=== PATIENT | female | born 1945 | race Caucasian/White ===

== ENCOUNTER 2020-04-19 10:14 | Outpatient (REF) | payer MEDICARE, SELFPAY ==
[2020-04-19 11:42] LABS: Blood Urea Nitrogen 23 mg/dL (9-16); Estimated Glomerular Filt Rate 59
[2020-04-19 11:56] LABS: Free T4 (Free Thyroxine) 1.04 ng/dL (0.71-1.85); Thyroid Stimulating Hormone 1.19 mIU/mL (0.32-4.0)
[2020-04-20 19:06] LABS: Triiodothyronine T3 Free 2.3 pg/mL (2.3-4.2)
== END 2020-04-19 10:15 | disposition home or self-care (01) ==
LOC: HO.HMGCLDS 10:14
PROVIDERS: PCP Internal Medicine; Visit Provider Internal Medicine
DX: R22.1 Localized swelling, mass and lump, neck (principal)
CPT/HCPCS: 82565; 84439; 84443; 84481; 84520

== ENCOUNTER 2020-04-22 09:08 | Outpatient (REF) | payer MEDICARE, SELFPAY ==
--- NOTE | 2020-04-22 09:17 | CT_ITS ---
EXAMINATION: CT SOFT TISSUE NECK WITHOUT CONTRAST CLINICAL INFORMATION: Neck mass. COMPARISON: Cervical spine CT 12/02/2019. TECHNIQUE: Helical imaging was performed in the axial plane with generation of coronal and sagittal reformatted images. This CT examination was performed using dose optimization techniques as appropriate, variously including the following: *Automated exposure control *Adjustment of mA and/or kV according to patient size (this includes techniques or standardized protocols for targeted exams where dose is matched to indication/reason for exam; i.e. extremities or head) *Use of iterative reconstruction technique FINDINGS: Exam is limited by the lack of intravenous contrast. There are thyroidectomy changes. There are multiple similar-appearing large heterogeneous density soft tissue nodules within the left paratracheal region at the level of the visceral space of the infrahyoid neck extending inferiorly into the upper mediastinum that are similar in size and appearance to the 12/02/[address] The largest nodule on image 38 of series 2 continues to measure up to 2.5 cm AP by 2.5 cm TV. In light of the patient's known history of malignancy, these findings can be further assessed with PET/CT and/or soft tissue sampling. There is atherosclerotic calcification involving the carotid bifurcations bilaterally. The parotid glands, the orbital soft tissues, and the submandibular glands are unremarkable. There is leftward deviation of the nasal septum with a leftward directed nasal septal spur and there is a jaja bullosa within the right middle turbinate. Paranasal sinuses and mastoid air cells remain well-aerated. There is multilevel cervical spondylosis. The styloid processes are elongated bilaterally which can be correlated for clinical signs of [place] syndrome. Advanced degenerative changes involving the left TMJ. Imaged upper lungs are clear. IMPRESSION: Exam is limited by the lack of intravenous contrast. There are thyroidectomy changes. The area of palpable abnormality corresponds to multiple similar-appearing large heterogeneous density soft tissue nodules within the left paratracheal region at the level of the visceral space of the infrahyoid neck extending inferiorly into the upper mediastinum that are similar in size and appearance to the 12/02/[address] The largest nodule on image 38 of series 2 continues to measure up to 2.5 cm. In light of the patient's known history of malignancy, these findings can be further assessed with PET/CT and/or soft tissue sampling. There is a 1 cm soft tissue nodule between the brachiocephalic artery and left common carotid artery within the upper mediastinum on image 108 of series 3 that can also be further assessed with PET. The styloid processes are elongated bilaterally which can be correlated for clinical signs of [place] syndrome. Advanced degenerative changes involving the left TMJ.
== END 2020-04-22 09:09 | disposition home or self-care (01) ==
LOC: HO.CT 09:08
PROVIDERS: Visit Provider Internal Medicine
DX: R22.1 Localized swelling, mass and lump, neck (principal)
CPT/HCPCS: 70490

== ENCOUNTER 2020-05-31 11:13 | Outpatient (REF) | payer MEDICARE, SELFPAY ==
--- NOTE | 2020-05-31 | PE_ITS ---
EXAMINATION: NM PET/CT FLUORINE-18 FDG CLINICAL INDICATION: Initial treatment management. Neck mass with history of breast carcinoma. COMPARISON: CT scan of the neck 04/22/2020. TECHNIQUE: 67 minutes following the intravenous administration of 16.2 mCi of fluorine 18 FDG, images from the base of the skull to the mid thighs were obtained using a combined PET/CT scanner with CT scan based attenuation correction. No intravenous contrast was administered. Transverse, coronal, sagittal, and volume reconstruction projections were obtained. The patient's blood glucose as determined by a finger stick, was 112 mg/dL immediately prior to injection. This CT examination was performed using dose optimization techniques as appropriate, variously including the following: *Automated exposure control. *Adjustment of mA and/or kV according to patient size (this includes techniques or standardized protocols for targeted exams where dose is matched to indication/reason for exam; i.e. extremities or head). *Use of iterative reconstruction technique. DLP: 331.20 mGy-cm FINDINGS: NECK AND VISUALIZED HEAD: There is no significant abnormal FDG uptake. The previously described soft tissue nodules in the left lower neck extending into the upper mediastinum, do not demonstrate abnormal FDG uptake. There is some uptake in the paraspinal muscles on the right. The visualized intracranial contents are unremarkable. There are degenerative changes of the left temporomandibular joint. As previously described, there are multiple nodules in the left lower neck. There are no pathologically enlarged lymph nodes or nodules elsewhere. The right lobe of the thyroid gland is not visualized. THORAX: There is no abnormal FDG uptake in the chest. The lungs are well expanded bilaterally. There are atelectatic changes at the bases bilaterally. No mediastinal or hilar soft tissue abnormalities are demonstrated. There are no pleural or pericardial effusions. ABDOMEN AND PELVIS: There is no abnormal FDG activity within the liver, spleen, pancreas, adrenal glands or kidneys. Patient is status post cholecystectomy. There is physiologic activity noted within the large bowel. The liver, gallbladder, spleen, pancreas, adrenal glands and kidneys are unremarkable on this unenhanced scan. There is a small calcification in the anterior upper pelvis just to the left of midline. There is diverticulosis in the sigmoid colon. No mesenteric, retroperitoneal or inguinal lymphadenopathy is demonstrated. MUSCULOSKELETAL: There is moderately intense FDG uptake noted in the right upper cervical spine, at C4-C5, C5-C6 and C6-C7, corresponding to facet arthropathic changes. Facet arthropathic changes with increased FDG uptake are noted on the right at L5-S1. There are sequelae of a right mastectomy. There are surgical clips in the right axilla. VASCULAR: There is extensive atheromatous calcification of the infrarenal abdominal aorta, and there are also atheromatous changes in the thoracic aorta, at the origins of the great vessels of the neck and the coronary arteries. PET/PET CT fusion whole body IMPRESSION: 1. The study redemonstrates soft tissue nodules in the left lower neck and upper mediastinum, which do not demonstrate abnormal FDG uptake. They may be consistent with residual thyroid tissue, and could be further evaluated with thyroid scan. 2. No suspicious FDG uptake is noted elsewhere. There is moderately intense uptake noted in the cervical and lumbar spines. 3. The patient is status post right mastectomy and cholecystectomy.
== END 2020-05-31 11:14 | disposition home or self-care (01) ==
LOC: HO.PET 11:13
PROVIDERS: Visit Provider Internal Medicine
DX: Z13.89 Encounter for screening for other disorder (principal)

== ENCOUNTER → 2020-06-23 14:40 | Outpatient (BNVA) | payer MEDICARE, SELFPAY | PROVIDERS: Visit Provider Internal Medicine Cardiovascular Disease | DX: I25.10 Atherosclerotic heart disease of native coronary artery without angina pectoris (principal); I10 Essential (primary) hypertension; R09.89 Other specified symptoms and signs involving the circulatory and respiratory systems | CPT/HCPCS: 99212 ==

== ENCOUNTER 2020-06-28 13:55 | Outpatient (REF) | payer MEDICARE, SELFPAY ==
--- NOTE | 2020-06-28 14:03 | US_ITS ---
EXAMINATION: US EXTRACRANIAL CAROTID DUPLEX, BILATERAL CLINICAL INFORMATION: 75-year-old female with a history of large left paratracheal soft tissue mass presenting with a carotid bruit. COMPARISON: CT soft tissue of 04/22/2020, PET-CT of 05/31/2020. TECHNIQUE: Real-time ultrasound and Doppler techniques (integrating B-mode 2-D vascular images, Doppler spectral analysis and color-flow Doppler imaging) were utilized to interrogate the extracranial carotid arteries, the vertebral arteries and proximal subclavian arteries bilaterally. The degree of stenosis is determined by criteria similar to NASCET. FINDINGS: Right Side: 1. There is moderate soft atherosclerotic plaque seen in the bifurcation/proximal ICA region. 2. The common carotid artery PSV proximally is 94 cm/s and distally 74 cm/s. 3. The proximal internal carotid artery velocities are 108 cm/s systolic and 22 cm/s diastolic. 4. The proximal external carotid artery PSV is 141 cm/s. 5. The vertebral artery shows a peak systolic velocities of 44 cm/s is normal waveforms. 6. The subclavian artery waveforms are normal with a peak systolic velocity of 150 cm/s.. Left Side: 1. There is minimal soft atherosclerotic plaque seen in the bifurcation/proximal ICA region. 2. The common carotid artery PSV proximally is 93 cm/s and distally 93 cm/s. 3. The proximal internal carotid artery velocities are 78 cm/s systolic and 21 cm/s diastolic. 4. The proximal external carotid artery PSV is 123 cm/s. 5. The vertebral artery shows a peak systolic velocities of 45 cm/s is normal waveforms. f 6. The subclavian artery waveforms are normal with a peak systolic velocity is 100 cm/s.. US/US carotid duplex BI IMPRESSION: 1. RIGHT: 0-49% stenosis of the proximal right internal carotid artery. 2. LEFT: 0-49% stenosis of the proximal left internal carotid artery.
== END 2020-06-28 13:56 | disposition home or self-care (01) ==
LOC: HO.HMGCX 13:55
PROVIDERS: PCP Internal Medicine; Visit Provider Internal Medicine Cardiovascular Disease
DX: R09.89 Other specified symptoms and signs involving the circulatory and respiratory systems (principal)
CPT/HCPCS: 93880

== ENCOUNTER → 2020-08-10 09:22 | Outpatient (REF) | payer MEDICARE, SELFPAY ==
--- NOTE | ~2020-08-10 | NM_ITS ---
EXAMINATION: NM THYROID UPTAKE AND SCAN CLINICAL INFORMATION: Hypothyroidism COMPARISON: CT neck 04/22/2020 TECHNIQUE: Following the oral administration of 286 microcuries of I-123 sodium iodide, thyroid uptake was performed and expressed as a percentage of the administrated dose. Gamma scintillation camera images of the thyroid in the anterior and right and left anterior oblique views were obtained using a pinhole collimator following the administration of 10 mCi Tc-99m pertechnetate. FINDINGS: The uptake is 2.10% at 4 hours and 6.76% at 24 hours. On thyroid imaging, there is diminished activity seen in both thyroid glands which appear normal size and shape. 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 There is no focal cold nodule or mass seen. NM/NM thyroid w uptake IMPRESSION: 1. Diminished thyroid uptake at 24 hours measuring 6.76 %. The normal range is 10% to 30%. Diminished thyroid activity at 4 hours measuring 2.10%. Normal range is 6-10% base. Findings consistent with hypothyroidism. 2. Diffuse decreased activity seen throughout the thyroid gland with moderate activity in the left substernal region consistent with a known goiter corresponding to CT findings 04/22/2020.
== END ==
LOC: HO.NUCMED 09:22
PROVIDERS: Visit Provider Internal Medicine
DX: R22.1 Localized swelling, mass and lump, neck (principal); E03.9 Hypothyroidism, unspecified
CPT/HCPCS: 78014; A9512; A9516

== ENCOUNTER → 2020-08-16 14:12 | Outpatient (BNVA) | payer MEDICARE, SELFPAY | PROVIDERS: PCP Internal Medicine; Visit Provider Surgery | DX: Z12.39 Encounter for other screening for malignant neoplasm of breast (principal); C50.911 Malignant neoplasm of unspecified site of right female breast | CPT/HCPCS: 99212 ==

== ENCOUNTER 2020-09-27 10:48 | Outpatient (REF) | payer MEDICARE, SELFPAY ==
--- NOTE | ~2020-09-27 | MM_ITS ---
EXAMINATION: MM SCREENING DIGITAL BREAST TOMOSYNTHESIS, LEFT CLINICAL INFORMATION: Right mastectomy for breast cancer 2007. Due for yearly exam. COMPARISON: Mammography: 09/22/2019, 09/16/2018, 07/23/2017, 07/20/2016 TECHNIQUE: Digital breast tomosynthesis is performed in both the craniocaudal and mediolateral oblique views along with computer-aided detection (CAD). Synthesized 2D images are generated from the tomosynthesis. FINDINGS: There are scattered areas of fibroglandular density (ACR BI-RADS breast composition Category b). There are no significant masses, abnormal calcifications, or other abnormalities. Parenchymal pattern is similar to prior studies. No developing density. Skin contours are smooth. MM/MM tomosynthesis screening LT IMPRESSION: No mammographic evidence of malignancy. ASSESSMENT: BI-RADS 1: Negative RECOMMENDATION: Routine annual mammography screening. This patient's information was entered into a reminder system with a target due date for their next mammogram.
[2020-09-27 11:43] LABS: Urine Cytology See Pathology rpt
[2020-09-27 11:54] LABS: Glucose Urine UA NEG (NEG); Leukocyte Esterase Urine NEG (NEG); Nitrite Urine NEG (NEG); Specific Gravity - Urine 1.015 (1.005-1.025); Urine Blood 1+ (NEG); Urine Ketones NEG (NEG); Urine Protein NEG (NEG-TRACE)
[2020-09-27 11:58] LABS: Appearance Urine CLEAR; Color Urine YELLOW
[2020-09-27 12:34] LABS: Renal Epithelial Cells Urine TRACE /LPF; Squamous Epithelial Cell Urine 1+ /LPF
== END 2020-09-27 10:49 | disposition home or self-care (01) ==
LOC: HO.MAMMO 10:48
PROVIDERS: PCP Internal Medicine; Visit Provider Internal Medicine
DX: Z12.31 Encounter for screening mammogram for malignant neoplasm of breast (principal)
CPT/HCPCS: 77063; 77067; 81001; 87086

== ENCOUNTER → 2020-10-20 13:44 | Outpatient (BNVA) | payer MEDICARE, SELFPAY | PROVIDERS: PCP Internal Medicine; Visit Provider Internal Medicine Cardiovascular Disease | DX: I10 Essential (primary) hypertension (principal); R09.89 Other specified symptoms and signs involving the circulatory and respiratory systems; I25.10 Atherosclerotic heart disease of native coronary artery without angina pectoris; Z79.899 Other long term (current) drug therapy | CPT/HCPCS: 99212 ==

== ENCOUNTER 2020-11-29 08:23 | Outpatient (REF) | payer MEDICARE, SELFPAY ==
[2020-11-29 09:09] LABS: Blood Urea Nitrogen 21 mg/dL (9-16); Estimated Glomerular Filt Rate 54
== END 2020-11-29 08:24 | disposition home or self-care (01) ==
LOC: HO.MRI 08:23
PROVIDERS: Surgery; Visit Provider Surgery
DX: Z91.89 Other specified personal risk factors, not elsewhere classified (principal); Z90.11 Acquired absence of right breast and nipple; Z85.3 Personal history of malignant neoplasm of breast
CPT/HCPCS: 36415; 82565; 84520

== ENCOUNTER 2020-12-14 10:51 | Outpatient (REF) | payer MEDICARE, SELFPAY ==
--- NOTE | ~2020-12-14 | MR_ITS ---
EXAMINATION: MR BREAST WITHOUT AND WITH CONTRAST, BILATERAL CLINICAL INFORMATION: High-risk screening. Right mastectomy for breast cancer. COMPARISON: Mammography from 09/27/2020. PET imaging from 06/01/2020. Remote 2007 breast MRI. TECHNIQUE: Imaging was performed with a dedicated breast coil. Prior to the administration of contrast, bilateral axial T1 and bilateral axial T2 weighted sequences were obtained. After the uneventful administration of?6 mL of Gadavist, dynamic contrast-enhanced VIBRANT series through the breasts in the axial plane were performed. Subtracted images were performed and reviewed. A delayed sagittal sequence through both breasts was acquired. Additionally, CAD post-processing, including maximum intensity projections, 3-D reconstructions and kinetic analysis, were performed an independent workstation and reviewed by the interpreting radiologist is a portion of this exam. FINDINGS: The right breast is surgically absent. The left breast is comprised of scattered fibroglandular elements. The tissue undergoes mild enhancement. LEFT BREAST: No suspicious mass or dominant non-mass enhancement. Scattered foci of non-mass enhancement. Minor inferomedial retraction of the nipple is chronic and stable. No underlying abnormal enhancement. RIGHT BREAST: The right breast is surgically absent. No chest wall mass or abnormal chest wall non-mass enhancement. There is no suspicious internal mammary chain or axillary adenopathy. Limited views of the chest and abdomen are unremarkable. MR/MR breast BI wo/w con IMPRESSION: No MR specific evidence of malignancy. ASSESSMENT: Left Breast: BI-RADS 1-Negative Right Breast: BI-RADS 1-Negative RECOMMENDATIONS: Recommend routine screening per guidelines in high-risk patients.
== END 2020-12-14 10:52 | disposition home or self-care (01) ==
LOC: HO.MRI 10:51
PROVIDERS: Visit Provider Surgery
DX: Z12.39 Encounter for other screening for malignant neoplasm of breast (principal); Z85.3 Personal history of malignant neoplasm of breast; Z90.11 Acquired absence of right breast and nipple
CPT/HCPCS: 77049; A9585

== ENCOUNTER → 2021-02-15 13:47 | Outpatient (BNVA) | payer MEDICARE, SELFPAY | PROVIDERS: PCP Internal Medicine; Visit Provider Nurse Practitioner Family | DX: I25.10 Atherosclerotic heart disease of native coronary artery without angina pectoris (principal); I10 Essential (primary) hypertension; R09.89 Other specified symptoms and signs involving the circulatory and respiratory systems; Z98.890 Other specified postprocedural states | CPT/HCPCS: 99212 ==

== ENCOUNTER 2021-04-18 08:25 | Outpatient (REF) | payer MEDICARE, SELFPAY ==
[2021-04-18 12:04] LABS: MANUAL DIFF FLAG NO
[2021-04-18 12:08] LABS: Basophils Percent Auto 0.6 % (0-2); Eosinophils Absolute Auto 0.2 X10*3/uL (0.0-0.4); Eosinophils Percent Auto 3.3 % (0-4); Hematocrit 41.7 % (37-47); Hemoglobin 13.6 g/dl (12.0-16.0); Imm Gran Abs Auto 0.01 X10*3/uL (0.00-0.03); Imm Gran Pct Auto 0.2 % (0.0-0.4); Lymphocytes Absolute Auto 2.3 X10*3/uL (1.2-4.9); Lymphocytes Percent Auto 36.1 % (20-40); Mean Corpuscular HGB Conc 32.6 g/dl (31.0-35.0); Mean Corpuscular Hemoglobin 29.8 pg (27.0-33.0); Mean Corpuscular Volume 91.4 fL (80-98); Mean Platelet Volume 10.8 fL (9.4-12.3); Monocytes Absolute Auto 0.5 X10*3/uL (0.1-1.2); Monocytes Percent Auto 8.4 % (2-11); Neutrophils Absolute Auto 3.3 X10*3/uL (2.0-8.3); Neutrophils Percent Auto 51.4 % (45-73); Platelet Count 229 X10*3/uL (160-400); Red Blood Count 4.56 X10*6/uL (4.20-5.50); Red Cell Distribution Width 13.8 % (11.0-16.0); White Blood Count 6.3 X10*3/uL (4.8-10.8)
[2021-04-18 12:20] LABS: Alanine Aminotransferase 14 U/L (0-31); Albumin Level 4.2 g/dL (3.5-5.0); Alkaline Phosphatase 72 U/L (39-117); Anion Gap 13 (12-20); Aspartate Amino Transferase 19 U/L (5-31); Bilirubin Total 0.6 mg/dL (0.0-1.0); Blood Urea Nitrogen 19 mg/dL (9-16); Calcium 9.2 mg/dL (8.4-10.2); Carbon Dioxide 23 mmol/L (22-29); Chloride 109 mmol/L (96-108); Cholesterol 130 mg/dL; Estimated Glomerular Filt Rate 55; Glucose Random 107 mg/dL (60-115); HDL Cholesterol 51 mg/dL; LDL Cholesterol Calculated 53 mg/dl; Potassium 4.2 mmol/L (3.3-5.1); Sodium 141 mmol/L (135-145); Total Protein 6.7 g/dL (6.5-8.0); Triglycerides 131 mg/dL
[2021-04-18 12:40] LABS: Thyroid Stimulating Hormone 2.23 uIU/mL (0.32-4.0)
== END 2021-04-18 08:26 | disposition home or self-care (01) ==
LOC: HO.HMGCLDS 08:25
PROVIDERS: PCP Internal Medicine; Visit Provider Internal Medicine
DX: F41.9 Anxiety disorder, unspecified (principal); I25.10 Atherosclerotic heart disease of native coronary artery without angina pectoris; E78.00 Pure hypercholesterolemia, unspecified; E03.9 Hypothyroidism, unspecified; K21.9 Gastro-esophageal reflux disease without esophagitis; K58.9 Irritable bowel syndrome, unspecified
CPT/HCPCS: 36415; 80053; 80061; 84443; 85025

== ENCOUNTER 2021-08-08 11:11 | Outpatient (REF) | payer MEDICARE, SELFPAY ==
[2021-08-08 12:25] LABS: Blood Urea Nitrogen 22 mg/dL (9-16); Estimated Glomerular Filt Rate 57
== END 2021-08-08 11:12 | disposition home or self-care (01) ==
LOC: HO.LAB 11:11
PROVIDERS: PCP Internal Medicine; Visit Provider Ophthalmology Glaucoma Specialist
DX: H47.292 Other optic atrophy, left eye (principal)
CPT/HCPCS: 36415; 82565; 84520

== ENCOUNTER → 2021-08-15 14:49 | Outpatient (BNVA) | payer MEDICARE, SELFPAY | PROVIDERS: PCP Internal Medicine; Visit Provider Surgery | DX: Z85.3 Personal history of malignant neoplasm of breast (principal); Z90.11 Acquired absence of right breast and nipple | CPT/HCPCS: 99212 ==

== ENCOUNTER → 2021-08-21 13:51 | Outpatient (BNVA) | payer MEDICARE, SELFPAY | PROVIDERS: PCP Internal Medicine; Visit Provider Internal Medicine Cardiovascular Disease | DX: I10 Essential (primary) hypertension (principal) | CPT/HCPCS: 93005; 99212 ==

== ENCOUNTER 2021-08-24 14:29 | Outpatient (REF) | payer MEDICARE, OTHER, SELFPAY ==
--- NOTE | ~2021-08-24 | MR_ITS ---
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 COMPARISON: CT neck from 04/22/2020. Brain MRI from 12/02/2019. TECHNIQUE: MRI of the brain was obtained using routine sequences without and following the administration of 6 mL of Gadavist intravenous contrast. FINDINGS: No focal restricted diffusion is demonstrated to suggest acute or subacute cerebral ischemia. No evidence of acute or chronic hemorrhagic products on heme-sensitive imaging. Scattered periventricular, deep white matter, and brainstem T2 FLAIR hyperintensities consistent with mild to moderate underlying microangiopathy. Chronic small lacunar infarct versus prominent perivascular space within the right midbrain. Proportional prominence of the ventricles and sulcal spaces without evidence of obstructive hydrocephalus. No abnormal mass effect. No midline shift. Normal appearance of the pituitary gland. Normal positioning of the cerebellar tonsils. Normal arterial and venous vascular flow voids are present. No abnormal contrast enhancement. Normal, homogeneous marrow signal. Moderate degenerative spondyloarthropathy of the visualized upper cervical spine. Mild mucosal thickening of the paranasal sinuses. No signal abnormalities within the mastoids. No demonstrated abnormalities of the orbits on limited evaluation. MR/MR head/brain wo/w con IMPRESSION: 1. No acute intracranial abnormalities. No abnormal intracranial enhancement. 2. Mild to moderate underlying microangiopathy and generalized cerebral volume loss.
== END 2021-08-24 14:30 | disposition home or self-care (01) ==
LOC: HO.MRI 14:29
PROVIDERS: Visit Provider Ophthalmology Glaucoma Specialist
DX: H47.292 Other optic atrophy, left eye (principal)
CPT/HCPCS: 70553; A9585

== ENCOUNTER 2021-10-02 13:47 | Outpatient (REF) | payer MEDICARE, OTHER, SELFPAY ==
--- NOTE | ~2021-10-02 | MM_ITS ---
EXAMINATION: MM SCREENING DIGITAL BREAST TOMOSYNTHESIS, LEFT CLINICAL INFORMATION: Right mastectomy for breast cancer, 2007. Due for yearly. COMPARISON: Mammography: 09/27/2020, 09/22/2019, 09/16/2018; MR breasts 12/14/2020 TECHNIQUE: Digital breast tomosynthesis is performed in both the craniocaudal and mediolateral oblique views along with computer-aided detection (CAD). Synthesized 2D images are generated from the tomosynthesis. FINDINGS: There are scattered areas of fibroglandular density (ACR BI-RADS breast composition Category b). There are no significant masses, abnormal calcifications, or other abnormalities. Parenchymal pattern is similar to prior studies. There is no developing density or architectural abnormality. The axilla and skin contours are unremarkable. No significant changes. MM/MM tomosynthesis screening LT IMPRESSION: No mammographic evidence of malignancy. ASSESSMENT: BI-RADS 1: Negative RECOMMENDATION: Routine annual mammography screening. This patient's information was entered into a reminder system with a target due date for their next mammogram.
== END 2021-10-02 13:48 | disposition home or self-care (01) ==
LOC: HO.MAMMO 13:47
PROVIDERS: Visit Provider Surgery
DX: Z12.31 Encounter for screening mammogram for malignant neoplasm of breast (principal)
CPT/HCPCS: 77063; 77067

== ENCOUNTER → 2022-05-03 13:24 | Outpatient (BNVA) | payer MEDICARE, OTHER, SELFPAY | PROVIDERS: PCP Internal Medicine; Referring Provider Internal Medicine; Visit Provider Nurse Practitioner Family | DX: I25.10 Atherosclerotic heart disease of native coronary artery without angina pectoris (principal); I10 Essential (primary) hypertension; R09.89 Other specified symptoms and signs involving the circulatory and respiratory systems; Z98.890 Other specified postprocedural states | CPT/HCPCS: 99212 ==

== ENCOUNTER 2022-06-19 08:21 | Outpatient (REF) | payer MEDICARE, SELFPAY ==
[2022-06-19 11:33] LABS: Appearance Urine Clear; Color Urine Yellow; Glucose Urine UA Negative (Negative); Leukocyte Esterase Urine Trace (Negative); Nitrite Urine Negative (Negative); PH 5.5 (5.0-9.0); Specific Gravity - Urine 1.015 (1.005-1.025); UMIC TRIGGER UA YES; Urine Blood Small (1+) (Negative); Urine Ketones Negative (Negative); Urine Protein Negative (Neg-Trace)
[2022-06-19 11:43] LABS: Bacteria Urine None Seen (None Seen); Hyaline Casts Urine 0-2 /LPF (0-2); RBC Urine 0-2 /HPF (0-2); WBC Urine 0-5 /HPF (0-5)
[2022-06-19 11:47] LABS: MANUAL DIFF FLAG NO
[2022-06-19 12:19] LABS: Basophils Absolute Auto 0.1 X10*3/uL (0.0-0.2); Eosinophils Absolute Auto 0.2 X10*3/uL (0.0-0.4); Eosinophils Percent Auto 2.1 % (0-4); Hematocrit 44.4 % (37.0-47.0); Hemoglobin 14.4 g/dl (12.0-16.0); Imm Gran Abs Auto 0.02 X10*3/uL (0.00-0.03); Imm Gran Pct Auto 0.3 % (0.0-0.4); Lymphocytes Absolute Auto 2.1 X10*3/uL (1.2-4.9); Lymphocytes Percent Auto 29.4 % (20-40); Mean Corpuscular HGB Conc 32.4 g/dl (31.0-35.0); Mean Corpuscular Hemoglobin 29.9 pg (27.0-33.0); Mean Corpuscular Volume 92.3 fL (80.0-98.0); Mean Platelet Volume 10.8 fL (9.4-12.3); Monocytes Absolute Auto 0.7 X10*3/uL (0.1-1.2); Monocytes Percent Auto 9.9 % (2-11); Neutrophils Absolute Auto 4.1 x10*3/uL (2.0-8.3); Neutrophils Percent Auto 57.3 % (45-73); Platelet Count 229 X10*3/uL (160-400); Red Blood Count 4.81 X10*6/uL (4.20-5.50); Red Cell Distribution Width 13.7 % (11.0-16.0); White Blood Count 7.2 X10*3/uL (4.8-10.8)
[2022-06-19 12:45] LABS: Alanine Aminotransferase 16 U/L (0-31); Albumin Level 4.3 g/dL (3.5-5.0); Alkaline Phosphatase 71 U/L (39-117); Anion Gap 15 (12-20); Aspartate Amino Transferase 21 U/L (5-31); Bilirubin Total 0.8 mg/dL (0.0-1.0); Blood Urea Nitrogen 25 mg/dL (9-16); Calcium 9.8 mg/dL (8.4-10.2); Carbon Dioxide 24 mmol/L (22-29); Chloride 107 mmol/L (96-108); Cholesterol 138 mg/dL; Estimated Glomerular Filt Rate 59; Glucose Fasting 105 mg/dL (60-99); HDL Cholesterol 53 mg/dL; LDL Cholesterol Calculated 55 mg/dl; Potassium 4.3 mmol/L (3.3-5.1); Sodium 142 mmol/L (135-145); Thyroid Stimulating Hormone 1.75 uIU/mL (0.32-4.0); Total Protein 6.8 g/dL (6.5-8.0); Triglycerides 152 mg/dL; Vitamin D 25-OH Total 35.4 ng/mL (>30)
== END 2022-06-19 08:22 | disposition home or self-care (01) ==
LOC: HO.HMGCLDS 08:21
PROVIDERS: PCP Internal Medicine; Visit Provider Internal Medicine
DX: I10 Essential (primary) hypertension (principal); E78.00 Pure hypercholesterolemia, unspecified; I25.10 Atherosclerotic heart disease of native coronary artery without angina pectoris; E03.9 Hypothyroidism, unspecified; K21.9 Gastro-esophageal reflux disease without esophagitis; K58.9 Irritable bowel syndrome, unspecified; F41.9 Anxiety disorder, unspecified
CPT/HCPCS: 36415; 80053; 80061; 81001; 82306; 84443; 85025

== ENCOUNTER → 2022-08-16 09:31 | Outpatient (BNVA) | payer MEDICARE, SELFPAY | PROVIDERS: PCP Internal Medicine; Visit Provider Surgery | DX: Z12.39 Encounter for other screening for malignant neoplasm of breast (principal); C50.911 Malignant neoplasm of unspecified site of right female breast | CPT/HCPCS: 99212 ==

== ENCOUNTER 2022-09-28 11:03 | Inpatient (IN) | payer MEDICARE, OTHER, SELFPAY ==
--- NOTE | ~2022-09-28 | CT_ITS ---
EXAMINATION: CT ABDOMEN AND PELVIS WITH CONTRAST CLINICAL INFORMATION: Left lower quadrant pain. COMPARISON: Prior CT dated 04/20/2010. TECHNIQUE: Multidetector volumetric images were obtained from the superior aspect of the liver through the pubic symphysis following administration 85 mL of Omnipaque 350 intravenous contrast. Sagittal and coronal reformatted images were obtained on the technologist's workstation. Oral contrast: None This CT examination was performed using dose optimization techniques as appropriate, variously including the following: *Automated exposure control *Adjustment of mA and/or kV according to patient size (this includes techniques or standardized protocols for targeted exams where dose is matched to indication/reason for exam; i.e. extremities or head) *Use of iterative reconstruction technique DLP: 460 mGy-cm FINDINGS: LUNG BASES: Minimal dependent atelectasis. Calcific atherosclerosis in the coronary arteries. Status post right mastectomy. LIVER, GALLBLADDER, AND BILIARY TREE: The liver is normal in size, shape, and attenuation. No focal hepatic lesion or biliary ductal dilatation is present. The gallbladder is surgically absent. PANCREAS: Unremarkable. SPLEEN: Unremarkable. ADRENAL GLANDS: Unremarkable. KIDNEYS AND URETERS: The kidneys are normal in size and attenuation. Multiple foci of renal cortical scarring are evident at the right kidney. No hydronephrosis, hydroureter, or calculi seen. No perinephric stranding. BLADDER: Unremarkable. GASTROINTESTINAL TRACT: Marked colonic wall thickening is evident from the level of the splenic flexure through the descending and sigmoid colon to the rectum. Surrounding fat stranding is most pronounced in the descending colon. No intraperitoneal free air or significant free fluid. Stomach, small bowel, and colon are normal in caliber. The small bowel is normal in course and caliber without wall thickening. No findings of acute appendicitis, though the appendix is not well seen. ABDOMINAL WALL: Small fat-containing umbilical hernia. No bowel involvement. LYMPH NODES: Normal. VASCULAR: Calcific atherosclerosis is present in the abdominal aorta and iliac arteries. No aneurysmal dilatation. PELVIC VISCERA: Unremarkable. OSSEOUS STRUCTURES: Mild multilevel degenerative disc disease in the lumbar spine. Mild osteoarthritis in the hips and SI joints. No acute osseous findings. CT/CT abdomen pelvis w IV con IMPRESSION: Acute on chronic colitis extending from the splenic flexure through the rectum, most pronounced in the descending colon. This is most likely inflammatory in nature. Query history of Crohn's disease or ulcerative colitis. Infectious or ischemic colitis are less likely. Fleischner guidelines were followed.
--- NOTE | 2022-09-28 11:11 | ED.GIBLEED ---
HPI - GI Bleed General Chief complaint: GI Bleed <ANGELLA Deng - Last Filed: 09/28/22 11:16> Stated complaint: internal bleeding <ANGELLA Deng Last Filed: 09/28/22 11:16> Time Seen by Provider: 09/28/22 11:21 <ANGELLA Deng - Last Filed: 09/28/22 11:16> Source: patient <ANGELLA Patricia Last Filed: 09/28/22 15:21> Mode of arrival: ambulatory <ANGELLA Patricia Last Filed: 09/28/22 15:21> Limitations: no limitations <ANGELLA Patricia Last Filed: 09/28/22 15:21> History of Present Illness HPI Narrative: 77 yo female with history of HTN, CAD s/p cath, history of GI bleed in 2009 due to colitis who presents to the ER for evaluation of new onset of bloody diarrhea and LLQ pain that started last night. She states the has had 4 episodes of bloody stools, since last night. She cannot tell if the stool is bloody itself or if the blood is just in the toilet bowel. She has some rectal discomfort as well. No history of hemorrhoids. No recent constipation. No nausea or vomiting, no fevers but has had some chills. She reports feeling weak, lightheaded and SOB since the bleeding started. She states the left sided abdominal pain radiates through the entire left side, 6/10 in severity. <ANGELLA Patricia Last Filed: 09/28/22 15:21> MD complaint: blood streaked stool <ANGELLA Patricia Last Filed: 09/28/22 15:21> Onset (ago): day(s) (1) <ANGELLA Patricia Last Filed: 09/28/22 15:21> Pain Consistency: intermittent <ANGELLA Patricia Last Filed: 09/28/22 15:21> Severity: moderate <ANGELLA Patricia Last Filed: 09/28/22 15:21> Relieving factors: none <ANGELLA Patricia Last Filed: 09/28/22 15:21> Exacerbating factors: bowel movement <ANGELLA Patricia - Last Filed: 09/28/22 15:21> Context: history of GI bleed <ANGELLA Patricia - Last Filed: 09/28/22 15:21> Associated symptoms: abdominal pain, chills, shortness of breath and weakness <ANGELLA Patricia - Last Filed: 09/28/22 15:21> Treatments Prior to Arrival: none <ANGELLA Patricia - Last Filed: 09/28/22 15:21> Related Data Home medications: Home Medications Medication Instructions Recorded Confirmed levothyroxine 50 mcg tablet 50 mcg PO DAILY 06/23/20 09/28/22 losartan 100 mg tablet 100 mg PO DAILY 06/23/20 09/28/22 pantoprazole 40 mg tablet,delayed 40 mg PO DAILY 06/23/20 09/28/22 release propranolol 10 mg tablet 10 mg PO BID 10/20/20 09/28/22 simvastatin 40 mg tablet 40 mg PO BEDTIME 02/15/21 09/28/22 lorazepam 0.5 mg tablet 0.5 mg PO DAILY PRN Anxiety 08/16/22 09/28/22 Previous Rx's Medication Instructions Recorded prosthetics #3 inserts 12/19/20 <ANGELLA Deng - Last Filed: 09/28/22 11:16> Allergies/Adverse reactions: Allergies Allergy/AdvReac Type Severity Reaction Status Date / Time meperidine [From Demerol] AdvReac Mild NAUSEA/VOMI Verified 08/16/22 09:45 TING <ANGELLA Deng - Last Filed: 09/28/22 11:16> Review of Systems Review of Systems: Yes all other systems are reviewed and are negative <ANGELLA Patricia - Last Filed: 09/28/22 15:21> [facility] Past Medical History Medical History: Medical History CAD (coronary artery disease) Carotid bruit Hypertension Lobular carcinoma of right breast <ANGELLA Deng Last Filed: 09/28/22 11:16> Surgical History: Surgical History History of cardiac cath History of laparoscopic cholecystectomy History of right breast biopsy History of right mastectomy Hx of BSO (bilateral salpingo-oophorectomy) S/P NIKO (total abdominal hysterectomy) <ANGELLA Deng - Last Filed: 09/28/22 11:16> Family History Family History: Family History Father Colon cancer Cancer Mother Diabetes Child No Financial Resp Cancer Sister Heart attack Son Non Hodgkin's lymphoma <ANGELLA Deng - Last Filed: 09/28/22 11:16> Social History Social History: Social History Alcohol intake: never Patient Tobacco Use Status: Never used Tobacco Smoked in Last 30 Days: No Use of substances other than those prescribed or required for medical reasons: No Any prior treatment program specific to substance use: No Advance Directives: No Advance Directives Information Provided: Yes <ANGELLA Deng - Last Filed: 09/28/22 11:16> Physical Exam Vital Signs: Vital Signs: Last Vital Signs Pulse 62 09/28/22 14:06 Resp 16 09/28/22 14:06 BP 152/67 H 09/28/22 14:06 Pulse Ox 100 09/28/22 14:06 O2 Del Method Room Air 09/28/22 14:06 BMI result Body Mass Index 26.6 <ANGELLA Deng - Last Filed: 09/28/22 11:16> Vital Signs: Last Vital Signs Pulse 62 09/28/22 14:06 Resp 16 09/28/22 14:06 BP 152/67 H 09/28/22 14:06 Pulse Ox 100 09/28/22 14:06 O2 Del Method Room Air 09/28/22 14:06 BMI result Body Mass Index 26.6 <ANGELLA Patricia - Last Filed: 09/28/22 15:21> Appearance: Alert. Oriented X3. No acute distress. Pale Eyes: Pupils equal, round and reactive to light. Conjunctival pallor ENT: Pharynx normal. Moist mucus membranes Neck: Normal inspection. Neck supple. CVS: Normal heart rate and rhythm. Pulses normal. Respiratory: No respiratory distress. Breath sounds normal. Abdomen: Soft with left sided tenderness of the periumbilical regoin and left lower quadrant, +guarding but no rebound. +BS x4 DWAIN: erythematous rectal mucosa, no palpable hemorrhoids, maroon heme + stool Skin: Skin warm and dry. Normal skin color. Normal skin turgor. No rashes. Extremities: No lower extremity edema. Neuro: Oriented X 3. No motor deficit. No sensory deficit. <ANGELLA Patricia - Last Filed: 09/28/22 15:21> Course Course Course Narrative: RME--77yo F w/PMHx CAD on ASA, HTN, c/o brbpr since yesterday with assoc LLQ abd pain and lightheadedness. Denies syncope, CP/SOB Pale, +conjunctival pallor, Abd soft with LLQ ttp EKG, Labs, UA, Occult stool, Type & Screen, COVID ordered <ANGELLA Deng - Last Filed: 09/28/22 11:16> Reevaluation(s) Reevaluation #1: H/H stable. hemodyncamically stable <ANGELLA Patricia - Last Filed: 09/28/22 15:21> Medications Administered Discontinued Medications Generic Name Dose Route Start Last Admin Trade Name Freq PRN Reason Stop Dose Admin Levofloxacin 500 mg in 100 mls @ 100 mls/hr 09/28/22 14:15 09/28/22 15:06 Levaquin IV 09/28/22 15:14 100 mls/hr ONCE ONE Administration Iohexol 85 ml 09/28/22 12:44 09/28/22 12:45 Iohexol 350 Mg/Ml 75 Ml Infus..Btl IV 09/28/22 12:45 85 ml ONCE ONE Administration <ANGELLA Deng - Last Filed: 09/28/22 11:16> Medications Administered Discontinued Medications Generic Name Dose Route Start Last Admin Trade Name Freq PRN Reason Stop Dose Admin Levofloxacin 500 mg in 100 mls @ 100 mls/hr 09/28/22 14:15 09/28/22 15:06 Levaquin IV 09/28/22 15:14 100 mls/hr ONCE ONE Administration Iohexol 85 ml 09/28/22 12:44 09/28/22 12:45 Iohexol 350 Mg/Ml 75 Ml Infus..Btl IV 09/28/22 12:45 85 ml ONCE ONE Administration <ANGELLA Patricia - Last Filed: 09/28/22 15:21> Medical Decision Making Medical Decision Making MDM Narrative: 77-year-old female with history of CAD on baby aspirin, HTN, history of colitis requiring admission back in 2009 presents to the ER for evaluation of left-sided abdominal pain and bloody diarrhea that started yesterday. She is weak since the initiation of the bleeding. Last bowel movement was earlier this morning. She arrives to the ER hypertensive and bradycardic. She is on a beta-yury. She is not actively bleeding at this time. Lab workup showed no evidence of acute blood loss anemia. Normal coags and platelets. Reviewed patient's record. She was admitted here back in 2009 for GI bleeding and left lower quadrant pain. She was seen by GI and had a colonoscopy at that time. It showed a 20 cm area of the colon with resolving ischemic colitis. Biopsy showed acute mild colitis. CT scan today showing acute on chronic colitis from the splenic flexure down through the rectum. Spoke with Dr. Bowman from GI who is recommending admission, IV antibiotics. Patient updated on plan of care and agrees with plan for admission <ANGELLA Patricia - Last Filed: 09/28/22 15:21> Differential Diagnosis Differential Diagnoses: The differential diagnosis associated with the presentation includes <ANGELLA Patricia - Last Filed: 09/28/22 15:21> Diverticulitis, diverticulosis, inflammatory colitis, infectious colitis, ischemic colitis, internal or external hemorrhoids, gastroenteritis <ANGELLA Patricia - Last Filed: 09/28/22 15:21> Admission/Observation Consideration of admission/observation: Escalation of care including admission/observation considered <ANGELLA Patricia Last Filed: 09/28/22 15:21> Consult Healthcare Provider Management of the patient was discussed with: Central Supply Tech <ANGELLA Patricia - Last Filed: 09/28/22 15:21> Dr. Bowman from GI <ANGELLA Patricia - Last Filed: 09/28/22 15:21> Lab Data MDM Lab Attestation statement: I reviewed the patient's lab results. <ANGELLA Patricia Last Filed: 09/28/22 15:21> Mild leukocytosis, H&H is stable from prior lab work done. <ANGELLA Patricia - Last Filed: 09/28/22 15:21> Result Diagrams: 09/28/22 11:42 09/28/22 11:42 <ANGELLA Deng - Last Filed: 09/28/22 11:16> Labs: Lab Results 09/28/22 09/28/22 09/28/22 Range/Units 11:42 11:42 11:42 WBC 11.1 H (4.8-10.8) X10*3/uL RBC 4.97 (4.20-5.50) X10*6/uL Hgb 14.8 (12.0-16.0) g/dl Hct 44.7 (37.0-47.0) % MCV 89.9 (80.0-98.0) fL MCH 29.8 (27.0-33.0) pg MCHC 33.1 (31.0-35.0) g/dl RDW 13.5 (11.0-16.0) % Plt Count 205 (160-400) X10*3/uL MPV 9.7 (9.4-12.3) fL Immature Gran % (Auto) 0.3 (0.0-0.4) % Neut % (Auto) 78.1 H (45-73) % Lymph % (Auto) 13.5 L (20-40) % Vance % (Auto) 6.9 (2-11) % Eos % (Auto) 0.8 (0-4) % Baso % (Auto) 0.4 (0-2) % Lymph # (Auto) 1.5 (1.2-4.9) X10*3/uL Vance # (Auto) 0.8 (0.1-1.2) X10*3/uL Eos # (Auto) 0.1 (0.0-0.4) X10*3/uL Baso # (Auto) 0.0 (0.0-0.2) X10*3/uL Abs Immat Gran (auto) 0.03 (0.00-0.03) X10*3/uL Absolute Neuts (auto) 8.7 H (2.0-8.3) x10*3/uL Absolute Nucleated RBC 0.000 (0.0-0.012) X10*3/uL Nucleated RBC % (auto) 0.0 (0.0-0.2) /100WBC PT 10.8 (10.0-13.1) SEC INR 0.9 (0.9-1.1) APTT 27.4 (26.0-36.4) SEC Sodium 142 (135-145) mmol/L Potassium 3.7 (3.3-5.1) mmol/L Chloride 108 (96-108) mmol/L Carbon Dioxide 23 (22-29) mmol/L Anion Gap 15 (12-20) BUN 17 H (9-16) mg/dL Creatinine 1.08 (0.5-1.4) mg/dL Estim Creat Clear Calc 34.9 Estimated GFR 49 Random Glucose 106 (60-115) mg/dL Calcium 9.0 D (8.4-10.2) mg/dL Magnesium 2.1 (1.6-2.6) mg/dL Total Bilirubin 0.9 (0.0-1.0) mg/dL Direct Bilirubin 0.2 (0.0-0.5) mg/dL AST 19 (5-31) U/L ALT 17 (0-31) U/L Alkaline Phosphatase 85 (39-117) U/L Total Protein 6.3 L (6.5-8.0) g/dL Albumin 3.9 (3.5-5.0) g/dL Lipase 24 (8-78) U/L COVID-19 ([facility]) (Negative) COVID-19 Clin [facility] Blood Type Antibody Screen 09/28/22 09/28/22 Range/Units 11:42 11:44 WBC (4.8-10.8) X10*3/uL RBC (4.20-5.50) X10*6/uL Hgb (12.0-16.0) g/dl Hct (37.0-47.0) % MCV (80.0-98.0) fL MCH (27.0-33.0) pg MCHC (31.0-35.0) g/dl RDW (11.0-16.0) % Plt Count (160-400) X10*3/uL MPV (9.4-12.3) fL Immature Gran % (Auto) (0.0-0.4) % Neut % (Auto) (45-73) % Lymph % (Auto) (20-40) % Vance % (Auto) (2-11) % Eos % (Auto) (0-4) % Baso % (Auto) (0-2) % Lymph # (Auto) (1.2-4.9) X10*3/uL Vance # (Auto) (0.1-1.2) X10*3/uL Eos # (Auto) (0.0-0.4) X10*3/uL Baso # (Auto) (0.0-0.2) X10*3/uL Abs Immat Gran (auto) (0.00-0.03) X10*3/uL Absolute Neuts (auto) (2.0-8.3) x10*3/uL Absolute Nucleated RBC (0.0-0.012) X10*3/uL Nucleated RBC % (auto) (0.0-0.2) /100WBC PT (10.0-13.1) SEC INR (0.9-1.1) APTT (26.0-36.4) SEC Sodium (135-145) mmol/L Potassium (3.3-5.1) mmol/L Chloride (96-108) mmol/L Carbon Dioxide (22-29) mmol/L Anion Gap (12-20) BUN (9-16) mg/dL Creatinine (0.5-1.4) mg/dL Estim Creat Clear Calc Estimated GFR Random Glucose (60-115) mg/dL Calcium (8.4-10.2) mg/dL Magnesium (1.6-2.6) mg/dL Total Bilirubin (0.0-1.0) mg/dL Direct Bilirubin (0.0-0.5) mg/dL AST (5-31) U/L ALT (0-31) U/L Alkaline Phosphatase (39-117) U/L Total Protein (6.5-8.0) g/dL Albumin (3.5-5.0) g/dL Lipase (8-78) U/L COVID-19 ([facility]) Negative (Negative) COVID-19 Clin Com See Note Blood Type B Positive Antibody Screen NEGATIVE <ANGELLA Deng - Last Filed: 09/28/22 11:16> Lab Results 09/28/22 09/28/22 09/28/22 Range/Units 11:42 11:42 11:42 WBC 11.1 H (4.8-10.8) X10*3/uL RBC 4.97 (4.20-5.50) X10*6/uL Hgb 14.8 (12.0-16.0) g/dl Hct 44.7 (37.0-47.0) % MCV 89.9 (80.0-98.0) fL MCH 29.8 (27.0-33.0) pg MCHC 33.1 (31.0-35.0) g/dl RDW 13.5 (11.0-16.0) % Plt Count 205 (160-400) X10*3/uL MPV 9.7 (9.4-12.3) fL Immature Gran % (Auto) 0.3 (0.0-0.4) % Neut % (Auto) 78.1 H (45-73) % Lymph % (Auto) 13.5 L (20-40) % Vance % (Auto) 6.9 (2-11) % Eos % (Auto) 0.8 (0-4) % Baso % (Auto) 0.4 (0-2) % Lymph # (Auto) 1.5 (1.2-4.9) X10*3/uL Vance # (Auto) 0.8 (0.1-1.2) X10*3/uL Eos # (Auto) 0.1 (0.0-0.4) X10*3/uL Baso # (Auto) 0.0 (0.0-0.2) X10*3/uL Abs Immat Gran (auto) 0.03 (0.00-0.03) X10*3/uL Absolute Neuts (auto) 8.7 H (2.0-8.3) x10*3/uL Absolute Nucleated RBC 0.000 (0.0-0.012) X10*3/uL Nucleated RBC % (auto) 0.0 (0.0-0.2) /100WBC PT 10.8 (10.0-13.1) SEC INR 0.9 (0.9-1.1) APTT 27.4 (26.0-36.4) SEC Sodium 142 (135-145) mmol/L Potassium 3.7 (3.3-5.1) mmol/L Chloride 108 (96-108) mmol/L Carbon Dioxide 23 (22-29) mmol/L Anion Gap 15 (12-20) BUN 17 H (9-16) mg/dL Creatinine 1.08 (0.5-1.4) mg/dL Estim Creat Clear Calc 34.9 Estimated GFR 49 Random Glucose 106 (60-115) mg/dL Calcium 9.0 D (8.4-10.2) mg/dL Magnesium 2.1 (1.6-2.6) mg/dL Total Bilirubin 0.9 (0.0-1.0) mg/dL Direct Bilirubin 0.2 (0.0-0.5) mg/dL AST 19 (5-31) U/L ALT 17 (0-31) U/L Alkaline Phosphatase 85 (39-117) U/L Total Protein 6.3 L (6.5-8.0) g/dL Albumin 3.9 (3.5-5.0) g/dL Lipase 24 (8-78) U/L COVID-19 ([facility]) (Negative) COVID-19 Clin Com Blood Type Antibody Screen 09/28/22 09/28/22 Range/Units 11:42 11:44 WBC (4.8-10.8) X10*3/uL RBC (4.20-5.50) X10*6/uL Hgb (12.0-16.0) g/dl Hct (37.0-47.0) % MCV (80.0-98.0) fL MCH (27.0-33.0) pg MCHC (31.0-35.0) g/dl RDW (11.0-16.0) % Plt Count (160-400) X10*3/uL MPV (9.4-12.3) fL Immature Gran % (Auto) (0.0-0.4) % Neut % (Auto) (45-73) % Lymph % (Auto) (20-40) % Vance % (Auto) (2-11) % Eos % (Auto) (0-4) % Baso % (Auto) (0-2) % Lymph # (Auto) (1.2-4.9) X10*3/uL Vance # (Auto) (0.1-1.2) X10*3/uL Eos # (Auto) (0.0-0.4) X10*3/uL Baso # (Auto) (0.0-0.2) X10*3/uL Abs Immat Gran (auto) (0.00-0.03) X10*3/uL Absolute Neuts (auto) (2.0-8.3) x10*3/uL Absolute Nucleated RBC (0.0-0.012) X10*3/uL Nucleated RBC % (auto) (0.0-0.2) /100WBC PT (10.0-13.1) SEC INR (0.9-1.1) APTT (26.0-36.4) SEC Sodium (135-145) mmol/L Potassium (3.3-5.1) mmol/L Chloride (96-108) mmol/L Carbon Dioxide (22-29) mmol/L Anion Gap (12-20) BUN (9-16) mg/dL Creatinine (0.5-1.4) mg/dL Estim Creat Clear Calc Estimated GFR Random Glucose (60-115) mg/dL Calcium (8.4-10.2) mg/dL Magnesium (1.6-2.6) mg/dL Total Bilirubin (0.0-1.0) mg/dL Direct Bilirubin (0.0-0.5) mg/dL AST (5-31) U/L ALT (0-31) U/L Alkaline Phosphatase (39-117) U/L Total Protein (6.5-8.0) g/dL Albumin (3.5-5.0) g/dL Lipase (8-78) U/L COVID-19 ([facility]) Negative (Negative) COVID-19 Clin Com See Note Blood Type B Positive Antibody Screen NEGATIVE <ANGELLA Patricia - Last Filed: 09/28/22 15:21> Independent Interpretation I performed an independent interpretation of an: CT Scan <ANGELLA Patricia Last Filed: 09/28/22 15:21> Interpretation: Colitis of the left-sided colon appreciated, no abscess or perforation. <ANGELLA Patricia - Last Filed: 09/28/22 15:21> Radiology Impression Discussion of test interpretation with radiology: I have reviewed the radiologist's reading. <ANGELLA Patricia - Last Filed: 09/28/22 15:21> Radiologist Impression: CT/CT abdomen pelvis w IV con IMPRESSION: Acute on chronic colitis extending from the splenic flexure through the rectum, most pronounced in the descending colon. This is most likely inflammatory in nature. Query history of Crohn's disease or ulcerative colitis. Infectious or ischemic colitis are less likely. <ANGELLA Patricia - Last Filed: 09/28/22 15:21> Independent Historian Clinical information obtained from an independent historian. History obtained from or confirmed by: Spouse <ANGELLA Patricia - Last Filed: 09/28/22 15:21> External Record Review External record reviewed: Inpatient record, Outpatient record, Prior outpatient labs and Prior outpatient radiology <ANGELLA Patricia - Last Filed: 09/28/22 15:21> Prescription Management I considered prescription management with: Pain Medication and Antibiotic <ANGELLA Patricia - Last Filed: 09/28/22 15:21> Chronic Conditions Patient?s care impacted by: Other (CAD on ASA) <ANGELLA Patricia - Last Filed: 09/28/22 15:21> Critical Care Time Critical Care Time Critical Care Time: No <ANGELLA Patricia - Last Filed: 09/28/22 15:21> Discharge Plan Discharge Clinical Impression: Colitis, Bloody diarrhea <ANGELLA Deng Last Filed: 09/28/22 11:16> Patient Disposition: Admitted As Inpatient <ANGELLA Deng Last Filed: 09/28/22 11:16>
[2022-09-28 11:12] VITALS: BP 192/69; PULSE 56; RESP 16; O2SAT 98; BMI 26.6
--- NOTE | 2022-09-28 11:13 | ECG_ITS ---
Test Reason : GI BLEED Blood Pressure : / mmHG Vent. Rate : 058 BPM Atrial Rate : 058 BPM P-R Int : 170 ms QRS Dur : 084 ms QT Int : 406 ms P-R-T Axes : 043 002 048 degrees QTc Int : 398 ms Sinus bradycardia Nonspecific ST abnormality Abnormal ECG When compared with ECG of 03-DEC-2019 07:10, No significant change was found Referred By: Nusrat Warren Electronically Signed By:JUAN JOSE MONET MD
[2022-09-28 11:59] LABS: MANUAL DIFF FLAG NO
[2022-09-28 12:01] LABS: Basophils Percent Auto 0.4 % (0-2); Eosinophils Absolute Auto 0.1 X10*3/uL (0.0-0.4); Eosinophils Percent Auto 0.8 % (0-4); Hematocrit 44.7 % (37.0-47.0); Hemoglobin 14.8 g/dl (12.0-16.0); Imm Gran Abs Auto 0.03 X10*3/uL (0.00-0.03); Imm Gran Pct Auto 0.3 % (0.0-0.4); Lymphocytes Absolute Auto 1.5 X10*3/uL (1.2-4.9); Lymphocytes Percent Auto 13.5 % (20-40); Mean Corpuscular HGB Conc 33.1 g/dl (31.0-35.0); Mean Corpuscular Hemoglobin 29.8 pg (27.0-33.0); Mean Corpuscular Volume 89.9 fL (80.0-98.0); Mean Platelet Volume 9.7 fL (9.4-12.3); Monocytes Absolute Auto 0.8 X10*3/uL (0.1-1.2); Monocytes Percent Auto 6.9 % (2-11); Neutrophils Absolute Auto 8.7 x10*3/uL (2.0-8.3); Neutrophils Percent Auto 78.1 % (45-73); Platelet Count 205 X10*3/uL (160-400); Red Blood Count 4.97 X10*6/uL (4.20-5.50); Red Cell Distribution Width 13.5 % (11.0-16.0); White Blood Count 11.1 X10*3/uL (4.8-10.8)
[2022-09-28 12:15] LABS: COVID-19 Test Negative (Negative); IDNOW Serial# BCCEAD1C
[2022-09-28 12:21] VITALS: BP 131/64; PULSE 56; RESP 16; O2SAT 99
[2022-09-28 12:21] LABS: Alanine Aminotransferase 17 U/L (0-31); Albumin Level 3.9 g/dL (3.5-5.0); Alkaline Phosphatase 85 U/L (39-117); Anion Gap 15 (12-20); Aspartate Amino Transferase 19 U/L (5-31); Bilirubin Direct 0.2 mg/dL (0.0-0.5); Bilirubin Total 0.9 mg/dL (0.0-1.0); Blood Urea Nitrogen 17 mg/dL (9-16); Carbon Dioxide 23 mmol/L (22-29); Chloride 108 mmol/L (96-108); Creatinine Clr Calc Pharmacy 34.9; Estimated Glomerular Filt Rate 49; Glucose Random 106 mg/dL (60-115); Lipase 24 U/L (8-78); Magnesium 2.1 mg/dL (1.6-2.6); Potassium 3.7 mmol/L (3.3-5.1); Sodium 142 mmol/L (135-145); Total Protein 6.3 g/dL (6.5-8.0)
[2022-09-28 12:25] LABS: INTERNATIONAL NORM RATIO 0.9 (0.9-1.1); Prothrombin Time 10.8 SEC (10.0-13.1)
[2022-09-28 12:28] LABS: Partial Thromboplastin Time 27.4 SEC (26.0-36.4)
[2022-09-28] MEDS: iohexoL 350 MG/ML 75 ML INFUS..BTL 85 ML IV (12:45)
[2022-09-28 14:06] VITALS: BP 152/67; PULSE 62; RESP 16; O2SAT 100
--- NOTE | 2022-09-28 15:00 | P.HPHOSP_ITS ---
History of Present Illness Date of Service: 09/28/22 Attending physician on admission: Hodan Torrez Chief Complaint: Bloody diarrhea Pt is a 77-year-old female with a PMH significant for?HTN, CAD s/p cath, history of GI bleed in 2009 due to mild colitis who presents to the ED with?bloody diarrhea. Pt states symptoms began last night around 20:00pm with left-sided abdominal pain. Pt went to the bathroom where she had to strain to move her bowels. She had pain per rectum with this first movement, which started out as hard stool but soon became a liquid. Pt noted blood in the toilet after the movement. She then had another 3-4 episodes of bloody diarrhea during the night and this morning. Pt experienced abdominal pain during movements, but not rectal pain. Abdominal pain was primarily located on the right side, but also occasionally extended across upper abdomen, rated it 6/10 at its worst. Pt has been feeling tired lately and under a lot of stress d/t 's medical conditions. Patient has had some chills but denies fever, nausea, vomiting. No chest pain/pressure, palpitations. Denies shortness of breath. Patient has not traveled anywhere nor knowingly eating anything suspicious. Of note, pt was admitted to the hospital in 2009 with similar symptoms and diagnosed with ischemic colitis. She states this is the only time since then she has e xperienced these symptoms. Pt denies a history of hemorrhoids. In the ED labs were significant for mild leukocytosis of 11.1, H&H stable at 14 minute over 44.7, creatinine of 1.08 (slightly above baseline). GI panel and stool occult blood pending. CT?of abdomen and pelvis showed acute chronic coli tis extending from splenic flexure through rectum. EKG demonstrated sinus bradycardia at 58 beats per minute. Pt was treated with levofloxacin and metronidazole. Pt will be admitted to the hospital for treatment and further evaluation of colitis. Review of Systems Review of Systems: Bloody diarrhea since last night Left-sided abdominal pain since last night Chills No fever, nausea, vomiting Denies chest pain/pressure, palpitations Yes all other systems are reviewed and are negative [facility] Medical History CAD (coronary artery disease) Carotid bruit Hypertension Lobular carcinoma of right breast Family History Father Colon cancer Cancer Mother Diabetes Child No Financial Resp Cancer Sister Heart attack Son Non Hodgkin's lymphoma Surgical History History of cardiac cath History of laparoscopic cholecystectomy History of right breast biopsy History of right mastectomy Hx of BSO (bilateral salpingo-oophorectomy) S/P NIKO (total abdominal hysterectomy) Social History Alcohol intake: never Patient Tobacco Use Status: Never used Tobacco Smoked in Last 30 Days: No Use of substances other than those prescribed or required for medical reasons: No Any prior treatment program specific to substance use: No Advance Directives: No Advance Directives Information Provided: Yes Meds Allergies Allergy/AdvReac Type Severity Reaction Status Date / Time meperidine [From Demerol] AdvReac Mild NAUSEA/VOMI Verified 08/16/22 09:45 TING Active Medications: Current Medications Levofloxacin (Levaquin) 500 mg in 100 mls @ 100 mls/hr IV ONCE ONE Stop: 09/28/22 15:14 Metronidazole (Flagyl) 500 mg in 100 mls @ 100 mls/hr IV ONCE ONE Stop: 09/28/22 15:14 Pharmacy Consult (Consult Rx Perform Med Rec) 1 each MISCELLANE ONCE PRN PRN Reason: Consult order Home Medications Medication Instructions Recorded Confirmed Last Taken Type levothyroxine 50 mcg tablet 50 mcg PO DAILY 06/23/20 09/28/22 Unknown History losartan 100 mg tablet 100 mg PO DAILY 06/23/20 09/28/22 09/28/22 History pantoprazole 40 mg tablet,delayed 40 mg PO DAILY 06/23/20 09/28/22 Unknown History release propranolol 10 mg tablet 10 mg PO BID 10/20/20 09/28/22 09/28/22 History simvastatin 40 mg tablet 40 mg PO BEDTIME 02/15/21 09/28/22 09/27/22 History lorazepam 0.5 mg tablet 0.5 mg PO DAILY PRN Anxiety 08/16/22 09/28/22 Unknown History Physical Exam Vital Signs and Narrative: Vital Signs: Last Vital Signs Pulse 62 09/28/22 14:06 Resp 16 09/28/22 14:06 BP 152/67 H 09/28/22 14:06 Pulse Ox 100 09/28/22 14:06 O2 Del Method Room Air 09/28/22 14:06 BMI result Body Mass Index 26.6 Constitutional: Alert, in no acute distress. Mental Status: Oriented to person, place and time. Eyes: Pupils are equal, round, and reactive to light. Ear, Nose, and Throat: Oropharynx clear, mucous membranes moist. Ears and nose without deformities. Trachea midline. Respiratory: Clear to auscultation bilaterally. No wheezing, rales, or rhonchi. Cardiovascular: S1, S2 regular. No murmurs, rubs, or gallops. Gastrointestinal: Abdomen soft, non-distended, with left-sided tenderness. No rebound tenderness. Normal bowel sounds. Neurologic: Cranial nerves II-XII are grossly intact bilaterally. No focal neurological deficits. Moves all extremities spontaneously. Skin: No rashes or lesions noted. Musculoskeletal: No cyanosis or clubbing. Extremities: No edema. Psychiatric: Normal mood and affect. Results Labs 09/28/22 11:42 09/28/22 11:42 Labs: Laboratory Results - last 24 hr 09/28/22 09/28/22 09/28/22 11:42 11:42 11:42 MCV 89.9 MCH 29.8 MCHC 33.1 RDW 13.5 Plt Count 205 MPV 9.7 Immature Gran % (Auto) 0.3 Neut % (Auto) 78.1 H Lymph % (Auto) 13.5 L [place] % (Auto) 6.9 Eos % (Auto) 0.8 Baso % (Auto) 0.4 Lymph # (Auto) 1.5 [place] # (Auto) 0.8 Eos # (Auto) 0.1 Baso # (Auto) 0.0 Abs Immat Gran (auto) 0.03 Absolute Neuts (auto) 8.7 H Absolute Nucleated RBC 0.000 Nucleated RBC % (auto) 0.0 PT 10.8 INR 0.9 APTT 27.4 Anion Gap 15 Estim Creat Clear Calc 34.9 Estimated GFR 49 Random Glucose 106 Calcium 9.0 D Magnesium 2.1 Total Bilirubin 0.9 Direct Bilirubin 0.2 AST 19 ALT 17 Alkaline Phosphatase 85 Total Protein 6.3 L Albumin 3.9 Lipase 24 COVID-19 (MERRY) COVID-19 Clin Com Blood Type Antibody Screen 09/28/22 09/28/22 11:42 11:44 MCV MCH MCHC RDW Plt Count MPV Immature Gran % (Auto) Neut % (Auto) Lymph % (Auto) [place] % (Auto) Eos % (Auto) Baso % (Auto) Lymph # (Auto) [place] # (Auto) Eos # (Auto) Baso # (Auto) Abs Immat Gran (auto) Absolute Neuts (auto) Absolute Nucleated RBC Nucleated RBC % (auto) PT INR APTT Anion Gap Estim Creat Clear Calc Estimated GFR Random Glucose Calcium Magnesium Total Bilirubin Direct Bilirubin AST ALT Alkaline Phosphatase Total Protein Albumin Lipase COVID-19 (MERRY) Negative COVID-19 Clin Com See Note Blood Type B Positive Antibody Screen NEGATIVE Imaging Radiologist's Impressions: Impressions Abdomen/Pelvis CT 09/28/22 12:49 IMPRESSION: Acute on chronic colitis extending from the splenic flexure through the rectum, most pronounced in the descending colon. This is most likely inflammatory in nature. Query history of Crohn's disease or ulcerative colitis. Infectious or ischemic colitis are less likely. Fleischner guidelines were followed. Assessment and Plan (1) Colitis: Status: Acute (2) Bloody diarrhea: Status: Acute Plan Pt is a 77-year-old female with a PMH significant for?HTN, CAD s/p cath, history of GI bleed in 2009 due to mild colitis who presents to the ED with?bloody diarrhea. Pt will be admitted to the hospital for treatment and further evaluation of colitis. Acute colitis Pt with bloody diarrhea x 4-5 episodes since last night CT with evidence of acute colitis, inflammatory vs infectious vs ischemic Prophylactic abx: Metronidazole, ceftriaxone Check CRP, ESR Check GI panel, stool occult blood NPO in anticipation for scoping tomorrow IVF: lactated ringers GI consult Acute GI bleed Likely secondary to colitis, less likely hemorrhoids H&H stable of 14.8/44.7 Follow CBC CAD Hold aspirin d/t GI bleed Continue statin Hypothyroidism Continue levothyroxine HTN Continue home meds Full Code Attending:?Dr. Torrez DVT Prophylaxis: Pneumatic boots Pt will require a hospitalization of at least two nights for treatment of?acute colitis with IV abx. Time Spent With Patient Time: Total time managing care of this patient today ____ minutes. Quality Stroke Does the patient have a stroke diagnosis?: No VTE Prior VTE?: No VTE Risk Level:: Medical - moderate - high VTE Device Contraindication: Treatment Not Indicated VTE Drug Contraindication: N/A - Med Ordered
[2022-09-28] MEDS: levoFLOXacin/D5W 500 MG/100 ML PIGGYBACK 100 MG IV (15:06)
--- NOTE | 2022-09-28 15:13 | PHA.MEDREC ---
med rec complete, no issues Pharmacy Consult ? Medication Reconciliation Pharmacy has completed the medication reconciliation.
[2022-09-28 15:37] LABS: OBS Int Ctl Valid YES; OBS1 POSITIVE (NEGATIVE)
[2022-09-28 15:38] LABS: Appearance Urine Cloudy; Color Urine Yellow; Glucose Urine UA Negative (Negative); Leukocyte Esterase Urine Negative (Negative); Nitrite Urine Negative (Negative); PH 5.5 (5.0-9.0); Specific Gravity - Urine <= 1.005 (1.005-1.025); UMIC TRIGGER UACC YES; Urine Blood Small (1+) (Negative); Urine Ketones Negative (Negative); Urine Protein Negative (Neg-Trace)
--- NOTE | 2022-09-28 15:46 | PM.GICN ---
History of Present Illness Data of Consult Service Date: 09/28/22 Requesting physician: Adelaida Domínguez Primary Care Provider: DO BERENICE Torres Reason for consult: abdominal pain, bloody diarrhea, abnormal CT scan of the colon 77 YF with HTN, CAD s/p cath, seen at [facility] ED on 09/28/22 with LLQ pain and bloody diarrhea and LLQ pain since last night. Pt reports having 6/10 left sided abdominal pain and diarrhea since yesterday morning with 3-4 non bloody loose stools. She noted rectal bleeding since last night - 4 episodes of BRBPR and blood appeared to be mixed with the stools. She has some rectal discomfort as well. No history of hemorrhoids. Pt denied nausea or vomiting, or fevers but noted some chills. Patient reports having chills, feeling weak, lightheaded and SOB since the bleeding started. Pt reports a hx of chronic constipation and intermittent abdominal pain for the past 4-5 months. She admits to intentional wt loss of a few lbs since she stopped eating desserts. Patient reports she has CAD diagnosed on cardiac cath and takes a baby aspirin daily She denies pulmonary problems, loud snoring or sleep apnea Denies being on chronic anticoagulation or NSAIDS use. Patient denies smoking or EtOH use. She is has 2 children and lives with her . 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 Patient's maternal GM was diagnosed with rectal cancer in her 70's. IMAGING STUDIES: 09/28/[address] SCAN SHOWED: Acute on chronic colitis extending from the splenic flexure through the rectum, most pronounced in the descending colon. This is most likely inflammatory in nature. Query history of Crohn's disease or ulcerative colitis. Infectious or ischemic colitis are less likely. PAST GI HISTORY BY REVIEW OF MEDICAL RECORDS: 2009 Pt was hospitalized at [facility] for LGI bleeding EGD and Colonoscopy was performed by Dr Arguelles. EGD showed mild gastritis and small gastric polyps Colonoscopy showed changes of colitis from 20 to 40 cms consistent with resolving ischemic colitis. Biopsies showed acute colitis. Review of Systems Review of Systems: Yes all other systems are reviewed and are negative [facility] Past Medical History Medical History CAD (coronary artery disease) Carotid bruit Hypertension Lobular carcinoma of right breast Family History Family History Father Colon cancer Cancer Mother Diabetes Child No Financial Resp Cancer Sister Heart attack Son Non Hodgkin's lymphoma Surgical History Surgical History History of cardiac cath History of laparoscopic cholecystectomy History of right breast biopsy History of right mastectomy Hx of BSO (bilateral salpingo-oophorectomy) S/P NIKO (total abdominal hysterectomy) Social History Social History Household Members: Spouse Housing: Condominium Do you presently have visiting nurse or other home services: No Alcohol intake: never Patient Tobacco Use Status: Never used Tobacco service: No Current occupational status: retired [employer] Allergies Allergy/AdvReac Type Severity Reaction Status Date / Time meperidine [From Demerol] AdvReac Mild NAUSEA/VOMI Verified 10/01/22 13:45 TING Active Medications: Current Medications Pharmacy Consult (Consult Rx Perform Med Rec) 1 each MISCELLANE ONCE PRN PRN Reason: Consult order Home Medications Medication Instructions Recorded Confirmed Last Taken Type levothyroxine 50 mcg tablet 50 mcg PO DAILY 06/23/20 09/28/22 Unknown History losartan 100 mg tablet 100 mg PO DAILY 06/23/20 09/28/22 09/28/22 History pantoprazole 40 mg tablet,delayed 40 mg PO DAILY 06/23/20 09/28/22 Unknown History release propranolol 10 mg tablet 10 mg PO BID 10/20/20 09/28/22 09/28/22 History simvastatin 40 mg tablet 40 mg PO BEDTIME 02/15/21 09/28/22 09/27/22 History lorazepam 0.5 mg tablet 0.5 mg PO DAILY PRN Anxiety 08/16/22 09/28/22 Unknown History Physical Exam Vital Signs: Vital Signs: Last Vital Signs Pulse 62 09/28/22 14:06 Resp 16 09/28/22 14:06 BP 152/67 H 09/28/22 14:06 Pulse Ox 100 09/28/22 14:06 O2 Del Method Room Air 09/28/22 14:06 BMI result Body Mass Index 26.6 Const: General: healthy appearing and no acute distress Nutritional Appearance: overweight Orientation/consciousness: patient oriented x3 Limitations: no limitations HEENT: Head: Yes normal to inspection Ears: hearing grossly normal bilaterally Eyes: Sclerae: sclerae normal Pupils: Equal, round and reactive pupils present Neck: Neck: Yes normal visual inspection Chest: Chest palpation & inspection: normal inspection of the chest Resp: Effort & Inspection: normal respiratory effort Auscultation: clear to auscultation bilaterally Cardio: Palpation: normal PMI Rate: regular rate Rhythm: regular rhythm Heart sounds: S1 normal heart sound present, S2 normal heart sound present and no murmurs GI: Palpation (GI): Soft to palpation, Tenderness to palpation present (GI) (LUQ and LLQ tenderness without rebound) and No hepatosplenomegaly present Auscultation: normal bowel sounds Rectal Exam - Female: deferred Skin: General skin exam: no rashes or lesions noted Neuro: General: patient oriented x3, gait normal and moves all extremities Cranial nerves: Yes Equal, round and reactive pupils present Psych: Appearance: grossly normal Mental Status: mental status grossly normal Results Labs 09/28/22 11:42 09/28/22 11:42 Labs: Short CBC 09/28/22 Range/Units 11:42 WBC 11.1 H (4.8-10.8) X10*3/uL Hgb 14.8 (12.0-16.0) g/dl Hct 44.7 (37.0-47.0) % Plt Count 205 (160-400) X10*3/uL BMP 09/28/22 11:42 Sodium 142 Potassium 3.7 Chloride 108 Carbon Dioxide 23 BUN 17 H Creatinine 1.08 Calcium 9.0 D Liver Function 09/28/22 Range/Units 11:42 Total Bilirubin 0.9 (0.0-1.0) mg/dL Direct Bilirubin 0.2 (0.0-0.5) mg/dL AST 19 (5-31) U/L ALT 17 (0-31) U/L Alkaline Phosphatase 85 (39-117) U/L Albumin 3.9 (3.5-5.0) g/dL Urine 09/28/22 Range/Units 15:09 Urine Color Yellow Urine Appearance Cloudy Urine pH 5.5 (5.0-9.0) Ur Specific [place] <= 1.005 (1.005-1.025) Urine Protein Negative (Neg-Trace) mg/dL Urine Glucose (UA) Negative (Negative) mg/dL Assessment and Plan (1) Abnormal CT of the abdomen: Status: Acute (2) Colitis: Status: Acute (3) Bloody diarrhea: Status: Acute Plan 77 YF with HTN, CAD s/p cath, being admitted to [facility] on 09/28/22 with LLQ pain and bloody diarrhea since last night. Pt reports having 6/10 left sided abdominal pain and diarrhea since yesterday morning with 3-4 non bloody loose stools. She noted rectal bleeding since last night - 4 episodes of BRBPR and blood appeared to be mixed with the stools. Abdominal CT scan showed left sided colitis - clinical picture is suggestive of ischemic or infectious colitis. Acute presentation of IBD would be less likely. RECOMMENDATIONS: 1. Agree with checking a GI panel to rule out infectious colitis. 2. Continue IV antibiotics 3. She can be started on a clear liquid diet in the am once pain improves 4. If stool cultures are negative, I will schedule patient for a Flexible sigmoidoscopy on 10/01/22 Time Spent With Patient Time: Total time managing care of this patient today ____ minutes. Procedures Date of Service Date of Service: 09/28/22
[2022-09-28 15:49] LABS: Bacteria Urine None Seen (None Seen); Hyaline Casts Urine 0-2 /LPF (0-2); RBC Urine 0-2 /HPF (0-2); Squamous Epithelial Cell Urine 0-2 /HPF (0-2); WBC Urine 0-5 /HPF (0-5)
[2022-09-28 16:09] LABS: C Reactive Protein 1.76 mg/dL (< or = 0.50)
[2022-09-28 16:13] LABS: Lactic Acid 1.5 mmol/L (0.5-2.0)
[2022-09-28 16:19] LABS: Erythrocyte Sedimentation Rate 16 MM/HR (0-20)
[2022-09-28 16:29] VITALS: BP 137/61; PULSE 58; RESP 16; O2SAT 100
[2022-09-28] MEDS: metroNIDAZOLE/NS 500 MG/100 ML PIGGYBACK 100 MG IV (17:08)
[2022-09-28 17:54] VITALS: BP 129/59; PULSE 65; RESP 18; TEMP 36.1; O2SAT 100
[2022-09-28] MEDS: Lactated Ringers 1,000 ML 100 ML IVCONT (18:26)
[2022-09-28 20:00] VITALS: BP 149/68; PULSE 66; RESP 18; TEMP 36.3; O2SAT 98
[2022-09-28] MEDS: Propranolol HCL 10 MG TABLET PO (20:36)
[2022-09-28] MEDS: Atorvastatin Calcium 20 MG TABLET PO (20:36)
[2022-09-29] MEDS: metroNIDAZOLE/NS 500 MG/100 ML PIGGYBACK 100 MG IV ×3 (01:31→16:46)
[2022-09-29] MEDS: 0.9 % Sodium Chloride Flush 3 ML SYRINGE IVFLUSH (01:35)
[2022-09-29] MEDS: Lactated Ringers 1,000 ML 100 ML IVCONT ×3 (01:35→22:47)
[2022-09-29 03:37] VITALS: BP 137/63; PULSE 68; RESP 16; TEMP 36; O2SAT 96
[2022-09-29] MEDS: Omeprazole 20 MG CAPSULE.DR PO (06:03)
[2022-09-29] MEDS: Acetaminophen 325 MG TABLET 650 MG PO (06:03)
[2022-09-29] MEDS: Levothyroxine Sodium 50 MCG TABLET PO (06:04)
[2022-09-29 07:09] LABS: Hemoglobin 13.1 g/dl (12.0-16.0); Mean Corpuscular HGB Conc 33.6 g/dl (31.0-35.0); Mean Corpuscular Hemoglobin 30.5 pg (27.0-33.0); Mean Corpuscular Volume 90.9 fL (80.0-98.0); Mean Platelet Volume 10.1 fL (9.4-12.3); Platelet Count 173 X10*3/uL (160-400); Red Blood Count 4.29 X10*6/uL (4.20-5.50); Red Cell Distribution Width 13.9 % (11.0-16.0); White Blood Count 10.2 X10*3/uL (4.8-10.8)
[2022-09-29 07:16] VITALS: BP 112/56; PULSE 56; RESP 14; TEMP 36.9; O2SAT 95
[2022-09-29 07:26] LABS: Anion Gap 16 (12-20); Blood Urea Nitrogen 13 mg/dL (9-16); Calcium 8.4 mg/dL (8.4-10.2); Carbon Dioxide 22 mmol/L (22-29); Chloride 108 mmol/L (96-108); Creatinine Clr Calc Pharmacy 43.8; Estimated Glomerular Filt Rate > 60; Glucose Random 97 mg/dL (60-115); Potassium 3.6 mmol/L (3.3-5.1); Sodium 142 mmol/L (135-145)
[2022-09-29] MEDS: cefTRIAXone sodium 1 GM in 0.9 % Sodium Chloride 50 ML IV (07:48)
[2022-09-29 09:00] VITALS: BP 108/56; PULSE 64
[2022-09-29] MEDS: Propranolol HCL 10 MG TABLET PO ×2 (09:03→20:08)
[2022-09-29] MEDS: Losartan Potassium 50 MG TABLET 100 MG PO (09:03)
--- NOTE | 2022-09-29 10:55 | HO.PM.IMPN ---
Subjective Subjective Date of Service: 09/29/22 Interval History: Seen and evaluated for bloody diarrhea no recurrence of diarrhea overnight denies fever or chills still having pain LLQ no other overnight events Review of Systems Review of Systems: Yes all other systems are reviewed and are negative Physical Exam Vital Signs: Vital Signs: Last Vital Signs Temp 98.4 F 09/29/22 07:16 Pulse 64 09/29/22 09:00 Resp 14 09/29/22 07:16 BP 108/56 L 09/29/22 09:00 Pulse Ox 95 09/29/22 07:16 O2 Del Method Room Air 09/29/22 07:16 BMI result Body Mass Index 26.6 Const: Other: Constitutional : Awake, interactive, not in distress Neck : Normal inspection, Supple Cardiovascular : RRR, no JVP, no lower extremity edema Respiratory : good bilateral air entry, no crackles, wheezes or rhonchi Gastrointestinal: soft, lax, Normal bowel sounds, Non significant tenderness over LLQ Skin : Warm, Dry Neurological : Alert & oriented x3, No focal deficit Objective Data Active Medications Acetaminophen (Acetaminophen 325 Mg Tablet) 650 mg PO Q6H PRN PRN Reason: Pain, Mild (Pain Scale 1-3) Last Admin: 09/29/22 06:03 Dose: 650 mg Documented By: NORM Atorvastatin Calcium (Atorvastatin Calcium 20 Mg Tablet) 20 mg PO BEDTIME [facility] Last Admin: 09/28/22 20:36 Dose: 20 mg Documented By: NORM Metronidazole (Flagyl) 500 mg in 100 mls @ 100 mls/hr IV Q8H [facility] Last Infusion: 09/29/22 09:27 Dose: 0 mls/hr Documented By: LARA Ceftriaxone Sodium 1 gm/ (Sodium Chloride) 50 mls @ 100 mls/hr IV Q24H [facility] Last Infusion: 09/29/22 08:20 Dose: 0 mls/hr Documented By: COTEMA Lactated Ringer's (Lr) 1,000 mls @ 100 mls/hr IVCONT .Q10H [facility] Last Admin: 09/29/22 01:35 Dose: 100 mls/hr Documented By: NORM Levothyroxine Sodium (Levothyroxine Sodium 50 Mcg Tablet) 50 mcg PO DAILY@0600 [facility] Last Admin: 09/29/22 06:04 Dose: 50 mcg Documented By: NORM Lorazepam (Lorazepam 0.5 Mg Tablet) 0.5 mg PO DAILY PRN PRN Reason: Anxiety Losartan Potassium (Losartan Potassium 50 Mg Tablet) 100 mg PO DAILY [facility]; Protocol Last Admin: 09/29/22 09:03 Dose: 100 mg Documented By: ANNA MARIE Comments: ok to give per primary RN Omeprazole (Omeprazole 20 Mg Capsule.Dr) 20 mg PO DAILY@0630 [facility] Last Admin: 09/29/22 06:03 Dose: 20 mg Documented By: NORM Ondansetron HCl (Ondansetron Hcl 4 Mg/2 Ml Vial) 4 mg IVPUSH Q8H PRN PRN Reason: Nausea and Vomiting Pharmacy Consult (Consult Rx Perform Med Rec) 1 each MISCELLANE ONCE PRN PRN Reason: Consult order Propranolol HCl (Propranolol Hcl 10 Mg Tablet) 10 mg PO BID [facility]; Protocol Last Admin: 09/29/22 09:03 Dose: 10 mg Documented By: ANNA MARIE Comments: ok to give per primary RN Sodium Chloride (0.9 % Sodium Chloride Flush 3 Ml Syringe) 3 ml IVFLUSH QSHIFT [facility] Last Admin: 09/29/22 07:17 Dose: Not Given Documented By: VI Non-Admin Reason: IV Running Labs 09/29/22 06:23 09/29/22 06:23 Labs: Laboratory Results - last 24 hr 09/28/22 09/28/22 09/28/22 11:42 11:42 11:42 MCV 89.9 MCH 29.8 MCHC 33.1 RDW 13.5 Plt Count 205 MPV 9.7 Immature Gran % (Auto) 0.3 Neut % (Auto) 78.1 H Lymph % (Auto) 13.5 L [place] % (Auto) 6.9 Eos % (Auto) 0.8 Baso % (Auto) 0.4 Lymph # (Auto) 1.5 [place] # (Auto) 0.8 Eos # (Auto) 0.1 Baso # (Auto) 0.0 Abs Immat Gran (auto) 0.03 Absolute Neuts (auto) 8.7 H Absolute Nucleated RBC 0.000 Nucleated RBC % (auto) 0.0 ESR PT 10.8 INR 0.9 APTT 27.4 Anion Gap 15 Estim Creat Clear Calc 34.9 Estimated GFR 49 Random Glucose 106 Lactic Acid Calcium 9.0 D Magnesium 2.1 Total Bilirubin 0.9 Direct Bilirubin 0.2 AST 19 ALT 17 Alkaline Phosphatase 85 C-Reactive Protein 1.76 H Total Protein 6.3 L Albumin 3.9 Lipase 24 Urine Color Urine Appearance Urine pH Ur Specific [place] Urine Protein Urine Glucose (UA) Urine Ketones Urine Blood Urine Nitrite Ur Leukocyte Esterase Urine RBC Urine WBC Ur Squamous Epith Cells Urine Bacteria Hyaline Casts Stool Occult Blood COVID-19 ([facility]) COVID-19 Clin Com Blood Type Antibody Screen 09/28/22 09/28/22 09/28/22 11:42 11:42 11:44 MCV MCH MCHC RDW Plt Count MPV Immature Gran % (Auto) Neut % (Auto) Lymph % (Auto) [place] % (Auto) Eos % (Auto) Baso % (Auto) Lymph # (Auto) [place] # (Auto) Eos # (Auto) Baso # (Auto) Abs Immat Gran (auto) Absolute Neuts (auto) Absolute Nucleated RBC Nucleated RBC % (auto) ESR 16 PT INR APTT Anion Gap Estim Creat Clear Calc Estimated GFR Random Glucose Lactic Acid Calcium Magnesium Total Bilirubin Direct Bilirubin AST ALT Alkaline Phosphatase C-Reactive Protein Total Protein Albumin Lipase Urine Color Urine Appearance Urine pH Ur Specific [place] Urine Protein Urine Glucose (UA) Urine Ketones Urine Blood Urine Nitrite Ur Leukocyte Esterase Urine RBC Urine WBC Ur Squamous Epith Cells Urine Bacteria Hyaline Casts Stool Occult Blood COVID-19 ([facility]) Negative COVID-19 Clin Com See Note Blood Type B Positive Antibody Screen NEGATIVE 09/28/22 09/28/22 09/28/22 15:09 15:09 15:10 MCV MCH MCHC RDW Plt Count MPV Immature Gran % (Auto) Neut % (Auto) Lymph % (Auto) [place] % (Auto) Eos % (Auto) Baso % (Auto) Lymph # (Auto) [place] # (Auto) Eos # (Auto) Baso # (Auto) Abs Immat Gran (auto) Absolute Neuts (auto) Absolute Nucleated RBC Nucleated RBC % (auto) ESR PT INR APTT Anion Gap Estim Creat Clear Calc Estimated GFR Random Glucose Lactic Acid 1.5 Calcium Magnesium Total Bilirubin Direct Bilirubin AST ALT Alkaline Phosphatase C-Reactive Protein Total Protein Albumin Lipase Urine Color Yellow Urine Appearance Cloudy Urine pH 5.5 Ur Specific [place] <= 1.005 Urine Protein Negative Urine Glucose (UA) Negative Urine Ketones Negative Urine Blood Small (1+) H Urine Nitrite Negative Ur Leukocyte Esterase Negative Urine RBC 0-2 Urine WBC 0-5 Ur Squamous Epith Cells 0-2 Urine Bacteria None Seen Hyaline Casts 0-2 Stool Occult Blood POSITIVE COVID-19 ([facility]) COVID-19 Clin Com Blood Type Antibody Screen 09/29/22 09/29/22 06:23 06:23 MCV 90.9 MCH 30.5 MCHC 33.6 RDW 13.9 Plt Count 173 MPV 10.1 Immature Gran % (Auto) Neut % (Auto) Lymph % (Auto) [place] % (Auto) Eos % (Auto) Baso % (Auto) Lymph # (Auto) [place] # (Auto) Eos # (Auto) Baso # (Auto) Abs Immat Gran (auto) Absolute Neuts (auto) Absolute Nucleated RBC 0.000 Nucleated RBC % (auto) 0.0 ESR PT INR APTT Anion Gap 16 Estim Creat Clear Calc 43.8 Estimated GFR > 60 Random Glucose 97 Lactic Acid Calcium 8.4 D Magnesium Total Bilirubin Direct Bilirubin AST ALT Alkaline Phosphatase C-Reactive Protein Total Protein Albumin Lipase Urine Color Urine Appearance Urine pH Ur Specific [place] Urine Protein Urine Glucose (UA) Urine Ketones Urine Blood Urine Nitrite Ur Leukocyte Esterase Urine RBC Urine WBC Ur Squamous Epith Cells Urine Bacteria Hyaline Casts Stool Occult Blood COVID-19 ([facility]) COVID-19 Clin Com Blood Type Antibody Screen Assessment and Plan (1) Colitis: Status: Acute (2) Bloody diarrhea: Status: Acute Plan Pt is a 77-year-old female with a PMH significant for?HTN, CAD s/p cath, history of GI bleed in 2009 due to mild colitis who presents to the ED with?bloody diarrhea. Pt will be admitted to the hospital for treatment and further evaluation of colitis. Acute colitis, ischemic vs infectious no bloody diarrhea since last night CT with evidence of acute colitis, inflammatory vs infectious vs ischemic Continue IVF Continue Metronidazole, ceftriaxone pending GI panel NPO i for scope today GI consult Acute GI bleed secondary to colitis H&H stable of 14.8/44.7 Follow CBC CAD Hold aspirin d/t GI bleed Continue statin Hypothyroidism Continue levothyroxine HTN Continue home meds Full Code Attending:?Dr. Torrez DVT Prophylaxis: Pneumatic boots Pt will require a hospitalization overnight for treatment of?acute colitis with IV abx. Time Spent With Patient Time: Total time managing care of this patient today ____ minutes. Quality Stroke Does the patient have a stroke diagnosis?: No VTE Prior VTE?: No VTE Risk Level:: Medical - moderate - high VTE Device Contraindication: Treatment Not Indicated VTE Drug Contraindication: N/A - Med Ordered
--- NOTE | 2022-09-29 14:08 | MHC.CM.PN ---
PT REPORTS SHE LIVES WITH HER AND IS INDEPENDENT WITH CARE PT HAS NO DME AND NO HOME SERVICES SHE IS COVID [place]AX SHE REQUESTS HCP PAPERWORK TO TAKE HOME WITH HER PCP: ERA [facility]ERGERON IMM DELIVERED CURRENT DC PLAN IS HOME WITH NO SERVICES TO TRANSPORT
[2022-09-29 15:06] VITALS: BP 121/58; PULSE 70; RESP 16; TEMP 35.5; O2SAT 95
--- NOTE | 2022-09-29 15:13 | PC.NURSE ---
MD Torrez notified of formed brown BM with bloody clots, BP 121/58, no new orders at this time.
[2022-09-29 15:29] VITALS: TEMP 36.4
[2022-09-29 19:35] VITALS: BP 146/66; PULSE 64; RESP 16; TEMP 35.9; O2SAT 96
[2022-09-30] MEDS: Acetaminophen 325 MG TABLET 650 MG PO (00:24)
[2022-09-30] MEDS: metroNIDAZOLE/NS 500 MG/100 ML PIGGYBACK 100 MG IV ×3 (00:27→16:58)
[2022-09-30 03:22] VITALS: BP 124/61; PULSE 76; RESP 16; TEMP 36.3; O2SAT 94
[2022-09-30] MEDS: Omeprazole 20 MG CAPSULE.DR PO (05:47)
[2022-09-30] MEDS: Levothyroxine Sodium 50 MCG TABLET PO (05:47)
--- NOTE | 2022-09-30 06:07 | PC.NURSE ---
Midnight VSS. Pt tolerating clear liquid diet and IV fluids. IV antibiotics as ordered. Pt medicated with Tylenol for pain with relief X1-see MAR. Pt ambulating with a steady gait. Call turcios within reach. Will continue to monitor.
[2022-09-30 06:23] LABS: Hemoglobin 12.3 g/dl (12.0-16.0); Mean Corpuscular HGB Conc 33.2 g/dl (31.0-35.0); Mean Corpuscular Hemoglobin 30.4 pg (27.0-33.0); Mean Corpuscular Volume 91.4 fL (80.0-98.0); Platelet Count 170 X10*3/uL (160-400); Red Blood Count 4.05 X10*6/uL (4.20-5.50); Red Cell Distribution Width 13.9 % (11.0-16.0); White Blood Count 9.1 X10*3/uL (4.8-10.8)
[2022-09-30 06:39] LABS: Anion Gap 13 (12-20); Blood Urea Nitrogen 12 mg/dL (9-16); Carbon Dioxide 24 mmol/L (22-29); Chloride 109 mmol/L (96-108); Creatinine Clr Calc Pharmacy 44.3; Estimated Glomerular Filt Rate > 60; Glucose Random 88 mg/dL (60-115); Potassium 3.3 mmol/L (3.3-5.1); Sodium 143 mmol/L (135-145)
[2022-09-30 07:27] VITALS: BP 141/66; PULSE 62; RESP 16; TEMP 36.6; O2SAT 95
[2022-09-30] MEDS: Propranolol HCL 10 MG TABLET PO ×2 (08:24→20:16)
[2022-09-30] MEDS: Losartan Potassium 50 MG TABLET 100 MG PO (08:24)
[2022-09-30] MEDS: cefTRIAXone sodium 1 GM in 0.9 % Sodium Chloride 50 ML IV (08:25)
[2022-09-30] MEDS: Lactated Ringers 1,000 ML 100 ML IVCONT ×2 (09:00→18:43)
--- NOTE | 2022-09-30 10:39 | HO.PM.IMPN ---
Subjective Subjective Date of Service: 09/30/22 Interval History: Seen and evaluated for bloody diarrhea had one episode of diarrhea overnight denies fever or chills still having pain LLQ no other overnight events Review of Systems Review of Systems: Yes all other systems are reviewed and are negative Physical Exam Vital Signs: Vital Signs: Last Vital Signs Temp 97.8 F 09/30/22 07:27 Pulse 62 09/30/22 07:27 Resp 16 09/30/22 07:27 BP 141/66 H 09/30/22 07:27 Pulse Ox 95 09/30/22 07:27 O2 Del Method Room Air 09/30/22 07:27 BMI result Body Mass Index 26.6 Const: Other: Constitutional : Awake, interactive, not in distress Neck : Normal inspection, Supple Cardiovascular : RRR, no JVP, no lower extremity edema Respiratory : good bilateral air entry, no crackles, wheezes or rhonchi Gastrointestinal: soft, lax, Normal bowel sounds,mild tenderness over LLQ Skin : Warm, Dry Neurological : Alert & oriented x3, No focal deficit Objective Data Active Medications Acetaminophen (Acetaminophen 325 Mg Tablet) 650 mg PO Q6H PRN PRN Reason: Pain, Mild (Pain Scale 1-3) Last Admin: 09/30/22 00:24 Dose: 650 mg Documented By: ELKE Atorvastatin Calcium (Atorvastatin Calcium 20 Mg Tablet) 20 mg PO BEDTIME [facility] Last Admin: 09/29/22 20:12 Dose: Not Given Documented By: ELKE Non-Admin Reason: Patient Refused Metronidazole (Flagyl) 500 mg in 100 mls @ 100 mls/hr IV Q8H [facility] Last Admin: 09/30/22 08:58 Dose: 100 mls/hr Documented By: COTEMA Ceftriaxone Sodium 1 gm/ (Sodium Chloride) 50 mls @ 100 mls/hr IV Q24H [facility] Last Infusion: 09/30/22 09:02 Dose: 0 mls/hr Documented By: COTEMA Lactated Ringer's (Lr) 1,000 mls @ 100 mls/hr IVCONT .Q10H [facility] Last Admin: 09/30/22 09:00 Dose: 100 mls/hr Documented By: COTEMA Levothyroxine Sodium (Levothyroxine Sodium 50 Mcg Tablet) 50 mcg PO DAILY@0600 [facility] Last Admin: 09/30/22 05:47 Dose: 50 mcg Documented By: ELKE Lorazepam (Lorazepam 0.5 Mg Tablet) 0.5 mg PO DAILY PRN PRN Reason: Anxiety Losartan Potassium (Losartan Potassium 50 Mg Tablet) 100 mg PO DAILY [facility]; Protocol Last Admin: 09/30/22 08:24 Dose: 100 mg Documented By: VI Omeprazole (Omeprazole 20 Mg Capsule.Dr) 20 mg PO DAILY@0630 [facility] Last Admin: 09/30/22 05:47 Dose: 20 mg Documented By: ELKE Ondansetron HCl (Ondansetron Hcl 4 Mg/2 Ml Vial) 4 mg IVPUSH Q8H PRN PRN Reason: Nausea and Vomiting Pharmacy Consult (Consult Rx Perform Med Rec) 1 each MISCELLANE ONCE PRN PRN Reason: Consult order Propranolol HCl (Propranolol Hcl 10 Mg Tablet) 10 mg PO BID [facility]; Protocol Last Admin: 09/30/22 08:24 Dose: 10 mg Documented By: IV Sodium Chloride (0.9 % Sodium Chloride Flush 3 Ml Syringe) 3 ml IVFLUSH QSHIFT [facility] Last Admin: 09/30/22 07:10 Dose: Not Given Documented By: VI Non-Admin Reason: IV Running Labs 09/30/22 06:07 09/30/22 06:07 Labs: Laboratory Results - last 24 hr 09/30/22 09/30/22 06:07 06:07 MCV 91.4 MCH 30.4 MCHC 33.2 RDW 13.9 Plt Count 170 MPV 10.0 Absolute Nucleated RBC 0.000 Nucleated RBC % (auto) 0.0 Anion Gap 13 Estim Creat Clear Calc 44.3 Estimated GFR > 60 Random Glucose 88 Calcium 8.0 L Microbiology Microbiology Results: Microbiology 09/28/22 15:47 Blood Culture - Preliminary Blood - Venous No growth after 24 hours. 09/28/22 15:47 Blood Culture - Preliminary Blood - Venous No growth after 24 hours. Assessment and Plan (1) Colitis: Status: Acute (2) Bloody diarrhea: Status: Acute Plan Pt is a 77-year-old female with a PMH significant for?HTN, CAD s/p cath, history of GI bleed in 2009 due to mild colitis who presents to the ED with?bloody diarrhea. Pt will be admitted to the hospital for treatment and further evaluation of colitis. Acute colitis, ischemic vs infectious no bloody diarrhea since last night CT with evidence of acute colitis, inflammatory vs infectious vs ischemic Continue IVF Continue Metronidazole, ceftriaxone pending GI panel NPO post midnight for possible colonoscopy GI consult appreciated Acute GI bleed secondary to colitis H&H stable of 14.8/44.7 Follow CBC CAD Hold aspirin d/t GI bleed Continue statin Hypothyroidism Continue levothyroxine HTN Continue home meds Full Code DVT Prophylaxis: Pneumatic boots Pt will require a hospitalization overnight for treatment of?acute colitis with IV abx. Time Spent With Patient Time: Total time managing care of this patient today ____ minutes. Quality Stroke Does the patient have a stroke diagnosis?: No VTE Prior VTE?: No VTE Risk Level:: Medical - moderate - high VTE Device Contraindication: Treatment Not Indicated VTE Drug Contraindication: N/A - Med Ordered
[2022-09-30 16:00] VITALS: BP 158/72; PULSE 58; RESP 18; TEMP 36.8; O2SAT 94
[2022-09-30 19:45] VITALS: BP 183/73; PULSE 63; RESP 16; TEMP 36.2; O2SAT 98
[2022-10-01] MEDS: metroNIDAZOLE/NS 500 MG/100 ML PIGGYBACK 100 MG IV ×3 (00:28→16:08)
[2022-10-01 03:50] VITALS: BP 168/80; PULSE 71; RESP 16; TEMP 36.4; O2SAT 95
[2022-10-01] MEDS: Levothyroxine Sodium 50 MCG TABLET PO (05:33)
[2022-10-01] MEDS: Lactated Ringers 1,000 ML 100 ML IVCONT (05:33)
[2022-10-01] MEDS: Omeprazole 20 MG CAPSULE.DR PO (05:33)
[2022-10-01 06:00] LABS: Hematocrit 37.2 % (37.0-47.0); Hemoglobin 12.2 g/dl (12.0-16.0); Mean Corpuscular HGB Conc 32.8 g/dl (31.0-35.0); Mean Corpuscular Hemoglobin 30.3 pg (27.0-33.0); Mean Corpuscular Volume 92.5 fL (80.0-98.0); Mean Platelet Volume 10.2 fL (9.4-12.3); Platelet Count 160 X10*3/uL (160-400); Red Blood Count 4.02 X10*6/uL (4.20-5.50); Red Cell Distribution Width 13.9 % (11.0-16.0); White Blood Count 7.1 X10*3/uL (4.8-10.8)
[2022-10-01 06:13] LABS: Anion Gap 12 (12-20); Blood Urea Nitrogen 8 mg/dL (9-16); Carbon Dioxide 25 mmol/L (22-29); Chloride 109 mmol/L (96-108); Creatinine Clr Calc Pharmacy 47.7; Estimated Glomerular Filt Rate > 60; Glucose Random 90 mg/dL (60-115); Potassium 3.3 mmol/L (3.3-5.1); Sodium 143 mmol/L (135-145)
[2022-10-01 07:12] VITALS: BP 168/72; PULSE 65; RESP 16; TEMP 36.2; O2SAT 96
[2022-10-01] MEDS: Propranolol HCL 10 MG TABLET PO (07:58)
[2022-10-01] MEDS: Losartan Potassium 50 MG TABLET 100 MG PO (07:58)
[2022-10-01] MEDS: cefTRIAXone sodium 1 GM in 0.9 % Sodium Chloride 50 ML IV (07:59)
[2022-10-01] MEDS: 0.9 % Sodium Chloride Flush 3 ML SYRINGE IVFLUSH (07:59)
--- NOTE | 2022-10-01 10:28 | HO.PM.IMPN ---
Subjective Subjective Date of Service: 10/01/22 Interval History: Seen and evaluated for bloody diarrhea denies fever or chills still having pain LLQ and 1 diarrhea event with no blood no other overnight events Physical Exam Vital Signs: Vital Signs: Last Vital Signs Temp 97.1 F 10/01/22 07:12 Pulse 65 10/01/22 07:12 Resp 16 10/01/22 07:12 BP 168/72 H 10/01/22 07:12 Pulse Ox 96 10/01/22 07:12 O2 Del Method Room Air 10/01/22 07:12 BMI result Body Mass Index 26.6 Const: Other: Constitutional : Awake, interactive, not in distress Neck : Normal inspection, Supple Cardiovascular : RRR, no JVP, no lower extremity edema Respiratory : good bilateral air entry, no crackles, wheezes or rhonchi Gastrointestinal: soft, lax, Normal bowel sounds,mild tenderness over LLQ Skin : Warm, Dry Neurological : Alert & oriented x3, No focal deficit Objective Data Active Medications Acetaminophen (Acetaminophen 325 Mg Tablet) 650 mg PO Q6H PRN PRN Reason: Pain, Mild (Pain Scale 1-3) Last Admin: 09/30/22 00:24 Dose: 650 mg Documented By: ELKE Atorvastatin Calcium (Atorvastatin Calcium 20 Mg Tablet) 20 mg PO BEDTIME [facility] Last Admin: 09/30/22 20:18 Dose: Not Given Documented By: CECILY Non-Admin Reason: Patient Refused Metronidazole (Flagyl) 500 mg in 100 mls @ 100 mls/hr IV Q8H [facility] Last Infusion: 10/01/22 09:59 Dose: 0 mls/hr Documented By: COSMO Ceftriaxone Sodium 1 gm/ (Sodium Chloride) 50 mls @ 100 mls/hr IV Q24H [facility] Last Infusion: 10/01/22 08:37 Dose: 0 mls/hr Documented By: COSMO Lactated Ringer's (Lr) 1,000 mls @ 100 mls/hr IVCONT .Q10H [facility] Last Infusion: 10/01/22 08:38 Dose: 100 mls/hr Documented By: COSMO Levothyroxine Sodium (Levothyroxine Sodium 50 Mcg Tablet) 50 mcg PO DAILY@0600 [facility] Last Admin: 10/01/22 05:33 Dose: 50 mcg Documented By: CECILY Lorazepam (Lorazepam 0.5 Mg Tablet) 0.5 mg PO DAILY PRN PRN Reason: Anxiety Losartan Potassium (Losartan Potassium 50 Mg Tablet) 100 mg PO DAILY [facility]; Protocol Last Admin: 10/01/22 07:58 Dose: 100 mg Documented By: COSMO Omeprazole (Omeprazole 20 Mg Capsule.) 20 mg PO DAILY@0630 [facility] Last Admin: 10/01/22 05:33 Dose: 20 mg Documented By: CECILY Ondansetron HCl (Ondansetron Hcl 4 Mg/2 Ml Vial) 4 mg IVPUSH Q8H PRN PRN Reason: Nausea and Vomiting Pharmacy Consult (Consult Rx Perform Med Rec) 1 each MISCELLANE ONCE PRN PRN Reason: Consult order Propranolol HCl (Propranolol Hcl 10 Mg Tablet) 10 mg PO BID [facility]; Protocol Last Admin: 10/01/22 07:58 Dose: 10 mg Documented By: COSMO Sodium Chloride (0.9 % Sodium Chloride Flush 3 Ml Syringe) 3 ml IVFLUSH QSHIFT [facility] Last Admin: 10/01/22 07:59 Dose: 3 ml Documented By: COSMO Labs 10/01/22 05:33 10/01/22 05:33 Labs: Laboratory Results - last 24 hr 10/01/22 10/01/22 05:33 05:33 MCV 92.5 MCH 30.3 MCHC 32.8 RDW 13.9 Plt Count 160 MPV 10.2 Absolute Nucleated RBC 0.000 Nucleated RBC % (auto) 0.0 Anion Gap 12 Estim Creat Clear Calc 47.7 Estimated GFR > 60 Random Glucose 90 Calcium 8.0 L Microbiology Microbiology Results: Microbiology 09/28/22 15:47 Blood Culture - Preliminary Blood - Venous No growth after 48 hours. 09/28/22 15:47 Blood Culture - Preliminary Blood - Venous No growth after 48 hours. Assessment and Plan (1) Colitis: Status: Acute (2) Bloody diarrhea: Status: Acute Plan Pt is a 77-year-old female with a PMH significant for?HTN, CAD s/p cath, history of GI bleed in 2009 due to mild colitis who presents to the ED with?bloody diarrhea. Pt will be admitted to the hospital for treatment and further evaluation of colitis. Acute colitis, ischemic vs infectious no bloody diarrhea since last night CT with evidence of acute colitis, inflammatory vs infectious vs ischemic Continue IVF Continue Metronidazole, ceftriaxone NPO post midnight for sigmoidiscopy GI consult appreciated Acute GI bleed secondary to colitis H&H stable Follow CBC CAD Hold aspirin d/t GI bleed Continue statin Hypothyroidism Continue levothyroxine HTN Continue home meds Full Code DVT Prophylaxis: Pneumatic boots Pt will require a hospitalization overnight for treatment of?acute colitis with IV abx pending intervention Time Spent With Patient Time: Total time managing care of this patient today ____ minutes. Quality Stroke Does the patient have a stroke diagnosis?: No VTE Prior VTE?: No VTE Risk Level:: Medical - moderate - high VTE Device Contraindication: Treatment Not Indicated VTE Drug Contraindication: N/A - Med Ordered
--- NOTE | 2022-10-01 12:38 | MHC.CM.PN ---
PLAN IS FOR COLONOSCOPY TODAY
--- NOTE | 2022-10-01 14:36 | P.CONAN_ITS ---
[facility] Active Problems Active Problems: All Active Problems (Updated 09/28/22 @ 15:53 by Alek Bowman MD) Abnormal CT of the abdomen (Acute) Colitis (Acute) Bloody diarrhea (Acute) History of cardiac cath (Acute) Lobular carcinoma of right breast (Acute) Hypertension (Acute) Carotid bruit (Acute) CAD (coronary artery disease) (Acute) Breast cancer screening, high risk patient (Acute) Past Medical History Medical History CAD (coronary artery disease) Carotid bruit Hypertension Lobular carcinoma of right breast Family History Family History Father Colon cancer Cancer Mother Diabetes Child No Financial Resp Cancer Sister Heart attack Son Non Hodgkin's lymphoma Family history of problems with anesthesia: No Surgical History Surgical History History of cardiac cath History of laparoscopic cholecystectomy History of right breast biopsy History of right mastectomy Hx of BSO (bilateral salpingo-oophorectomy) S/P NIKO (total abdominal hysterectomy) History of Problems with Anesthesia: No Social History Social History Household Members: Spouse Housing: Condominium Do you presently have visiting nurse or other home services: No Alcohol intake: never Patient Tobacco Use Status: Never used Tobacco service: No Current occupational status: retired [employer] Allergies Allergy/AdvReac Type Severity Reaction Status Date / Time meperidine [From Demerol] AdvReac Mild NAUSEA/VOMI Verified 10/01/22 13:45 TING Active Medications: Current Medications Acetaminophen (Acetaminophen 325 Mg Tablet) 650 mg PO Q6H PRN PRN Reason: Pain, Mild (Pain Scale 1-3) Last Admin: 09/30/22 00:24 Dose: 650 mg Atorvastatin Calcium (Atorvastatin Calcium 20 Mg Tablet) 20 mg PO BEDTIME [facility] Last Admin: 09/30/22 20:18 Dose: Not Given Metronidazole (Flagyl) 500 mg in 100 mls @ 100 mls/hr IV Q8H [facility] Last Infusion: 10/01/22 09:59 Dose: Infused Ceftriaxone Sodium 1 gm/ (Sodium Chloride) 50 mls @ 100 mls/hr IV Q24H [facility] Last Infusion: 10/01/22 08:37 Dose: Infused Lactated Ringer's (Lr) 1,000 mls @ 100 mls/hr IVCONT .Q10H [facility] Last Infusion: 10/01/22 14:27 Dose: 0 mls/hr Lactated Ringer's (Lr) 1,000 mls @ 50 mls/hr IVCONT .Q20H [facility] Levothyroxine Sodium (Levothyroxine Sodium 50 Mcg Tablet) 50 mcg PO DAILY@0600 [facility] Last Admin: 10/01/22 05:33 Dose: 50 mcg Lorazepam (Lorazepam 0.5 Mg Tablet) 0.5 mg PO DAILY PRN PRN Reason: Anxiety Losartan Potassium (Losartan Potassium 50 Mg Tablet) 100 mg PO DAILY [facility]; Protocol Last Admin: 10/01/22 07:58 Dose: 100 mg Omeprazole (Omeprazole 20 Mg Capsule.Dr) 20 mg PO DAILY@0630 [facility] Last Admin: 10/01/22 05:33 Dose: 20 mg Ondansetron HCl (Ondansetron Hcl 4 Mg/2 Ml Vial) 4 mg IVPUSH Q8H PRN PRN Reason: Nausea and Vomiting Pharmacy Consult (Consult Rx Perform Med Rec) 1 each MISCELLANE ONCE PRN PRN Reason: Consult order Propranolol HCl (Propranolol Hcl 10 Mg Tablet) 10 mg PO BID [facility]; Protocol Last Admin: 10/01/22 07:58 Dose: 10 mg Sodium Biphosphate/Sodium Phosphate (Sodium Phosphate,[place]berry-Dibasic 133 Ml Enema) 133 ml OK ONCE PRN PRN Reason: flex sigmoidoscopy Sodium Chloride (0.9 % Sodium Chloride Flush 3 Ml Syringe) 3 ml IVFLUSH QSHIFT [facility] Last Admin: 10/01/22 07:59 Dose: 3 ml Home Medications Medication Instructions Recorded Confirmed Last Taken Type levothyroxine 50 mcg tablet 50 mcg PO DAILY 06/23/20 09/28/22 Unknown History losartan 100 mg tablet 100 mg PO DAILY 06/23/20 09/28/22 09/28/22 History pantoprazole 40 mg tablet,delayed 40 mg PO DAILY 06/23/20 09/28/22 Unknown History release propranolol 10 mg tablet 10 mg PO BID 10/20/20 09/28/22 09/28/22 History simvastatin 40 mg tablet 40 mg PO BEDTIME 08/11/21 03/24/23 03/23/23 History lorazepam 0.5 mg tablet 0.5 mg PO DAILY PRN Anxiety 08/16/22 09/28/22 Unknown History Exam Exam Date and Time: October 01, 2022 1436 Height,Weight and Vital Signs: Height 4 ft 11 in Weight 59.874 kg Last Vital Signs Temp 97.1 F 10/01/22 07:12 Pulse 65 10/01/22 07:12 Resp 16 10/01/22 07:12 BP 168/72 H 10/01/22 07:12 Pulse Ox 96 10/01/22 07:12 O2 Del Method Room Air 10/01/22 07:12 Pertinent Lab Results Pertinent Lab Results: Laboratory Tests 09/28/22 09/28/22 09/28/22 11:42 11:42 11:42 WBC 11.1 H RBC 4.97 Hgb 14.8 Hct 44.7 MCV 89.9 MCH 29.8 MCHC 33.1 RDW 13.5 Plt Count 205 MPV 9.7 Immature Gran % (Auto) 0.3 Neut % (Auto) 78.1 H Lymph % (Auto) 13.5 L [place] % (Auto) 6.9 Eos % (Auto) 0.8 Baso % (Auto) 0.4 Lymph # (Auto) 1.5 [place] # (Auto) 0.8 Eos # (Auto) 0.1 Baso # (Auto) 0.0 Abs Immat Gran (auto) 0.03 Absolute Neuts (auto) 8.7 H Absolute Nucleated RBC 0.000 Nucleated RBC % (auto) 0.0 ESR PT 10.8 INR 0.9 APTT 27.4 Sodium 142 Potassium 3.7 Chloride 108 Carbon Dioxide 23 Anion Gap 15 BUN 17 H Creatinine 1.08 Estim Creat Clear Calc 34.9 Estimated GFR 49 Random Glucose 106 Lactic Acid Calcium 9.0 D Magnesium 2.1 Total Bilirubin 0.9 Direct Bilirubin 0.2 AST 19 ALT 17 Alkaline Phosphatase 85 C-Reactive Protein 1.76 H Total Protein 6.3 L Albumin 3.9 Lipase 24 Urine Color Urine Appearance Urine pH Ur Specific [place] Urine Protein Urine Glucose (UA) Urine Ketones Urine Blood Urine Nitrite Ur Leukocyte Esterase Urine RBC Urine WBC Ur Squamous Epith Cells Urine Bacteria Hyaline Casts Stool Occult Blood COVID-19 ([facility]) COVID-19 Clin Com Blood Type Antibody Screen 09/28/22 09/28/22 09/28/22 11:42 11:42 11:44 WBC RBC Hgb Hct MCV MCH MCHC RDW Plt Count MPV Immature Gran % (Auto) Neut % (Auto) Lymph % (Auto) [place] % (Auto) Eos % (Auto) Baso % (Auto) Lymph # (Auto) [place] # (Auto) Eos # (Auto) Baso # (Auto) Abs Immat Gran (auto) Absolute Neuts (auto) Absolute Nucleated RBC Nucleated RBC % (auto) ESR 16 PT INR APTT Sodium Potassium Chloride Carbon Dioxide Anion Gap BUN Creatinine Estim Creat Clear Calc Estimated GFR Random Glucose Lactic Acid Calcium Magnesium Total Bilirubin Direct Bilirubin AST ALT Alkaline Phosphatase C-Reactive Protein Total Protein Albumin Lipase Urine Color Urine Appearance Urine pH Ur Specific [place] Urine Protein Urine Glucose (UA) Urine Ketones Urine Blood Urine Nitrite Ur Leukocyte Esterase Urine RBC Urine WBC Ur Squamous Epith Cells Urine Bacteria Hyaline Casts Stool Occult Blood COVID-19 ([facility]) Negative COVID-19 Clin Com See Note Blood Type B Positive Antibody Screen NEGATIVE 09/28/22 09/28/22 09/28/22 15:09 15:09 15:10 WBC RBC Hgb Hct MCV MCH MCHC RDW Plt Count MPV Immature Gran % (Auto) Neut % (Auto) Lymph % (Auto) [place] % (Auto) Eos % (Auto) Baso % (Auto) Lymph # (Auto) [place] # (Auto) Eos # (Auto) Baso # (Auto) Abs Immat Gran (auto) Absolute Neuts (auto) Absolute Nucleated RBC Nucleated RBC % (auto) ESR PT INR APTT Sodium Potassium Chloride Carbon Dioxide Anion Gap BUN Creatinine Estim Creat Clear Calc Estimated GFR Random Glucose Lactic Acid 1.5 Calcium Magnesium Total Bilirubin Direct Bilirubin AST ALT Alkaline Phosphatase C-Reactive Protein Total Protein Albumin Lipase Urine Color Yellow Urine Appearance Cloudy Urine pH 5.5 Ur Specific [place] <= 1.005 Urine Protein Negative Urine Glucose (UA) Negative Urine Ketones Negative Urine Blood Small (1+) H Urine Nitrite Negative Ur Leukocyte Esterase Negative Urine RBC 0-2 Urine WBC 0-5 Ur Squamous Epith Cells 0-2 Urine Bacteria None Seen Hyaline Casts 0-2 Stool Occult Blood POSITIVE COVID-19 ([facility]) COVID-19 [facility] Com Blood Type Antibody Screen 09/29/22 09/29/22 09/30/22 06:23 06:23 06:07 WBC 10.2 9.1 RBC 4.29 4.05 L Hgb 13.1 12.3 Hct 39.0 37.0 MCV 90.9 91.4 MCH 30.5 30.4 MCHC 33.6 33.2 RDW 13.9 13.9 Plt Count 173 170 MPV 10.1 10.0 Immature Gran % (Auto) Neut % (Auto) Lymph % (Auto) [place] % (Auto) Eos % (Auto) Baso % (Auto) Lymph # (Auto) [place] # (Auto) Eos # (Auto) Baso # (Auto) Abs Immat Gran (auto) Absolute Neuts (auto) Absolute Nucleated RBC 0.000 0.000 Nucleated RBC % (auto) 0.0 0.0 ESR PT INR APTT Sodium 142 Potassium 3.6 Chloride 108 Carbon Dioxide 22 Anion Gap 16 BUN 13 Creatinine 0.86 Estim Creat Clear Calc 43.8 Estimated GFR > 60 Random Glucose 97 Lactic Acid Calcium 8.4 D Magnesium Total Bilirubin Direct Bilirubin AST ALT Alkaline Phosphatase C-Reactive Protein Total Protein Albumin Lipase Urine Color Urine Appearance Urine pH Ur Specific [place] Urine Protein Urine Glucose (UA) Urine Ketones Urine Blood Urine Nitrite Ur Leukocyte Esterase Urine RBC Urine WBC Ur Squamous Epith Cells Urine Bacteria Hyaline Casts Stool Occult Blood COVID-19 ([facility]) COVID-19 Clin Com Blood Type Antibody Screen 09/30/22 10/01/22 10/01/22 06:07 05:33 05:33 WBC 7.1 RBC 4.02 L Hgb 12.2 Hct 37.2 MCV 92.5 MCH 30.3 MCHC 32.8 RDW 13.9 Plt Count 160 MPV 10.2 Immature Gran % (Auto) Neut % (Auto) Lymph % (Auto) [place] % (Auto) Eos % (Auto) Baso % (Auto) Lymph # (Auto) [place] # (Auto) Eos # (Auto) Baso # (Auto) Abs Immat Gran (auto) Absolute Neuts (auto) Absolute Nucleated RBC 0.000 Nucleated RBC % (auto) 0.0 ESR PT INR APTT Sodium 143 143 Potassium 3.3 3.3 Chloride 109 H 109 H Carbon Dioxide 24 25 Anion Gap 13 12 BUN 12 8 L Creatinine 0.85 0.79 Estim Creat Clear Calc 44.3 47.7 Estimated GFR > 60 > 60 Random Glucose 88 90 Lactic Acid Calcium 8.0 L 8.0 L Magnesium Total Bilirubin Direct Bilirubin AST ALT Alkaline Phosphatase C-Reactive Protein Total Protein Albumin Lipase Urine Color Urine Appearance Urine pH Ur Specific [place] Urine Protein Urine Glucose (UA) Urine Ketones Urine Blood Urine Nitrite Ur Leukocyte Esterase Urine RBC Urine WBC Ur Squamous Epith Cells Urine Bacteria Hyaline Casts Stool Occult Blood COVID-19 ([facility]) COVID-19 Clin Com Blood Type Antibody Screen Airway Mallampati Class: II (small mouth) TM Dist: >3cm Neck ROM: Full Heart: rrr Lungs: cta Assessment and Plan Assessment Anesthesia Assessment: Anesthesia Plan Discussed and Chart Reviewed Final Anesthetic Review Family History of Problems with Anesthesia: No History of Problems with Anesthesia: No NPO: Yes ASA Class: II Final Preanesthetic Review: No Changes in Pt Med Stat, Meds/Allgs Chart Reviewed and Consent Obtained/Reviewed Patient Risk: Intermediate Procedure Risk: Intermediate Anesthetic Plan Anesthetic Plan: MAC: Disposition: Standard PACU
[2022-10-01] MEDS: Sodium Phosphate,Mono-Dibasic 133 ML ENEMA PR (14:42)
[2022-10-01 14:45] VITALS: BP 187/81; PULSE 70; RESP 18; TEMP 36.7; O2SAT 97
--- NOTE | 2022-10-01 14:51 | PC.NURSE ---
Dr. Coronado aware of BP result. Okay to proceed.
[2022-10-01] MEDS: Lactated Ringers 1,000 ML 50 ML IVCONT ×2 (15:02→21:34)
--- NOTE | 2022-10-01 15:06 | P.BOP_ITS ---
Brief Operative Note Date of Service: 10/01/22 Pre-op diagnosis: rectal bleeding, abnormal CT scan of the colon Post-op diagnosis: other (diverticulosis, left sided colitis) Procedure: FLEXIBLE SIGMOIDOSCOPY TILL 40 CMS WITH BIOPSIES Surgeon: Alek Bowman MD Anesthesia: MAC Was an President And Chief Executive Officer used for this Procedure?: Yes President And Chief Executive Officer: Finesse Caballero Estimated blood loss (mL): 1 Pathology: other (A. Sigmoid colon) Condition: stable Disposition: PACU
--- NOTE | 2022-10-01 15:06 | MHC.SHP ---
Pre-Procedural Eval Section A Date of Service: 10/01/22 The patient is an INPATIENT: Yes Changes since office visit: Yes New Medical Problems, Yes Changes in Medication and Yes Patient answered all questions; No Cold of Flu in the past 2 weeks The History & Physical has been completed within 30 days and I have reviewed it.: Yes Section B Chief Complaint: Bloody diarrhea Allergies: Allergies Allergy/AdvReac Type Severity Reaction Status Date / Time meperidine [From Demerol] AdvReac Mild NAUSEA/VOMI Verified 10/01/22 13:45 TING Plan I have reviewed the history and physical and performed a pertinent physical examination on my patient. No changes have occurred unless specified. Time Spent With Patient Time: Total time managing care of this patient today ____ minutes.
--- NOTE | 2022-10-01 15:09 | W.PM.OPN ---
Operative Note Operative Note Date of Service: 10/01/22 Narrative: FLEXIBLE SIGMOIDOSCOPY TILL 40 CMS WITH BIOPSIES Indication:? abdominal pain, rectal bleeding, abnormal CT scan of the colon Endoscopist:? Alek Bowman MD Anesthesia Provider:?Dr Bliss Anesthesia type:?MAC Consent: Indications for the procedure and potential complications of bleeding, perforation, reaction to medications and missed diagnosis were discussed with the patient and informed consent was obtained. Instrument: Olympus PCF H 190 L variable stiffness pediatric colonoscope Monitoring: Vital signs and clinical assessment, intermittent blood pressure monitoring, continuous EKG monitoring, Pulse oximetry and Carbon Dioxide monitoring were done throughout the procedure. Please see anesthesia flowsheet. Procedure: The patient was placed in the left lateral decubitis position and pre-procedure medications were administered. After a digital rectal examination of the ano-rectum, the video colonoscope was inserted into the rectum and advanced through the colon to the sigmoid colon. The colonoscope was slowly withdrawn in a retrograde panoramic fashion and the colon mucosa was carefully examined including a retroflexed view of the rectum. Findings and interventions are described below. Procedure Difficulty: Without difficulty Findings: Sigmoid Colon: A 20 cms segment of erythema, edema, submucosal hemorrhages and exudate extending from 20 to 40 cms - biopsies were obtained. Colon mucosa appeared normal proximal and distal to this segment. Moderate diverticulosis Rectum: Normal Ano-rectum: Small internal hemorrhoids Colon preparation: Good Impression and Post Procedure Diagnosis: Colonoscopy Findings: A 20 cms segment of erythema, edema, submucosal hemorrhages and exudate extending from 20 to 40 cms - biopsies were obtained. Endoscopic appearance is suggestive of ischemic colitis which appears to be resolving. Moderate diverticulosis seen in the sigmoid colon Small hemorrhoids on retroflexed exam. Plan: I will contact patient with pathology results Ok to discharge home on PO antibiotics x 4 days to complete a 7 day course. Patient to FU in the GI clinic with GI MILITARY PERSONNEL SPECIALIST or PA and schedule a screening colonoscopy in 3 to 4 months (since last colon was in 2009) Above findings were reviewed with the patient.
[2022-10-01 15:38] VITALS: BP 110/48; PULSE 55; RESP 14; TEMP 36.3; O2SAT 93
[2022-10-01 15:53] VITALS: BP 126/55; PULSE 53; RESP 16; TEMP 36.4; O2SAT 96
[2022-10-01 20:00] VITALS: BP 138/64; PULSE 56; RESP 18; TEMP 36.7; O2SAT 96
[2022-10-01] MEDS: Atorvastatin Calcium 20 MG TABLET PO (20:39)
[2022-10-02] MEDS: metroNIDAZOLE/NS 500 MG/100 ML PIGGYBACK 100 MG IV ×2 (00:38→09:14)
[2022-10-02 03:52] VITALS: BP 185/83; PULSE 74; RESP 17; TEMP 36.3; O2SAT 94
[2022-10-02] MEDS: Levothyroxine Sodium 50 MCG TABLET PO (05:35)
[2022-10-02] MEDS: Omeprazole 20 MG CAPSULE.DR PO (05:35)
[2022-10-02 07:05] VITALS: BP 166/76; PULSE 61; RESP 17; TEMP 37; O2SAT 95
[2022-10-02 08:13] LABS: Hematocrit 37.9 % (37.0-47.0); Hemoglobin 12.4 g/dl (12.0-16.0); Mean Corpuscular HGB Conc 32.7 g/dl (31.0-35.0); Mean Corpuscular Hemoglobin 29.8 pg (27.0-33.0); Mean Corpuscular Volume 91.1 fL (80.0-98.0); Mean Platelet Volume 10.4 fL (9.4-12.3); Platelet Count 191 X10*3/uL (160-400); Red Blood Count 4.16 X10*6/uL (4.20-5.50); Red Cell Distribution Width 13.8 % (11.0-16.0); White Blood Count 7.4 X10*3/uL (4.8-10.8)
[2022-10-02] MEDS: Propranolol HCL 10 MG TABLET PO (08:45)
[2022-10-02] MEDS: Losartan Potassium 50 MG TABLET 100 MG PO (08:45)
[2022-10-02] MEDS: cefTRIAXone sodium 1 GM in 0.9 % Sodium Chloride 50 ML IV (08:46)
--- NOTE | 2022-10-02 10:53 | PM.DS ---
DS: Providers Provider Date of Service: 10/02/22 Date of admission: 09/28/22 16:12 Primary care physician: Finesse Smith DO Consults: 09/28/22 14:15 Consult to Gastroenterology Stat Consulting Provider: Alek Bowman Reason for consultation: colitis, rectal bleeding Has provider been notified: Yes DS: Diagnosis Discharge Diagnosis (1) Abnormal CT of the abdomen: Status: Acute (2) Colitis: Status: Acute (3) Bloody diarrhea: Status: Acute DS: Summary Hospital Course Hospital Course: Admission note HPI Pt is a 77-year-old female with a PMH significant for?HTN, CAD s/p cath, history of GI bleed in 2009 due to mild colitis?who presents to the ED with?bloody diarrhea. Pt states symptoms began last night around 20:00pm with left-sided abdominal pain. Pt went to the bathroom where she had to strain to move her bowels. She had pain per rectum with this first movement, which started out as hard stool but soon became a liquid. Pt noted blood in the toilet after the movement. She then had another 3-4 episodes of bloody diarrhea during the night and this morning. Pt experienced abdominal pain during movements, but not rectal pain. Abdominal pain was primarily located on the right side, but also occasionally extended across upper abdomen, rated it 6/10 at its worst. Pt has been feeling tired lately and under a lot of stress d/t 's medical conditions.? Patient has had some chills but denies fever, nausea, vomiting.? No chest pain/pressure, palpitations.? Denies shortness of breath.? Patient has not traveled anywhere nor knowingly eating anything suspicious.? Of note, pt was admitted to the hospital in 2009 with similar symptoms and diagnosed with ischemic colitis. She states this is the only time since then she has experienced these symptoms. Pt denies a history of hemorrhoids. In the ED labs were significant for mild leukocytosis of 11.1, H&H stable at 14 minute over 44.7, creatinine of 1.08 (slightly above baseline).? GI panel and stool occult blood pending. CT?of abdomen and pelvis showed acute chronic colitis extending from splenic flexure through rectum. EKG demonstrated sinus bradycardia at 58 beats per minute. Pt was treated with levofloxacin and metronidazole. Pt will be admitted to the hospital for treatment and further evaluation of colitis. Hospital course The patient was admitted for evaluation of bloody diarrhea secondary to Acute ischemic colitis as reported by colonoscopy done by dr Bowman from GI. CT with evidence of acute colitis. treated with IV fluids and antibiotics coverage with Ceftriaxone and Flagyl. started to tolerate diet which was advanced gradually. blood levels remained stable as diarrhea resolved. she will follow with dr Bowman in office for further eval and workup. Acute GI bleed secondary to colitis H&H stable Follow CBC Continue antibiotics as prescribed increase fluid intake follow with dr Bowman as outpatient Time Spent with Patient Time attestation: Total time managing care of this patient today ____ minutes. Discharge coordination time: Greater than 30 minutes Quality: Safe Use of Opioids Does Pt have an Active Cancer Diagnosis on the Problem List?: No Quality: Stroke Does the patient have a stroke diagnosis?: No Physical Exam Vital Signs: Vital Signs: Last Vital Signs Temp 98.6 F 10/02/22 07:05 Pulse 61 10/02/22 07:05 Resp 17 10/02/22 07:05 BP 166/76 H 10/02/22 07:05 Pulse Ox 95 10/02/22 07:05 O2 Del Method Room Air 10/02/22 07:05 BMI result Body Mass Index 26.6 Const: Other: Constitutional : Awake, interactive, not in distress Neck : Normal inspection, Supple Cardiovascular : RRR, no JVP, no lower extremity edema Respiratory : good bilateral air entry, no crackles, wheezes or rhonchi Gastrointestinal: soft, lax, Normal bowel sounds, no significant tenderness RLQ Skin : Warm, Dry Neurological : Alert & oriented x3, No focal deficit DS: Data Data Completed and Pending Pending studies at discharge: Pending at discharge 10/01/22 15:39 Surgical [PTH] Routine Labs on day of discharge: Laboratory Results - last 24 hr 10/02/22 05:45 WBC 7.4 RBC 4.16 L Hgb 12.4 Hct 37.9 MCV 91.1 MCH 29.8 MCHC 32.7 RDW 13.8 Plt Count 191 MPV 10.4 Absolute Nucleated RBC 0.000 Nucleated RBC % (auto) 0.0 Preliminary micro results at discharge 09/28/22 15:47 Blood Culture - Preliminary Blood - Venous No growth after 48 hours. 09/28/22 15:47 Blood Culture - Preliminary Blood - Venous No growth after [address] scan - abdomen: Radiologist's impression: ITS Impressions Abdomen/Pelvis CT 09/28/22 12:49 IMPRESSION: Acute on chronic colitis extending from the splenic flexure through the rectum, most pronounced in the descending colon. This is most likely inflammatory in nature. Query history of Crohn's disease or ulcerative colitis. Infectious or ischemic colitis are less likely. Fleischner guidelines were followed. Discharge Plan Discharge Anticipated Discharge Date/Time: 10/02/22 10:46 Patient Disposition: Home, Self-Care Discharge Diagnosis: Ischemic colitis Referrals: Finesse Smith DO [Primary Care Provider] - 1 Week Discharge Medications: New metronidazole 500 mg tablet 500 mg PO Q8H Qty: 12 0RF cefuroxime axetil 500 mg tablet 500 mg PO BID Qty: 8 0RF Continued (DME) prosthetics Kit See Rx Instructions .ROUTE .MEDSUPPLY Qty: 3 0RF Rx Instructions: right breast prosthetic losartan 100 mg tablet 100 mg PO DAILY levothyroxine 50 mcg tablet 50 mcg PO DAILY pantoprazole 40 mg tablet,delayed release (DR/EC) 40 mg PO DAILY simvastatin 40 mg tablet 40 mg PO BEDTIME propranolol 10 mg tablet 10 mg PO BID lorazepam 0.5 mg tablet 0.5 mg PO DAILY PRN (Reason: Anxiety) Discharge Orders: Discharge Order (Routine); Ordered 10/02/22 Ordered By: Hodan Torrez Diet: Advance to usual diet Activity on Discharge: As tolerated Stand Alone Forms: Patient Portal Discharge page Care Plan Goals: Read below Health Concerns: Read below Plan of Treatment: Read below Assessment: Treated for bloody diarrhea secondary to ischemic colitis as seen on colonoscopy done by dr Bowman from gastroenterology. Continue antibiotics as prescribed increase fluid intake follow with dr Bowman as outpatient
--- NOTE | 2022-10-02 10:59 | MHC.CM.PN ---
IMM 10/02/22 Patient is discharged to home self care. She has been provided with a Gift [employer] gift certificate for the [employer]GE [employer]. He will provide transportation home.
--- NOTE | 2022-10-02 15:36 | HO.POSTANES ---
Post Anesthesia Evaluation Post Anesthesia Evaluation Vital Signs: Vital Signs Temp Pulse Resp BP Pulse Ox O2 Del Method 10/02/22 07:05 98.6 F 61 17 166/76 H 95 Room Air 10/02/22 03:52 97.4 F 74 17 185/83 H 94 Room Air Anesthesia: Monitored Mental Status: Awake Pain Control: Satisfactory Nausea/Vomiting: None Hydration: Adequate Anesthesia-Related Issues: No Anes. Related Issues
== END 2022-10-02 11:59 | disposition home or self-care (01) | DRG 393 ==
LOC: HO.ED 14:27 → HO.EDOVER 16:29 → HO.S3 16:35
PROVIDERS: Internal Medicine Gastroenterology; Physician Assistant; Admitting Provider Student in an Organized Health Care Education/Training Program; Emergency Provider Student in an Organized Health Care Education/Training Program; PCP Internal Medicine; Visit Provider Student in an Organized Health Care Education/Training Program
PROC: 0DJD8ZZ Inspection of Lower Intestinal Tract, Via Natural or Artificial Opening Endoscopic (ICD-10-PCS; CPT 45330; principal; 2022-10-01 15:10)
DX: K55.9 Vascular disorder of intestine, unspecified (principal); K57.31 Diverticulosis of large intestine without perforation or abscess with bleeding; I25.10 Atherosclerotic heart disease of native coronary artery without angina pectoris; E03.9 Hypothyroidism, unspecified; K64.8 Other hemorrhoids; I10 Essential (primary) hypertension; Z20.822 Contact with and (suspected) exposure to COVID-19; Z90.11 Acquired absence of right breast and nipple; Z88.8 Allergy status to other drugs, medicaments and biological substances; Z79.890 Hormone replacement therapy; Z79.899 Other long term (current) drug therapy
CPT/HCPCS: 36415; 74177; 80048; 80076; 81001; 82272; 83605; 83690; 83735; 85025; 85027; 85610; 85652; 85730; 86140; 86850; 86900; 86901; 87040; 87635; 88305; 93005; 96365; 99285; J0696; J1956; Q9967

== ENCOUNTER → 2022-10-17 14:25 | Outpatient (BNVA) | payer MEDICARE, SELFPAY | PROVIDERS: PCP Internal Medicine; Referring Provider Internal Medicine; Visit Provider Internal Medicine Cardiovascular Disease | DX: I10 Essential (primary) hypertension (principal); R00.2 Palpitations; K55.9 Vascular disorder of intestine, unspecified | CPT/HCPCS: 99212 ==

== ENCOUNTER 2022-10-18 20:13 | Inpatient (IN) | payer MEDICARE, OTHER, SELFPAY ==
--- NOTE | 2022-10-18 | ECG_ITS ---
Test Reason : FALL/DIZZNESS Blood Pressure : / mmHG Vent. Rate : 066 BPM Atrial Rate : 066 BPM P-R Int : 188 ms QRS Dur : 090 ms QT Int : 458 ms P-R-T Axes : 045 001 066 degrees QTc Int : 480 ms Poor data quality Sinus rhythm Minimal voltage criteria for LVH, may be normal variant ( R in aVL ) Nonspecific ST and T wave abnormality Abnormal ECG When compared with ECG of 28-SEP-2022 11:41, Poor data quality in current ECG precludes serial comparison Repeat EKG Referred By: Generic ED Physician Electronically Signed By:JUAN JOSE MONET MD
--- NOTE | ~2022-10-18 | CT_ITS ---
EXAMINATION: CT ABDOMEN AND PELVIS WITHOUT CONTRAST CLINICAL INFORMATION: 77-year-old female with abdominal pain and diarrhea COMPARISON: 09/28/2022 TECHNIQUE: Multidetector volumetric imaging was performed from the superior aspect of the liver through the pubic symphysis. Sagittal and coronal reformatted images were obtained on the technologist's workstation. This CT examination was performed using dose optimization techniques as appropriate, variously including the following: *Automated exposure control *Adjustment of mA and/or kV according to patient size (this includes techniques or standardized protocols for targeted exams where dose is matched to indication/reason for exam; i.e. extremities or head) *Use of iterative reconstruction technique DLP: 433 mGy-cm FINDINGS: LUNG BASES: The visualized lung bases are unremarkable. Patient is status post right mastectomy. Heavy calcifications and coronary artery is seen. LIVER, GALLBLADDER, AND BILIARY TREE: The liver is normal in size, shape, and attenuation. No focal hepatic lesion or biliary ductal dilatation is present. Gallbladder is surgically absent. PANCREAS: Unremarkable. SPLEEN: Unremarkable. ADRENAL GLANDS: Unremarkable. KIDNEYS AND URETERS: The kidneys are normal in size, shape, and attenuation. No hydronephrosis, hydroureter, or calculi seen. No perinephric stranding. BLADDER: Unremarkable. GASTROINTESTINAL TRACT: The small and large bowel are unremarkable. Seen previously colitis of the descending colon has been resolved. Appendix is not seen. ABDOMINAL WALL: No significant hernia is appreciated. LYMPH NODES: Normal. VASCULAR: There are heavily calcified abdominal aorta and common iliac arteries. PELVIC VISCERA: Uterus is surgically absent. OSSEOUS STRUCTURES: Unremarkable. CT/CT abdomen pelvis wo IV con IMPRESSION: 1. No explanation for abdominal pain. Resolution of previously seen colitis. 2. Status post cholecystectomy and hysterectomy. Fleischner guidelines were followed.
[2022-10-18 20:19] VITALS: BP 165/68; PULSE 62; PULSE 79; RESP 22; TEMP 36.7; O2SAT 94; O2SAT 99; BMI 26.4
[2022-10-18 20:38] VITALS: BP 126/44; PULSE 66; RESP 18; O2SAT 99
[2022-10-18 20:54] LABS: MANUAL DIFF FLAG NO
[2022-10-18 20:56] LABS: Basophils Percent Auto 0.3 % (0-2); Eosinophils Percent Auto 0.6 % (0-4); Hematocrit 37.6 % (37.0-47.0); Hemoglobin 13.4 g/dl (12.0-16.0); Imm Gran Abs Auto 0.03 X10*3/uL (0.00-0.03); Imm Gran Pct Auto 0.4 % (0.0-0.4); Lymphocytes Absolute Auto 1.3 X10*3/uL (1.2-4.9); Lymphocytes Percent Auto 17.5 % (20-40); Mean Corpuscular HGB Conc 35.6 g/dl (31.0-35.0); Mean Corpuscular Hemoglobin 29.5 pg (27.0-33.0); Mean Corpuscular Volume 82.8 fL (80.0-98.0); Mean Platelet Volume 9.3 fL (9.4-12.3); Monocytes Absolute Auto 0.6 X10*3/uL (0.1-1.2); Monocytes Percent Auto 7.9 % (2-11); Neutrophils Absolute Auto 5.2 x10*3/uL (2.0-8.3); Neutrophils Percent Auto 73.3 % (45-73); Platelet Count 270 X10*3/uL (160-400); Red Blood Count 4.54 X10*6/uL (4.20-5.50); Red Cell Distribution Width 12.8 % (11.0-16.0); White Blood Count 7.1 X10*3/uL (4.8-10.8)
--- NOTE | 2022-10-18 21:19 | ED_ITS ---
HPI - General Adult General Chief complaint: Fall Stated complaint: weakness, fall Time Seen by Provider: 10/18/22 21:18 Source: patient Mode of arrival: ambulatory Limitations: no limitations History of Present Illness HPI narrative: Patient with history of hypertension, coronary disease recent cardiac catheterization showed 40% lad stenosis on chlorthalidone losartan propranolol admitted on 09/28 with ischemic colitis discharge home on 10/02 was doing better no more bloody diarrhea been feeling weak since yesterday having soft diet today she got up from the couch went to the bathroom to drink some water fell lightheaded and collapsed again she got up to go to the couch and could not make it no loss of consciousness just feeling weak no chest pain or palpitation patient complaining of nausea no vomiting no melena Related Data Home Medications Medication Instructions Recorded Confirmed levothyroxine 50 mcg tablet 50 mcg PO DAILY 06/23/20 10/18/22 losartan 100 mg tablet 100 mg PO DAILY 06/23/20 10/18/22 pantoprazole 40 mg tablet,delayed 40 mg PO DAILY 06/23/20 10/18/22 release propranolol 10 mg tablet 10 mg PO BID 10/20/20 10/18/22 simvastatin 40 mg tablet 40 mg PO BEDTIME 02/15/21 10/18/22 lorazepam 0.5 mg tablet 0.5 mg PO DAILY PRN Anxiety 08/16/22 10/18/22 chlorthalidone 25 mg tablet 25 mg PO DAILY 10/17/22 10/18/22 Previous Rx's Medication Instructions Recorded prosthetics #3 inserts 12/19/20 metronidazole 500 mg tablet 500 mg PO Q8H #12 tabs 10/17/22 Allergies Allergy/AdvReac Type Severity Reaction Status Date / Time meperidine [From Demerol] AdvReac Mild NAUSEA/VOMI Verified 10/17/22 14:30 TING Review of Systems Review of Systems: Yes all other systems are reviewed and are negative [facility] Past Medical History Medical History CAD (coronary artery disease) Carotid bruit Hypertension Lobular carcinoma of right breast Surgical History History of cardiac cath History of laparoscopic cholecystectomy History of right breast biopsy History of right mastectomy Hx of BSO (bilateral salpingo-oophorectomy) S/P NIKO (total abdominal hysterectomy) Family History Family History Father Colon cancer Cancer Mother Diabetes Child No Financial Resp Cancer Sister Heart attack Son Non Hodgkin's lymphoma Social History Social History Household Members: Spouse Housing: Condominium Do you presently have visiting nurse or other home services: No Alcohol intake: never Patient Tobacco Use Status: Never used Tobacco Advance Directives: No Advance Directives Information Provided: Yes service: No Current occupational status: retired Physical Exam ED Vital Signs: Vital Signs - 24 hr 10/18/22 20:19 10/18/22 20:38 Temperature 98.1 F Pulse Rate 79 66 Respiratory Rate 22 H 18 Blood Pressure 126/44 L Pulse Oximetry 99 99 Oxygen Delivery Method Room Air Room Air BMI result Body Mass Index 26.4 Appearance: Alert. Oriented X3. No acute distress. Eyes: PERRLA, No Nystagmus, Pallor+ ENT: Pharynx normal. Oral Mucosa moist Neck: Normal inspection. Neck supple. CVS: Normal heart rate and rhythm. Pulses normal. Respiratory: No respiratory distress. Equal air entry bilateral, no wheezing/rales/rhonchi Abdomen: Soft and nontender. Bowel sounds are present, no mass palpable, no CVA tenderness Skin: Skin warm and dry. Normal skin color. Normal skin turgor. Extremities: No lower extremity edema. No calf tenderness Neuro: Oriented X 3. No motor deficit. No sensory deficit.No cerebellar signs , cranial nerves II-XII intact Medications Administered Generic Name Dose Route Start Last Admin Trade Name Freq PRN Reason Stop Dose Admin Enoxaparin Sodium 40 mg 10/18/22 23:00 10/19/22 00:24 Enoxaparin Sodium 40 Mg/0.4 Ml Syringe SUBCUT 40 mg Q24H ROMAINE Administration Sodium Chloride 3 ml 10/19/22 00:00 10/19/22 00:24 0.9 % Sodium Chloride Flush 3 Ml Syringe IVFLUSH 3 ml QSHIFT ROMAINE Administration Discontinued Medications Generic Name Dose Route Start Last Admin Trade Name Freq PRN Reason Stop Dose Admin Sodium Chloride 1,000 mls @ 999 mls/hr 10/18/22 21:34 10/18/22 22:09 Ns IV 10/18/22 22:34 Infused .Q1H1M ONE Infusion Medical Decision Making Medical Decision Making [facility] Narrative: Patient with weakness and near-syncope episode workup showed sodium of 118 which never had before usual sodium is 143 had low serum osmolarity and high urine osmolality and sodium meeting criteria for SIADH patient also on the thiazides and PPI could be the fact during stay in the ER patient's sodium improved to 125 PA will admit patient for hyponatremia near-syncope episode Consult Healthcare Provider Management of the patient was discussed with: Hospitalist Lab Data [facility] Lab Attestation statement: I reviewed the patient's lab results. 10/18/22 20:49 10/18/22 20:49 Labs: Lab Results 10/18/22 10/18/22 10/18/22 Range/Units 20:49 20:49 20:49 WBC 7.1 (4.8-10.8) X10*3/uL RBC 4.54 (4.20-5.50) X10*6/uL Hgb 13.4 (12.0-16.0) g/dl Hct 37.6 (37.0-47.0) % MCV 82.8 (80.0-98.0) fL MCH 29.5 (27.0-33.0) pg MCHC 35.6 H (31.0-35.0) g/dl RDW 12.8 (11.0-16.0) % Plt Count 270 D (160-400) X10*3/uL MPV 9.3 L (9.4-12.3) fL Immature Gran % (Auto) 0.4 (0.0-0.4) % Neut % (Auto) 73.3 H (45-73) % Lymph % (Auto) 17.5 L (20-40) % [place] % (Auto) 7.9 (2-11) % Eos % (Auto) 0.6 (0-4) % Baso % (Auto) 0.3 (0-2) % Lymph # (Auto) 1.3 (1.2-4.9) X10*3/uL [place] # (Auto) 0.6 (0.1-1.2) X10*3/uL Eos # (Auto) 0.0 (0.0-0.4) X10*3/uL Baso # (Auto) 0.0 (0.0-0.2) X10*3/uL Abs Immat Gran (auto) 0.03 (0.00-0.03) X10*3/uL Absolute Neuts (auto) 5.2 (2.0-8.3) x10*3/uL Absolute Nucleated RBC 0.000 (0.0-0.012) X10*3/uL Nucleated RBC % (auto) 0.0 (0.0-0.2) /100WBC Sodium 118 L* (135-145) mmol/L Potassium 3.4 (3.3-5.1) mmol/L Chloride 82 L D (96-108) mmol/L Carbon Dioxide 24 (22-29) mmol/L Anion Gap 14 (12-20) BUN 26 H (9-16) mg/dL Creatinine 0.87 (0.5-1.4) mg/dL Estim Creat Clear Calc 43.1 Estimated GFR > 60 Random Glucose 181 H (60-115) mg/dL Osmolality 249 L (281-305) mosm/kg Calcium 8.9 D (8.4-10.2) mg/dL Total Creatine Kinase 82 (26-140) U/L TSH 1.24 (0.32-4.0) uIU/mL Urine Color Urine Appearance Urine pH (5.0-9.0) Ur Specific [place] (1.005-1.025) Urine Protein (Neg-Trace) mg/dL Urine Glucose (UA) (Negative) mg/dL Urine Ketones (Negative) mg/dL Urine Blood (Negative) Urine Nitrite (Negative) Ur Leukocyte Esterase (Negative) Urine RBC (0-2) /HPF Urine WBC (0-5) /HPF Ur Squamous Epith Cells (0-2) /HPF Urine Bacteria (None Seen) Hyaline Casts (0-2) /LPF Urine Osmolality (373-1093) mosm/kg Ur Random Sodium mmol/L Ur Random Chloride mmol/L 10/18/22 10/18/22 10/18/22 Range/Units 21:28 21:28 21:28 WBC (4.8-10.8) X10*3/uL RBC (4.20-5.50) X10*6/uL Hgb (12.0-16.0) g/dl Hct (37.0-47.0) % MCV (80.0-98.0) fL MCH (27.0-33.0) pg MCHC (31.0-35.0) g/dl RDW (11.0-16.0) % Plt Count (160-400) X10*3/uL MPV (9.4-12.3) fL Immature Gran % (Auto) (0.0-0.4) % Neut % (Auto) (45-73) % Lymph % (Auto) (20-40) % [place] % (Auto) (2-11) % Eos % (Auto) (0-4) % Baso % (Auto) (0-2) % Lymph # (Auto) (1.2-4.9) X10*3/uL [place] # (Auto) (0.1-1.2) X10*3/uL Eos # (Auto) (0.0-0.4) X10*3/uL Baso # (Auto) (0.0-0.2) X10*3/uL Abs Immat Gran (auto) (0.00-0.03) X10*3/uL Absolute Neuts (auto) (2.0-8.3) x10*3/uL Absolute Nucleated RBC (0.0-0.012) X10*3/uL Nucleated RBC % (auto) (0.0-0.2) /100WBC Sodium (135-145) mmol/L Potassium (3.3-5.1) mmol/L Chloride (96-108) mmol/L Carbon Dioxide (22-29) mmol/L Anion Gap (12-20) BUN (9-16) mg/dL Creatinine (0.5-1.4) mg/dL Estim Creat Clear Calc Estimated GFR Random Glucose (60-115) mg/dL Osmolality (281-305) mosm/kg Calcium (8.4-10.2) mg/dL Total Creatine Kinase (26-140) U/L TSH (0.32-4.0) uIU/mL Urine Color Yellow Urine Appearance Clear Urine pH 6.5 (5.0-9.0) Ur Specific [place] 1.010 (1.005-1.025) Urine Protein Negative (Neg-Trace) mg/dL Urine Glucose (UA) Negative (Negative) mg/dL Urine Ketones Negative (Negative) mg/dL Urine Blood Small (1+) H (Negative) Urine Nitrite Negative (Negative) Ur Leukocyte Esterase Negative (Negative) Urine RBC 3-5 H (0-2) /HPF Urine WBC 0-5 (0-5) /HPF Ur Squamous Epith Cells 0-2 (0-2) /HPF Urine Bacteria None Seen (None Seen) Hyaline Casts 0-2 (0-2) /LPF Urine Osmolality 375 (373-1093) mosm/kg Ur Random Sodium 49.0 mmol/L Ur Random Chloride 50.0 mmol/L Discharge Plan Discharge Clinical Impression: Hyponatremia, SIADH (syndrome of inappropriate ADH production), Near syncope Patient Disposition: Admitted As Inpatient
[2022-10-18 21:30] LABS: Anion Gap 14 (12-20); Blood Urea Nitrogen 26 mg/dL (9-16); Calcium 8.9 mg/dL (8.4-10.2); Creatinine Clr Calc Pharmacy 43.1; Estimated Glomerular Filt Rate > 60; Glucose Random 181 mg/dL (60-115)
[2022-10-18 21:43] LABS: Carbon Dioxide 24 mmol/L (22-29); Chloride 82 mmol/L (96-108); Potassium 3.4 mmol/L (3.3-5.1); Sodium 118 mmol/L (135-145)
[2022-10-18] MEDS: 0.9 % Sodium Chloride 1,000 ML 999 ML IV (21:49)
[2022-10-18 22:19] LABS: Osmolality, Serum 249 mosm/kg (281-305)
[2022-10-18 22:19] LABS: Osmolality Urine 375 mosm/kg (373-1093)
--- NOTE | 2022-10-18 22:24 | PM.IMHP ---
History of Present Illness Date of Service: 10/18/22 Chief Complaint: Weakness This is a 77-year-old female with pertinent history of essential hypertension, CAD, hypothyroidism, mixed hyperlipidemia who presents to the emergency department for evaluation of weakness. Patient was recently admitted with ischemic colitis and discharged on 10/02. Patient states she noticed generalized weakness today. Patient got dizzy when she tried to get up from chair. This prompted ER visit. Patient denies any more episodes of bloody bowel movements. No fever, chills, chest discomfort, palpitations, shortness of breath, abdominal pain, changes in urinary or bowel habits. Patient states she is compliant with her home medications. In the emergency department, sodium was found to be 118 Review of Systems Constitutional: Constitutional: Reports fatigue, Reports lethargy and Reports malaise Cardiovascular: Cardiovascular: Reports no additional cardiovascular complaints Respiratory: Respiratory: Reports no additional respiratory complaints Gastrointestinal: Gastrointestinal: Reports no additional gastrointestinal complaints Genitourinary: Genitourinary: Reports no additional female genitourinary complaints Endocrine: Endocrine: Reports fatigue [facility] Medical History CAD (coronary artery disease) Carotid bruit Hypertension Lobular carcinoma of right breast Functional capacity: independent ambulation Family History Father Colon cancer Cancer Mother Diabetes Child No Financial Resp Cancer Sister Heart attack Son Non Hodgkin's lymphoma Surgical History History of cardiac cath History of laparoscopic cholecystectomy History of right breast biopsy History of right mastectomy Hx of BSO (bilateral salpingo-oophorectomy) S/P NIKO (total abdominal hysterectomy) Social History Household Members: Spouse Housing: Condominium Do you presently have visiting nurse or other home services: No Alcohol intake: never Patient Tobacco Use Status: Never used Tobacco Advance Directives: No Advance Directives Information Provided: Yes service: No Current occupational status: retired Meds Allergies Allergy/AdvReac Type Severity Reaction Status Date / Time meperidine [From Demerol] AdvReac Mild NAUSEA/VOMI Verified 10/17/22 14:30 TING Active Medications: Current Medications Sodium Chloride (Ns) 1,000 mls @ 999 mls/hr IV .Q1H1M ONE Stop: 10/18/22 22:34 Last Admin: 10/18/22 21:49 Dose: 999 mls/hr Pharmacy Consult (Consult Rx Perform Med Rec) 1 each MISCELLANE ONCE PRN PRN Reason: Consult order Home Medications Medication Instructions Recorded Confirmed Last Taken Type levothyroxine 50 mcg tablet 50 mcg PO DAILY 06/23/20 10/18/22 10/18/22 History losartan 100 mg tablet 100 mg PO DAILY 06/23/20 10/18/22 10/18/22 History pantoprazole 40 mg tablet,delayed 40 mg PO DAILY 06/23/20 10/18/22 10/18/22 History release propranolol 10 mg tablet 10 mg PO BID 10/20/20 10/18/22 10/18/22 History simvastatin 40 mg tablet 40 mg PO BEDTIME 02/15/21 10/18/22 10/18/22 History lorazepam 0.5 mg tablet 0.5 mg PO DAILY PRN Anxiety 08/16/22 10/18/22 Unknown History chlorthalidone 25 mg tablet 25 mg PO DAILY 10/17/22 10/18/22 10/18/22 History Physical Exam Vital Signs and Narrative: Vital Signs: Last Vital Signs Temp 98.1 F 10/18/22 20:19 Pulse 66 10/18/22 20:38 Resp 18 10/18/22 20:38 BP 126/44 L 10/18/22 20:38 Pulse Ox 99 10/18/22 20:38 O2 Del Method Room Air 10/18/22 20:38 BMI result Body Mass Index 26.4 Elderly female lying in bed in no distress Neck supple, no JVD Regular rate and rhythm, S1-S2 heard Regular breath sounds bilaterally, no wheezing or crackles appreciated Abdomen soft nontender, no guarding, no rigidity Patient is awake, alert and oriented to self, place, time and person ; no focal motor deficit Psych: Normal mood No pedal edema Results Labs 10/18/22 20:49 10/18/22 20:49 Labs: Laboratory Results - last 24 hr 10/18/22 10/18/22 10/18/22 20:49 20:49 20:49 MCV 82.8 MCH 29.5 MCHC 35.6 H RDW 12.8 Plt Count 270 D MPV 9.3 L Immature Gran % (Auto) 0.4 Neut % (Auto) 73.3 H Lymph % (Auto) 17.5 L [place] % (Auto) 7.9 Eos % (Auto) 0.6 Baso % (Auto) 0.3 Lymph # (Auto) 1.3 [place] # (Auto) 0.6 Eos # (Auto) 0.0 Baso # (Auto) 0.0 Abs Immat Gran (auto) 0.03 Absolute Neuts (auto) 5.2 Absolute Nucleated RBC 0.000 Nucleated RBC % (auto) 0.0 Anion Gap 14 Estim Creat Clear Calc 43.1 Estimated GFR > 60 Random Glucose 181 H Osmolality 249 L Calcium 8.9 D Total Creatine Kinase 82 Urine Osmolality Ur Random Sodium Ur Random Chloride 10/18/22 10/18/22 21:28 21:28 MCV MCH MCHC RDW Plt Count MPV Immature Gran % (Auto) Neut % (Auto) Lymph % (Auto) [place] % (Auto) Eos % (Auto) Baso % (Auto) Lymph # (Auto) [place] # (Auto) Eos # (Auto) Baso # (Auto) Abs Immat Gran (auto) Absolute Neuts (auto) Absolute Nucleated RBC Nucleated RBC % (auto) Anion Gap Estim Creat Clear Calc Estimated GFR Random Glucose Osmolality Calcium Total Creatine Kinase Urine Osmolality 375 Ur Random Sodium 49.0 Ur Random Chloride 50.0 Assessment and Plan (1) Hyponatremia: Status: Acute Plan This is a 77-year-old female with pertinent history of essential hypertension, CAD, hypothyroidism, mixed hyperlipidemia who presents to the emergency department for evaluation of weakness. #. Severe hypotonic hyponatremia, unclear chronicity: Urine sodium and urine osmolality suggestive of SIADH. Will place fluid restriction. Discontinue Thiazide and PPI. Obtaining TSH and morning cortisol. Closely monitor BMP #. CAD: Aspirin was discontinued during previous admission due to GI bleed. Continue statin #. Essential hypertension: Hold chlorthalidone as above. Continue losartan #. GERD: Discontinue PPI, initiating Pepcid #. Hypothyroidism: On Synthroid Med rec pending DVT prophylaxis: Lovenox 40 mg daily Full code Cardiac diet with 1 L fluid restriction Admit as inpatient and will require two night minimum hospital stay for close monitoring of serum sodium Time Spent With Patient Time: Total time managing care of this patient today ____ minutes. Quality Stroke Does the patient have a stroke diagnosis?: No VTE Prior VTE?: No VTE Risk Level:: Medical - moderate - high VTE Device Contraindication: Treatment Not Indicated VTE Drug Contraindication: N/A - Med Ordered
[2022-10-18 22:48] LABS: Appearance Urine Clear; Bacteria Urine None Seen (None Seen); Color Urine Yellow; Glucose Urine UA Negative (Negative); Hyaline Casts Urine 0-2 /LPF (0-2); Leukocyte Esterase Urine Negative (Negative); Nitrite Urine Negative (Negative); PH 6.5 (5.0-9.0); Squamous Epithelial Cell Urine 0-2 /HPF (0-2); UMIC TRIGGER UACC YES; Urine Blood Small (1+) (Negative); Urine Ketones Negative (Negative); Urine Protein Negative (Neg-Trace); WBC Urine 0-5 /HPF (0-5)
[2022-10-18 23:27] LABS: Thyroid Stimulating Hormone 1.24 uIU/mL (0.32-4.0)
[2022-10-18 23:57] VITALS: BP 138/42; PULSE 53; RESP 12; TEMP 36.7; O2SAT 96
[2022-10-19] VITALS (8 sets, daily range): BP systolic 103–145; BP diastolic 41–67; PULSE 52–80; RESP 16–19; TEMP 36.3–36.6; O2SAT 95–98; BMI 25.9
--- OUTSIDE RECORDS SUMMARY | 2022-10-19 00:23 | XMS_ITS ---
Author Name Finesse Smith Address [address], [place] [id number] Organization Finesse Smith DO, 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 [address], [place] [id number] Oct, Finesse Smith DO, [facility] [address], [place] [id number] Oct, Acute ischemic colitis K55.0 39 ; Essential hypertension I10 ; Coronary artery disease involving [place] coronary artery of [place] heart without angina pectoris I25.10 ; Hypercholesterolemia E78.00 ; Acquired hypothyroidism E03.9 ; Gastroesophageal reflux disease without esophagitis K21.9 and Anxiety F41.9 Finesse Smith DO, [address] [id number] Aug, 2022 Essential hypertension I10 ; Hypercholesterolemia E78.00 ; Acquired hypothyroidism E03.9 ; Gastroesophageal reflux disease without esophagitis K21.9 ; Anxiety F41.9 and Coronary artery disease involving [place] coronary artery of [place] heart without angina pectoris I25.10 Finesse Smith DO, [facility] [address], [place] [id number] Aug, Finesse Smith DO, [address] [id number] Jul, Finesse Smith DO, [address] [id number] Jul, Finesse Smith DO, [address] [id number] Jul, Finesse Smith DO, [address] [id number] Jul, Finesse Smith DO, [address] [id number] Jun, Finesse Smith DO, [address] [id number] Jun, Hypercholesterolemia E78.00 Finesse Smith DO, [address] [id number] Jun, Finesse Smith DO, [address] [id number] Jun, Finesse Smith DO, [address] [id number] May, Acquired hypothyroidism E03. 9 and Essential hypertension I10 Finesse Smith DO, [address] [id number] Apr, Need for influenza vaccinati on Z23 Finesse Smith DO, [address] [id number] Apr, Coronary artery disease involving [place] coronary artery of [place] heart without angina pectoris I25.10 Finesse Smith DO, [address] [id number] Dec, Essential hypertension I10 ; Hypercholesterolemia E78.00 ; Coronary artery disease involving [place] coronary artery of [place] heart without angina pectoris I25.10 ; Acquired hypothyroidism E03.9 ; Gastroesophageal reflux disease without esophagitis K21.9 ; Irritable bowel syndrome without diarrhea K58.9 and Anxiety F41.9 Finesse Smith DO, [facility] [address], [place] [id number] Oct, Coronary artery disease involving [place] coronary artery of [place] heart without angina pectoris I25.10 Finesse Smith DO, [facility] [address], [place] [id number] Sep, Anxiety F41.9 Finesse Smith DO, [address] [id number] Jul, Hypercholesterolemia E78.00 Finesse Smith DO, [address] [id number] Jun, Coronary artery disease involving [place] coronary artery of [place] heart without angina pectoris I25.10 ; Anxiety F41.9 ; Essential hypertension I10 ; Hypercholesterolemia E78.00 ; Acquired hypothyroidism E03.9 ; Gastroesophageal reflux disease without esophagitis K21.9 and Irritable bowel syndrome without diarrhea K58.9 Finesse Smith DO, [address] [id number] May, Acquired hypothyroidism E03. 9 and Coronary artery disease involving [place] coronary artery of [place] heart without angina pectoris I25.10 Finesse Smith DO, [facility] [address], [place] [id number] Apr, Need for influenza vaccinati on Z23 Finesse Smith DO, [address] [id number] Mar, Anxiety F41.9 ; Coronary art nolan disease involving [place] coronary artery of [place] heart without angina pectoris I25.10 ; Hypercholesterolemia E78.00 ; Acquired hypothyroidism E03.9 ; Gastroesophageal reflux disease without esophagitis K21.9 and Irritable bowel syndrome without diarrhea K58.9 Finesse Smith DO, [facility] [address], [place] [id number] Feb, Gastroesophageal reflux dise ase without esophagitis K21.9 Finesse Smith DO, [address] [id number] Dec, Essential hypertension I10 ; Hypercholesterolemia E78.00 ; Acquired hypothyroidism E03.9 ; Coronary artery disease involving [place] coronary artery of [place] heart without angina pectoris I25.10 ; Gastroesophageal reflux disease without esophagitis K21.9 ; Irritable bowel syndrome without diarrhea K58.9 and Anxiety F41.9 Finesse Smith DO, [facility] [address], [place] [id number] November, Anxiety F41.9 Finesse Smith DO, [address] [id number] November, Finesse Smith DO, [address] [id number] Oct, Coronary artery disease involving [place] coronary artery of [place] heart without angina pectoris I25.10 Finesse Smith DO, [address] [id number] Oct, Finesse Smtih DO, [address] [id number] Oct, Essential hypertension I10 ; Acquired hypothyroidism E03.9 ; Gastroesophageal reflux disease without esophagitis K21.9 ; Irritable bowel syndrome without diarrhea K58.9 ; Coronary artery disease involving [place] coronary artery of [place] heart without angina pectoris I25.10 and Anxiety F41.9 Finesse Smith DO, [address] [id number] Sep, Finesse Smith DO, [address] [id number] Sep, Gross hematuria R31.0 Finesse Smith DO, [address] [id number] Sep, Finesse Smith DO, [address] [id number] Aug, Acquired hypothyroidism E03. 9 ; Gastroesophageal reflux disease without esophagitis K21.9 ; Irritable bowel syndrome without diarrhea K58.9 ; Malignant neoplasm of right female breast, unspecified site of breast C50.911 ; Essential hypertension I10 ; Hypercholesterolemia E78.00 ; Coronary artery disease involving [place] coronary artery of [place] heart without angina pectoris I25.10 and Anxiety F41.9 Finesse Smith DO, [facility] [address], [place] [id number] Jul, Acquired hypothyroidism E03. 9 ; Essential hypertension I10 ; Hypercholesterolemia E78.00 ; Coronary artery disease involving [place] coronary artery of [place] heart without angina pectoris I25.10 ; Neck mass R22.1 ; Anxiety F41.9 ; Irritable bowel syndrome without diarrhea K58.9 and Gastroesophageal reflux disease without esophagitis K21.9 Finesse Smith DO, [address] [id number] Jun, Essential hypertension I10 Finesse Smith DO [address] [id number] May, Finesse Smith DO [address] [id number] May, Acquired hypothyroidism E03. 9 Finesse Smith DO, [address] [id number] Apr, Malignant neoplasm of right female breast, unspecified site of breast C50.911 and Neck mass R22.1 Finesse Smith DO, [address] [id number] Apr, Malignant neoplasm of right female breast, unspecified site of breast C50.911 Finesse Smith DO, [address] [id number] Apr, Neck mass R22.1 Finesse Smith DO, [address] [id number] Mar, Need for influenza vaccinati on Z23 Finesse Smith DO [address] [id number] Feb, Hypercholesterolemia E78.00 Finesse Smith DO [address] [id number] Jan, Coronary artery disease involving [place] coronary artery of [place] heart without angina pectoris I25.10 ; Essential hypertension I10 ; Hypercholesterolemia E78.00 ; Acquired hypothyroidism E03.9 ; Gastroesophageal reflux disease without esophagitis K21.9 ; Irritable bowel syndrome without diarrhea K58.9 and Anxiety F41.9 Finesse Smith DO, [address] [id number] Dec, Finesse Smith DO [address] [id number] Dec, Coronary artery disease involving [place] coronary artery of [place] heart without angina pectoris I25.10 Finesse Smith DO, [address] [id number] Dec, Coronary artery disease involving [place] coronary artery of [place] heart without angina pectoris I25.10 ; Acquired hypothyroidism E03.9 ; Irritable bowel syndrome without diarrhea K58.9 ; Essential hypertension I10 ; Gastroesophageal reflux disease without esophagitis K21.9 and Anxiety F41.9 Finesse Smith DO, [address] [id number] November, Finesse Smith DO, [address] [id number] November, Essential hypertension I10 Finesse Smith DO, [address] [id number] Oct, Essential hypertension I10 ; Hypercholesterolemia E78.00 ; Acquired hypothyroidism E03.9 ; Gastroesophageal reflux disease without esophagitis K21.9 and Irritable bowel syndrome without diarrhea K58.9 Finesse Smith DO, [address] [id number] Oct, Gastroesophageal reflux dise ase without esophagitis K21.9 Finesse Smith DO, [address] [id number] Aug, Finesse Smith DO, [address] [id number] Jun, Essential hypertension I10 Finesse Smith DO, [address] [id number] May, Acquired hypothyroidism E03. 9 Finesse Smith DO, [address] [id number] Apr, Essential hypertension I10 ; Hypercholesterolemia E78.00 ; Acquired hypothyroidism E03.9 ; Gastroesophageal reflux disease without esophagitis K21.9 ; Irritable bowel syndrome without diarrhea K58.9 ; Urinary urgency R39.15 and Onychomycosis B35.1 Finesse Smith DO, [address] [id number] November, Essential hypertension I10 Finesse Smith DO, [address] [id number] Oct, Essential hypertension I10 ; Hypercholesterolemia E78.00 ; Acquired hypothyroidism E03.9 ; Gastroesophageal reflux disease without esophagitis K21.9 and Irritable bowel syndrome without diarrhea K58.9 Finesse Smith DO, [address] [id number] Jul, Gastroesophageal reflux dise ase without esophagitis K21.9 Finesse Smith DO, [address] [id number] Jun, Essential hypertension with goal blood pressure less than 130\/80 I10 Finesse Smith DO, [facility] [address], [place] [id number] May, Acquired hypothyroidism E03. 9 Finesse Smith DO, [address] [id number] May, Finesse Smith DO, [address] [id number] Apr, Encounter for general adult medical examination without abnormal findings Z00.00 ; Essential hypertension with goal blood pressure less than 130\/80 I10 ; Hypercholesterolemia E78.0 ; Acquired hypothyroidism E03.9 ; Gastroesophageal reflux disease without esophagitis K21.9 ; Irritable bowel syndrome without diarrhea K58.9 and Malignant neoplasm of right female breast, unspecified site of breast C50.911 Finesse Smith DO, [address] [id number] November, Essential hypertension with goal blood pressure less than 130\/80 I10 Finesse Smith DO, [address] [id number] Oct, Essential hypertension with goal blood pressure less than 130\/80 I10 ; Hypercholesterolemia E78.0 ; Acquired hypothyroidism E03.9 ; Gastroesophageal reflux disease without esophagitis K21.9 and Irritable bowel syndrome without diarrhea K58.9 Finesse Smith DO, [address] [id number] Sep, Hypercholesterolemia E78.0 Finesse Smith DO, [address] [id number] Jun, Essential hypertension with goal blood pressure less than 130\/80 I10 Finesse Smith DO, [facility] [address], [place] [id number] Jun, Essential hypertension with goal blood pressure less than 130\/80 I10 Finesse Smith DO, [facility] [address], [place] [id number] May, Acquired hypothyroidism E03. 9 Finesse Smith DO, [facility] [address], [place] [id number] Apr, Essential hypertension with goal blood pressure less than 130\/80 I10 ; Hypercholesterolemia E78.0 ; Acquired hypothyroidism E03.9 ; Gastroesophageal reflux disease without esophagitis K21.9 and Irritable bowel syndrome without diarrhea K58.9 Finesse Smith DO, [facility] [address], [place] [id number] Apr, Gastroesophageal reflux dise ase without esophagitis K21.9 Finesse Smith DO, [address] [id number] Feb, Acquired hypothyroidism E03. 9 Finesse Smith DO, [facility] [address], [place] [id number] Jan, Finesse Smith DO, [address] [id number] Jan, Injury of right hand, initia l encounter S69.91XA and Right wrist injury, initial encounter S69.91XA Finesse Smith DO, [address] [id number] Dec, Essential hypertension with goal blood pressure less than 130\/80 I10 ; Hypercholesterolemia E78.0 ; Acquired hypothyroidism E03.9 ; Gastroesophageal reflux disease without esophagitis K21.9 and Irritable bowel syndrome without diarrhea K58.9 Finesse Smith DO, [address] [id number] Dec, Finesse Smith DO, [address] [id number] November, Encounter for general adult medical examination without abnormal findings Z00.00 ; Essential hypertension with goal blood pressure less than 130\/80 I10 ; Hypercholesterolemia E78.0 ; Acquired hypothyroidism E03.9 ; Gastroesophageal reflux disease without esophagitis K21.9 and Irritable bowel syndrome without diarrhea K58.9 Finesse Smith DO, [address] [id number] Aug, Essential hypertension with goal blood pressure less than 130\/80 I10 ; Hypercholesterolemia E78.0 ; Acquired hypothyroidism E03.9 ; Gastroesophageal reflux disease without esophagitis K21.9 and Irritable bowel syndrome without diarrhea K58.9 Finesse Smith DO, [address] [id number] Aug, Finesse Smith DO, [address] [id number] Jul, Essential hypertension with goal blood pressure less than 130\/80 I10 ; Hypercholesterolemia E78.0 ; Acquired hypothyroidism E03.9 and Gastroesophageal reflux disease without esophagitis K21.9 Finesse mSith DO, [address] [id number] Jun, Essential hypertension with goal blood pressure less than 130\/80 I10 ; Hypercholesterolemia E78.0 ; Acquired hypothyroidism E03.9 and Gastroesophageal reflux disease without esophagitis K21.9 Finesse Smith DO, [address] [id number] May, Essential hypertension with goal blood pressure less than 130\/80 I10 ; Hypercholesterolemia E78.0 ; Acquired hypothyroidism E03.9 ; Gastroesophageal reflux disease without esophagitis K21.9 and Irritable bowel syndrome without diarrhea K58.9 Finesse Smith DO, [address] [id number] Mar, Essential hypertension with goal blood pressure less than 130\/80 I10 ; Hypercholesterolemia E78.0 ; Acquired hypothyroidism E03.9 ; Gastroesophageal reflux disease without esophagitis K21.9 ; Irritable bowel syndrome without diarrhea K58.9 and Malignant neoplasm of right female breast, unspecified site of breast C50.911 Finesse Smith DO [address] [id number] Mar, Finesse Smith DO [address] [id number] Dec, Essential hypertension with goal blood pressure less than 130\/80 I10 ; Hypercholesterolemia E78.0 ; Acquired hypothyroidism E03.9 ; Gastroesophageal reflux disease without esophagitis K21.9 ; Irritable bowel syndrome without diarrhea K58.9 and Malignant neoplasm of right female breast, unspecified site of breast C50.911 Finesse Smith DO, [address] [id number] Sep, Essential hypertension with goal blood pressure less than 130\/80 I10 ; Hypercholesterolemia E78.0 ; Acquired hypothyroidism E03.9 ; Gastroesophageal reflux disease without esophagitis K21.9 ; Irritable bowel syndrome without diarrhea K58.9 and Malignant neoplasm of right female breast, unspecified site of breast C50.911 Finesse Smith DO, [address] [id number] Sep, Finesse Smith DO, [address] [id number] Aug, Finesse Smith DO [address] [id number] Mar, Hypertension 401.9 ; Hypercholesterolemia 272.0 ; Hypothyroidism 244.9 ; Irritable bowel syndrome 564.1 ; Gastroesophageal reflux disease 530.81 ; Breast cancer 174.9 and Need for influenza vaccination V04.81 Finesse Smith DO, [address] [id number] Mar, Finesse Smith DO, [address] [id number] Feb, Finesse Smith DO [address] [id number] Oct, Finesse Smith DO [address] [id number] Sep, Hypertension 401.9 ; Hypercholesterolemia 272.0 and Breast cancer 174.9 Finesse Smith DO [address] [id number] Aug, Finesse Smith DO [address] [id number] Jun, Need for pneumococcal vaccination V03.82 Finesse Smith DO [address] [id number] May, Finesse Smith DO [address] [id number] Apr, Finesse Smith DO [address] [id number] Mar, Need for influenza vaccinati on V04.81 Finesse Smith DO [address] [id number] Mar, Hypertension 401.9 ; Hypercholesterolemia 272.0 ; Hypothyroidism 244.9 ; Irritable bowel syndrome 564.1 ; Gastroesophageal reflux disease 530.81 and Breast cancer 174.9 Finesse Smith DO, [address] [id number] Feb, Hypertension 401.9 and Hypothyroidism 244.9 Finesse Smith DO [address] [id number] Jan, Routine general medical examination at health care facility V70.0 ; Hypertension 401.9 ; Hypercholesterolemia 272.0 ; Hypothyroidism 244.9 ; Gastroesophageal reflux disease 530.81 and Irritable bowel syndrome 564.1 Finesse Smith DO [address] [id number] November, Hypertension 401.9 ; Hypercholesterolemia 272.0 ; Hypothyroidism 244.9 ; Gastroesophageal reflux disease 530.81 and Irritable bowel syndrome 564.1 Finesse Smith DO [address] [id number] Aug, Hypertension 401.9 ; Hypercholesterolemia 272.0 ; Hypothyroidism 244.9 ; Esophageal reflux 530.81 and Irritable bowel syndrome 564.1 Finesse Smith DO [address] [id number] Jun, Numbness and tingling of lef t leg 782.0 Finesse Smith DO [address] [id number] Jun, Need for influenza vaccinati on V04.81 Finesse Smith DO [address] [id number] Jun, Finesse Smith DO [address] [id number] Apr, Hypertension 401.9 ; Hypercholesterolemia 272.0 ; Hypothyroidism 244.9 ; Gastroesophageal reflux disease 530.81 and Dysuria 788.1 Finesse Smith DO [address] [id number] Mar, Gastroesophageal reflux dise ase 530.81 ; Malar rash 782.1 and Neck pain 723.1 Finesse Smith DO [address] [id number] Mar, Finesse Smith DO [address] [id number] Mar, Fniesse Smith DO [address] [id number] Mar, Finesse Smith DO [address] [id number] Feb, Finesse Smith DO [address] [id number] November, Hypertension 401.9 ; Hypercholesterolemia 272.0 ; Hypothyroidism 244.9 ; Esophageal reflux 530.81 and Irritable bowel syndrome 564.1 Finesse Smith DO [address] [id number] Oct, Hypertension 401.9 ; Hypercholesterolemia 272.0 ; Hypothyroidism 244.9 ; Esophageal reflux 530.81 and Irritable bowel syndrome 564.1 Finesse Smith DO [address] [id number] May, Finesse Smith DO [address] [id number] May, Finesse Smith DO [address] [id number] Apr, Hypertension 401.9 ; Hypercholesterolemia 272.0 ; Hypothyroidism 244.9 and Esophageal reflux 530.81 Finesse Smith DO [address] [id number] Mar, Finesse Smith DO [address] [id number] Mar, Finesse Smith DO [address] [id number] Jan, Finesse Smith DO [address] [id number] Dec, Finesse Smith DO [address] [id number] Dec, Finesse Smith DO [address] [id number] Oct, Hypertension 401.9 ; Hypercholesterolemia 272.0 ; Hypothyroidism 244.9 and Esophageal reflux 530.81 Finesse Smith DO [address] [id number] May, Hypertension 401.9 ; Hypercholesterolemia 272.0 ; Esophageal reflux 530.81 and Hypothyroidism 244.9 Finesse Smith DO [address] [id number] May, Finesse Smith DO [address] [id number] May, Finesse Smith DO [address] [id number] Apr, Hypertension 401.9 ; Hypercholesterolemia 272.0 ; Esophageal reflux 530.81 ; Hypothyroidism 244.9 and Impacted cerumen 380.4 Finesse Smith DO [address] [id number] Mar, Hypertension 401.9 ; Hypercholesterolemia 272.0 ; Esophageal reflux 530.81 and Hypothyroidism 244.9 Finesse Smith DO [address] [id number] Mar, IMMUNIZATIONS Vaccine Route Administration Date Status Influenza Quad IM Intramuscular May 01, 2019 Administe red Influenza High Dose IM Intramuscular Mar 28, 2020 Adm inistered Influenza High Dose IM Intramuscular May 02, 2021 Admi nistered COVID-19 Pfizer [employer] Unknown November 17, 2020 Adm inistered Influnza High Dose Quad Unknown Apr 18, 2022 Admi nistered PCV 13 IM Intramuscular November 27, 2016 Administere d Influenza High Dose IM Intramuscular Apr 23, 2017 Admi nistered Influenza Quad IM Intramuscular Apr 22, 2018 Administe red Influenza Unknown Apr 13, 2011 Administered COVID-19 Pfizer [employer]NTech Unknown October 26, 2020 A dministered COVID-19 Pfizer [employer] Unknown Jun 07, 2021 Adm inistered Influenza High Dose IM Intramuscular Apr 18, 2022 Admi nistered Influenza High Dose IM Intramuscular 2016 Adm inistered Influenza Quad IM Intramuscular Apr 01, 2015 Administ ered Pneumococcal - PPSV23 IM Intramuscular Jun 07, 2014 Ad ministered Influenza IM Intramuscular Mar 26, 2014 Administer ed H1N1 0 September 29, 2009 Administered Influenza IM Intramuscular Jun 26, 2013 Administere d Influenza IM Intramuscular Apr 18, 2012 Administere d Influenza IM Intramuscular Apr 18, 2012 Administere d SOCIAL HISTORY Qualifiers Date Never Smoker REASON FOR REFERRAL FUNCTIONAL STATUS PLAN OF CARE Activity Details VITAL SIGNS Weight 138 lbs 2022-08-14 Weight 133 lbs 2021-06-20 Weight 130 lbs 2020-12-09 Weight 136 lbs 2019-05-01 Weight 131 lbs 2018-10-28 Weight 134 lbs 2018-04-22 Weight 135 lbs 2017-10-22 Weight 137 lbs 2017-04-23 Weight 138 lbs 2016-12-25 Weight 138 lbs 2016-11-27 Weight 137 lbs 2016-08-23 Weight 137 lbs 2016-07-26 Weight 134 lbs 2016-06-14 Weight 133 lbs 2016-05-17 Weight 132 lbs 2016 Weight 132 lbs 2016-01-02 Weight 133 lbs 2015-10-03 Weight 129 lbs 2015-04-01 Weight 127 lbs 2014-09-20 Weight 125 lbs 2014-03-18 Weight 123 lbs 2014-01-14 Weight 126 lbs 2013-11-06 Weight 126 lbs 2013-09-03 Weight 128 lbs 2013-06-30 Weight 131 lbs 2013-05-07 Weight 130 lbs 2013-04-03 Weight 134 lbs 2012-11-27 Weight 136 lbs 2012-10-17 Weight 135 lbs 2012-04-18 Weight 137 lbs 2011-10-23 Weight 135 lbs 2011-05-30 Weight 135 lbs 2011-04-13 Weight 136 lbs 2011-03-16 Height 59.25 in 2022-10-10 Height 59.25 in 2022-08-14 Height 59.25 in 2022-08-08 Height 59.25 in 2022-08-01 Height 59.25 in 2022-07-24 Height 59.25 in 2022-07-17 Height 59.25 in 2022-07-10 Height 59.25 in 2022-07-03 Height 59.25 in 2022-06-26 Height 59.25 in 2022-06-19 Height 59.25 in 2021-06-20 Height 59.25 in 2020-12-09 Height 59.25 in 2020-10-25 Height 59.25 in 2020-09-26 Height 59.25 in 2019-12-09 Height 59.25 in 2019-05-01 Height 59.25 in 2018-10-28 Height 59.25 in 2018-04-22 Height 60 in 2017-10-22 Height 60 in 2017-04-23 Height 60 in 2016-12-25 Height 60 in 2016-11-27 Height 60 in 2016-08-23 Height 60 in 2016-07-26 Height 60 in 2016-06-14 Height 60 in 2016-05-17 Height 60 in 2016 Height 60 in 2016-01-02 Height 60 in 2015-10-03 Height 60 in 2015-04-01 Height 60 in 2014-09-20 Height 60 in 2014-03-18 Height 60 in 2014-01-14 Height 60 in 2013-11-06 Height N/A in 2013-09-03 Height 60 in 2013-06-30 Height N/A in 2013-05-07 Height N/A in 2013-04-03 Height N/A in 2012-11-27 Height 60 in 2012-10-17 Height N/A in 2012-04-18 Height N/A in 2011-10-23 Height 60 in 2011-05-30 Height 60 in 2011-04-13 BMI 27.63 kg/m2 2022-08-14 BMI 26.63 kg/m2 2021-06-20 BMI 26.03 kg/m2 2020-12-09 BMI 27.23 kg/m2 2019-05-01 BMI 26.23 kg/m2 2018-10-28 BMI 26.83 kg/m2 2018-04-22 BMI 26.36 kg/m2 2017-10-22 BMI 26.75 kg/m2 2017-04-23 BMI 26.95 kg/m2 2016-12-25 BMI 26.95 kg/m2 2016-11-27 BMI 26.75 kg/m2 2016-08-23 BMI 26.75 kg/m2 2016-07-26 BMI 26.17 kg/m2 2016-06-14 BMI 25.97 kg/m2 2016-05-17 BMI 25.78 kg/m2 2016 BMI 25.78 kg/m2 2016-01-02 BMI 25.97 kg/m2 2015-10-03 BMI 25.19 kg/m2 2015-04-01 BMI 24.80 kg/m2 2014-09-20 BMI 24.41 kg/m2 2014-03-18 BMI 24.02 kg/m2 2014-01-14 BMI 24.61 kg/m2 2013-11-06 BMI 24.61 kg/m2 2013-09-03 BMI 25.00 kg/m2 2013-06-30 BMI 25.58 kg/m2 2013-05-07 BMI 25.39 kg/m2 2013-04-03 BMI 26.17 kg/m2 2012-11-27 BMI 26.56 kg/m2 2012-10-17 BMI 26.36 kg/m2 2012-04-18 BMI 26.75 kg/m2 2011-10-23 BMI 26.36 kg/m2 2011-05-30 BMI 26.36 kg/m2 2011-04-13 Heart Rate 54 /min 2020-12-09 Heart Rate 60 /min 2019-12-09 Heart Rate 60 /min 2017-10-22 Heart Rate 60 /min 2011-05-30 Heart Rate 68 /min 2011-03-16 Blood pressure systolic 164 mm Hg Blood pressure diastolic 82 mm Hg 2022-10 MEDICATIONS Medication Instructions Dosage Frequency Start Date End Date Duration Status Pantoprazole Sodium 40 MG Orally Once a day 1 tablet 24h 27 Mar, 2013 Active LORazepam 0.5 MG Orally Once a day 1 tablet at bedtime as needed 24h Aug, Active Propranolol HCl 10 MG Orally Twice a day 1 tablet 12h Active Losartan Potassium 100 MG Orally Once a day 1 tablet 24h Active Simvastatin 40 MG Orally Once a day 1 tablet in the evening 24h Apr, Active Chlorthalidone 25 MG Orally Once a day 1 tablet in the morning with food 24h Oct, 30 day(s) Active Levoxyl 50 MCG Orally Once a day 1 tablet every morning on an empty stomach 24h Active Aspirin Adult Low Strength 81 MG Orally Once a day 1 tablet 24h Active PROCEDURES Procedure Date Ordered Result Body Site Imms Admin November 27, 2016 IMMUNIZATION ADMIN May 02, 2021 IMMUNIZATION ADMIN Apr 18, 2012 FLU VACC PRSV FREE INC ANTIG Apr 23, 2017 Influenza Apr 13, 2011 FLU VACC 4 IKER 3 YRS PLUS IM Apr 01, 2015 Imms Admin Pneu Jun 07, 2014 IMMUNIZATION ADMIN Apr 23, 2017 INFLUENZA Apr 18, 2012 Imms Admin May 01, 2019 Trans [facility] 7 Day Disc October 08, 2022 IMMUNIZATION ADMIN Mar 28, 2020 IMMUNIZATION ADMIN 2016 Imms Admin Apr 22, 2018 Pneumococcal - PPSV23 Jun 07, 2014 PNEUMOCOCCAL VACC 13 IKER IM November 27, 2016 FLU VACC PRSV FREE INC ANTIG Apr 18, 2022 IMMUNIZATION ADMIN Mar 26, 2014 Imms Admin Apr 01, 2015 FLU VACC PRSV FREE INC ANTIG May 02, 2021 IMMUNIZATION ADMIN Apr 18, 2022 Influenza Mar 26, 2014 Trans [facility] 7 Day Disc December 09, 2019 ANNUAL WELLNESS VST; PPS SUBSQT VST Apr 22, 2018 FLU VACC 4 IKER 3 YRS PLUS IM Apr 22, 2018 FLU VACC PRSV FREE INC ANTIG Mar 28, 2020 Influenza Jun 26, 2013 FLU VACC PRSV FREE INC ANTIG 2016 IMMUNIZATION ADMIN Jun 26, 2013 FLU VACC 4 IKER 3 YRS PLUS IM May 01, 2019 RESULTS Name Result Date Reference Range Complete Blood Count no Diff 2022-10-02 White Blood Count 7.4 4.8-10.8 Red Blood Count 4.16 4.20-5.50 Hemoglobin 12.4 12.0-16.0 Hematocrit 37.9 37.0-47.0 Mean Corpuscular Volume 91.1 80.0 -98.0 Mean Corpuscular Hemoglobin 29.8 27.0-33.0 Mean Corpuscular HGB Conc 32.7 31 .0-35.0 Red Cell Distribution Width 13.8 11.0-16.0 Platelet Count 191 160-400 Mean Platelet Volume 10.4 9.4-12. 3 NRBC Pct Auto 0.0 0.0-0.2 NRBC Abs Auto 0.000 0.0-0.012 Complete Blood Count no Diff 2022-10-01 White Blood Count 7.1 4.8-10.8 Red Blood Count 4.02 4.20-5.50 Hemoglobin 12.2 12.0-16.0 Hematocrit 37.2 37.0-47.0 Mean Corpuscular Volume 92.5 80.0 -98.0 Mean Corpuscular Hemoglobin 30.3 27.0-33.0 Mean Corpuscular HGB Conc 32.8 31 .0-35.0 Red Cell Distribution Width 13.9 11.0-16.0 Platelet Count 160 160-400 Mean Platelet Volume 10.2 9.4-12. 3 NRBC Pct Auto 0.0 0.0-0.2 NRBC Abs Auto 0.000 0.0-0.012 Basic Metabolic Panel 2022-10-01 Sodium 143 135-145 Potassium 3.3 3.3-5.1 Chloride 109 96-108 Carbon Dioxide 25 22-29 Anion Gap 12 12-20 Blood Urea Nitrogen 8 9-16 Creatinine 0.79 0.5-1.4 Creatinine Clr Calc Pharmacy 47.7 Estimated Glomerular Filt Rate >60 Glucose Random 90 60-115 Calcium 8.0 8.4-10.2 Pathology 2022-10-01 Complete Blood Count no Diff 2022-09-30 White Blood Count 9.1 4.8-10.8 Red Blood Count 4.05 4.20-5.50 Hemoglobin 12.3 12.0-16.0 Hematocrit 37.0 37.0-47.0 Mean Corpuscular Volume 91.4 80.0 -98.0 Mean Corpuscular Hemoglobin 30.4 27.0-33.0 Mean Corpuscular HGB Conc 33.2 31 .0-35.0 Red Cell Distribution Width 13.9 11.0-16.0 Platelet Count 170 160-400 Mean Platelet Volume 10.0 9.4-12. 3 NRBC Pct Auto 0.0 0.0-0.2 NRBC Abs Auto 0.000 0.0-0.012 Basic Metabolic Panel 2022-09-30 Sodium 143 135-145 Potassium 3.3 3.3-5.1 Chloride 109 96-108 Carbon Dioxide 24 22-29 Anion Gap 13 12-20 Blood Urea Nitrogen 12 9-16 Creatinine 0.85 0.5-1.4 Creatinine Clr Calc Pharmacy 44.3 Estimated Glomerular Filt Rate >60 Glucose Random 88 60-115 Calcium 8.0 8.4-10.2 Complete Blood Count no Diff 2022-09-29 White Blood Count 10.2 4.8-10.8 Red Blood Count 4.29 4.20-5.50 Hemoglobin 13.1 12.0-16.0 Hematocrit 39.0 37.0-47.0 Mean Corpuscular Volume 90.9 80.0 -98.0 Mean Corpuscular Hemoglobin 30.5 27.0-33.0 Mean Corpuscular HGB Conc 33.6 31 .0-35.0 Red Cell Distribution Width 13.9 11.0-16.0 Platelet Count 173 160-400 Mean Platelet Volume 10.1 9.4-12. 3 NRBC Pct Auto 0.0 0.0-0.2 NRBC Abs Auto 0.000 0.0-0.012 Basic Metabolic Panel 2022-09-29 Sodium 142 135-145 Potassium 3.6 3.3-5.1 Chloride 108 96-108 Carbon Dioxide 22 22-29 Anion Gap 16 12-20 Blood Urea Nitrogen 13 9-16 Creatinine 0.86 0.5-1.4 Creatinine Clr Calc Pharmacy 43.8 Estimated Glomerular Filt Rate >60 Glucose Random 97 60-115 Calcium 8.4 8.4-10.2 Complete Blood Count Auto Diff 2022-09-28 White Blood Count 11.1 4.8-10.8 Red Blood Count 4.97 4.20-5.50 Hemoglobin 14.8 12.0-16.0 Hematocrit 44.7 37.0-47.0 Mean Corpuscular Volume 89.9 80.0 -98.0 Mean Corpuscular Hemoglobin 29.8 27.0-33.0 Mean Corpuscular HGB Conc 33.1 31 .0-35.0 Red Cell Distribution Width 13.5 11.0-16.0 Platelet Count 205 160-400 Mean Platelet Volume 9.7 9.4-12. 3 Neutrophils Percent Auto 78.1 45- 73 Imm Gran Pct Auto 0.3 0.0-0.4 Lymphocytes Percent Auto 13.5 20- 40 Monocytes Percent Auto 6.9 2-11 Eosinophils Percent Auto 0.8 0-4 Basophils Percent Auto 0.4 0-2 NRBC Pct Auto 0.0 0.0-0.2 Neutrophils Absolute Auto 8.7 2. 0-8.3 Imm Gran Abs Auto 0.03 0.00-0.03 Lymphocytes Absolute Auto 1.5 1. 2-4.9 Monocytes Absolute Auto 0.8 0.1- 1.2 Eosinophils Absolute Auto 0.1 0. 0-0.4 Basophils Absolute Auto 0.0 0.0- 0.2 NRBC Abs Auto 0.000 0.0-0.012 Erythrocyte Sedimentation Rate 2022-09-28 Erythrocyte Sedimentation Rate 16 0-20 Prothrombin Time INR 2022-09-28 Prothrombin Time 10.8 10.0-13.1 INTERNATIONAL NORM RATIO 0.9 0.9 -1.1 Partial Thromboplastin Time 2022-09-28 Partial Thromboplastin Time 27.4 26.0-36.4 OBSX1 2022-09-28 OBS1 POSITIVE NEGATIVE Liver Panel 2022-09-28 Bilirubin Total 0.9 0.0-1.0 Bilirubin Direct 0.2 0.0-0.5 Aspartate Amino Transferase 19 5-31 Alanine Aminotransferase 17 0-3 1 Total Protein 6.3 6.5-8.0 Albumin Level 3.9 3.5-5.0 Alkaline Phosphatase 85 39-117 Basic Metabolic Panel 2022-09-28 Sodium 142 135-145 Potassium 3.7 3.3-5.1 Chloride 108 96-108 Carbon Dioxide 23 22-29 Anion Gap 15 12-20 Blood Urea Nitrogen 17 9-16 Creatinine 1.08 0.5-1.4 Creatinine Clr Calc Pharmacy 34.9 Estimated Glomerular Filt Rate 49 Glucose Random 106 60-115 Calcium 9.0 8.4-10.2 Lactic Acid 2022-09-28 Lactic Acid 1.5 0.5-2.0 Magnesium 2022-09-28 Magnesium 2.1 1.6-2.6 C Reactive Protein 2022-09-28 C Reactive Protein 1.76 < or = 0. 50 Lipase 2022-09-28 Lipase 24 8-78 Blood Culture (First) 2022-09-28 Blood Culture (First) No growth after 5 days. Blood Culture (Second) 2022-09-28 Blood Culture (Second) No growth after 5 days. UA ClnCatch+Micro w/rflx Cult 2022-09-28 Color Urine Yellow Appearance Urine Cloudy PH 5.5 5.0-9.0 Glucose Urine UA Negative Negative Urine Blood Small (1+) Negative Specific Ona - Urine <= 1.005 1.0 05-1.025 Urine Protein Negative Neg-Trace Urine Ketones Negative Negative Nitrite Urine Negative Negative Leukocyte Esterase Urine Negative Neg ative RBC Urine 0-2 0-2 WBC Urine 0-5 0-5 Squamous Epithelial Cell Urine 0-2 0-2 Bacteria Urine None Seen None Seen Hyaline Casts Urine 0-2 0-2 Type and Screen 2022-09-28 Blood Type BP Antibody Screen NEGATIVE UA CC w/rflx Micro + Cult 2022-09-28 Color Urine Yellow Appearance Urine Cloudy PH 5.5 5.0-9.0 Glucose Urine UA Negative Negative Urine Blood Small (1+) Negative Specific Ona - Urine <= 1.005 1.0 05-1.025 Urine Protein Negative Neg-Trace Urine Ketones Negative Negative Nitrite Urine Negative Negative Leukocyte Esterase Urine Negative Neg ative COVID-19 ID NOW (Rent My Items) 2022-09-28 IDNOW Serial# [id number] COVID-19 Test Negative Negative COVID-19 Note See Note Complete Blood Count Auto Diff 2022-06-19 White Blood Count 7.2 4.8-10.8 Red Blood Count 4.81 4.20-5.50 Hemoglobin 14.4 12.0-16.0 Hematocrit 44.4 37.0-47.0 Mean Corpuscular Volume 92.3 80.0 -98.0 Mean Corpuscular Hemoglobin 29.9 27.0-33.0 Mean Corpuscular HGB Conc 32.4 31 .0-35.0 Red Cell Distribution Width 13.7 11.0-16.0 Platelet Count 229 160-400 Mean Platelet Volume 10.8 9.4-12. 3 Neutrophils Percent Auto 57.3 45- 73 Imm Gran Pct Auto 0.3 0.0-0.4 Lymphocytes Percent Auto 29.4 20- 40 Monocytes Percent Auto 9.9 2-11 Eosinophils Percent Auto 2.1 0-4 Basophils Percent Auto 1.0 0-2 NRBC Pct Auto 0.0 0.0-0.2 Neutrophils Absolute Auto 4.1 2. 0-8.3 Imm Gran Abs Auto 0.02 0.00-0.03 Lymphocytes Absolute Auto 2.1 1. 2-4.9 Monocytes Absolute Auto 0.7 0.1- 1.2 Eosinophils Absolute Auto 0.2 0. 0-0.4 Basophils Absolute Auto 0.1 0.0- 0.2 NRBC Abs Auto 0.000 0.0-0.012 Urinalysis and Microscopic 2022-06-19 Color Urine Yellow Appearance Urine Clear PH 5.5 5.0-9.0 Glucose Urine UA Negative Negative Urine Blood Small (1+) Negative Specific Ona - Urine 1.015 1.0 05-1.025 Urine Protein Negative Neg-Trace Urine Ketones Negative Negative Nitrite Urine Negative Negative Leukocyte Esterase Urine Trace Neg ative RBC Urine 0-2 0-2 WBC Urine 0-5 0-5 Squamous Epithelial Cell Urine 6-10 0-2 Bacteria Urine None Seen None Seen Hyaline Casts Urine 0-2 0-2 Comprehensive [place]. Panel Fast 2022-06-19 Sodium 142 135-145 Potassium 4.3 3.3-5.1 Chloride 107 96-108 Carbon Dioxide 24 22-29 Anion Gap 15 12-20 Blood Urea Nitrogen 25 9-16 Creatinine 0.92 0.5-1.4 Estimated Glomerular Filt Rate 59 Glucose Fasting 105 60-99 Calcium 9.8 8.4-10.2 Bilirubin Total 0.8 0.0-1.0 Aspartate Amino Transferase 21 5-31 Alanine Aminotransferase 16 0-3 1 Total Protein 6.8 6.5-8.0 Albumin Level 4.3 3.5-5.0 Alkaline Phosphatase 71 39-117 Lipid Panel 2022-06-19 Triglycerides 152 Cholesterol 138 LDL Cholesterol Calculated 55 HDL Cholesterol 53 Vitamin D 25-OH Total 2022-06-19 Vitamin D 25-OH Total 35.4 >30 Thyroid Stimulating Hormone 2022-06-19 Thyroid Stimulating Hormone 1.75 0.32-4.0 MM tomosynthesis screening LT 2021-10-02 Blood Urea Nitrogen 2021-08-08 Blood Urea Nitrogen 22 9-16 Creatinine 2021-08-08 Creatinine 0.95 0.5-1.4 Estimated Glomerular Filt Rate 57 Complete Blood Count Auto Diff 2021-04-18 White Blood Count 6.3 4.8-10.8 Red Blood Count 4.56 4.20-5.50 Hemoglobin 13.6 12.0-16.0 Hematocrit 41.7 37-47 Mean Corpuscular Volume 91.4 80-9 8 Mean Corpuscular Hemoglobin 29.8 27.0-33.0 Mean Corpuscular HGB Conc 32.6 31 .0-35.0 Red Cell Distribution Width 13.8 11.0-16.0 Platelet Count 229 160-400 Mean Platelet Volume 10.8 9.4-12. 3 Neutrophils Percent Auto 51.4 45- 73 Imm Gran Pct Auto 0.2 0.0-0.4 Lymphocytes Percent Auto 36.1 20- 40 Monocytes Percent Auto 8.4 2-11 Eosinophils Percent Auto 3.3 0-4 Basophils Percent Auto 0.6 0-2 NRBC Pct Auto 0.0 0.0-0.2 Neutrophils Absolute Auto 3.3 2. 0-8.3 Imm Gran Abs Auto 0.01 0.00-0.03 Lymphocytes Absolute Auto 2.3 1. 2-4.9 Monocytes Absolute Auto 0.5 0.1- 1.2 Eosinophils Absolute Auto 0.2 0. 0-0.4 Basophils Absolute Auto 0.0 0.0- 0.2 NRBC Abs Auto 0.000 0.0-0.012 Comprehensive Met. Panel 2021-04-18 Sodium 141 135-145 Potassium 4.2 3.3-5.1 Chloride 109 96-108 Carbon Dioxide 23 22-29 Anion Gap 13 12-20 Blood Urea Nitrogen 19 9-16 Creatinine 0.99 0.5-1.4 Estimated Glomerular Filt Rate 55 Glucose Random 107 60-115 Calcium 9.2 8.4-10.2 Bilirubin Total 0.6 0.0-1.0 Aspartate Amino Transferase 19 5-31 Alanine Aminotransferase 14 0-3 1 Total Protein 6.7 6.5-8.0 Albumin Level 4.2 3.5-5.0 Alkaline Phosphatase 72 39-117 Lipid Panel 2021-04-18 Triglycerides 131 Cholesterol 130 LDL Cholesterol Calculated 53 HDL Cholesterol 51 Thyroid Stimulating Hormone 2021-04-18 Thyroid Stimulating Hormone 2.23 0.32-4.0 MR breast BI wo/w con 2020-12-14 MAMMOGRAM, SCREENING Urinalysis and Microscopic 2020-09-27 Color Urine YELLOW Appearance Urine CLEAR PH 6.0 5.0-8.0 Glucose Urine UA NEG NEG Urine Blood 1+ NEG Specific Ona - Urine 1.015 1.0 05-1.025 Urine Protein NEG NEG-TRACE Urine Ketones NEG NEG Nitrite Urine NEG NEG Leukocyte Esterase Urine NEG NEG Urinalysis and Microscopic 2020-09-27 Color Urine YELLOW Appearance Urine CLEAR PH 6.0 5.0-8.0 Glucose Urine UA NEG NEG Urine Blood 1+ NEG Specific Ona - Urine 1.015 1.0 05-1.025 Urine Protein NEG NEG-TRACE Urine Ketones NEG NEG Nitrite Urine NEG NEG Leukocyte Esterase Urine NEG NEG RBC Urine 1-4 0 WBC Urine 1-4 0-4 Squamous Epithelial Cell Urine 1+ Renal Epithelial Cells Urine TRACE Bacteria Urine NONE Urine Culture 2020-09-27 MM tomosynthesis screening LT 2020-09-27 NM thyroid w uptake 2020-08-10 LIPOPROTEIN FRACTIONATION (LIPID PANEL) 2020-01-07 CHOLESTEROL 117 TRIGLYCERIDE 152 HDL 51 LDL CALCULATED 36 CBC w DIFF 2020-01-07 WBC 6.8 4.8-10.8 RBC 4.86 4.20-5.50 HEMOGLOBIN 14.3 12.0-16.0 HEMATOCRIT 44.4 37-47 MCV 91.4 80-98 MCH 29.4 27.0-33.0 MCHC 32.2 31.0-35.0 PLATELET COUNT 228 160-400 RDW 13.6 11.0-16.0 NEUTROPHILS 58.1 45-73 LYMPHOCYTES 29.8 20-40 MONOCYTES 8.6 2-11 EOSINOPHILS 2.8 0-4 BASOPHILS 0.6 0-2 ABSOLUTE NEUTROPHIL COUNT 4.0 2. 0-8.3 ABSOLUTE LYMPHOCYTE COUNT 2.0 1. 2-4.9 ABSOLUTE MONOCYTE COUNT 0.6 0.1- 1.2 ABSOLUTE EOSINOPHIL COUNT 0.2 0. 0-0.4 ABSOLUTE BASOPHIL COUNT 0.0 0.0- 0.2 PROFILE, FASTING 2020-01-07 NA 143 135-145 K 4.2 3.3-5.1 CL 105 96-108 CO2 27 22-29 ANION GAP 15 12-20 FASTING BLOOD SUGAR 93 60-99 BUN 18 9-16 CREATININE 1.02 0.5-1.4 ESTIMATED GFR 53 PROTEIN, TOTAL 7.1 6.5-8.0 ALBUMIN 4.4 3.5-5.0 BILIRUBIN, TOTAL 0.5 0.0-1.0 CALCIUM 9.9 8.4-10.2 ALK. PHOS. 82 39-117 GOT 20 5-31 GPT 15 0-31 URINALYSIS + MICROSCOPIC 2020-01-07 COLOR YELLOW APPEARANCE,(UA) CLEAR SPECIFIC GRAVITY 1.010 1.005-1.025 LEUKOCYTES 1+ NEG NITRITE NEG NEG PROTEIN,QUALITATIVE NEG NEG - TR ABRAHAM PH 6.0 5.0-8.0 URINE BLOOD 1+ NEG KETONES NEG NEG GLUCOSE NEG NEG MICROSCOPIC WBC 1-4 0-4 MICROSCOPIC RBC 0-2 0 EPITHELIAL CELLS 1+ BACTERIA NONE RENAL EPITHELIAL CELLS 1+ SARS COV2 IGG 2020-01-07 SARS COV2 IGG Negative PTT-HEPARIN DRIP 2019-12-03 PTT-HEPARIN DRIP 32.1 53.0-77.9 PTT-HEPARIN DRIP 2019-12-03 PTT-HEPARIN DRIP 40.9 53.0-77.9 LIPOPROTEIN FRACTIONATION (LIPID PANEL) 2019-12-03 CHOLESTEROL 188 TRIGLYCERIDE 176 HDL 46 LDL CALCULATED 107 BASIC METABOLIC PROFILE RANDOM 2019-12-03 NA 139 135-145 K 4.1 3.3-5.1 CL 106 96-108 CO2 22 22-29 ANION GAP 15 12-20 GLUCOSE,RANDOM 93 60-115 BUN 19 9-16 CREATININE 1.01 0.5-1.4 ESTIMATED GFR 54 ESTIMATED CrCl 40.5 CALCIUM 8.7 8.4-10.2 CBC w DIFF 2019-12-03 WBC 6.0 4.8-10.8 ABSOLUTE NEUTROPHIL COUNT 3.3 2. 2-7.9 RBC 4.51 4.20-5.50 HEMOGLOBIN 13.8 12.0-16.0 HEMATOCRIT 41.4 37-47 MCV 91.9 80-98 MCH 30.5 27.0-33.0 MCHC 33.2 31.0-35.0 PLATELET COUNT 185 160-400 RDW 13.4 11.0-16.0 NEUTROPHILS 55.2 45-73 LYMPHOCYTES 32.5 20-40 MONOCYTES 8.7 2-11 EOSINOPHILS 2.6 0-4 BASOPHILS 1.1 0-2 PTT-HEPARIN DRIP 2019-12-03 PTT-HEPARIN DRIP 128.1 53.0-77.9 US SOFT TISSUE 2019-12-03 CALCIUM 2019-12-02 CALCIUM 9.7 8.4-10.2 CBC w DIFF 2019-12-02 WBC 5.9 4.8-10.8 ABSOLUTE NEUTROPHIL COUNT 3.5 2. 2-7.9 RBC 4.83 4.20-5.50 HEMOGLOBIN 14.8 12.0-16.0 HEMATOCRIT 44.2 37-47 MCV 91.4 80-98 MCH 30.7 27.0-33.0 MCHC 33.6 31.0-35.0 PLATELET COUNT 215 160-400 RDW 13.0 11.0-16.0 NEUTROPHILS 59.6 45-73 LYMPHOCYTES 29.6 20-40 MONOCYTES 8.0 2-11 EOSINOPHILS 2.0 0-4 BASOPHILS 0.8 0-2 CHEM 7 PROFILE 2019-12-02 NA 140 135-145 K 4.0 3.3-5.1 CL 106 96-108 CO2 25 22-29 ANION GAP 13 12-20 GLUCOSE,RANDOM 123 60-115 BUN 18 9-16 CREATININE 1.17 0.5-1.4 ESTIMATED GFR 45 ESTIMATED CrCl 35.0 CPK 2019-12-02 CPK 80 26-140 FREE T4 (FT4) 2019-12-02 FREE T4 0.90 0.71-1.85 MAGNESIUM 2019-12-02 MAGNESIUM 2.1 1.6-2.6 PARTIAL THROMBOPLASTIN TIME (PTT) 2019-12-02 PARTIAL THROMBOPLASTIN TIME 31.5 24.1-38.0 PROTHROMBIN TIME (PT, INR) 2019-12-02 INTERNATIONAL NORM. RATIO 0.9 SE E NOTE PROTHROMBIN TIME 11.1 10.8-13.0 TSH (THYROID STIMULATING HORMONE) 2019-12-02 TSH 1.22 0.32-4.0 URINALYSIS + MICROSCOPIC 2019-12-02 COLOR STRAW APPEARANCE,(UA) CLEAR SPECIFIC GRAVITY <= 1.005 1.005-1.025 LEUKOCYTES NEG NEG NITRITE NEG NEG PROTEIN,QUALITATIVE NEG NEG - TR ABRAHAM PH 6.0 5.0-8.0 URINE BLOOD 1+ NEG KETONES NEG NEG GLUCOSE NEG NEG MICROSCOPIC WBC 0-2 0-4 MICROSCOPIC RBC 0-2 0 EPITHELIAL CELLS TRACE BACTERIA TRACE CRYSTALS URATE AMORPH TRACE CT BRAIN NO CONTRAST 2019-12-02 MRI BRAIN NO CONTRAST 2019-12-02 CT CERVICAL SPINE NO CONTRAST 2019-12-02 3D UNILA SCREENING MAMMO 2019-09-24 URINE CULTURE 2019-05-01 URINE CULTURE RESULT URINE CULTURE <10,000 col/ml URINE CULTURE Mixed Gram-positive dari URINE CULTURE Multiple organism ty pes; clinical significance unclear URINE CULTURE Please resubmit if indicated. URINE CULTURE URINALYSIS + MICROSCOPIC 2019-05-01 COLOR STRAW APPEARANCE,(UA) CLEAR SPECIFIC GRAVITY <= 1.005 1.005-1.025 LEUKOCYTES NEG NEG NITRITE NEG NEG PROTEIN,QUALITATIVE NEG NEG - TR ABRAHAM PH 5.5 5.0-8.0 URINE BLOOD 1+ NEG KETONES NEG NEG GLUCOSE NEG NEG MICROSCOPIC WBC 0 0-4 MICROSCOPIC RBC 1-4 0 EPITHELIAL CELLS 1+ BACTERIA NONE LIPOPROTEIN FRACTIONATION (LIPID PANEL) 2019-02-19 CHOLESTEROL 197 TRIGLYCERIDE 195 HDL 50 LDL CALCULATED 108 CBC w DIFF 2019-02-19 WBC 6.6 4.8-10.8 ABSOLUTE NEUTROPHIL COUNT 3.5 2. 2-7.9 RBC 4.98 4.20-5.50 HEMOGLOBIN 15.2 12.0-16.0 HEMATOCRIT 44.8 37-47 MCV 90.0 80-98 MCH 30.5 27.0-33.0 MCHC 33.9 31.0-35.0 PLATELET COUNT 228 160-400 RDW 12.4 11.0-16.0 NEUTROPHILS 53.7 45-73 LYMPHOCYTES 34.7 20-40 MONOCYTES 7.9 2-11 EOSINOPHILS 2.6 0-4 BASOPHILS 1.1 0-2 PROFILE, FASTING 2019-02-19 NA 139 135-145 K 3.9 3.3-5.1 CL 105 96-108 CO2 25 22-29 ANION GAP 13 12-20 FASTING BLOOD SUGAR 92 60-99 BUN 21 9-16 CREATININE 1.03 0.5-1.4 ESTIMATED GFR 53 PROTEIN, TOTAL 6.8 6.5-8.0 ALBUMIN 4.3 3.5-5.0 BILIRUBIN, TOTAL 0.7 0.0-1.0 CALCIUM 10.0 8.4-10.2 ALK. PHOS. 74 39-117 GOT 19 5-31 GPT 16 0-31 TSH (THYROID STIMULATING HORMONE) 2019-02-19 TSH 1.99 0.32-4.0 3D UNI DX DIGITAL MAMMOGRAM 2018-09-16 MAMMOGRAM, SCREENING CYTOLOGY (NON-CORE DRILLER) 2018-04-25 NON-CORE DRILLER CYTOLOGY URINALYSIS + MICROSCOPIC 2018-04-25 COLOR STRAW APPEARANCE,(UA) CLEAR SPECIFIC GRAVITY <= 1.005 1.005-1.025 LEUKOCYTES NEG NEG NITRITE NEG NEG PROTEIN,QUALITATIVE NEG NEG - TR ABRAHAM PH 5.5 5.0-8.0 URINE BLOOD 1+ NEG KETONES NEG NEG GLUCOSE NEG NEG MICROSCOPIC WBC 0 0-4 MICROSCOPIC RBC 1-4 0 EPITHELIAL CELLS TRACE BACTERIA NONE LIPOPROTEIN FRACTIONATION (LIPID PANEL) 2017-12-05 CHOLESTEROL 188 TRIGLYCERIDE 199 HDL 44 LDL CALCULATED 105 CBC w DIFF 2017-12-05 WBC 5.8 4.8-10.8 ABSOLUTE NEUTROPHIL COUNT 3.3 2. 2-7.9 RBC 4.59 4.20-5.50 HEMOGLOBIN 14.0 12.0-16.0 HEMATOCRIT 41.5 37-47 MCV 90.5 80-98 MCH 30.4 27.0-33.0 MCHC 33.6 31.0-35.0 PLATELET COUNT 205 160-400 RDW 13.3 11.0-16.0 NEUTROPHILS 56.4 45-73 LYMPHOCYTES 33.5 20-40 MONOCYTES 6.6 2-11 EOSINOPHILS 2.7 0-4 BASOPHILS 0.9 0-2 PROFILE, FASTING 2017-12-05 NA 141 135-145 K 3.9 3.3-5.1 CL 107 96-108 CO2 25 22-29 ANION GAP 13 12-20 FASTING BLOOD SUGAR 103 60-99 BUN 18 9-16 CREATININE 1.00 0.5-1.4 ESTIMATED GFR 55 PROTEIN, TOTAL 6.7 6.5-8.0 ALBUMIN 4.0 3.5-5.0 BILIRUBIN, TOTAL 0.7 0.0-1.0 CALCIUM 9.8 8.4-10.2 ALK. PHOS. 81 39-117 GOT 18 5-31 GPT 15 0-31 TSH (THYROID STIMULATING HORMONE) 2017-12-05 TSH 2.26 0.32-4.0 URINALYSIS + MICROSCOPIC 2017-12-05 COLOR YELLOW APPEARANCE,(UA) HAZY SPECIFIC GRAVITY 1.010 1.005-1.025 LEUKOCYTES 1+ NEG NITRITE NEG NEG PROTEIN,QUALITATIVE NEG NEG - TR ABRAHAM PH 5.5 5.0-8.0 URINE BLOOD 1+ NEG KETONES NEG NEG GLUCOSE NEG NEG MICROSCOPIC WBC 1-4 0-4 MICROSCOPIC RBC 1-4 0 EPITHELIAL CELLS 1+ BACTERIA TRACE VITAMIN D 25-OH TOTAL 2017-12-05 VITAMIN D 25-OH TOTAL 40.0 >30 3D UNILA SCREENING MAMMO 2017-07-24 MAMMOGRAM, SCREENING HAND WRIST RT [id number] 2017-01-16 LIPOPROTEIN FRACTIONATION (LIPID PANEL) 2016-12-18 CHOLESTEROL 200 TRIGLYCERIDE 195 HDL 49 LDL CALCULATED 112 CBC w DIFF 2016-12-18 WBC 6.3 4.8-10.8 ABSOLUTE NEUTROPHIL COUNT 3.3 2. 2-7.9 RBC 4.90 4.20-5.50 HEMOGLOBIN 15.2 12.0-16.0 HEMATOCRIT 45.3 37-47 MCV 92.4 80-98 MCH 31.0 27.0-33.0 MCHC 33.5 31.0-35.0 PLATELET COUNT 221 160-400 RDW 13.1 11.0-16.0 NEUTROPHILS 52.4 45-73 LYMPHOCYTES 34.9 20-40 MONOCYTES 8.6 2-11 EOSINOPHILS 2.9 0-4 BASOPHILS 1.2 0-2 PROFILE, FASTING 2016-12-18 NA 140 135-145 K 4.5 3.3-5.1 CL 106 96-108 CO2 25 22-29 ANION GAP 14 1220 FASTING BLOOD SUGAR 93 60-99 BUN 20 9-16 CREATININE 1.05 0.5-1.4 ESTIMATED GFR 52 PROTEIN, TOTAL 7.0 6.5-8.0 ALBUMIN 4.2 3.5-5.0 BILIRUBIN, TOTAL 0.6 0.0-1.0 CALCIUM 9.5 8.4-10.2 ALK. PHOS. 70 39-117 GOT 22 5-31 GPT 21 0-31 TSH (THYROID STIMULATING HORMONE) 2016-12-18 TSH 1.70 0.32-4.0 VITAMIN D 25-OH TOTAL 2016-12-18 VITAMIN D 25-OH TOTAL 43.6 >30 3D UNILA SCREENING MAMMO 2016-07-23 MAMMOGRAM, SCREENING LIPOPROTEIN FRACTIONATION (LIPID PANEL) 2015-12-20 CHOLESTEROL 213 TRIGLYCERIDE 202 HDL 55 LDL CALCULATED 118 CBC w DIFF 2015-12-20 WBC 7.1 4.8-10.8 ABSOLUTE NEUTROPHIL COUNT 4.1 2. 2-7.9 RBC 4.82 4.20-5.50 HEMOGLOBIN 15.2 12.0-16.0 HEMATOCRIT 44.8 37-47 MCV 93.0 80-98 MCH 31.5 27.0-33.0 MCHC 33.9 31.0-35.0 PLATELET COUNT 232 160-400 RDW 12.9 11.0-16.0 NEUTROPHILS 58.3 45-73 LYMPHOCYTES 31.3 20-40 MONOCYTES 7.5 2-11 EOSINOPHILS 1.7 0-4 BASOPHILS 1.2 0-2 PROFILE, FASTING 2015-12-20 NA 138 135-145 K 4.0 3.3-5.1 CL 106 96-108 CO2 26 22-29 ANION GAP 10 12-20 FASTING BLOOD SUGAR 103 60-99 BUN 22 9-16 CREATININE 1.1 0.5-1.4 ESTIMATED GFR 49 PROTEIN, TOTAL 6.9 6.5-8.0 ALBUMIN 4.6 3.5-5.0 BILIRUBIN, TOTAL 0.8 0.0-1.0 CALCIUM 9.9 8.4-10.2 ALK. PHOS. 65 39-117 GOT 22 5-31 GPT 22 0-31 TSH (THYROID STIMULATING HORMONE) 2015-12-20 TSH 1.73 0.32-4.0 VITAMIN D 25-OH TOTAL 2015-12-20 VITAMIN D 25-OH TOTAL 70.5 >30 MAMMOGRAM DIGITAL SCREEN LEF T UNI 2015-06-08 LIPOPROTEIN FRACTIONATION (LIPID PANEL) 2014-10-18 CHOLESTEROL 223 TRIGLYCERIDE 176 HDL 52 LDL 136 CBC w DIFF 2014-10-18 WBC 6.2 4.8-10.8 ABSOLUTE NEUTROPHIL COUNT 3.1 2. 2-7.9 RBC 4.96 4.20-5.50 HEMOGLOBIN 15.2 12.0-16.0 HEMATOCRIT 45.2 37-47 MCV 91.2 80-98 MCH 30.7 27.0-33.0 MCHC 33.6 31.0-35.0 PLATELET COUNT 236 160-400 RDW 12.6 11.0-16.0 NEUTROPHILS 50.6 45-73 LYMPHOCYTES 37.5 20-40 MONOCYTES 8.1 2-11 EOSINOPHILS 2.7 0-4 BASOPHILS 1.1 0-2 PROFILE, FASTING 2014-10-18 NA 138 135-145 K 4.1 3.3-5.1 CL 103 96-108 CO2 25 22-29 ANION GAP 14 12-20 FASTING BLOOD SUGAR 95 60-99 BUN 26 9-16 CREATININE 1.15 0.5-1.4 ESTIMATED GFR 47 PROTEIN, TOTAL 6.9 6.5-8.0 ALBUMIN 4.2 3.5-5.0 BILIRUBIN, TOTAL 0.8 0.0-1.0 CALCIUM 9.1 8.4-10.2 ALK. PHOS. 71 39-117 GOT 21 5-31 GPT 16 0-31 TSH (THYROID STIMULATING HORMONE) 2014-10-18 TSH 1.26 0.32-4.0 URINALYSIS + MICROSCOPIC 2014-10-18 COLOR STRAW APPEARANCE,(UA) HAZY SPECIFIC GRAVITY 1.015 1.005-1.025 LEUKOCYTES 2+ NEG NITRITE NEG NEG PROTEIN,QUALITATIVE NEG NEG - TR ABRAHAM PH 5.0 5.0-8.0 URINE BLOOD 2+ NEG KETONES NEG NEG GLUCOSE NEG NEG MICROSCOPIC WBC 15-29 0-4 MICROSCOPIC RBC 0-2 0 EPITHELIAL CELLS 1+ BACTERIA NONE RENAL EPITHELIAL CELLS 1+ CASTS NONE VITAMIN D 25-OH TOTAL 2014-10-18 VITAMIN D 25-OH TOTAL 47.2 >30 MAMMOGRAM DIGITAL SCREEN LEF T UNI 2014-06-01 LIPOPROTEIN FRACTIONATION (LIPID PANEL) 2014-03-04 CHOLESTEROL 222 TRIGLYCERIDE 216 HDL 48 LDL 131 CBC w DIFF 2014-03-04 WBC 6.6 4.8-10.8 ABSOLUTE NEUTROPHIL COUNT 3.4 2. 2-7.9 RBC 4.85 4.20-5.50 HEMOGLOBIN 14.7 12.0-16.0 HEMATOCRIT 44.2 37-47 MCV 91.0 80-98 MCH 30.3 27.0-33.0 MCHC 33.3 31.0-35.0 PLATELET COUNT 227 160-400 RDW 13.1 11.0-16.0 NEUTROPHILS 50.6 45-73 LYMPHOCYTES 37.3 20-40 MONOCYTES 8.6 2-11 EOSINOPHILS 2.2 0-4 BASOPHILS 1.4 0-2 PROFILE, FASTING 2014-03-04 NA 143 135-145 K 4.5 3.3-5.1 CL 105 96-108 CO2 27 22-29 ANION GAP 16 12-20 FASTING BLOOD SUGAR 102 60-99 BUN 22 9-16 CREATININE 1.09 0.5-1.4 ESTIMATED GFR 50 PROTEIN, TOTAL 7.3 6.5-8.0 ALBUMIN 4.5 3.5-5.0 BILIRUBIN, TOTAL 0.6 0.0-1.0 CALCIUM 10.0 8.4-10.2 ALK. PHOS. 72 39-117 GOT 19 <3-31 GPT 15 <6-31 TSH (THYROID STIMULATING HORMONE) 2014-03-04 TSH 0.90 0.32-4.0 VITAMIN D 25-OH TOTAL 2014-03-04 VITAMIN D 25-OH TOTAL 74.0 >30 CBC w DIFF 2013-07-09 WBC 6.2 4.8-10.8 ABSOLUTE NEUTROPHIL COUNT 3.7 2. 2-7.9 RBC 4.84 4.20-5.50 HEMOGLOBIN 14.5 12.0-16.0 HEMATOCRIT 42.7 37-47 MCV 88.3 80-98 MCH 29.9 27.0-33.0 MCHC 33.9 31.0-35.0 PLATELET COUNT 248 160-400 RDW 12.4 11.0-16.0 NEUTROPHILS 59.4 45-73 LYMPHOCYTES 29.4 20-40 MONOCYTES 8.2 2-11 EOSINOPHILS 2.1 0-4 BASOPHILS 0.9 0-2 TSH (THYROID STIMULATING HORMONE) 2013-07-09 TSH 0.70 0.32-4.0 VITAMIN B12 AND FOLATE 2013-07-09 B12 507 200-900 FOLATE 13.3 >OR = 4.0 MAMMOGRAM DIGITAL UNILATERAL BASSEM [id number] 2013-05-26 US BREAST LEFT [id number] 2013-05-26 MAMMOGRAM, SCREENING PROFILE, RANDOM 2013-05-11 NA 140 135-145 K 4.2 3.3-5.1 CL 109 96-108 CO2 21 22-29 ANION GAP 14 12-20 GLUCOSE,RANDOM 100 60-115 BUN 19 9-16 CREATININE 1.05 0.5-1.4 ESTIMATED GFR 52 PROTEIN, TOTAL 6.6 6.5-8.0 ALBUMIN 4.1 3.5-5.0 BILIRUBIN, TOTAL 0.4 0.0-1.0 CALCIUM 9.5 8.4-10.2 ALK. PHOS. 68 39-117 GOT 19 <3-31 GPT 17 <6-31 TSH (THYROID STIMULATING HORMONE) 2013-05-11 TSH 1.56 0.32-4.0 URINE CULTURE 2013-05-07 URINE CULTURE RESULT URINE CULTURE >10,000 but <100,000 col/ml URINE CULTURE Multiple organism ty pes; clinical significance unclear URINE CULTURE Please resubmit if indicated. URINE CULTURE URINALYSIS + MICROSCOPIC 2013-05-07 COLOR STRAW APPEARANCE,(UA) CLEAR SPECIFIC GRAVITY <= 1.005 1.005-1.025 LEUKOCYTES NEG NEG NITRITE NEG NEG PROTEIN,QUALITATIVE NEG NEG - TR ABRAHAM PH 5.5 5.0-8.0 URINE BLOOD 1+ NEG KETONES NEG NEG GLUCOSE NEG NEG MICROSCOPIC WBC 0 0-4 MICROSCOPIC RBC 0-2 0 EPITHELIAL CELLS NONE BACTERIA NONE RENAL EPITHELIAL CELLS NONE CASTS NONE XR GIAC 2013-04-06 CBC w DIFF 2013-04-06 WBC 6.2 4.8-10.8 ABSOLUTE NEUTROPHIL COUNT 3.6 2. 2-7.9 RBC 4.77 4.20-5.50 HEMOGLOBIN 14.4 12.0-16.0 HEMATOCRIT 42.9 37-47 MCV 90.0 80-98 MCH 30.1 27.0-33.0 MCHC 33.5 31.0-35.0 PLATELET COUNT 257 160-400 RDW 12.7 11.0-16.0 NEUTROPHILS 57.1 45-73 LYMPHOCYTES 32.6 20-40 MONOCYTES 6.6 2-11 EOSINOPHILS 2.2 0-4 BASOPHILS 1.5 0-2 CRP 2013-04-06 CRP 0.32 < OR = 0.50 LYME IGG & IGM RFLX WB 2013-04-06 LYME IGG & IGM NEGATIVE NEGATIVE PROFILE, RANDOM 2013-04-06 NA 141 135-145 K 4.1 3.3-5.1 CL 105 96-108 CO2 22 22-29 ANION GAP 18 12-20 GLUCOSE,RANDOM 115 60-115 BUN 19 9-16 CREATININE 1.10 0.5-1.4 ESTIMATED GFR 50 PROTEIN, TOTAL 7.1 6.5-8.0 ALBUMIN 4.4 3.5-5.0 BILIRUBIN, TOTAL 0.6 0.0-1.0 CALCIUM 10.4 8.4-10.2 ALK. PHOS. 72 39-117 GOT 19 <3-31 GPT 16 <6-31 SED RATE (ESR) 2013-04-06 SED RATE 25 0-20 FLUOR. ANTINUCLEAR AB SCREEN (VALDEMAR) 2013-04-06 STEPHANIE SCREEN, IFA Negative Negative STEPHANIE IFA TITER Test not performed STEPHANIE PATTERN Test not performed XR CERVICAL SPINE 4+ VIEWS 2013-04-06 LIPOPROTEIN FRACTIONATION (LIPID PANEL) 2012-11-12 CHOLESTEROL 221 TRIGLYCERIDE 224 HDL 48 LDL 129 CBC w DIFF 2012-11-12 WBC 5.6 4.8-10.8 ABSOLUTE NEUTROPHIL COUNT 2.8 2. 2-7.9 RBC 4.65 4.20-5.50 HEMOGLOBIN 14.1 12.0-16.0 HEMATOCRIT 42.3 37-47 MCV 91.0 80-98 MCH 30.2 27.0-33.0 MCHC 33.2 31.0-35.0 PLATELET COUNT 230 160-400 RDW 13.1 11.0-16.0 NEUTROPHILS 50.6 45-73 LYMPHOCYTES 37.1 20-40 MONOCYTES 9.1 2-11 EOSINOPHILS 2.2 0-4 BASOPHILS 1.0 0-2 PROFILE, FASTING 2012-11-12 NA 142 135-145 K 3.9 3.3-5.1 CL 106 96-108 CO2 24 22-29 ANION GAP 16 12-20 FASTING BLOOD SUGAR 98 60-99 BUN 24 9-16 CREATININE 1.03 0.5-1.4 ESTIMATED GFR 54 PROTEIN, TOTAL 6.9 6.5-8.0 ALBUMIN 3.8 3.5-5.0 BILIRUBIN, TOTAL 0.5 0.0-1.0 CALCIUM 9.6 8.4-10.2 ALK. PHOS. 71 39-117 GOT 19 <3-31 GPT 14 <6-31 TSH (THYROID STIMULATING HORMONE) 2012-11-12 TSH 1.30 0.32-4.0 VITAMIN D 25-OH TOTAL 2012-11-12 VITAMIN D 25-OH TOTAL 40.0 >30 MAMMOGRAM DIGITAL UNILATERAL BASSEM [id number] 2012-10-09 LIPOPROTEIN FRACTIONATION (LIPID PANEL) 2011-12-12 CHOLESTEROL 220 TRIGLYCERIDE 232 HDL 43 LDL 131 B12 2011-12-12 B12 447 200-900 CBC w DIFF 2011-12-12 WBC 5.8 4.8-10.8 ABSOLUTE NEUTROPHIL COUNT 3.0 2. 2-7.9 RBC 4.85 4.20-5.50 HEMOGLOBIN 14.6 12.0-16.0 HEMATOCRIT 43.0 37-47 MCV 88.5 80-98 MCH 30.0 27.0-33.0 MCHC 33.9 31.0-35.0 PLATELET COUNT 249 160-400 RDW 12.4 11.0-16.0 NEUTROPHILS 51.2 45-73 LYMPHOCYTES 37.4 20-40 MONOCYTES 7.7 2-11 EOSINOPHILS 2.6 0-4 BASOPHILS 1.2 0-2 FOLATE 2011-12-12 FOLATE 14.9 4.5-16.6 PROFILE, FASTING 2011-12-12 NA 140 135-145 K 4.0 3.3-5.1 CL 107 96-108 CO2 23 22-29 ANION GAP 14 12-20 FASTING BLOOD SUGAR 108 60-99 BUN 20 9-16 CREATININE 0.89 0.5-1.4 ESTIMATED GFR >60 PROTEIN, TOTAL 7.0 6.5-8.0 ALBUMIN 4.4 3.5-5.0 BILIRUBIN, TOTAL 0.6 0.0-1.0 CALCIUM 9.5 8.4-10.2 ALK. PHOS. 87 39-117 GOT 22 <3-31 GPT 13 <6-31 TSH (THYROID STIMULATING HORMONE) 2011-12-12 TSH 1.20 0.32-4.0 VITAMIN D 25-OH (D2 D3) 2011-12-12 VITAMIN D (25-HYDROXY) 36 30-10 0 VITD, 25-0H, D3 31 () VITD, 25-OH, D2 5 () MAMMOGRAM, SCREENING MAMMOGRAM, SCREENING MAMMOGRAM DIGITAL UNILATERAL BASSEM [id number] 2011-10-10 MAMMOGRAM, SCREENING Colonoscopy REASON FOR VISIT 2 month f/u, FYI only, follow-up after hospital discharge, 2 month f/u, Follow up hypertension, hypercholesterolemia, hypothyroidism, FYI only, FYI, FYI only, FYI only, FYI only, FYI only, Refills, FYI only, FYI only, 6 month f/u, Refills, Flu, influenza vaccination, Refills, 6 month f/u, Follow uphypertension, hypercholesterolemia, Refills, Refills, Refills, anxiety, Refills, flu vaccine, influenza vaccination, 1 month f/u, 3 month f/u, Follow up hypertension, Refills, Follow up hypertension,Message, FYI only HTN, 1 month f/u, Refills, FYI only, 2 month f/u, Follow up hypertension, Message, Needs call back from MD, Needs call back from MD, 1 month f/u, Follow up hypothyroidism, Neck mass, Follow up Neck mass, Refills, Message to self, Refills, Message to self, 6 month f/u, follow-up abnormal imaging, 3 month f/u, Needs call back from MD, Flu, influenza vaccination, Refill, F/U, Follow up coronary artery disease, FYI only, Refills, d/c [facility], follow-up after hospital discharge, FYI only, Refill, 6 month f/u, Follow up hypertension, irritable bowel syndrome, Message/Refill, Message, Refills, Refills, 6 month f/u, Follow up hypertension, hypercholesterolemia, hypothyroidism, Refills, 6 month f/u, Follow up hypertension, hypercholesterolemia, hypothyroidism, Refills, Refills, Refills, Message, physical, annual visit, Refills, 6 month f/u, Follow up hypertension, Refills, Refills,Refills, Refills, 4 month f/u, Follow up hypertension, Refills, Refill, Needs call back from MD, Message, Follow up hypertension, Message, annual visit, 3 month f/u, Follow up hypertension, 1 month f/u, Refill, 1 month f/u, Follow up hypertension, 1 month f/u, Follow up hypertension, Follow up hypertension, 3 month f/u, Follow up hypertension, Refills, Follow up hypertension, hypercholesterolemia, hypothyroidism, breast cancer, Follow up hypertension, hypercholesterolemia, hypothyroidism, 6 month f/u, Refills, Refill, Follow up hypertension, hypercholesterolemia, hypothyroidism, breast cancer, 6 month f/u, Refill, Refills, message, Follow up hypertension, hypercholesterolemia, breast cancer, Refill, pneumococcal vaccination, Refills, Message, influenza vaccination, Follow up hypertension,hypercholesterolemia, hypothyroidism, gastroesophageal reflux disease (GERD), irritable bowel syndrome, breast cancer, Refills, annual visit, Follow up gastroesophageal reflux disease (GERD), irritable bowel syndrome, f/u visit, urgent visit, Flu vaccine, refill, f/u visit, urgent visit, refill, refill, refill, follow up, f/u visit, refill, refill, f/u visit, Refills, Refills, Refills, refill, f/u visit, f/u visit, Refills, refill, power outage, f/u visit, Four week follow up for hypertension., Historical data Insurance Providers Health Insurance Type Health Plan Insurance Address Health Plan Insurance Phone Health Plan Insurance Name Health Plan Coverage Dates Member ID Patient Relationship to Subscriber Patient Address Patient Phone Patient Name Patient Date of Subscriber ID Subscriber Name Subscriber Date of Group No [facility] [address] [facility] [id number] [phone] [facility] D[facility] self Shannan chavez [id number] [facility] [address] [place] [address] [facility] self Shannan chavez [id number]
[2022-10-19] MEDS: Enoxaparin Sodium 40 MG/0.4 ML SYRINGE SUBCUT ×2 (00:24→21:01)
[2022-10-19] MEDS: 0.9 % Sodium Chloride Flush 3 ML SYRINGE IVFLUSH ×4 (00:24→21:07)
[2022-10-19 01:43] LABS: Anion Gap 18 (12-20); Blood Urea Nitrogen 22 mg/dL (9-16); Calcium 8.8 mg/dL (8.4-10.2); Carbon Dioxide 21 mmol/L (22-29); Chloride 89 mmol/L (96-108); Creatinine Clr Calc Pharmacy 43.1; Estimated Glomerular Filt Rate > 60; Glucose Random 94 mg/dL (60-115); Potassium 2.9 mmol/L (3.3-5.1); Sodium 125 mmol/L (135-145)
[2022-10-19 06:08] LABS: MANUAL DIFF FLAG NO
[2022-10-19 06:18] LABS: Basophils Percent Auto 0.4 % (0-2); Eosinophils Absolute Auto 0.1 X10*3/uL (0.0-0.4); Eosinophils Percent Auto 0.7 % (0-4); Hematocrit 39.4 % (37.0-47.0); Hemoglobin 14.1 g/dl (12.0-16.0); Imm Gran Abs Auto 0.01 X10*3/uL (0.00-0.03); Imm Gran Pct Auto 0.1 % (0.0-0.4); Lymphocytes Absolute Auto 1.5 X10*3/uL (1.2-4.9); Mean Corpuscular HGB Conc 35.8 g/dl (31.0-35.0); Mean Corpuscular Hemoglobin 29.9 pg (27.0-33.0); Mean Corpuscular Volume 83.7 fL (80.0-98.0); Mean Platelet Volume 9.5 fL (9.4-12.3); Monocytes Absolute Auto 0.8 X10*3/uL (0.1-1.2); Monocytes Percent Auto 10.5 % (2-11); Neutrophils Absolute Auto 5.1 x10*3/uL (2.0-8.3); Neutrophils Percent Auto 68.3 % (45-73); Platelet Count 270 X10*3/uL (160-400); Red Blood Count 4.71 X10*6/uL (4.20-5.50); Red Cell Distribution Width 12.7 % (11.0-16.0); White Blood Count 7.5 X10*3/uL (4.8-10.8)
[2022-10-19 06:32] LABS: Anion Gap 15 (12-20); Blood Urea Nitrogen 19 mg/dL (9-16); Carbon Dioxide 24 mmol/L (22-29); Chloride 90 mmol/L (96-108); Creatinine Clr Calc Pharmacy 44.1; Estimated Glomerular Filt Rate > 60; Glucose Random 105 mg/dL (60-115); Potassium 2.5 mmol/L (3.3-5.1); Sodium 126 mmol/L (135-145)
--- NOTE | 2022-10-19 07:08 | PHA.MEDREC ---
Pharmacy Consult ? Medication Reconciliation Pharmacy has completed the medication reconciliation. Done by RN reviewed by pharmacy Jose D
[2022-10-19] MEDS: Potassium Chloride Packet 20 MEQ PACKET 40 MEQ PO (07:12)
[2022-10-19] MEDS: Famotidine 20 MG TABLET PO (07:13)
[2022-10-19] MEDS: Potassium Chloride/H20 10 MEQ/100 ML PIGGYBACK 100 MEQ IV ×4 (07:13→15:17)
[2022-10-19] MEDS: Levothyroxine Sodium 50 MCG TABLET PO (09:19)
[2022-10-19] MEDS: Propranolol HCL 10 MG TABLET PO ×2 (09:20→21:00)
--- NOTE | 2022-10-19 12:10 | HO.PM.IMPN ---
Subjective Subjective Date of Service: 10/19/22 Interval History: seen and examined this morning follow up for hyponatremia feeling a little better today, still weak states she was feeling better after d/c from the hospital. was started on chlorthalidone last week and then started having decreased appetite and increasing weakness Review of Systems Review of Systems: Yes all other systems are reviewed and are negative Constitutional Constitutional: Denies chills and Denies fever(s) Cardiovascular Cardiovascular: Denies chest pain, Denies palpitations and Denies dyspnea Respiratory Respiratory: Denies cough and Denies dyspnea Gastrointestinal Gastrointestinal: Denies diarrhea, Denies nausea and Denies vomiting Endocrine Endocrine: Denies palpitations Physical Exam Vital Signs: Vital Signs: Last Vital Signs Temp 98.1 F 10/18/22 23:57 Pulse 62 10/19/22 09:21 Resp 19 10/19/22 09:21 BP 133/59 L 10/19/22 09:21 Pulse Ox 96 10/19/22 09:21 O2 Del Method Room Air 10/19/22 06:41 BMI result Body Mass Index 26.4 Const: Other: Thin elderly female resting in bed comfortably. General: alert and awake Nutritional Appearance: thin Orientation/consciousness: patient oriented x3 Resp: Effort & Inspection: normal respiratory effort and able to speak in complete sentences Cardio: Rate: regular rate GI: Inspection: No distended Palpation (GI): Soft to palpation Neuro: General: patient oriented x3 and CN's II-XI intact bilaterally Extrem: General: Yes no pedal edema Objective Data Active Medications Acetaminophen (Acetaminophen 325 Mg Tablet) 650 mg PO Q6H PRN PRN Reason: Pain, Mild (Pain Scale 1-3) Atorvastatin Calcium (Atorvastatin Calcium 20 Mg Tablet) 20 mg PO BEDTIME [facility] Enoxaparin Sodium (Enoxaparin Sodium 40 Mg/0.4 Ml Syringe) 40 mg SUBCUT Q24H [facility] Last Admin: 10/19/22 00:24 Dose: 40 mg Documented By: RIC Famotidine (Famotidine 20 Mg Tablet) 20 mg PO DAILY [facility] Last Admin: 10/19/22 07:13 Dose: 20 mg Documented By: RONALD Levothyroxine Sodium (Levothyroxine Sodium 50 Mcg Tablet) 50 mcg PO DAILY@0600 [facility] Last Admin: 10/19/22 09:19 Dose: 50 mcg Documented By: RONALD Lorazepam (Lorazepam 0.5 Mg Tablet) 0.5 mg PO DAILY PRN PRN Reason: Anxiety Melatonin (Melatonin 3 Mg Tablet) 6 mg PO BEDTIME PRN PRN Reason: Insomnia Ondansetron HCl (Ondansetron Hcl 4 Mg/2 Ml Vial) 4 mg IVPUSH Q8H PRN PRN Reason: Nausea and Vomiting Pharmacy Consult (Consult Rx Perform Med Rec) 1 each MISCELLANE ONCE PRN PRN Reason: Consult order Propranolol HCl (Propranolol Hcl 10 Mg Tablet) 10 mg PO BID [facility]; Protocol Last Admin: 10/19/22 09:20 Dose: 10 mg Documented By: RONALD Sodium Chloride (0.9 % Sodium Chloride Flush 3 Ml Syringe) [facility] Admin: 10/19/22 09:21 Dose: 3 ml Documented By: RONALD Labs 10/19/22 06:02 10/19/22 06:02 Labs: Laboratory Results - last 24 hr 10/18/22 10/18/22 10/18/22 20:49 20:49 20:49 MCV 82.8 MCH 29.5 MCHC 35.6 H RDW 12.8 Plt Count 270 D MPV 9.3 L Immature Gran % (Auto) 0.4 Neut % (Auto) 73.3 H Lymph % (Auto) 17.5 L [place] % (Auto) 7.9 Eos % (Auto) 0.6 Baso % (Auto) 0.3 Lymph # (Auto) 1.3 [place] # (Auto) 0.6 Eos # (Auto) 0.0 Baso # (Auto) 0.0 Abs Immat Gran (auto) 0.03 Absolute Neuts (auto) 5.2 Absolute Nucleated RBC 0.000 Nucleated RBC % (auto) 0.0 Anion Gap 14 Estim Creat Clear Calc 43.1 Estimated GFR > 60 Random Glucose 181 H Osmolality 249 L Calcium 8.9 D Total Creatine Kinase 82 TSH 1.24 Random Cortisol Urine Color Urine Appearance Urine pH Ur Specific [place] Urine Protein Urine Glucose (UA) Urine Ketones Urine Blood Urine Nitrite Ur Leukocyte Esterase Urine RBC Urine WBC Ur Squamous Epith Cells Urine Bacteria Hyaline Casts Urine Osmolality Ur Random Sodium Ur Random Chloride 10/18/22 10/18/22 10/18/22 21:28 21:28 21:28 MCV MCH MCHC RDW Plt Count MPV Immature Gran % (Auto) Neut % (Auto) Lymph % (Auto) [place] % (Auto) Eos % (Auto) Baso % (Auto) Lymph # (Auto) [place] # (Auto) Eos # (Auto) Baso # (Auto) Abs Immat Gran (auto) Absolute Neuts (auto) Absolute Nucleated RBC Nucleated RBC % (auto) Anion Gap Estim Creat Clear Calc Estimated GFR Random Glucose Osmolality Calcium Total Creatine Kinase TSH Random Cortisol Urine Color Yellow Urine Appearance Clear Urine pH 6.5 Ur Specific [place] 1.010 Urine Protein Negative Urine Glucose (UA) Negative Urine Ketones Negative Urine Blood Small (1+) H Urine Nitrite Negative Ur Leukocyte Esterase Negative Urine RBC 3-5 H Urine WBC 0-5 Ur Squamous Epith Cells 0-2 Urine Bacteria None Seen Hyaline Casts 0-2 Urine Osmolality 375 Ur Random Sodium 49.0 Ur Random Chloride 50.0 10/19/22 10/19/22 10/19/22 01:17 06:02 06:02 MCV 83.7 MCH 29.9 MCHC 35.8 H RDW 12.7 Plt Count 270 MPV 9.5 Immature Gran % (Auto) 0.1 Neut % (Auto) 68.3 Lymph % (Auto) 20.0 [place] % (Auto) 10.5 Eos % (Auto) 0.7 Baso % (Auto) 0.4 Lymph # (Auto) 1.5 [place] # (Auto) 0.8 Eos # (Auto) 0.1 Baso # (Auto) 0.0 Abs Immat Gran (auto) 0.01 Absolute Neuts (auto) 5.1 Absolute Nucleated RBC 0.000 Nucleated RBC % (auto) 0.0 Anion Gap 18 15 Estim Creat Clear Calc 43.1 44.1 Estimated GFR > 60 > 60 Random Glucose 94 105 Osmolality Calcium 8.8 9.0 Total Creatine Kinase TSH Random Cortisol Urine Color Urine Appearance Urine pH Ur Specific [place] Urine Protein Urine Glucose (UA) Urine Ketones Urine Blood Urine Nitrite Ur Leukocyte Esterase Urine RBC Urine WBC Ur Squamous Epith Cells Urine Bacteria Hyaline Casts Urine Osmolality Ur Random Sodium Ur Random Chloride 10/19/22 06:02 MCV MCH MCHC RDW Plt Count MPV Immature Gran % (Auto) Neut % (Auto) Lymph % (Auto) [place] % (Auto) Eos % (Auto) Baso % (Auto) Lymph # (Auto) [place] # (Auto) Eos # (Auto) Baso # (Auto) Abs Immat Gran (auto) Absolute Neuts (auto) Absolute Nucleated RBC Nucleated RBC % (auto) Anion Gap Estim Creat Clear Calc Estimated GFR Random Glucose Osmolality Calcium Total Creatine Kinase TSH Random Cortisol 16.0 Urine Color Urine Appearance Urine pH Ur Specific [place] Urine Protein Urine Glucose (UA) Urine Ketones Urine Blood Urine Nitrite Ur Leukocyte Esterase Urine RBC Urine WBC Ur Squamous Epith Cells Urine Bacteria Hyaline Casts Urine Osmolality Ur Random Sodium Ur Random Chloride Assessment and Plan (1) Hyponatremia: Status: Acute Plan This is a 77-year-old female with pertinent history of essential hypertension, CAD, hypothyroidism, mixed hyperlipidemia who presents to the emergency department for evaluation of weakness. Severe hypotonic hyponatremia, likely chronic (greater then 48 hours) sodium from 10/01 wnl. 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 continue fluid restriction. Discontinue Thiazide TSH and morning cortisol wnl nephrology consult pending follow BMP Hypokalemia IV, PO replacement follow levels CAD: Aspirin was discontinued during previous admission due to GI bleed. Continue statin Essential hypertension: Hold chlorthalidone as above. Continue losartan Hypothyroidism: Continue Synthroid DVT prophylaxis: Lovenox 40 mg daily Full code Cardiac diet with 1 L fluid restriction Attending - dr. higgins Requires ongoing hospital stay for close monitoring of serum sodium Time Spent With Patient Time: Total time managing care of this patient today ____ minutes. Quality Stroke Does the patient have a stroke diagnosis?: No VTE Prior VTE?: No VTE Risk Level:: Medical - moderate - high VTE Device Contraindication: Treatment Not Indicated VTE Drug Contraindication: N/A - Med Ordered
[2022-10-19 12:30] LABS: Anion Gap 16 (12-20); Blood Urea Nitrogen 18 mg/dL (9-16); Calcium 8.7 mg/dL (8.4-10.2); Carbon Dioxide 22 mmol/L (22-29); Chloride 91 mmol/L (96-108); Creatinine Clr Calc Pharmacy 45.2; Estimated Glomerular Filt Rate > 60; Glucose Random 114 mg/dL (60-115); Potassium 3.4 mmol/L (3.3-5.1); Sodium 126 mmol/L (135-145)
--- NOTE | 2022-10-19 14:22 | MHC.CLN ---
NUTRITION CONSULT FOR POOR PO AND WEIGHT LOSS. REVIEW OF WEIGHT HX SHOWS 5% WEIGHT LOSS X 2 MONTHS, NOT SIGNIFICANT. CURRENT DIET=CARDIAC WITH 1000 ML FLUID RESTRICTION. SODIUM ON 10/1854=286; 10/1982=049. CONTINUE CURRENT FLUID RESTRICTION. NO ADDITIONAL NUTRITION INTERVENTIONS AT THIS TIME. RD TO MONITOR INTAKE.
--- NOTE | 2022-10-19 15:14 | PC.NURSE ---
Assumed care of patient at this time.
[2022-10-19 18:40] LABS: Sodium 130 mmol/L (135-145)
[2022-10-19] MEDS: Atorvastatin Calcium 20 MG TABLET PO (21:01)
[2022-10-20 02:18] VITALS: BP 148/72; PULSE 75; RESP 16; TEMP 35.8; O2SAT 98
[2022-10-20 02:45] VITALS: TEMP 36.7
[2022-10-20] MEDS: Levothyroxine Sodium 50 MCG TABLET PO (06:32)
[2022-10-20 07:12] VITALS: BP 136/62; PULSE 52; RESP 14; TEMP 36.3; O2SAT 96
[2022-10-20 07:22] LABS: Anion Gap 13 (12-20); Blood Urea Nitrogen 19 mg/dL (9-16); Calcium 9.1 mg/dL (8.4-10.2); Carbon Dioxide 27 mmol/L (22-29); Chloride 98 mmol/L (96-108); Creatinine Clr Calc Pharmacy 43.7; Estimated Glomerular Filt Rate > 60; Glucose Random 94 mg/dL (60-115); Potassium 3.6 mmol/L (3.3-5.1); Sodium 134 mmol/L (135-145)
[2022-10-20 08:47] VITALS: BP 145/65; PULSE 58
[2022-10-20] MEDS: Famotidine 20 MG TABLET PO (08:52)
[2022-10-20] MEDS: Losartan Potassium 50 MG TABLET 100 MG PO (08:52)
[2022-10-20] MEDS: 0.9 % Sodium Chloride Flush 3 ML SYRINGE IVFLUSH ×3 (10:27→19:58)
--- NOTE | 2022-10-20 12:06 | MHC.CM.PN ---
pt lives with her has no serveis and does not expect to need services when dcd she is covid vax has her own ride home
--- NOTE | 2022-10-20 15:39 | P.PNIM_ITS ---
Subjective Subjective Date of Service: 10/20/22 Interval History: seen and examined this morning follow up for hyponatremia feeling a little better today, still weak Review of Systems Review of Systems: Yes all other systems are reviewed and are negative Constitutional Constitutional: Denies chills and Denies fever(s) Cardiovascular Cardiovascular: Denies chest pain, Denies palpitations and Denies dyspnea Respiratory Respiratory: Denies cough and Denies dyspnea Gastrointestinal Gastrointestinal: Denies diarrhea, Denies nausea and Denies vomiting Endocrine Endocrine: Denies palpitations Physical Exam Vital Signs: Vital Signs: Last Vital Signs Temp 97.3 F 10/20/22 07:12 Pulse 58 10/20/22 08:47 Resp 14 10/20/22 07:12 BP 145/65 H 10/20/22 08:47 Pulse Ox 96 10/20/22 07:12 O2 Del Method Room Air 10/20/22 07:12 BMI result Body Mass Index 25.9 Appearing in no acute distress lung sounds are clear to auscultation heart regular rate rhythm, clear S1, S2 positive bowel sounds, abdomen is soft, nontender neuro patient is alert x3, no focal deficits Objective Data Active Medications Acetaminophen (Acetaminophen 325 Mg Tablet) 650 mg PO Q6H PRN PRN Reason: Pain, Mild (Pain Scale 1-3) Atorvastatin Calcium (Atorvastatin Calcium 20 Mg Tablet) 20 mg PO BEDTIME [facility] Last Admin: 10/19/22 21:01 Dose: 20 mg Documented By: CHARLENE Enoxaparin Sodium (Enoxaparin Sodium 40 Mg/0.4 Ml Syringe) 40 mg SUBCUT Q24H [facility] Last Admin: 10/19/22 21:01 Dose: 40 mg Documented By: CHARLENE Famotidine (Famotidine 20 Mg Tablet) 20 mg PO DAILY [facility] Last Admin: 10/20/22 08:52 Dose: 20 mg Documented By: ANNA MARIE Levothyroxine Sodium (Levothyroxine Sodium 50 Mcg Tablet) 50 mcg PO DAILY@0600 [facility] Last Admin: 10/20/22 06:32 Dose: 50 mcg Documented By: IZABELA Lorazepam (Lorazepam 0.5 Mg Tablet) 0.5 mg PO DAILY PRN PRN Reason: Anxiety Losartan Potassium (Losartan Potassium 50 Mg Tablet) 100 mg PO DAILY [facility]; Protocol Last Admin: 10/20/22 08:52 Dose: 100 mg Documented By: ANNA MARIE Melatonin (Melatonin 3 Mg Tablet) 6 mg PO BEDTIME PRN PRN Reason: Insomnia Ondansetron HCl (Ondansetron Hcl 4 Mg/2 Ml Vial) 4 mg IVPUSH Q8H PRN PRN Reason: Nausea and Vomiting Pharmacy Consult (Consult Rx Perform Med Rec) 1 each MISCELLANE ONCE PRN PRN Reason: Consult order Propranolol HCl (Propranolol Hcl 10 Mg Tablet) 10 mg PO BID [facility]; Protocol Last Admin: 10/20/22 08:52 Dose: Not Given Documented By: ANNA MARIE Non-Admin Reason: Decreased Heart Rate Sodium Chloride (0.9 % Sodium Chloride Flush 3 Ml Syringe) 3 ml IVFLUSH QSHIFT [facility] Last Admin: 10/20/22 15:24 Dose: 3 ml Documented By: BARRIE Labs 10/19/22 06:02 10/20/22 05:46 Labs: Laboratory Results - last 24 hr 10/20/22 05:46 Anion Gap 13 Estim Creat Clear Calc 43.7 Estimated GFR > 60 Random Glucose 94 Calcium 9.1 Assessment and Plan (1) Hyponatremia: Status: Acute Plan This is a 77-year-old female with pertinent history of essential hypertension, CAD, hypothyroidism, mixed hyperlipidemia who presents to the emergency department for evaluation of weakness. Severe hypotonic hyponatremia, likely chronic (greater then 48 hours). resolving sodium from 10/01 wnl. 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 continue fluid restriction. Discontinue Thiazide TSH and morning cortisol wnl nephrology consult pending follow BMP Hypokalemia IV, PO replacement follow levels CAD Aspirin was discontinued during previous admission due to GI bleed. Continue statin Essential hypertension Hold chlorthalidone as above. Continue losartan Hypothyroidism: Continue Synthroid DVT prophylaxis: Lovenox 40 mg daily Full code Cardiac diet with 1 L fluid restriction Attending - dr. Blanco Requires ongoing hospital stay for close monitoring of serum sodium Time Spent With Patient Time: Total time managing care of this patient today ____ minutes. Quality Stroke Does the patient have a stroke diagnosis?: No VTE Prior VTE?: No VTE Risk Level:: Medical - moderate - high VTE Device Contraindication: Treatment Not Indicated VTE Drug Contraindication: N/A - Med Ordered
[2022-10-20 16:35] VITALS: BP 115/54; PULSE 60; RESP 16; TEMP 36.1; O2SAT 98
--- NOTE | 2022-10-20 16:50 | P.CNNE_ITS ---
History of Present Illness Data of Consult Service Date: 10/20/22 Requesting physician: Damaris Gonzales Primary Care Provider: DO BERENICE Torres Shannan is a 77 yo woman whom we are asked to see for hyponatremia. The onset of her hyponatremia was clearly after starting chlorthalidone on 10/10. Prior to that she had normal serum sodium levels. Her PM is notable for HTN, lobular carcinoma of the breast, CAD and ASCVD, hypothyroidism, hyperlipidemia and a recent admission for abd pain thought to be due to ischemic colitis. She presented on 10/18 with weakness and a sodium of 118. Her chlorthalidone was held. Her urine sodium was 43 and osm elevated. She has slowly improved and today her sodium is 134 and was initially treated with normal saline. Review of Systems Review of Systems: Yes all other systems are reviewed and are negative Constitutional: Constitutional: Denies chills, Reports fatigue, Denies fever(s) and Reports lethargy Cardiovascular: Cardiovascular: Reports no additional cardiovascular complaints, Denies chest pain, Denies palpitations and Denies dyspnea Respiratory: Respiratory: Reports no additional respiratory complaints, Denies cough and Denies dyspnea Gastrointestinal: Gastrointestinal: Reports no additional gastrointestinal complaints, Denies diarrhea, Denies nausea and Denies vomiting Endocrine: Endocrine: Reports fatigue and Denies palpitations PMFSH Past Medical History Medical History CAD (coronary artery disease) Carotid bruit Hypertension Lobular carcinoma of right breast Functional capacity: independent ambulation Family History Family History Father Colon cancer Cancer Mother Diabetes Child No Financial Resp Cancer Sister Heart attack Son Non Hodgkin's lymphoma Surgical History Surgical History History of cardiac cath History of laparoscopic cholecystectomy History of right breast biopsy History of right mastectomy Hx of BSO (bilateral salpingo-oophorectomy) S/P NIKO (total abdominal hysterectomy) Social History Social History Household Members: Spouse Housing: Condominium Do you presently have visiting nurse or other home services: No Alcohol intake: never Patient Tobacco Use Status: Never used Tobacco Use of substances other than those prescribed or required for medical reasons: No Currently Displaying Signs/Symptoms of Drug Intoxication Withdrawal: No Have you been hit, kicked, punched, or otherwise hurt by someone within the past year? If so, by whom?: No Do you feel safe in your current relationship?: No Is there a partner from a previous relationship who is making you feel unsafe now?: No Are you made to feel afraid or neglected: No Advance Directives: No Advance Directives Information Provided: Yes Advance Directives on File: No Do you have thoughts of harming others: None Do you have a plan to hurt others: No Plan Recently lost weight without trying: Yes How much weight loss: 2-13 pounds Eating poorly because of decreased appetite: Yes Nutrition screen score: 4 Nutrition Risks: Anorexia and Poor intake 0-25% >4 days Patient : No : No Poor oral hygiene: No service: No Current occupational status: retired [employer] Allergies Allergy/AdvReac Type Severity Reaction Status Date / Time meperidine [From Demerol] AdvReac Mild NAUSEA/VOMI Verified 10/17/22 14:30 TING Active Medications: Current Medications Acetaminophen (Acetaminophen 325 Mg Tablet) 650 mg PO Q6H PRN PRN Reason: Pain, Mild (Pain Scale 1-3) Atorvastatin Calcium (Atorvastatin Calcium 20 Mg Tablet) 20 mg PO BEDTIME [facility] Last Admin: 10/19/22 21:01 Dose: 20 mg Enoxaparin Sodium (Enoxaparin Sodium 40 Mg/0.4 Ml Syringe) 40 mg SUBCUT Q24H [facility] Last Admin: 10/19/22 21:01 Dose: 40 mg Famotidine (Famotidine 20 Mg Tablet) 20 mg PO DAILY [facility] Last Admin: 10/20/22 08:52 Dose: 20 mg Levothyroxine Sodium (Levothyroxine Sodium 50 Mcg Tablet) 50 mcg PO DAILY@0600 [facility] Last Admin: 10/20/22 06:32 Dose: 50 mcg Lorazepam (Lorazepam 0.5 Mg Tablet) 0.5 mg PO DAILY PRN PRN Reason: Anxiety Losartan Potassium (Losartan Potassium 50 Mg Tablet) 100 mg PO DAILY [facility]; Protocol Last Admin: 10/20/22 08:52 Dose: 100 mg Melatonin (Melatonin 3 Mg Tablet) 6 mg PO BEDTIME PRN PRN Reason: Insomnia Ondansetron HCl (Ondansetron Hcl 4 Mg/2 Ml Vial) 4 mg IVPUSH Q8H PRN PRN Reason: Nausea and Vomiting Pharmacy Consult (Consult Rx Perform Med Rec) 1 each MISCELLANE ONCE PRN PRN Reason: Consult order Propranolol HCl (Propranolol Hcl 10 Mg Tablet) 10 mg PO BID [facility]; Protocol Last Admin: 10/20/22 08:52 Dose: Not Given Sodium Chloride (0.9 % Sodium Chloride Flush 3 Ml Syringe) 3 ml IVFLUSH QSHIFT [facility] Last Admin: 10/20/22 15:24 Dose: 3 ml Home Medications Medication Instructions Recorded Confirmed Last Taken Type levothyroxine 50 mcg tablet 50 mcg PO DAILY 06/23/20 10/18/22 10/18/22 History losartan 100 mg tablet 100 mg PO DAILY 06/23/20 10/18/22 10/18/22 History propranolol 10 mg tablet 10 mg PO BID 10/20/20 10/18/22 10/18/22 History simvastatin 40 mg tablet 40 mg PO BEDTIME 02/15/21 10/18/22 10/18/22 History lorazepam 0.5 mg tablet 0.5 mg PO DAILY PRN Anxiety 08/16/22 10/18/22 Unknown History chlorthalidone 25 mg tablet 25 mg PO DAILY 10/17/22 10/18/22 10/18/22 History Physical Exam Vital Signs: Vital Signs: Last Vital Signs Temp 97.0 F 10/20/22 16:35 Pulse 60 10/20/22 16:35 Resp 16 10/20/22 16:35 BP 115/54 L 10/20/22 16:35 Pulse Ox 98 10/20/22 16:35 O2 Del Method Room Air 10/20/22 16:35 BMI result Body Mass Index 25.9 Const: Other: Thin elderly female resting in bed comfortably. General: alert and awake Nutritional Appearance: thin Orientation/consciousness: patient oriented x3 Resp: Effort & Inspection: normal respiratory effort and able to speak in co mplete sentences Cardio: Rate: regular rate GI: Inspection: No distended Palpation (GI): Soft to palpation Neuro: General: patient oriented x3 and CN's II-XI intact bilaterally Extrem: General: Yes no pedal edema Results Labs 10/19/22 06:02 10/20/22 05:46 Labs: BMP 10/19/22 10/20/22 18:18 05:46 Sodium 130 L 134 L Potassium 3.6 Chloride 98 Carbon Dioxide 27 BUN 19 H Creatinine 0.85 Calcium 9.1 Assessment and Plan (1) Hyponatremia: Status: Acute Acute hyponatremia clearly due to chlorthalidone effect to cause nonosmotic ADH release. This is not SIADH. Thiazide induced hyponatremia looks like SIAHD due to high urine sodium induced by the thiazide but pts are actually mildly hypovolemic and respond to normal saline and discontinuation of the drug. THIS SHOULD BE CONSIDERED A CONTRAINDICATION TO EVER RESUMING A THIAZIDE AND WOULD INCLUDE THIAZIDES ALLERGY IN THIS WOMAN. SHE IS NOW EUVOLEMIC AND FLUID CAN BE STOPPED. CONTINUE TO REPLETE POTASSIUM (2) Hypertension: Status: Acute bp CONTROLLED; CONTINUE LOSARTAN; CHECK LEONIDES /RENIN LEVEL IN AM Time Spent With Patient Time: Total time managing care of this patient today ____ minutes. Procedures Date of Service Date of Service: 10/20/22
[2022-10-20 19:50] VITALS: BP 133/63; PULSE 72; RESP 18; TEMP 36.2; O2SAT 99
[2022-10-20] MEDS: Atorvastatin Calcium 20 MG TABLET PO (19:58)
[2022-10-20] MEDS: Propranolol HCL 10 MG TABLET PO (19:58)
[2022-10-20] MEDS: Enoxaparin Sodium 40 MG/0.4 ML SYRINGE SUBCUT (22:09)
[2022-10-21 03:40] VITALS: BP 134/63; PULSE 64; RESP 18; TEMP 36.2; O2SAT 98
[2022-10-21] MEDS: Levothyroxine Sodium 50 MCG TABLET PO (06:14)
[2022-10-21 07:47] VITALS: BP 131/62; PULSE 66; RESP 18; TEMP 36.7; O2SAT 98
[2022-10-21] MEDS: Famotidine 20 MG TABLET PO (07:59)
[2022-10-21] MEDS: Propranolol HCL 10 MG TABLET PO ×2 (07:59→21:52)
[2022-10-21] MEDS: Losartan Potassium 50 MG TABLET 100 MG PO (07:59)
[2022-10-21] MEDS: 0.9 % Sodium Chloride Flush 3 ML SYRINGE IVFLUSH ×3 (08:00→21:58)
[2022-10-21 08:05] LABS: Anion Gap 14 (12-20); Blood Urea Nitrogen 26 mg/dL (9-16); Calcium 8.9 mg/dL (8.4-10.2); Carbon Dioxide 25 mmol/L (22-29); Chloride 98 mmol/L (96-108); Creatinine Clr Calc Pharmacy 42.2; Estimated Glomerular Filt Rate > 60; Glucose Random 95 mg/dL (60-115); Potassium 3.2 mmol/L (3.3-5.1); Sodium 134 mmol/L (135-145)
--- NOTE | 2022-10-21 10:41 | HO.PM.IMPN ---
Subjective Subjective Date of Service: 10/21/22 Interval History: seen and examined this morning follow up for hyponatremia feeling a little better today, still weak Review of Systems Review of Systems: Yes all other systems are reviewed and are negative Constitutional Constitutional: Denies chills and Denies fever(s) Cardiovascular Cardiovascular: Denies chest pain, Denies palpitations and Denies dyspnea Respiratory Respiratory: Denies cough and Denies dyspnea Gastrointestinal Gastrointestinal: Denies diarrhea, Denies nausea and Denies vomiting Endocrine Endocrine: Denies palpitations Physical Exam Vital Signs: Vital Signs: Last Vital Signs Temp 98.1 F 10/21/22 07:47 Pulse 66 10/21/22 07:47 Resp 18 10/21/22 07:47 BP 131/62 10/21/22 07:47 Pulse Ox 98 10/21/22 07:47 O2 Del Method Room Air 10/21/22 07:47 BMI result Body Mass Index 25.9 Appearing in no acute distress lung sounds are clear to auscultation heart regular rate rhythm, clear S1, S2 positive bowel sounds, abdomen is soft, nontender neuro patient is alert x3, no focal deficits Objective Data Active Medications Acetaminophen (Acetaminophen 325 Mg Tablet) 650 mg PO Q6H PRN PRN Reason: Pain, Mild (Pain Scale 1-3) Atorvastatin Calcium (Atorvastatin Calcium 20 Mg Tablet) 20 mg PO BEDTIME [facility] Last Admin: 10/20/22 19:58 Dose: 20 mg Documented By: BRITNEY Enoxaparin Sodium (Enoxaparin Sodium 40 Mg/0.4 Ml Syringe) 40 mg SUBCUT Q24H [facility] Last Admin: 10/20/22 22:09 Dose: 40 mg Documented By: BRITNEY Famotidine (Famotidine 20 Mg Tablet) 20 mg PO DAILY [facility] Last Admin: 10/21/22 07:59 Dose: 20 mg Documented By: HELEN Levothyroxine Sodium (Levothyroxine Sodium 50 Mcg Tablet) 50 mcg PO DAILY@0600 [facility] Last Admin: 10/21/22 06:14 Dose: 50 mcg Documented By: BRITNEY Lorazepam (Lorazepam 0.5 Mg Tablet) 0.5 mg PO DAILY PRN PRN Reason: Anxiety Losartan Potassium (Losartan Potassium 50 Mg Tablet) 100 mg PO DAILY [facility]; Protocol Last Admin: 10/21/22 07:59 Dose: 100 mg Documented By: HELEN Melatonin (Melatonin 3 Mg Tablet) 6 mg PO BEDTIME PRN PRN Reason: Insomnia Ondansetron HCl (Ondansetron Hcl 4 Mg/2 Ml Vial) 4 mg IVPUSH Q8H PRN PRN Reason: Nausea and Vomiting Pharmacy Consult (Consult Rx Perform Med Rec) 1 each MISCELLANE ONCE PRN PRN Reason: Consult order Propranolol HCl (Propranolol Hcl 10 Mg Tablet) 10 mg PO BID [facility]; Protocol Last Admin: 10/21/22 07:59 Dose: 10 mg Documented By: HELEN Sodium Chloride (0.9 % Sodium Chloride Flush 3 Ml Syringe) 3 ml IVFLUSH QSHIFT [facility] Last Admin: 10/21/22 08:00 Dose: 3 ml Documented By: HELEN Labs 10/19/22 06:02 10/21/22 07:36 Labs: Laboratory Results - last 24 hr 10/21/22 07:36 Anion Gap 14 Estim Creat Clear Calc 42.2 Estimated GFR > 60 Random Glucose 95 Calcium 8.9 Assessment and Plan (1) Hyponatremia: Status: Acute Plan This is a 77-year-old female with pertinent history of essential hypertension, CAD, hypothyroidism, mixed hyperlipidemia who presents to the emergency department for evaluation of weakness. Severe hypotonic hyponatremia, likely chronic (greater then 48 hours). resolving started on chlorthlidone 4/5 Urine sodium and urine osmolality suggestive of SIADH. continue fluid restriction. Discontinue Thiazide TSH and morning cortisol wnl nephrology consult pending follow BMP Hypokalemia IV, PO replacement follow levels CAD Aspirin was discontinued during previous admission due to GI bleed. Continue statin Essential hypertension Hold chlorthalidone as above. Continue losartan Hypothyroidism Continue Synthroid DVT prophylaxis: Lovenox 40 mg daily Full code Cardiac diet with 1 L fluid restriction Attending - dr. Blanco Requires ongoing hospital stay for close monitoring of serum sodium Time Spent With Patient Time: Total time managing care of this patient today ____ minutes. Quality Stroke Does the patient have a stroke diagnosis?: No VTE Prior VTE?: No VTE Risk Level:: Medical - moderate - high VTE Device Contraindication: Treatment Not Indicated VTE Drug Contraindication: N/A - Med Ordered
[2022-10-21] MEDS: Potassium Chloride Packet 20 MEQ PACKET 40 MEQ PO (11:00)
[2022-10-21 14:37] LABS: Adenovirus F 40/41 Not Detected (Not Detect.); Astrovirus Not Detected (Not Detect.); Campylobacter Not Detected (Not Detect.); Cryptosporidium Not Detected (Not Detect.); Cyclospora cayetanensis Not Detected (Not Detect.); E. coli EAEC Not Detected (Not Detect.); E. coli EPEC Not Detected (Not Detect.); E. coli ETEC Not Detected (Not Detect.); E. coli STEC Not Detected (Not Detect.); Entamoeba histolytica Not Detected (Not Detect.); Giardia lamblia Not Detected (Not Detect.); Norovirus GI/GII Not Detected (Not Detect.); Plesiomonas shigelloides Not Detected (Not Detect.); Rotavirus A Not Detected (Not Detect.); Salmonella Not Detected (Not Detect.); Sapovirus Not Detected (Not Detect.); Shigella sp./EIEC Not Detected (Not Detect.); Vibrio Not Detected (Not Detect.); Vibrio Cholerae Not Detected (Not Detect.); Yersinia enterocolitica Not Detected (Not Detect.)
--- NOTE | 2022-10-21 15:31 | P.PNNP_ITS ---
Subjective Subjective Date of Service: 02/15/23 Interval history: seen and examined this morning follow up for hyponatremia feeling a little better today, still weak SEE MY FULL CONSULT NOTE INADVERTANTLY DONE UNDER 'NEURO RATHER THAN NEPHROLOGY YESTRDAY Physical Exam Vital Signs: Vital Signs: Last Vital Signs Temp 98.1 F 10/21/22 07:47 Pulse 66 10/21/22 07:47 Resp 18 10/21/22 07:47 BP 131/62 10/21/22 07:47 Pulse Ox 98 10/21/22 07:47 O2 Del Method Room Air 10/21/22 07:47 BMI result Body Mass Index 25.9 Const: Other: Thin elderly female resting in bed comfortably. General: alert and awake Nutritional Appearance: thin Orientation/c onsciousness: patient oriented x3 Resp: Effort & Inspection: normal respiratory effort and able to speak in complete sentences Cardio: Rate: regular rate GI: Inspection: No distended Palpation (GI): Soft to palpation Neuro: General: patient oriented x3 and CN's II-XI intact bilaterally Extrem: General: Yes no pedal edema Objective Data Labs 10/19/22 06:02 10/21/22 07:36 Labs: Laboratory Results - last 24 hr 10/21/22 10/21/22 07:36 11:11 Sodium 134 L Potassium 3.2 L Chloride 98 Carbon Dioxide 25 Anion Gap 14 BUN 26 H Creatinine 0.88 Estim Creat Clear Calc 42.2 Estimated GFR > 60 Random Glucose 95 Calcium 8.9 Stl C. cayetanensis PCR Not Detected Stool Rotavirus A PCR Not Detected Stl Adenov F 40/41 PCR Not Detected Stool Astrovirus (PCR) Not Detected Stool Campylobacter PCR Not Detected Stool Cryptosporidium PCR Not Detected Stl Sh Tox Pr E STEC PCR Not Detected Stool E coli O157 PCR Not applicable Stl Enterotoxigenic E PCR Not Detected Stool EPEC (PCR) Not Detected Stool EAEC (PCR) Not Detected Stl E. histolytica PCR Not Detected Stool Giardia Lamblia PCR Not Detected Stl P. shigelloides PCR Not Detected Stool Salmonella PCR Not Detected Stool Sapovirus (PCR) Not Detected Stl Shigella/EIEC PCR Not Detected St Y.enterocolitica PCR Not Detected Stool Vibrio (PCR) Not Detected Stl Vibrio cholerae PCR Not Detected Stl Norovirus GI/GII PCR Not Detected Procedures Date of Service Date of Service: 01/08/23 Assessment & Plan Assessment and plan (1) Hyponatremia: Status: Resolved Assessment and Plan: [address] [address] Neurology Consult Note Signed Patient: Shannan Morales MR#: [id number] : 1945 Acct:[id number] Age/Sex: 77 / F Loc: [facility] [id number] ?? ? Attending Dr: Dorota Pennington NP cc: Evelyn Novoa MD~ History of Present Illness Data of Consult Service Date: 10/20/22 Requesting physician: Damaris Gonzales Primary Care Provider: DO BERENICE Torres Shannan is a 77 yo woman whom we are asked to see for hyponatremia. The onset of her hyponatremia was clearly after starting chlorthalidone on 10/10. Prior to that she had normal serum sodium levels. Her PM is notable for HTN, lobular carcinoma of the breast, CAD and ASCVD, hypothyroidism, hyperlipidemia and a recent admission for abd pain thought to be due to ischemic colitis. She presented on 10/18 with weakness and a sodium of 118. Her chlorthalidone was held. Her urine sodium was 43 and osm elevated. She has slowly improved and today her sodium is 134 and was initially treated with normal saline. Review of Systems Review of Systems:?? Yes all other systems are reviewed and are negative Constitutional:?? Constitutional: Denies chills, Reports fatigue, Denies fever(s) and Reports lethargy Cardiovascular:?? Cardiovascular: Reports no additional cardiovascular complaints, Denies chest pain, Denies palpitations and Denies dyspnea Respiratory:?? Respiratory: Reports no additional respiratory complaints, Denies cough and Denies dyspnea Gastrointestinal:?? Gastrointestinal: Reports no additional gastrointestinal complaints, Denies diarrhea, Denies nausea and Denies vomiting Endocrine:?? Endocrine: Reports fatigue and Denies palpitations PMFSH Past Medical History Medical History? CAD (coronary artery disease) Carotid bruit Hypertension Lobular carcinoma of right breast Functional capacity: independent ambulation Family History Family History? Father Colon cancer CancerMother DiabetesChild No Financial Resp CancerSister Heart attackSon Non Hodgkin's lymphoma Surgical History Surgical History? History of cardiac cath History of laparoscopic cholecystectomy History of right breast biopsy History of right mastectomy Hx of BSO (bilateral salpingo-oophorectomy) S/P NIKO (total abdominal hysterectomy) Social History Social History? Household Members:? Spouse Housing:? Condominium Do you presently have visiting nurse or other home services:? No Alcohol intake:? never Patient Tobacco Use Status:? Never used Tobacco Use of substances other than those prescribed or required for medical reasons:? No Currently Displaying Signs/Symptoms of Drug Intoxication Withdrawal:? No Have you been hit, kicked, punched, or otherwise hurt by someone within the past year? If so, by whom?:? No Do you feel safe in your current relationship?:? No Is there a partner from a previous relationship who is making you feel unsafe now?:? No Are you made to feel afraid or neglected:? No Advance Directives:? No Advance Directives Information Provided:? Yes Advance Directives on File:? No Do you have thoughts of harming others:? None Do you have a plan to hurt others:? No Plan Recently lost weight without trying:? Yes How much weight loss:? 2-13 pounds Eating poorly because of decreased appetite:? Yes Nutrition screen score:? 4 Nutrition Risks:? Anorexia and Poor intake 0-25% >4 days Patient :? No :? No Poor oral hygiene:? No service:? No Current occupational status:? retired Meds Allergies Allergy/AdvReac Type Severity Reaction Status Date / Time meperidine [From Demerol] AdvReac Mild NAUSEA/VOMI Verified 10/17/22 14:30 ? ? ? TING ? ? Active Medications: Current Medications Acetaminophen (Acetaminophen 325 Mg Tablet)? 650 mg PO Q6H PRN PRN Reason: Pain, Mild (Pain Scale 1-3) Atorvastatin Calcium (Atorvastatin Calcium 20 Mg Tablet)? 20 mg PO BEDTIME [facility] Last Admin: 10/19/22 21:01 Dose:? 20 mg Enoxaparin Sodium (Enoxaparin Sodium 40 Mg/0.4 Ml Syringe)? 40 mg SUBCUT Q24H [facility] Last Admin: 10/19/22 21:01 Dose:? 40 mg Famotidine (Famotidine 20 Mg Tablet)? 20 mg PO DAILY [facility] Last Admin: 10/20/22 08:52 Dose:? 20 mg Levothyroxine Sodium (Levothyroxine Sodium 50 Mcg Tablet)? 50 mcg PO DAILY@0600 [facility] Last Admin: 10/20/22 06:32 Dose:? 50 mcg Lorazepam (Lorazepam 0.5 Mg Tablet)? 0.5 mg PO DAILY PRN PRN Reason: Anxiety Losartan Potassium (Losartan Potassium 50 Mg Tablet)? 100 mg PO DAILY [facility]; Protocol Last Admin: 10/20/22 08:52 Dose:? 100 mg Melatonin (Melatonin 3 Mg Tablet)? 6 mg PO BEDTIME PRN PRN Reason: Insomnia Ondansetron HCl (Ondansetron Hcl 4 Mg/2 Ml Vial)? 4 mg IVPUSH Q8H PRN PRN Reason: Nausea and Vomiting Pharmacy Consult (Consult Rx Perform Med Rec)? 1 each MISCELLANE ONCE PRN PRN Reason: Consult order Propranolol HCl (Propranolol Hcl 10 Mg Tablet)? 10 mg PO BID [facility]; Protocol Last Admin: 10/20/22 08:52 Dose:? Not Given Sodium Chloride (0.9 % Sodium Chloride Flush 3 Ml Syringe)? 3 ml IVFLUSH QSHIFT [facility] Last Admin: 10/20/22 15:24 Dose:? 3 ml Home Medications ?Medication ?Instructions ?Recorded ?Confirmed ?Last Taken ?Type levothyroxine 50 mcg tablet 50 mcg PO DAILY 06/23/20 10/18/22 10/18/22 History losartan 100 mg tablet 100 mg PO DAILY 06/23/20 10/18/22 10/18/22 History propranolol 10 mg tablet 10 mg PO BID 10/20/20 10/18/22 10/18/22 History simvastatin 40 mg tablet 40 mg PO BEDTIME 02/15/21 10/18/22 10/18/22 History lorazepam 0.5 mg tablet 0.5 mg PO DAILY PRN Anxiety 08/16/22 10/18/22 Unknown History chlorthalidone 25 mg tablet 25 mg PO DAILY 10/17/22 10/18/22 10/18/22 History Physical Exam Vital Signs:?? Vital Signs: Last Vital Signs Temp ? 97.0 F? 10/20/22 16:35 Pulse? 60? 10/20/22 16:35 Resp ? 16? 10/20/22 16:35 BP ? 115/54 L? 10/20/22 16:35 Pulse Ox ? 98? 10/20/22 16:35 O2 Del Method? Room Air? 10/20/22 16:35 BMI result Body Mass Index ? 25.9? Const:?? Other: Thin elderly female resting in bed comfortably. ? General: alert and awake? Nutritional Appearance: thin? Orientation/consciousness: patient oriented x3 Resp:?? Effort & Inspection: normal respiratory effort and able to speak in complete sentences Cardio:?? Rate: regular rate GI:?? Inspection: No distended? Palpation (GI): Soft to palpation Neuro:?? General: patient oriented x3 and CN's II-XI intact bilaterally Extrem:?? General: Yes no pedal edema Results Labs 10/19/22 06:02? 10/20/22 05:46? Labs: BMP ? 10/19/22 10/20/22 ? 18:18 05:46 Sodium ?130 L ?134 L Potassium ? ?3.6 Chloride ? ?98 Carbon Dioxide ? ?27 BUN ? ?19 H Creatinine ? ?0.85 Calcium ? ?9.1 Assessment and Plan (1) Hyponatremia: ?Status:?Acute Acute hyponatremia clearly due to chlorthalidone effect to cause nonosmotic ADH release. This is not SIADH. Thiazide induced hyponatremia looks like SIAHD due to high urine sodium induced by the thiazide but pts are actually mildly hypovolemic and respond to normal saline and discontinuation of the drug. THIS SHOULD BE CONSIDERED A CONTRAINDICATION TO EVER RESUMING A THIAZIDE AND WOULD INCLUDE THIAZIDES ALLERGY IN THIS WOMAN. SHE IS NOW EUVOLEMIC AND FLUID CAN BE STOPPED. CONTINUE TO REPLETE POTASSIUM (2) Hypertension: ?Status:?Acute bp CONTROLLED; CONTINUE LOSARTAN; CHECK LEONIDES /RENIN LEVEL IN AM Time Spent With Patient Time: Total time managing care of this patient today ____ minutes. Progress Note: Quality Stroke Does the patient have a stroke diagnosis?: No
[2022-10-21 15:52] VITALS: BP 118/55; PULSE 65; RESP 18; TEMP 36.3; O2SAT 100
[2022-10-21 19:34] VITALS: BP 102/55; PULSE 60; RESP 16; TEMP 36.2; O2SAT 100
[2022-10-21] MEDS: Atorvastatin Calcium 20 MG TABLET PO (21:52)
[2022-10-21] MEDS: Enoxaparin Sodium 40 MG/0.4 ML SYRINGE SUBCUT (21:52)
[2022-10-22 04:00] VITALS: BP 152/69; PULSE 67; RESP 16; TEMP 36; O2SAT 99
[2022-10-22] MEDS: Levothyroxine Sodium 50 MCG TABLET PO (05:40)
[2022-10-22 06:45] LABS: Hematocrit 40.6 % (37.0-47.0); Hemoglobin 13.6 g/dl (12.0-16.0); Mean Corpuscular HGB Conc 33.5 g/dl (31.0-35.0); Mean Corpuscular Volume 89.4 fL (80.0-98.0); Mean Platelet Volume 10.2 fL (9.4-12.3); Platelet Count 247 X10*3/uL (160-400); Red Blood Count 4.54 X10*6/uL (4.20-5.50); Red Cell Distribution Width 13.7 % (11.0-16.0); White Blood Count 7.6 X10*3/uL (4.8-10.8)
[2022-10-22 07:21] LABS: Anion Gap 13 (12-20); Blood Urea Nitrogen 29 mg/dL (9-16); Calcium 8.9 mg/dL (8.4-10.2); Carbon Dioxide 23 mmol/L (22-29); Chloride 100 mmol/L (96-108); Creatinine Clr Calc Pharmacy 37.9; Estimated Glomerular Filt Rate 55; Glucose Random 96 mg/dL (60-115); Potassium 3.8 mmol/L (3.3-5.1); Sodium 132 mmol/L (135-145)
[2022-10-22 07:39] VITALS: BP 149/65; PULSE 56; RESP 18; TEMP 36; O2SAT 97
--- NOTE | 2022-10-22 09:03 | MHC.CM.PN ---
pt dcd home no skilled services ordered by
[2022-10-22] MEDS: Famotidine 20 MG TABLET PO (09:19)
[2022-10-22] MEDS: Propranolol HCL 10 MG TABLET PO (09:19)
[2022-10-22] MEDS: Losartan Potassium 50 MG TABLET 100 MG PO (09:20)
--- NOTE | 2022-10-22 09:37 | P.DS_ITS ---
DS: Providers Provider Date of Service: 10/22/22 Date of admission: 10/18/22 22:24 Primary care physician: Finesse Smith DO Consults: 10/19/22 07:35 Consult to Nephrology Routine Consulting Provider: Tye Bello Reason for consultation: hyponaremia Has provider been notified: No 10/21/22 15:17 Consult to Gastroenterology Routine Consulting Provider: Edward Davis Reason for consultation: diarrhea, colitis Has provider been notified: No DS: Diagnosis Discharge Diagnosis (1) Hyponatremia: Status: Acute DS: Summary Hospital Course Hospital Course: HP as per admitting provider This is a 77-year-old female with pertinent history of essential hypertension, CAD, hypothyroidism, mixed hyperlipidemia who presents to the emergency department for evaluation of weakness.? Patient was recently admitted with ischemic colitis and discharged on 10/02.? Patient states she noticed generalized weakness today.? Patient got dizzy when she tried to get up from chair.? This prompted ER visit.? Patient denies any more episodes of bloody bowel movements.? No fever, chills, chest discomfort, palpitations, shortness of breath, abdominal pain, changes in urinary or bowel habits.? Patient states she is compliant with her home medications. In the emergency department, sodium was found to be 118 . Severe hypotonic hyponatremia. Resolved secondary to chlorthlidone, started 4/5 treated with fluid restriction and IV fluids Discontinue Thiazide diuretics TSH and morning cortisol wnl nephrology consult pending follow BMP Diarrhea chronic abd ct neg for colitis stool panel neg Hypokalemia s/p IV, PO replacement CAD asa and statin Essential hypertension stopped chlorthalidone Continue losartan Hypothyroidism Continue Synthroid Time Spent with Patient Time attestation: Total time managing care of this patient today ____ minutes. Discharge coordination time: Greater than 30 minutes Quality: Safe Use of Opioids Does Pt have an Active Cancer Diagnosis on the Problem List?: No Quality: Stroke Does the patient have a stroke diagnosis?: No Physical Exam Vital Signs: Vital Signs: Last Vital Signs Temp 96.8 F 10/22/22 07:39 Pulse 56 10/22/22 07:39 Resp 18 10/22/22 07:39 BP 149/65 H 10/22/22 07:39 Pulse Ox 97 10/22/22 07:39 O2 Del Method Room Air 10/22/22 07:39 BMI result Body Mass Index 25.9 Appearing in no acute distress head is normocephalic atraumatic eyes pupils are PERRLA sclera is anicteric mouth throat mucous membranes are intact and moist neck is supple no lymphadenopathy, no JVD noted lung sounds are clear to auscultation heart regular rate rhythm, clear S1, S2 positive bowel sounds, abdomen is soft, nontender neuro patient is alert x3, no focal deficits DS: Data Data Completed and Pending Completed studies during hospitalization [Text1]: Procedures Excision of Sigmoid Colon, Via Natural or Artificial Opening Endoscopic, Diagnostic (09/28/22) Labs on day of discharge: Laboratory Results - last 24 hr 10/21/22 10/22/22 10/22/22 11:11 05:47 05:47 WBC 7.6 RBC 4.54 Hgb 13.6 Hct 40.6 MCV 89.4 D MCH 30.0 MCHC 33.5 RDW 13.7 Plt Count 247 MPV 10.2 Absolute Nucleated RBC 0.000 Nucleated RBC % (auto) 0.0 Sodium 132 L Potassium 3.8 Chloride 100 Carbon Dioxide 23 Anion Gap 13 BUN 29 H Creatinine 0.98 Estim Creat Clear Calc 37.9 Estimated GFR 55 Random Glucose 96 Calcium 8.9 Stl C. cayetanensis PCR Not Detected Stool Rotavirus A PCR Not Detected Stl Adenov F 40/41 PCR Not Detected Stool Astrovirus (PCR) Not Detected Stool Campylobacter PCR Not Detected Stool Cryptosporidium PCR Not Detected Stl Sh Tox Pr E STEC PCR Not Detected Stool E coli O157 PCR Not applicable Stl Enterotoxigenic E PCR Not Detected Stool EPEC (PCR) Not Detected Stool EAEC (PCR) Not Detected Stl E. histolytica PCR Not Detected Stool Giardia Lamblia PCR Not Detected Stl P. shigelloides PCR Not Detected Stool Salmonella PCR Not Detected Stool Sapovirus (PCR) Not Detected Stl Shigella/EIEC PCR Not Detected St Y.enterocolitica PCR Not Detected Stool Vibrio (PCR) Not Detected Stl Vibrio cholerae PCR Not Detected Stl Norovirus GI/GII PCR Not Detected Discharge Plan Discharge Anticipated Discharge Date/Time: 10/22/22 09:30 Patient Disposition: Home, Self-Care Discharge Diagnosis: Hyponatremia secondary to chlorthalidone Referrals: Finesse Smith DO [Primary Care Provider] - 1 Week Discharge Medications: New loperamide 2 mg Capsule 4 mg PO Q4H PRN (Reason: diarrhea ) Qty: 30 0RF Continued (DME) prosthetics Kit See Rx Instructions .ROUTE .MEDSUPPLY Qty: 3 0RF Rx Instructions: right breast prosthetic losartan 100 mg tablet 100 mg PO DAILY levothyroxine 50 mcg tablet 50 mcg PO DAILY simvastatin 40 mg tablet 40 mg PO BEDTIME propranolol 10 mg tablet 10 mg PO BID lorazepam 0.5 mg tablet 0.5 mg PO DAILY PRN (Reason: Anxiety) Discontinued chlorthalidone 25 mg tablet 25 mg PO DAILY Discharge Orders: Discharge Order (Routine); Ordered 10/22/22 Ordered By: Dorota Pennington Diet: Advance to usual diet Activity on Discharge: As tolerated Stand Alone Forms: Patient Portal Discharge page Care Plan Goals: complete resolution of symptoms Health Concerns: Hyponatremia secondary to chlorthalidone Plan of Treatment: Follow-up with primary care provider as needed 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
--- NOTE | 2022-10-22 11:34 | PM.PNNEP ---
Subjective Subjective Date of Service: 10/24/22 Interval history: seen and examined this morning follow up for hyponatremia feeling a little better today, still weak SEE MY FULL CONSULT NOTE INADVERTANTLY DONE UNDER 'NEURO RATHER THAN NEPHROLOGY YESTRDAY Physical Exam Vital Signs: Vital Signs: Last Vital Signs Temp 96.8 F 10/22/22 07:39 Pulse 56 10/22/22 07:39 Resp 18 10/22/22 07:39 BP 149/65 H 10/22/22 07:39 Pulse Ox 97 10/22/22 07:39 O2 Del Method Room Air 10/22/22 07:39 BMI result Body Mass Index 25.9 Const: General: alert and awake Nutritional Appearance: thin Orientation/consciousness: patient oriented x3 Resp: Effort & Inspection: normal respiratory effort and able to speak in complete sentences Cardio: Rate: regular rate GI: Inspection: No distended Palpation (GI): Soft to palpation Neuro: General: patient oriented x3 and CN's II-XI intact bilaterally Extrem: General: Yes no pedal edema Objective Data Labs 10/22/22 05:47 10/22/22 05:47 Labs: Laboratory Results - last 24 hr 10/21/22 10/22/22 10/22/22 11:11 05:47 05:47 WBC 7.6 RBC 4.54 Hgb 13.6 Hct 40.6 MCV 89.4 D MCH 30.0 MCHC 33.5 RDW 13.7 Plt Count 247 MPV 10.2 Absolute Nucleated RBC 0.000 Nucleated RBC % (auto) 0.0 Sodium 132 L Potassium 3.8 Chloride 100 Carbon Dioxide 23 Anion Gap 13 BUN 29 H Creatinine 0.98 Estim Creat Clear Calc 37.9 Estimated GFR 55 Random Glucose 96 Calcium 8.9 Stl C. cayetanensis PCR Not Detected Stool Rotavirus A PCR Not Detected Stl Adenov F 40/41 PCR Not Detected Stool Astrovirus (PCR) Not Detected Stool Campylobacter PCR Not Detected Stool Cryptosporidium PCR Not Detected Stl Sh Tox Pr E STEC PCR Not Detected Stool E coli O157 PCR Not applicable Stl Enterotoxigenic E PCR Not Detected Stool EPEC (PCR) Not Detected Stool EAEC (PCR) Not Detected Stl E. histolytica PCR Not Detected Stool Giardia Lamblia PCR Not Detected Stl P. shigelloides PCR Not Detected Stool Salmonella PCR Not Detected Stool Sapovirus (PCR) Not Detected Stl Shigella/EIEC PCR Not Detected St Y.enterocolitica PCR Not Detected Stool Vibrio (PCR) Not Detected Stl Vibrio cholerae PCR Not Detected Stl Norovirus GI/GII PCR Not Detected Procedures Date of Service Date of Service: 10/22/22 Assessment & Plan Assessment and plan (1) Hyponatremia: Status: Acute Plan Hyponatremia. Today's sodium is 132. TSH is normal. Hyponatremia primarily due to decreased free water clearance. Restrict oral free water intake. No indication for urea powder at this time. Time Spent With Patient Time: Total time managing care of this patient today ____ minutes. Progress Note: Quality Stroke Does the patient have a stroke diagnosis?: No
== END 2022-10-22 12:00 | disposition home or self-care (01) | DRG 641 ==
LOC: HO.ED 23:56 → HO.EDOVER 10-19 00:21 → HO.S3 10-19 11:08
PROVIDERS: Physician Assistant Medical; Admitting Provider Student in an Organized Health Care Education/Training Program; Emergency Provider Internal Medicine; PCP Internal Medicine; Visit Provider Nurse Practitioner Acute Care
DX: E87.1 Hypo-osmolality and hyponatremia (principal); T50.2X5A Adverse effect of carbonic-anhydrase inhibitors, benzothiadiazides and other diuretics, initial encounter; E03.9 Hypothyroidism, unspecified; K52.9 Noninfective gastroenteritis and colitis, unspecified; E78.2 Mixed hyperlipidemia; E87.6 Hypokalemia; I25.10 Atherosclerotic heart disease of native coronary artery without angina pectoris; I10 Essential (primary) hypertension; Z90.11 Acquired absence of right breast and nipple; Z79.890 Hormone replacement therapy; Z79.899 Other long term (current) drug therapy
CPT/HCPCS: 36415; 74176; 80048; 81001; 82436; 82533; 82550; 83930; 83935; 84295; 84300; 84443; 85025; 85027; 87507; 93005; 99285; J1650

== ENCOUNTER 2022-11-15 10:46 | Outpatient (REF) | payer MEDICARE, SELFPAY ==
[2022-11-15 14:12] LABS: Alanine Aminotransferase 14 U/L (0-31); Albumin Level 3.9 g/dL (3.5-5.0); Alkaline Phosphatase 75 U/L (39-117); Anion Gap 12 (12-20); Aspartate Amino Transferase 18 U/L (5-31); Bilirubin Total 0.6 mg/dL (0.0-1.0); Blood Urea Nitrogen 13 mg/dL (9-16); Calcium 9.2 mg/dL (8.4-10.2); Carbon Dioxide 28 mmol/L (22-29); Chloride 105 mmol/L (96-108); Estimated Glomerular Filt Rate 59; Glucose Random 99 mg/dL (60-115); Potassium 3.7 mmol/L (3.3-5.1); Sodium 141 mmol/L (135-145); Total Protein 6.4 g/dL (6.5-8.0)
== END 2022-11-15 10:47 | disposition home or self-care (01) ==
LOC: HO.HMGCLDS 10:46
PROVIDERS: PCP Internal Medicine; Visit Provider Internal Medicine
DX: E87.8 Other disorders of electrolyte and fluid balance, not elsewhere classified (principal)
CPT/HCPCS: 36415; 80053

== ENCOUNTER 2022-11-20 13:01 | Outpatient (REF) | payer MEDICARE, OTHER, SELFPAY ==
--- NOTE | ~2022-11-20 | MM_ITS ---
EXAMINATION: MM SCREENING DIGITAL BREAST TOMOSYNTHESIS, LEFT CLINICAL INFORMATION: Due for yearly. Right mastectomy for breast cancer, 2007. COMPARISON: Mammography: 10/02/2021, 09/27/2020, 09/22/2019, 09/16/2018 TECHNIQUE: Digital breast tomosynthesis is performed in both the craniocaudal and mediolateral oblique views along with computer-aided detection (CAD). Synthesized 2D images are generated from the tomosynthesis. FINDINGS: There are scattered areas of fibroglandular density (ACR BI-RADS breast composition Category b). There are no significant masses, abnormal calcifications, or other abnormalities. No architectural abnormality or developing density or significant change from prior studies. The axilla and skin contours are unremarkable. MM/MM tomosynthesis screening LT IMPRESSION: No mammographic evidence of malignancy. ASSESSMENT: BI-RADS 1: Negative RECOMMENDATION: Routine annual mammography screening. This patient's information was entered into a reminder system with a target due date for their next mammogram.
== END 2022-11-20 13:02 | disposition home or self-care (01) ==
LOC: HO.MAMMO 13:01
PROVIDERS: PCP Internal Medicine; Visit Provider Surgery
DX: Z12.31 Encounter for screening mammogram for malignant neoplasm of breast (principal)
CPT/HCPCS: 77063; 77067

== ENCOUNTER 2022-12-25 09:04 | Day surgery (SDC) | payer MEDICARE, OTHER, SELFPAY ==
--- NOTE | 2022-12-24 12:04 | P.CONAN_ITS ---
HPI - Anesthesia Eval Consult details Narrative: 77yo F for Upper Endoscopy and Colonoscopy s/p flex sig 09/2022 with [facility] [place] with hyponatremia d/t starting chlorthalidone PMFSH Active Problems Active Problems: All Active Problems (Updated 12/24/22 @ 10:40 by Ghislaine Yoon, RN) Breast cancer screening, high risk patient (Acute) Palpitations (Acute) Ischemic colitis (Acute) History of cardiac cath (Acute) Lobular carcinoma of right breast (Acute) Carotid bruit (Acute) CAD (coronary artery disease) (Acute) Past Medical History Medical History (Updated 12/24/22 @ 10:40 by Ghislaine Yoon, KARL) Anxiety CAD (coronary artery disease) Carotid bruit Elevated cholesterol Esophageal reflux Hypertension Hypothyroidism Lobular carcinoma of right breast Family History Family History Father Colon cancer Cancer Mother Diabetes Child No Financial Resp Cancer Sister Heart attack Son Non Hodgkin's lymphoma Family history of problems with anesthesia: No Surgical History Surgical History (Updated 12/24/22 @ 10:40 by Ghislaine Yoon RN) H/O removal of cyst History of cardiac cath History of cholecystectomy History of laparoscopic cholecystectomy History of right breast biopsy History of right mastectomy Hx of BSO (bilateral salpingo-oophorectomy) S/P NIKO (total abdominal hysterectomy) History of Problems with Anesthesia: No Social History Social History Household Members: Spouse Housing: Condominium Do you presently have visiting nurse or other home services: No Alcohol intake: never Patient Tobacco Use Status: Never used Tobacco service: No Current occupational status: retired Meds Allergies Allergy/AdvReac Type Severity Reaction Status Date / Time Thiazides AdvReac Intermediate Unknown Verified 10/22/22 08:08 meperidine [From Demerol] AdvReac Mild NAUSEA/VOMI Verified 10/17/22 14:30 TING Home Medications Medication Instructions Recorded Confirmed Last Taken Type levothyroxine 50 mcg tablet 50 mcg PO DAILY 06/23/20 10/18/22 10/18/22 History losartan 100 mg tablet 100 mg PO DAILY 06/23/20 10/18/22 10/18/22 History propranolol 10 mg tablet 10 mg PO BID 10/20/20 10/18/22 10/18/22 History simvastatin 40 mg tablet 40 mg PO BEDTIME 02/15/21 10/18/22 10/18/22 History lorazepam 0.5 mg tablet 0.5 mg PO DAILY PRN Anxiety 08/16/22 10/18/22 Unknown History aspirin 81 mg tablet,delayed 81 mg 12/24/22 Unknown History release chlorthalidone 25 mg tablet 25 mg PO DAILY 12/24/22 12/24/22 Unknown History Exam Exam Date and Time: December 24, 2022 1204 Pertinent Lab Results Pertinent Lab Results: Laboratory Tests 10/22/22 11/15/22 05:47 10:56 WBC 7.6 Hgb 13.6 Hct 40.6 Plt Count 247 Sodium 141 Potassium 3.7 Chloride 105 Carbon Dioxide 28 BUN 13 Creatinine 0.92 Narrative Narrative: EKG 10/2022 Vent. Rate : 066 BPM ? ? Atrial Rate : 066 BPM ?? P-R Int : 188 ms? QRS Dur : 090 ms ? ? QT Int : 458 ms ? ? ? P-R-T Axes : 045 001 066 degrees ?? QTc Int : 480 ms ? Poor data quality Sinus rhythm Minimal voltage criteria for LVH, may be normal variant ( R in aVL ) Nonspecific ST and T wave abnormality Abnormal ECG When compared with ECG of 28-SEP-2022 11:41, Poor data quality in current ECG precludes serial comparison Repeat EKG Assessment and Plan Assessment Anesthesia Assessment: Chart Reviewed Final Anesthetic Review Family History of Problems with Anesthesia: No History of Problems with Anesthesia: No
--- OUTSIDE RECORDS SUMMARY | 2022-12-25 09:07 | XMS_ITS ---
Author Name Finesse Smith Address [address], [place] [id number] Organization Finesse Smith DO, [facility] Address [address], [place] [id number] Care Team Providers Care Theatre Professor Name Role Phone Finesse Smith [facility] [phone] PROBLEMS Type Condition ICD9-CM Code FUT78-IY Code Onset Dates Condition Status SNOMED Code Problem Malignant neoplasm o f right female breast, unspecified site of breast C50.911 Active 485496597 Problem Irritable bowel syndrome without diarrhea K58.9 Active 72830346 Problem Gastroesophageal ref lux disease without esophagitis K21.9 Active 227642021 Problem 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 Active 317026019904 103 Problem Neck mass R22.1 Active 710644104 Problem Acquired hypothyroidism E03.9 Active 145165812 Problem Hypercholesterolemia E78.00 Active 136 28718 Problem Essential hypertension I10 Active 5 6467527 Problem Anxiety F41.9 Active 88876456 ALLERGIES Substance Reaction Event Type Date Status Amlodipine Besylate dizziness Drug Allergy November, A ctive Hydrochlorothiazide rash Drug Allergy November, A ctive Chlorthalidone hyponatremia, hypokalemia Drug Allergy 2022 Active Lisinopril cough Drug Allergy November, Active ENCOUNTERS Encounter Location Date Diagnosis Finesse Smith DO, [facility] [address], [place] [id number] November, Essential hypertension I10 ; Hypercholesterolemia E78.00 ; Coronary artery disease involving [place] coronary artery of [place] heart without angina pectoris I25.10 ; Acquired hypothyroidism E03.9 ; Gastroesophageal reflux disease without esophagitis K21.9 ; Irritable bowel syndrome without diarrhea K58.9 and Anxiety F41.9 Finesse Smith DO, [address] [id number] Oct, Electrolyte imbalance E87.8 ; Essential hypertension I10 ; Hypercholesterolemia E78.00 ; Acquired hypothyroidism E03.9 ; Gastroesophageal reflux disease without esophagitis K21.9 and Anxiety F41.9 Finesse Smith DO, [address] [id number] Oct, Finesse Smith DO, [address] [id number] Oct, Acute ischemic colitis K55.0 39 ; Essential hypertension I10 ; Coronary artery disease involving [place] coronary artery of [place] heart without angina pectoris I25.10 ; Hypercholesterolemia E78.00 ; Acquired hypothyroidism E03.9 ; Gastroesophageal reflux disease without esophagitis K21.9 and Anxiety F41.9 Finesse Smith DO, [address] [id number] Aug, Essential hypertension I10 ; Hypercholesterolemia E78.00 ; Acquired hypothyroidism E03.9 ; Gastroesophageal reflux disease without esophagitis K21.9 ; Anxiety F41.9 and Coronary artery disease involving [place] coronary artery of [place] heart without angina pectoris I25.10 Finesse Smith DO [address] [id number] Aug, Finesse Smith DO [address] [id number] Jul, Finesse Smith DO [address] [id number] Jul, Finesse Smith DO [address] [id number] Jul, Finesse Smith DO [address] [id number] Jul, Finesse Smith DO [address] [id number] Jun, Finesse Smith DO [address] [id number] Jun, Hypercholesterolemia E78.00 Finesse Smith DO [address] [id number] 20 Jun, 2022 Finesse Dimas Luis GENAO, [address] [id number] Jun, Finesse Dimas Luis GENAO, [address] [id number] 28 May, 2022 Acquired hypothyroidism E03. 9 and Essential hypertension I10 Finesse Wing Smith DO [address] [id number] 12 Apr, 2022 Need for influenza vaccinati on Z23 Finesse Wing Smith DO, [address] [id number] 11 Apr, 2022 Coronary artery disease involving [place] coronary artery of [place] heart without angina pectoris I25.10 Finesse Smith DO, [address] [id number] 07 Dec, 2021 Essential hypertension I10 ; Hypercholesterolemia E78.00 ; Coronary artery disease involving [place] coronary artery of [place] heart without angina pectoris I25.10 ; Acquired hypothyroidism E03.9 ; Gastroesophageal reflux disease without esophagitis K21.9 ; Irritable bowel syndrome without diarrhea K58.9 and Anxiety F41.9 Finesse Smith DO, [address] [id number] Oct, Coronary artery disease involving [place] coronary artery of [place] heart without angina pectoris I25.10 Finesse Smith DO, [address] [id number] Sep, Anxiety F41.9 Finesse Smith DO, [address] [id number] Jul, Hypercholesterolemia E78.00 Finesse Smith DO, [address] [id number] 14 Jun, 2021 Coronary artery disease involving [place] coronary artery of [place] heart without angina pectoris I25.10 ; Anxiety F41.9 ; Essential hypertension I10 ; Hypercholesterolemia E78.00 ; Acquired hypothyroidism E03.9 ; Gastroesophageal reflux disease without esophagitis K21.9 and Irritable bowel syndrome without diarrhea K58.9 Finesse Smith DO, [address] [id number] 29 May, 2021 Acquired hypothyroidism E03. 9 and Coronary artery disease involving [place] coronary artery of [place] heart without angina pectoris I25.10 Finesse Smith DO, [address] [id number] Apr, Need for influenza vaccinati on Z23 Finesse Smith DO, [facility] [address], [place] [id number] Mar, Anxiety F41.9 ; Coronary art nolan disease involving [place] coronary artery of [place] heart without angina pectoris I25.10 ; Hypercholesterolemia E78.00 ; Acquired hypothyroidism E03.9 ; Gastroesophageal reflux disease without esophagitis K21.9 and Irritable bowel syndrome without diarrhea K58.9 Finesse Smith DO, [facility] [address], [place] [id number] Feb, Gastroesophageal reflux dise ase without esophagitis K21.9 Finesse Smith DO, [address] [id number] Dec, Essential hypertension I10 ; Hypercholesterolemia E78.00 ; Acquired hypothyroidism E03.9 ; Coronary artery disease involving [place] coronary artery of [place] heart without angina pectoris I25.10 ; Gastroesophageal reflux disease without esophagitis K21.9 ; Irritable bowel syndrome without diarrhea K58.9 and Anxiety F41.9 Finesse Smith DO, [address] [id number] November, Anxiety F41.9 Finesse Smith DO, [address] [id number] November, Finesse Smith DO [address] [id number] Oct, Coronary artery disease involving [place] coronary artery of [place] heart without angina pectoris I25.10 Finesse Smith DO, [address] [id number] Oct, Finesse Smith DO, [address] [id number] Oct, Essential hypertension I10 ; Acquired hypothyroidism E03.9 ; Gastroesophageal reflux disease without esophagitis K21.9 ; Irritable bowel syndrome without diarrhea K58.9 ; Coronary artery disease involving [place] coronary artery of [place] heart without angina pectoris I25.10 and Anxiety F41.9 Finesse Smtih DO [address] [id number] Sep, Finesse Smith DO [address] [id number] Sep, Gross hematuria R31.0 Finesse Smith DO [address] [id number] Sep, Finesse Smith DO, [address] [id number] Aug, Acquired hypothyroidism E03. 9 ; Gastroesophageal reflux disease without esophagitis K21.9 ; Irritable bowel syndrome without diarrhea K58.9 ; Malignant neoplasm of right female breast, unspecified site of breast C50.911 ; Essential hypertension I10 ; Hypercholesterolemia E78.00 ; Coronary artery disease involving [place] coronary artery of [place] heart without angina pectoris I25.10 and Anxiety F41.9 Finesse Smith DO, [address] [id number] Jul, Acquired hypothyroidism E03. 9 ; Essential hypertension I10 ; Hypercholesterolemia E78.00 ; Coronary artery disease involving [place] coronary artery of [place] heart without angina pectoris I25.10 ; Neck mass R22.1 ; Anxiety F41.9 ; Irritable bowel syndrome without diarrhea K58.9 and Gastroesophageal reflux disease without esophagitis K21.9 Finesse Smith DO, [address] [id number] Jun, Essential hypertension I10 Finesse Smith DO [address] [id number] May, Finesse Smith DO [address] [id number] May, Acquired hypothyroidism E03. 9 Finesse Smith DO, [address] [id number] Apr, Malignant neoplasm of right female breast, unspecified site of breast C50.911 and Neck mass R22.1 Finesse Smith DO [address] [id number] Apr, Malignant neoplasm of right female breast, unspecified site of breast C50.911 Finesse Smith DO [address] [id number] Apr, Neck mass R22.1 Finesse Smith DO [address] [id number] Mar, Need for influenza vaccinati on Z23 Finesse Smith DO [address] [id number] Feb, Hypercholesterolemia E78.00 Finesse Smith DO [address] [id number] Jan, Coronary artery disease involving [place] coronary artery of [place] heart without angina pectoris I25.10 ; Essential hypertension I10 ; Hypercholesterolemia E78.00 ; Acquired hypothyroidism E03.9 ; Gastroesophageal reflux disease without esophagitis K21.9 ; Irritable bowel syndrome without diarrhea K58.9 and Anxiety F41.9 Finesse Smith DO, [facility] [address], [place] [id number] Dec, Finesse Smith DO, [address] [id number] Dec, Coronary artery disease involving [place] coronary artery of [place] heart without angina pectoris I25.10 Finesse Smith DO, [address] [id number] Dec, Coronary artery disease involving [place] coronary artery of [place] heart without angina pectoris I25.10 ; Acquired hypothyroidism E03.9 ; Irritable bowel syndrome without diarrhea K58.9 ; Essential hypertension I10 ; Gastroesophageal reflux disease without esophagitis K21.9 and Anxiety F41.9 Finesse Smith DO, [address] [id number] November, Finesse Smith DO, [address] [id number] November, Essential hypertension I10 Finesse Smith DO, [address] [id number] Oct, Essential hypertension I10 ; Hypercholesterolemia E78.00 ; Acquired hypothyroidism E03.9 ; Gastroesophageal reflux disease without esophagitis K21.9 and Irritable bowel syndrome without diarrhea K58.9 Finesse Smith DO, [address] [id number] Oct, Gastroesophageal reflux dise ase without esophagitis K21.9 Finesse Smith DO, [address] [id number] Aug, Finesse Smith DO, [address] [id number] Jun, Essential hypertension I10 Finesse Smith DO, [address] [id number] May, Acquired hypothyroidism E03. 9 Finesse Smith DO, [address] [id number] Apr, Essential hypertension I10 ; Hypercholesterolemia E78.00 ; Acquired hypothyroidism E03.9 ; Gastroesophageal reflux disease without esophagitis K21.9 ; Irritable bowel syndrome without diarrhea K58.9 ; Urinary urgency R39.15 and Onychomycosis B35.1 Finesse Smith DO, [facility] [address], [place] [id number] November, Essential hypertension I10 Finesse Smith DO, [facility] [address], [place] [id number] Oct, Essential hypertension I10 ; Hypercholesterolemia E78.00 ; Acquired hypothyroidism E03.9 ; Gastroesophageal reflux disease without esophagitis K21.9 and Irritable bowel syndrome without diarrhea K58.9 Finesse Smith DO, [facility] [address], [place] [id number] Jul, Gastroesophageal reflux dise ase without esophagitis K21.9 Finesse Smith DO, [address] [id number] Jun, Essential hypertension with goal blood pressure less than 130\/80 I10 Finesse Smith DO [facility] [address], [place] [id number] May, Acquired hypothyroidism E03. 9 Finesse Smith DO, [facility] [address], [place] [id number] May, Finesse Smith DO, [facility] [address], [place] [id number] Apr, Encounter for general adult medical examination without abnormal findings Z00.00 ; Essential hypertension with goal blood pressure less than 130\/80 I10 ; Hypercholesterolemia E78.0 ; Acquired hypothyroidism E03.9 ; Gastroesophageal reflux disease without esophagitis K21.9 ; Irritable bowel syndrome without diarrhea K58.9 and Malignant neoplasm of right female breast, unspecified site of breast C50.911 Finesse Smith DO, [facility] [address], [place] [id number] November, Essential hypertension with goal blood pressure less than 130\/80 I10 Finesse Smith DO [facility] [address], [place] [id number] Oct, Essential hypertension with goal blood pressure less than 130\/80 I10 ; Hypercholesterolemia E78.0 ; Acquired hypothyroidism E03.9 ; Gastroesophageal reflux disease without esophagitis K21.9 and Irritable bowel syndrome without diarrhea K58.9 Finesse Smith DO, [facility] [address], [place] [id number] Sep, Hypercholesterolemia E78.0 Finesse Smith DO, [address] [id number] Jun, Essential hypertension with goal blood pressure less than 130\/80 I10 Finesse Smith DO, [address] [id number] Jun, Essential hypertension with goal blood pressure less than 130\/80 I10 Finesse Smith DO [address] [id number] May, Acquired hypothyroidism E03. 9 Finesse Smith DO, [address] [id number] Apr, Essential hypertension with goal blood pressure less than 130\/80 I10 ; Hypercholesterolemia E78.0 ; Acquired hypothyroidism E03.9 ; Gastroesophageal reflux disease without esophagitis K21.9 and Irritable bowel syndrome without diarrhea K58.9 Finesse Smith DO, [address] [id number] Apr, Gastroesophageal reflux dise ase without esophagitis K21.9 Finesse Smith DO [address] [id number] Feb, Acquired hypothyroidism E03. 9 Finesse Smith DO, [address] [id number] Jan, Finesse Smith DO, [address] [id number] Jan, Injury of right hand, initia l encounter S69.91XA and Right wrist injury, initial encounter S69.91XA Finesse Smith DO [address] [id number] Dec, Essential hypertension with goal blood pressure less than 130\/80 I10 ; Hypercholesterolemia E78.0 ; Acquired hypothyroidism E03.9 ; Gastroesophageal reflux disease without esophagitis K21.9 and Irritable bowel syndrome without diarrhea K58.9 Finesse Smith DO [address] [id number] Dec, Finesse Smith DO [address] [id number] November, Encounter for general adult medical examination without abnormal findings Z00.00 ; Essential hypertension with goal blood pressure less than 130\/80 I10 ; Hypercholesterolemia E78.0 ; Acquired hypothyroidism E03.9 ; Gastroesophageal reflux disease without esophagitis K21.9 and Irritable bowel syndrome without diarrhea K58.9 Finesse Smith DO [address] [id number] Aug, Essential hypertension with goal blood pressure less than 130\/80 I10 ; Hypercholesterolemia E78.0 ; Acquired hypothyroidism E03.9 ; Gastroesophageal reflux disease without esophagitis K21.9 and Irritable bowel syndrome without diarrhea K58.9 Finesse Smith DO, [address] [id number] Aug, Finesse Smith DO, [address] [id number] Jul, Essential hypertension with goal blood pressure less than 130\/80 I10 ; Hypercholesterolemia E78.0 ; Acquired hypothyroidism E03.9 and Gastroesophageal reflux disease without esophagitis K21.9 Finesse Smith DO, [address] [id number] Jun, Essential hypertension with goal blood pressure less than 130\/80 I10 ; Hypercholesterolemia E78.0 ; Acquired hypothyroidism E03.9 and Gastroesophageal reflux disease without esophagitis K21.9 Finesse Smith DO, [address] [id number] May, Essential hypertension with goal blood pressure less than 130\/80 I10 ; Hypercholesterolemia E78.0 ; Acquired hypothyroidism E03.9 ; Gastroesophageal reflux disease without esophagitis K21.9 and Irritable bowel syndrome without diarrhea K58.9 Finesse Smith DO, [address] [id number] Mar, Essential hypertension with goal blood pressure less than 130\/80 I10 ; Hypercholesterolemia E78.0 ; Acquired hypothyroidism E03.9 ; Gastroesophageal reflux disease without esophagitis K21.9 ; Irritable bowel syndrome without diarrhea K58.9 and Malignant neoplasm of right female breast, unspecified site of breast C50.911 Finesse Smith DO, [address] [id number] Mar, Finesse Smith DO, [address] [id number] Dec, Essential hypertension with goal blood pressure less than 130\/80 I10 ; Hypercholesterolemia E78.0 ; Acquired hypothyroidism E03.9 ; Gastroesophageal reflux disease without esophagitis K21.9 ; Irritable bowel syndrome without diarrhea K58.9 and Malignant neoplasm of right female breast, unspecified site of breast C50.911 Finesse Smith DO [address] [id number] Sep, Essential hypertension with goal blood pressure less than 130\/80 I10 ; Hypercholesterolemia E78.0 ; Acquired hypothyroidism E03.9 ; Gastroesophageal reflux disease without esophagitis K21.9 ; Irritable bowel syndrome without diarrhea K58.9 and Malignant neoplasm of right female breast, unspecified site of breast C50.911 Finesse Smith DO, [address] [id number] Sep, Finesse Smith DO, [address] [id number] Aug, Finesse Smith DO [address] [id number] Mar, Hypertension 401.9 ; Hypercholesterolemia 272.0 ; Hypothyroidism 244.9 ; Irritable bowel syndrome 564.1 ; Gastroesophageal reflux disease 530.81 ; Breast cancer 174.9 and Need for influenza vaccination V04.81 Finesse Smith DO [address] [id number] Mar, Finesse Smith DO [address] [id number] Feb, Finesse Smith DO [address] [id number] Oct, Finesse Smith DO [address] [id number] Sep, Hypertension 401.9 ; Hypercholesterolemia 272.0 and Breast cancer 174.9 Finesse Smith DO [address] [id number] Aug, Finesse Smith DO [address] [id number] Jun, Need for pneumococcal vaccination V03.82 Finesse Smith DO [address] [id number] May, Finesse Smith DO [address] [id number] Apr, Finesse Smith DO [address] [id number] Mar, Need for influenza vaccinati on V04.81 Finesse Smith DO [address] [id number] Mar, Hypertension 401.9 ; Hypercholesterolemia 272.0 ; Hypothyroidism 244.9 ; Irritable bowel syndrome 564.1 ; Gastroesophageal reflux disease 530.81 and Breast cancer 174.9 Finesse Smith DO [address] [id number] Feb, Hypertension 401.9 and Hypothyroidism 244.9 Finesse Smith DO [address] [id number] Jan, Routine general medical examination at health care facility V70.0 ; Hypertension 401.9 ; Hypercholesterolemia 272.0 ; Hypothyroidism 244.9 ; Gastroesophageal reflux disease 530.81 and Irritable bowel syndrome 564.1 Finesse Smith DO [address] [id number] November, Hypertension 401.9 ; Hypercholesterolemia 272.0 ; Hypothyroidism 244.9 ; Gastroesophageal reflux disease 530.81 and Irritable bowel syndrome 564.1 Finesse Smith DO [address] [id number] Aug, Hypertension 401.9 ; Hypercholesterolemia 272.0 ; Hypothyroidism 244.9 ; Esophageal reflux 530.81 and Irritable bowel syndrome 564.1 Finesse Smith DO [address] [id number] Jun, Numbness and tingling of lef t leg 782.0 Finesse Smith DO [address] [id number] Jun, Need for influenza vaccinati on V04.81 Finesse Smith DO [address] [id number] Jun, Finesse Smith DO [address] [id number] Apr, Hypertension 401.9 ; Hypercholesterolemia 272.0 ; Hypothyroidism 244.9 ; Gastroesophageal reflux disease 530.81 and Dysuria 788.1 Finesse Smith DO [address] [id number] Mar, Gastroesophageal reflux dise ase 530.81 ; Malar rash 782.1 and Neck pain 723.1 Finesse Smith DO [address] [id number] Mar, Finesse Smith DO [address] [id number] Mar, Finesse Smith DO [address] [id number] Mar, Finesse Smith DO [address] [id number] Feb, Finesse Smith DO, [address] [id number] November, Hypertension 401.9 ; Hypercholesterolemia 272.0 ; Hypothyroidism 244.9 ; Esophageal reflux 530.81 and Irritable bowel syndrome 564.1 Finesse Smith DO, [address] [id number] Oct, Hypertension 401.9 ; Hypercholesterolemia 272.0 ; Hypothyroidism 244.9 ; Esophageal reflux 530.81 and Irritable bowel syndrome 564.1 Finesse Smith DO, [address] [id number] May, Finesse Smith DO, [address] [id number] May, Finesse Smith DO, [address] [id number] Apr, Hypertension 401.9 ; Hypercholesterolemia 272.0 ; Hypothyroidism 244.9 and Esophageal reflux 530.81 Finesse Smith DO [address] [id number] Mar, Finesse Smith DO, [address] [id number] Mar, Finesse Smith DO, [address] [id number] Jan, Finesse Smith DO, [address] [id number] Dec, Finesse Smith DO, [address] [id number] Dec, Finesse Smith DO, [address] [id number] Oct, Hypertension 401.9 ; Hypercholesterolemia 272.0 ; Hypothyroidism 244.9 and Esophageal reflux 530.81 Finesse Smith DO, [address] [id number] May, Hypertension 401.9 ; Hypercholesterolemia 272.0 ; Esophageal reflux 530.81 and Hypothyroidism 244.9 Finesse Smith DO, [address] [id number] May, Finesse Smith DO, [address] [id number] May, Finesse Smith DO [address] [id number] Apr, Hypertension 401.9 ; Hypercholesterolemia 272.0 ; Esophageal reflux 530.81 ; Hypothyroidism 244.9 and Impacted cerumen 380.4 Finesse Smith , [facility] [address], [place] [id number] 09 Mar, 2011 Hypertension 401.9 ; Hypercholesterolemia 272.0 ; Esophageal reflux 530.81 and Hypothyroidism 244.9 Finesse Smith , [facility] [address], [place] [id number] 09 Mar, 2011 IMMUNIZATIONS Vaccine Route Administration Date Status Influenza [...] OF CARE Activity Details VITAL SIGNS Weight 131 lbs 2022-11-21 Weight 131 lbs 2022-10-23 Weight 138 lbs 2022-08-14 Weight 133 lbs [...] Weight 136 lbs 2011-03-16 Height 59.25 in 2022-11-21 Height 59.25 in 2022-10-23 Height 59.25 in 2022-10-10 Height 59.25 in [...] in 2011-05-30 Height 60 in 2011-04-13 BMI 26.23 kg/m2 2022-11-21 BMI 26.23 kg/m2 2022-10-23 BMI 27.63 kg/m2 2022-08-14 BMI 26.63 kg/m2 [...] 2011-05-30 BMI 26.36 kg/m2 2011-04-13 Heart Rate 60 /min 2022-11-21 Heart Rate 56 /min 2022-10-23 Heart Rate 54 /min 2020-12-09 Heart Rate 60 /min 2019-12-09 Heart Rate 60 /min 2017-10-22 Heart Rate 60 /min 2011-05-30 Heart Rate 68 /min 2011-03-16 Blood pressure systolic 156 mm Hg Blood pressure diastolic 80 mm Hg 2022-11 MEDICATIONS Medication Instructions Dosage Frequency Start Date End Date Duration Status LORazepam 0.5 MG Orally Once a day 1 tablet at bedtime as needed 24h Aug, Active Aspirin Adult Low Strength 81 MG Orally Once a day 1 tablet 24h Active Simvastatin 40 MG Orally Once a day 1 tablet in the evening 24h Apr, Active Losartan Potassium 100 MG Orally Once a day 1 tablet 24h Active Propranolol HCl 10 MG Orally Twice a day 1 tablet 12h Active Pantoprazole Sodium 40 MG Orally Once a day 1 tablet as needed 24h Mar, Active Levoxyl 50 MCG Orally Once a day 1 tablet every morning on an empty stomach 24h Active PROCEDURES Procedure Date Ordered Result Body Site IMMUNIZATION ADMIN Apr 18, 2012 ANNUAL WELLNESS VST; PPS SUBSQT VST Apr 22, 2018 [facility] 7 Day Disc October 23, 2022 IMMUNIZATION ADMIN Apr 23, 2017 FLU VACC 4 IKER 3 YRS PLUS IM Apr 01, 2015 INFLUENZA Apr 18, 2012 Imms Admin November 27, 2016 IMMUNIZATION ADMIN Mar 28, 2020 FLU VACC PRSV FREE INC ANTIG Apr 18, 2022 Pneumococcal - PPSV23 Jun 07, 2014 IMMUNIZATION ADMIN 2016 Imms Admin Apr 22, 2018 Trans [facility] 7 Day Disc October 08, 2022 IMMUNIZATION ADMIN May 02, 2021 FLU VACC PRSV FREE INC ANTIG Apr 23, 2017 Influenza Apr 13, 2011 Influenza Mar 26, 2014 PNEUMOCOCCAL VACC 13 IKER IM November 27, 2016 Imms Admin Pneu Jun 07, 2014 Imms Admin Apr 01, 2015 Imms Admin May 01, 2019 FLU VACC PRSV FREE INC ANTIG Mar 28, 2020 Influenza Jun 26, 2013 FLU VACC PRSV FREE INC ANTIG May 02, 2021 IMMUNIZATION ADMIN Jun 26, 2013 IMMUNIZATION ADMIN Apr 18, 2022 FLU VACC PRSV FREE INC ANTIG 2016 [facility] 7 Day Disc December 09, 2019 IMMUNIZATION ADMIN Mar 26, 2014 FLU VACC 4 IKER 3 YRS PLUS IM Apr 22, 2018 FLU VACC 4 IKER 3 YRS PLUS IM May 01, 2019 RESULTS Name Result Date Reference Range MM tomosynthesis screening LT 2022-11-20 Comprehensive Met. Panel 2022-11-15 Sodium 141 135-145 Potassium 3.7 3.3-5.1 Chloride 105 96-108 Carbon Dioxide 28 22-29 Anion Gap 12 12-20 Blood Urea Nitrogen 13 9-16 Creatinine 0.92 0.5-1.4 Estimated Glomerular Filt Rate 59 Glucose Random 99 60-115 Calcium 9.2 8.4-10.2 Bilirubin Total 0.6 0.0-1.0 Aspartate Amino Transferase 18 5-31 Alanine Aminotransferase 14 0-3 1 Total Protein 6.4 6.5-8.0 Albumin Level 3.9 3.5-5.0 Alkaline Phosphatase 75 39-117 Complete Blood Count no Diff 2022-10-22 White Blood Count 7.6 4.8-10.8 Red Blood Count 4.54 4.20-5.50 Hemoglobin 13.6 12.0-16.0 Hematocrit 40.6 37.0-47.0 Mean Corpuscular Volume 89.4 80.0 -98.0 Mean Corpuscular Hemoglobin 30.0 27.0-33.0 Mean Corpuscular HGB Conc 33.5 31 .0-35.0 Red Cell Distribution Width 13.7 11.0-16.0 Platelet Count 247 160-400 Mean Platelet Volume 10.2 9.4-12. 3 NRBC Pct Auto 0.0 0.0-0.2 NRBC Abs Auto 0.000 0.0-0.012 Basic Metabolic Panel 2022-10-22 Sodium 132 135-145 Potassium 3.8 3.3-5.1 Chloride 100 96-108 Carbon Dioxide 23 22-29 Anion Gap 13 12-20 Blood Urea Nitrogen 29 9-16 Creatinine 0.98 0.5-1.4 Creatinine Clr Calc Pharmacy 37.9 Estimated Glomerular Filt Rate 55 Glucose Random 96 60-115 Calcium 8.9 8.4-10.2 Basic Metabolic Panel 2022-10-21 Sodium 134 135-145 Potassium 3.2 3.3-5.1 Chloride 98 96-108 Carbon Dioxide 25 22-29 Anion Gap 14 12-20 Blood Urea Nitrogen 26 9-16 Creatinine 0.88 0.5-1.4 Creatinine Clr Calc Pharmacy 42.2 Estimated Glomerular Filt Rate >60 Glucose Random 95 60-115 Calcium 8.9 8.4-10.2 GI Panel 2022-10-21 Campylobacter Not Detected Not Detect. Plesiomonas shigelloides Not Detected Not Detect. Salmonella Not Detected Not Detect. Vibrio Not Detected Not Detect. Vibrio Cholerae Not Detected Not Detect. Yersinia enterocolitica Not Detected Not Detect. E. coli EAEC Not Detected Not Detect. E. coli EPEC Not Detected Not Detect. E. coli ETEC Not Detected Not Detect. E. coli STEC Not Detected Not Detect. E. coli O157 Not applicable Not Detect. Shigella sp./EIEC Not Detected Not Detect . Cryptosporidium Not Detected Not Detect. Cyclospora cayetanensis Not Detected Not Detect. Entamoeba histolytica Not Detected Not De tect. Giardia lamblia Not Detected Not Detect. Adenovirus F 40/41 Not Detected Not Detec t. Astrovirus Not Detected Not Detect. Norovirus GI/GII Not Detected Not Detect. Rotavirus A Not Detected Not Detect. Sapovirus Not Detected Not Detect. Basic Metabolic Panel 2022-10-20 Sodium 134 135-145 Potassium 3.6 3.3-5.1 Chloride 98 96-108 Carbon Dioxide 27 22-29 Anion Gap 13 12-20 Blood Urea Nitrogen 19 9-16 Creatinine 0.85 0.5-1.4 Creatinine Clr Calc Pharmacy 43.7 Estimated Glomerular Filt Rate >60 Glucose Random 94 60-115 Calcium 9.1 8.4-10.2 Basic Metabolic Panel 2022-10-19 Sodium 126 135-145 Potassium 3.4 3.3-5.1 Chloride 91 96-108 Carbon Dioxide 22 22-29 Anion Gap 16 12-20 Blood Urea Nitrogen 18 9-16 Creatinine 0.83 0.5-1.4 Creatinine Clr Calc Pharmacy 45.2 Estimated Glomerular Filt Rate >60 Glucose Random 114 60-115 Calcium 8.7 8.4-10.2 Basic Metabolic Panel 2022-10-19 Sodium 126 135-145 Potassium 2.5 3.3-5.1 Chloride 90 96-108 Carbon Dioxide 24 22-29 Anion Gap 15 12-20 Blood Urea Nitrogen 19 9-16 Creatinine 0.85 0.5-1.4 Creatinine Clr Calc Pharmacy 44.1 Estimated Glomerular Filt Rate >60 Glucose Random 105 60-115 Calcium 9.0 8.4-10.2 Complete Blood Count Auto Diff 2022-10-19 White Blood Count 7.5 4.8-10.8 Red Blood Count 4.71 4.20-5.50 Hemoglobin 14.1 12.0-16.0 Hematocrit 39.4 37.0-47.0 Mean Corpuscular Volume 83.7 80.0 -98.0 Mean Corpuscular Hemoglobin 29.9 27.0-33.0 Mean Corpuscular HGB Conc 35.8 31 .0-35.0 Red Cell Distribution Width 12.7 11.0-16.0 Platelet Count 270 160-400 Mean Platelet Volume 9.5 9.4-12. 3 Neutrophils Percent Auto 68.3 45- 73 Imm Gran Pct Auto 0.1 0.0-0.4 Lymphocytes Percent Auto 20.0 20- 40 Monocytes Percent Auto 10.5 2-11 Eosinophils Percent Auto 0.7 0-4 Basophils Percent Auto 0.4 0-2 NRBC Pct Auto 0.0 0.0-0.2 Neutrophils Absolute Auto 5.1 2. 0-8.3 Imm Gran Abs Auto 0.01 0.00-0.03 Lymphocytes Absolute Auto 1.5 1. 2-4.9 Monocytes Absolute Auto 0.8 0.1- 1.2 Eosinophils Absolute Auto 0.1 0. 0-0.4 Basophils Absolute Auto 0.0 0.0- 0.2 NRBC Abs Auto 0.000 0.0-0.012 Basic Metabolic Panel 2022-10-19 Sodium 125 135-145 Potassium 2.9 3.3-5.1 Chloride 89 96-108 Carbon Dioxide 21 22-29 Anion Gap 18 12-20 Blood Urea Nitrogen 22 9-16 Creatinine 0.87 0.5-1.4 Creatinine Clr Calc Pharmacy 43.1 Estimated Glomerular Filt Rate >60 Glucose Random 94 60-115 Calcium 8.8 8.4-10.2 Sodium 2022-10-19 Sodium 130 135-145 Cortisol Random 2022-10-19 Cortisol Random 16.0 Osmolality Urine 2022-10-18 Osmolality Urine [id number] Chloride Urine Random 2022-10-18 Chloride Urine Random 50.0 Sodium Urine Random 2022-10-18 Sodium Urine Random 49.0 UA ClnCatch+Micro w/rflx Cult 2022-10-18 Color Urine Yellow Appearance Urine Clear PH 6.5 5.0-9.0 Glucose Urine UA Negative Negative Urine Blood Small (1+) Negative Specific [place] - Urine 1.010 1.0 05-1.025 Urine Protein Negative Neg-Trace Urine Ketones Negative Negative Nitrite Urine Negative Negative Leukocyte Esterase Urine Negative Neg ative RBC Urine 3-5 0-2 WBC Urine 0-5 0-5 Squamous Epithelial Cell Urine 0-2 0-2 Bacteria Urine None Seen None Seen Hyaline Casts Urine 0-2 0-2 Complete Blood Count no Diff 2022-10-02 White [...] Negative Urine Blood Small (1+) Negative Specific [place] - Urine <= 1.005 1.0 05-1.025 Urine [...] Negative Urine Blood Small (1+) Negative Specific [place] - Urine <= 1.005 1.0 05-1.025 Urine Protein Negative Neg-Trace Urine Ketones Negative Negative Nitrite Urine Negative Negative Leukocyte Esterase Urine Negative Neg ative COVID-19 ID NOW (Chow) 2022-09-28 IDNOW Serial# [id number] COVID-19 Test Negative Negative COVID-19 Note See [...] Negative Urine Blood Small (1+) Negative Specific [place] - Urine 1.015 1.0 05-1.025 Urine Protein Negative Neg-Trace Urine Ketones Negative Negative Nitrite Urine Negative Negative Leukocyte Esterase Urine Trace Neg ative RBC Urine 0-2 0-2 WBC Urine 0-5 0-5 Squamous Epithelial Cell Urine 6-10 0-2 Bacteria Urine None Seen None Seen Hyaline Casts Urine 0-2 0-2 Comprehensive [place]. Panel Fast 2022-06-19 Sodium 142 135-145 Potassium [...] NEG NEG Urine Blood 1+ NEG Specific [place] - Urine 1.015 1.0 05-1.025 Urine Protein NEG NEG-TRACE Urine Ketones NEG NEG Nitrite Urine NEG NEG Leukocyte Esterase Urine NEG NEG Urinalysis and Microscopic 2020-09-27 Color Urine YELLOW Appearance Urine CLEAR PH 6.0 5.0-8.0 Glucose Urine UA NEG NEG Urine Blood 1+ NEG Specific [place] - Urine 1.015 1.0 05-1.025 Urine Protein [...] DX DIGITAL MAMMOGRAM 2018-09-16 MAMMOGRAM, SCREENING CYTOLOGY (NON-DIRECTOR OF MATERNITY SERVICES) 2018-04-25 NON-DIRECTOR OF MATERNITY SERVICES CYTOLOGY URINALYSIS + MICROSCOPIC 2018-04-25 COLOR STRAW [...] MAMMO 2017-07-24 MAMMOGRAM, SCREENING HAND WRIST RT [id number] 2017-01-16 LIPOPROTEIN FRACTIONATION (LIPID PANEL) 2016-12-18 CHOLESTEROL [...] ANION GAP 14 12-20 FASTING BLOOD SUGAR 93 60-99 BUN 20 [...] >OR = 4.0 MAMMOGRAM DIGITAL UNILATERAL BASSEM [id number] 2013-05-26 US BREAST LEFT [id number] 2013-05-26 MAMMOGRAM, SCREENING PROFILE, RANDOM 2013-05-11 NA [...] TOTAL 40.0 >30 MAMMOGRAM DIGITAL UNILATERAL BASSEM [id number] 2012-10-09 LIPOPROTEIN FRACTIONATION (LIPID PANEL) 2011-12-12 CHOLESTEROL [...] SCREENING MAMMOGRAM, SCREENING MAMMOGRAM DIGITAL UNILATERAL BASSEM [id number] 2011-10-10 MAMMOGRAM, SCREENING Colonoscopy REASON FOR VISIT 4 month f/u, 2 month f/u, Follow up hypertension, follow-up after hospital discharge, FYI only, follow-up after hospital discharge, 2 month f/u, Follow up hypertension, hypercholesterolemia, hypothyroidism, FYI only, FYI, FYI only, FYI only, FYI only, FYI only, Refills, FYI only, FYI only, 6 month f/u, Refills, Flu, influenza vaccination, Refills, 6 month f/u, Follow up hypertension, hypercholesterolemia, Refills, Refills, Refills, anxiety, Refills, flu vaccine, influenza vaccination, 1 month f/u, 3 month f/u, Follow up hypertension, Refills, Follow up hypertension, Message, FYI only HTN, 1 month f/u, Refills, [...] 6 month f/u, Follow up hypertension, Refills, Refills, Refills, Refills, 4 month f/u, Follow up hypertension, [...] vaccination, Refills, Message, influenza vaccination, Follow up hypertension, hypercholesterolemia, hypothyroidism, gastroesophageal reflux disease (GERD), irritable bowel [...] Subscriber Name Subscriber Date of Group No [facility] [address] [facility] [id number] [place] [address] DICARE self Shannan chavez [id number] [facility] [address] [facility] [id number] [place] [address] Shannan chavez [id number]
[2022-12-25 09:36] VITALS: BP 181/65; PULSE 58; RESP 18; TEMP 36.6; O2SAT 97; BMI 25.9
[2022-12-25] MEDS: Lactated Ringers 1,000 ML 100 ML IVCONT (10:12)
[2022-12-25] MEDS: Sodium Phosphate,Mono-Dibasic 133 ML ENEMA PR (10:30)
--- NOTE | 2022-12-25 10:36 | HO.ANESPROP2 ---
[facility] Active Problems Active Problems: All Active Problems (Updated 12/24/22 @ 10:40 by Ghislaine Yoon RN) Breast cancer screening, high risk patient (Acute) Palpitations (Acute) Ischemic colitis (Acute) History of cardiac cath (Acute) Lobular carcinoma of right breast (Acute) Carotid bruit (Acute) CAD (coronary artery disease) (Acute) Past Medical History Medical History Anxiety CAD (coronary artery disease) Carotid bruit Elevated cholesterol Esophageal reflux Hypertension Hypothyroidism Lobular carcinoma of right breast Functional capacity: independent ambulation Family History Family History Father Colon cancer Cancer Mother Diabetes Child No Financial Resp Cancer Sister Heart attack Son Non Hodgkin's lymphoma Family history of problems with anesthesia: No Surgical History Surgical History H/O removal of cyst History of cardiac cath History of cholecystectomy History of laparoscopic cholecystectomy History of right breast biopsy History of right mastectomy Hx of BSO (bilateral salpingo-oophorectomy) S/P NIKO (total abdominal hysterectomy) History of Problems with Anesthesia: No Social History Social History Household Members: Spouse [facility] Do you presently have visiting nurse or other home services: No Alcohol intake: never Patient Tobacco Use Status: Never used Tobacco Use of substances other than those prescribed or required for medical reasons: No Are you DNR?: No Advance Directives: No Advance Directives Information Provided: Yes service: No Current occupational status: retired Meds Allergies Allergy/AdvReac Type Severity Reaction Status Date / Time Thiazides AdvReac Intermediate Unknown Verified 10/22/22 08:08 meperidine [From Demerol] AdvReac Mild NAUSEA/VOMI Verified 10/17/22 14:30 TING Active Medications: Current Medications Lactated Ringer's (Lr) 1,000 mls @ 100 mls/hr IVCONT .Q10H ROMAINE Last Admin: 12/25/22 10:12 Dose: 100 mls/hr Sodium Biphosphate/Sodium Phosphate (Sodium Phosphate,[place]-Dibasic 133 Ml Enema) 133 ml [place] ONCE ROMAINE Last Admin: 12/25/22 10:30 Dose: 133 ml Home Medications Medication Instructions Recorded Confirmed Last Taken Type levothyroxine 50 mcg tablet 50 mcg PO DAILY 06/23/20 10/18/22 10/18/22 History losartan 100 mg tablet 100 mg PO DAILY 06/23/20 10/18/22 10/18/22 History propranolol 10 mg tablet 10 mg PO BID 10/20/20 10/18/22 10/18/22 History simvastatin 40 mg tablet 40 mg PO BEDTIME 02/15/21 10/18/22 10/18/22 History lorazepam 0.5 mg tablet 0.5 mg PO DAILY PRN Anxiety 08/16/22 10/18/22 Unknown History aspirin 81 mg tablet,delayed 81 mg 12/24/22 Unknown History release chlorthalidone 25 mg tablet 25 mg PO DAILY 12/24/22 12/24/22 Unknown History Exam Exam Date and Time: December 25, 2022 1036 Height,Weight and Vital Signs: Height 4 ft 11 in Weight 58.06 kg Last Vital Signs Temp 97.8 F 12/25/22 09:36 Pulse 58 12/25/22 09:36 Resp 18 12/25/22 09:36 BP 181/65 H 12/25/22 09:36 Pulse Ox 97 12/25/22 09:36 O2 Del Method Room Air 12/25/22 09:36 Airway Mallampati Class: II TM Dist: >3cm Neck ROM: Full Heart: RRR Lungs: CTA Assessment and Plan Final Anesthetic Review Family History of Problems with Anesthesia: No History of Problems with Anesthesia: No ASA Class: II Final Preanesthetic Review: Meds/Allgs Chart Reviewed, Consent Obtained/Reviewed and Anes Risks/Benef Reviewed Patient Risk: Low Anesthetic Plan Anesthetic Plan: MAC: Disposition: Standard PACU
--- NOTE | 2022-12-25 10:45 | HO.ANESPROP2 ---
[facility] Active Problems Active Problems: All Active Problems (Updated 12/24/22 @ 10:40 by Ghislaine Yoon RN) Breast cancer screening, high risk patient (Acute) Palpitations (Acute) Ischemic colitis (Acute) History of cardiac cath (Acute) Lobular carcinoma of right breast (Acute) Carotid bruit (Acute) CAD (coronary artery disease) (Acute) Past Medical History Medical History Anxiety CAD (coronary artery disease) Carotid bruit Elevated cholesterol Esophageal reflux Hypertension Hypothyroidism Lobular carcinoma of right breast Functional capacity: independent ambulation Family History Family History Father Colon cancer Cancer Mother Diabetes Child No Financial Resp Cancer Sister Heart attack Son Non Hodgkin's lymphoma Family history of problems with anesthesia: No Surgical History Surgical History H/O removal of cyst History of cardiac cath History of cholecystectomy History of laparoscopic cholecystectomy History of right breast biopsy History of right mastectomy Hx of BSO (bilateral salpingo-oophorectomy) S/P NIKO (total abdominal hysterectomy) History of Problems with Anesthesia: No Social History Social History Household Members: Spouse Housing: Condominium Do you presently have visiting nurse or other home services: No Alcohol intake: never Patient Tobacco Use Status: Never used Tobacco service: No Current occupational status: retired Meds Allergies Allergy/AdvReac Type Severity Reaction Status Date / Time Thiazides AdvReac Intermediate Unknown Verified 10/22/22 08:08 meperidine [From Demerol] AdvReac Mild NAUSEA/VOMI Verified 10/17/22 14:30 TING Active Medications: Current Medications Lactated Ringer's (Lr) 1,000 mls @ 100 mls/hr IVCONT .Q10H ROMAINE Last Admin: 12/25/22 10:12 Dose: 100 mls/hr Sodium Biphosphate/Sodium Phosphate (Sodium Phosphate,[place]-Dibasic 133 Ml Enema) 133 ml [place] ONCE ROMAINE Last Admin: 12/25/22 10:30 Dose: 133 ml Home Medications Medication Instructions Recorded Confirmed Last Taken Type levothyroxine 50 mcg tablet 50 mcg PO DAILY 06/23/20 10/18/22 10/18/22 History losartan 100 mg tablet 100 mg PO DAILY 06/23/20 10/18/22 10/18/22 History propranolol 10 mg tablet 10 mg PO BID 10/20/20 10/18/22 10/18/22 History simvastatin 40 mg tablet 40 mg PO BEDTIME 02/15/21 10/18/22 10/18/22 History lorazepam 0.5 mg tablet 0.5 mg PO DAILY PRN Anxiety 08/16/22 10/18/22 Unknown History aspirin 81 mg tablet,delayed 81 mg 12/24/22 Unknown History release chlorthalidone 25 mg tablet 25 mg PO DAILY 12/24/22 12/24/22 Unknown History Exam Exam Date and Time: December 25, 2022 1045 Height,Weight and Vital Signs: Height 4 ft 11 in Weight 58.06 kg Last Vital Signs Temp 97.8 F 12/25/22 09:36 Pulse 58 12/25/22 09:36 Resp 18 12/25/22 09:36 BP 181/65 H 12/25/22 09:36 Pulse Ox 97 12/25/22 09:36 O2 Del Method Room Air 12/25/22 09:36 Airway Mallampati Class: II TM Dist: >3cm Assessment and Plan Final Anesthetic Review Family History of Problems with Anesthesia: No History of Problems with Anesthesia: No ASA Class: II Final Preanesthetic Review: Meds/Allgs Chart Reviewed, Consent Obtained/Reviewed and Anes Risks/Benef Reviewed Patient Risk: Low Procedure Risk: Low Anesthetic Plan Anesthetic Plan: MAC: Disposition: Standard PACU
--- NOTE | 2022-12-25 10:52 | P.HPSUR_ITS ---
Pre-Procedural Eval Section A Date of Service: 12/25/22 Section B Chief Complaint: reflux disease,screening,rectal bleeding Details of Present Illness: see H*P no changes Relevant Family History (Specify if Yes): No Relevant Social History: None Present Medications: see Short Stay Collaborative assessment Medical History: No relevant PMH Allergies: Allergies Allergy/AdvReac Type Severity Reaction Status Date / Time Thiazides AdvReac Intermediate Unknown Verified 10/22/22 08:08 meperidine [From Demerol] AdvReac Mild NAUSEA/VOMI Verified 10/17/22 14:30 TING Review of Systems Sugical H&P ROS: Negative: Constitution, Cardiovascular, Respiratory, Jose Luis rological, Psychiatric, Hem-Onc, Allergic/Immunologic, Gastrointestinal, Genitourinary, Musculoskeletal, Integumentary, Endocrine and Eyes/Ears/Nose/Throat Exam Surgical H&P Exam: Normal: HEENT, Normal: Heart, Normal: Lungs, Normal: Extremities, Normal: Abdomen, Normal: Skin and Normal: Neurological Plan Diagnosis/Plan: Unchanged I have reviewed the history and physical and performed a pertinent physical examination on my patient. No changes have occurred unless specified. Time Spent With Patient Time: Total time managing care of this patient today ____ minutes.
--- NOTE | 2022-12-25 11:31 | PM.OP ---
Brief Operative Note Date of Service: 12/25/22 Pre-op diagnosis: gerd rectal bleeding Post-op diagnosis: same Surgeon: Gregorio Arguelles Anesthesia: MAC Was an [employer] Super[employer] used for this Procedure?: No Estimated blood loss (mL): 2 Pathology: other Condition: stable Disposition: PACU
[2022-12-25 11:35] VITALS: BP 101/46; PULSE 50; RESP 16; TEMP 36.1; O2SAT 95
[2022-12-25 11:50] VITALS: BP 111/55; PULSE 52; RESP 16; TEMP 36.1; O2SAT 95
--- NOTE | 2022-12-25 12:50 | OP_ITS ---
DATE OF SERVICE: 12/25/2022 SURGEON: Gregorio Arguelles MD INDICATIONS: 1. Rectal bleeding. 2. Gastroesophageal reflux disease. 3. Colon cancer screening. PREOPERATIVE DIAGNOSIS: POSTOPERATIVE DIAGNOSIS: PROCEDURE PERFORMED: Upper endoscopy with biopsy, colonoscopy to the terminal ileum with biopsy. ESTIMATED BLOOD LOSS: COMPLICATIONS: ANESTHESIA: Monitored anesthesia care. ASSISTANTS: SPECIMENS: DESCRIPTION OF PROCEDURE: A history and physical was performed. The risks and benefits of the procedure were explained to the patient and informed consent was obtained. The patient was placed in the left lateral decubitus position. The Olympus video gastroscope was introduced into the esophagus, stomach, and duodenum. Examination was performed. The scope was removed. She tolerated the procedure well and was repositioned for colonoscopy. A digital rectal exam was performed and showed decrease in rectal sphincter tone. The Olympus pediatric video colonoscope was introduced into the rectum and advanced to the cecum without difficulty. The cecum was identified by transillumination, palpation, and identification of ileocecal valve. Examination was performed. The scope was removed. She tolerated both procedures well and was returned to the recovery area in stable condition. FINDINGS: Upper endoscopy: 1. Esophagus: The esophagus was normal. There was no esophagitis. 2. Stomach: The stomach showed some mild focal areas of erythema, consistent with gastritis. Biopsies were obtained from the antrum to rule out H pylori. 3. Duodenum: The bulb and 2nd portion were normal. Colonoscopy: The terminal ileum was examined and appeared normal. The visualized colonic mucosa was normal without evidence of masses, ulcers, or polyps. Random biopsies were obtained from the sigmoid because of the patient's history of colitis. No active colitis was identified. Retroflexed examination was normal. IMPRESSION: 1. Gastritis. 2. Normal colonoscopy. RECOMMENDATION: Follow up the biopsy results. ether screening colonoscopy is optional in 10 years. MD SARAH Senior/KAREN / [id number]
== END 2022-12-25 12:26 | disposition home or self-care (01) ==
PROVIDERS: PCP Internal Medicine; Visit Provider Internal Medicine Gastroenterology
PROC: (CPT 45380; principal; 2022-12-25 10:20)
DX: Z12.11 Encounter for screening for malignant neoplasm of colon (principal); Z80.0 Family history of malignant neoplasm of digestive organs; K62.5 Hemorrhage of anus and rectum; K52.9 Noninfective gastroenteritis and colitis, unspecified; Z87.19 Personal history of other diseases of the digestive system; K21.9 Gastro-esophageal reflux disease without esophagitis; K29.50 Unspecified chronic gastritis without bleeding; I10 Essential (primary) hypertension; E03.9 Hypothyroidism, unspecified; E78.00 Pure hypercholesterolemia, unspecified; F41.1 Generalized anxiety disorder; Z79.899 Other long term (current) drug therapy; Z79.82 Long term (current) use of aspirin; Z88.8 Allergy status to other drugs, medicaments and biological substances; Z90.49 Acquired absence of other specified parts of digestive tract; Z90.710 Acquired absence of both cervix and uterus; Z90.11 Acquired absence of right breast and nipple
CPT/HCPCS: 45380; 43239; 88305; 88342

== ENCOUNTER 2023-02-20 12:53 | Outpatient (AMB) | payer MEDICARE, SELFPAY ==
--- NOTE | 2023-02-20 13:00 | A.OFFVIS_ITS ---
Intake Vital Signs 02/20/23 13:01 Height 4 ft 11 in Weight 130 lb 15.273 oz BMI 26.4 BP 122/80 Blood Pressure Location Lt brachial Position Sitting Pulse 58 Pulse Source Monitor Intake Visit Reasons: 4 mth f/up Intake Note: 4 month follow up with EKG. Field Tax Auditor Required: No Accompanied by: Self / Same As Patient Allergies Thiazides Adverse Reaction (Intermediate, Verified 02/20/23 13:03) Unknown meperidine [From Demerol] Adverse Reaction (Mild, Verified 02/20/23 13:03) NAUSEA/VOMITING Medication List - Last Reconciled 02/20/23 by Amol De La Torre MD aspirin 81 mg levothyroxine 50 mcg PO DAILY loperamide 4 mg (2 x 2 mg) PO Q4H PRN lorazepam 0.5 mg PO DAILY PRN losartan 100 mg PO DAILY propranolol 10 mg PO BID prosthetics right breast prosthetic simvastatin 40 mg PO BEDTIME HPI HPI Comments History of Present Illness Details 77-year-old female who was seen at [facility] with chest discomfort. She underwent stress ECHO which showed inferolateral wall motion abnormality and she was transferred to [facility] for cardiac catheterization. Cardiac catheterization showed 40% proximal LAD stenosis. It was felt that her exertional chest discomfort is not due to epicardial coronary artery disease. Subsequent to that she saw Laly Patel NP in the office. On that visit her blood pressure was elevated but she had some bad news before she came to the office visit. She is here for follow-up today. She had her left supraclavicular mass biopsied which was not cancerous. She is under lot of stress though. Her has a gastric tube and significant scarring in his abdomen with the small bowel obstruction due to adhesions. 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 She is getting an MRI to make sure she does not have any compression of the nerve. She is again stressed by that. Unfortunately she presents to the office in circumstances when she is under stress. On previous visit her blood pressure continued to be elevated but she had significant stressful events going on. Today she returns and unfortunately was in the hospital recently with ischemic colitis. She was treated conservatively with medications and antibiotics and it appears she is getting better. She is due to see Gastroenterology. She is currently taking chlorthalidone 25 mg, losartan 100 mg and propanolol 10 mg twice a day. Blood pressure control appears to be good. She is saying she was getting some palpitations at nighttime. 02/20/2023: She returns for follow-up. On last visit she complained of an episode of ischemic colitis. After discussion she was referred for cardiac event monitor. She said she got sick and apparently could not do the cardiac event monitor. She was given diuretics and developed some electrolyte issues and dizziness and went to the hospital. Otherwise doing fine. No chest discomfort shortness of breath. Blood pressure control is good. [facility] Medical History Anxiety CAD (coronary artery disease) Carotid bruit Elevated cholesterol Esophageal reflux Hypertension Hypothyroidism Lobular carcinoma of right breast Surgical History H/O removal of cyst History of cardiac cath History of cholecystectomy History of laparoscopic cholecystectomy History of right breast biopsy History of right mastectomy Hx of BSO (bilateral salpingo-oophorectomy) S/P NIKO (total abdominal hysterectomy) Family History Father Colon cancer Cancer Mother Diabetes Child No Financial Resp Cancer Sister Heart attack Son Non Hodgkin's lymphoma Social History Household Members: Spouse Housing: Condominium Do you presently have visiting nurse or other home services: No Alcohol intake: never Patient Tobacco Use Status: Never used Tobacco service: No Current occupational status: retired Review of Systems Const Denies weakness ENT Denies dizziness Card Denies chest pain, Denies chest pain with activity, Denies syncope, Denies rapid heart rate, Denies pedal edema, Denies edema, Denies leg edema, Denies lightheadedness, Denies palpitations, Denies dyspnea, Denies dyspnea on exertion and Denies orthopnea Resp Denies cough, Denies dyspnea and Denies dyspnea on exertion GI Denies hematochezia and Denies change in stool character Musc Denies abnormal gait, Denies muscle cramps, Denies muscle weakness, Denies numbness, Denies radiating pain into limb and Denies tingling Neuro Denies abnormal gait, Denies dizziness, Denies syncope, Denies numbness, Denies tingling and Denies weakness Endo Denies palpitations Physical Exam Vital Signs: Last Vital Signs Pulse 58 02/20/23 13:01 BP 122/80 02/20/23 13:01 BMI result Body Mass Index 26.4 GENERAL APPEARANCE: in no acute distress. NECK/THYROID: Right carotid bruit, no jugular venous distention. SKIN: no suspicious lesions, warm and dry. HEART: no murmurs, regular rate and rhythm, S1, S2 normal. LUNGS: clear to auscultation bilaterally. ABDOMEN: normal, bowel sounds present, soft, nontender, nondistended. EXTREMITIES: no clubbing, cyanosis, or edema. PERIPHERAL PULSES: equal. NEUROLOGIC: nonfocal, alert and oriented. Office Procedures EKG Details: Sinus bradycardia 58 beats per minute, normal axis, cannot rule out septal infarct, QTC 420 milliseconds. [id number], Complete Assessment & Plan Assessment & Plan (1) Ischemic colitis: Code(s): K55.9 - Vascular disorder of intestine, unspecified (2) CAD (coronary artery disease): Comment: 40% proximal left anterior descending artery stenosis Code(s): I25.10 - Atherosclerotic heart disease of [place] coronary artery without angina pectoris Plan Pleasant 77-year-old female who is here for follow-up. She has background history of mild coronary artery disease. She has been on aspirin and simvastatin. Last LDL cholesterol was in June 2022 which was 55. She should have once a year fasting lipid panel with target LDL less than 70. Continue simvastatin at the same dose for now. Blood pressure control is good currently on losartan and propanolol. Chlorthalidone was stopped because of electrolyte issues. She had episode of ischemic colitis and be referred her for cardiac event monitor but it appears she got sick after getting thiazide diuretic and missed the appointment. We are going to arrange a cardiac event monitor to rule out atrial fibrillation/atrial flutter as potential cause of thromboembolic ischemic colitis. Thank you for allowing me to participate in the care of your patient. Please feel free to contact me if you have any questions. Orders: Orders ECG 30 day event monitor Today R00.2 - Palpitations Coding Level of Care Code Est Pt Level 4 (92163) Diagnoses Ischemic colitis K55.9 CAD (coronary artery disease) I25.10 CPT Codes EKG - CPT: 66982-[id number], Complete ([id number])
[2023-02-20 13:01] VITALS: BP 122/80; PULSE 58; BMI 26.4
== END 2023-02-20 13:26 | disposition home or self-care (01) ==
PROVIDERS: PCP Internal Medicine; Referring Provider Internal Medicine; Visit Provider Internal Medicine Cardiovascular Disease
DX: K55.9 Vascular disorder of intestine, unspecified (principal); I25.10 Atherosclerotic heart disease of native coronary artery without angina pectoris
CPT/HCPCS: 93010; 99214

== ENCOUNTER → 2023-02-20 12:53 | Outpatient (BNVA) | payer MEDICARE, SELFPAY | PROVIDERS: PCP Internal Medicine; Referring Provider Internal Medicine; Visit Provider Internal Medicine Cardiovascular Disease | DX: K55.9 Vascular disorder of intestine, unspecified (principal); I25.10 Atherosclerotic heart disease of native coronary artery without angina pectoris | CPT/HCPCS: 93005; 99212 ==

== ENCOUNTER → 2023-03-08 11:21 | Outpatient (REF) | payer MEDICARE, SELFPAY ==
--- NOTE | 2023-03-08 11:25 | HM_ITS ---
* Total monitoring time 14 days. * Underlying rhythm is sinus. Average ventricular rate 55/Min. Range 40 to 88/Min. * About 77% the time, rate less than 60/Min. * Rare supraventricular ectopy. Very brief runs noted. * Rare ventricular ectopy. * No significant pauses or AV blocks. * Symptoms in patient diary including rapid heartbeat, dizziness, anxiety correlate with sinus rhythm. MTDD
== END ==
LOC: HO.CARD 11:21
PROVIDERS: Visit Provider Internal Medicine Cardiovascular Disease
DX: R00.2 Palpitations (principal)
CPT/HCPCS: 93246

== ENCOUNTER → 2023-03-08 11:25 | Outpatient (BNV) | payer MEDICARE, SELFPAY | PROVIDERS: Visit Provider Internal Medicine | DX: I47.1 Supraventricular tachycardia (principal) | CPT/HCPCS: 93248 ==

== ENCOUNTER 2023-06-05 14:08 | Outpatient (AMB) | payer MEDICARE, SELFPAY ==
--- NOTE | 2023-06-05 14:09 | MHC.OFFVIS ---
Intake Vital Signs 06/05/23 14:10 Height 4 ft 11 in Weight 134 lb 0.657 oz BMI 27.1 BP 140/70 H Blood Pressure Location Lt brachial Position Sitting Pulse 61 Pulse Source Pulse Oximeter Intake Visit Reasons: 3 mth f/up Intake Note: 3 month f/ up patient feels good. Machine Filler Required: No Accompanied by: Self / Same As Patient Allergies Thiazides Adverse Reaction (Intermediate, Verified 06/05/23 14:15) Unknown meperidine [From Demerol] Adverse Reaction (Mild, Verified 06/05/23 14:15) NAUSEA/VOMITING Medication List - Last Reconciled 06/05/23 by Amol De La Torre MD aspirin 81 mg levothyroxine 50 mcg PO DAILY loperamide 4 mg (2 x 2 mg) PO Q4H PRN lorazepam 0.5 mg PO DAILY PRN losartan 100 mg PO DAILY propranolol 10 mg PO BID prosthetics right breast prosthetic [Right breast prosthetic As directed] [Right matectomy bras As directed] simvastatin 40 mg PO BEDTIME HPI HPI Comments History of Present Illness Details 78-year-old female who was seen at [facility] with chest discomfort. She underwent stress ECHO which showed inferolateral wall motion abnormality and she was transferred to [facility] for cardiac catheterization. Cardiac catheterization showed 40% proximal LAD stenosis. It was felt that her exertional chest discomfort is not due to epicardial coronary artery disease. Subsequent to that she saw Laly Patel NP in the office. On that visit her blood pressure was elevated but she had some bad news before she came to the office visit. She is here for follow-up today. She had her left supraclavicular mass biopsied which was not cancerous. She is under lot of stress though. Her has a gastric tube and significant scarring in his abdomen with the small bowel obstruction due to adhesions. 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 She is getting an MRI to make sure she does not have any compression of the nerve. She is again stressed by that. Unfortunately she presents to the office in circumstances when she is under stress. On previous visit her blood pressure continued to be elevated but she had significant stressful events going on. Today she returns and unfortunately was in the hospital recently with ischemic colitis. She was treated conservatively with medications and antibiotics and it appears she is getting better. She is due to see Gastroenterology. She is currently taking chlorthalidone 25 mg, losartan 100 mg and propanolol 10 mg twice a day. Blood pressure control appears to be good. She is saying she was getting some palpitations at nighttime. 02/20/2023: She returns for follow-up. On last visit she complained of an episode of ischemic colitis. After discussion she was referred for cardiac event monitor. She said she got sick and apparently could not do the cardiac event monitor. She was given diuretics and developed some electrolyte issues and dizziness and went to the hospital. Otherwise doing fine. No chest discomfort shortness of breath. Blood pressure control is good. 06/05/23: She returns for follow-up. She has been doing well. She has noticed that at times her heart rates are in 50s. She is saying that when she takes propanolol and checks her heart rate is 51-54 beats per minute. She has no dizziness or lightheadedness. I have reassured her. [facility] Medical History Anxiety CAD (coronary artery disease) Carotid bruit Elevated cholesterol Esophageal reflux Hypertension Hypothyroidism Lobular carcinoma of right breast Surgical History History of cholecystectomy H/O removal of cyst History of cardiac cath History of right mastectomy History of laparoscopic cholecystectomy History of right breast biopsy Hx of BSO (bilateral salpingo-oophorectomy) S/P NIKO (total abdominal hysterectomy) Family History Father Colon cancer Cancer Mother Diabetes Child No Financial Resp Cancer Sister Heart attack Son Non Hodgkin's lymphoma Social History Household Members: Spouse Housing: Condominium Do you presently have visiting nurse or other home services: No Alcohol intake: never Comment: patient rings appropriately Patient Tobacco Use Status: Never used Tobacco service: No Current occupational status: retired Review of Systems Const Reports chills, Reports fatigue, Reports fever(s), Reports frequent falls, Reports weakness, Reports weight gain and Reports weight loss ENT Reports dizziness Card Reports chest pain, Reports leg edema, Reports lightheadedness, Reports palpitations, Reports dyspnea and Reports dyspnea on exertion Resp Reports cough, Reports dyspnea and Reports dyspnea on exertion GI Reports hematochezia Musc Reports abnormal gait, Reports muscle weakness, Reports numbness, Reports radiating pain into limb and Reports tingling Neuro Reports abnormal gait, Reports dizziness, Reports frequent falls, Reports numbness, Reports tingling and Reports weakness Endo Reports fatigue and Reports palpitations Physical Exam Vital Signs: Last Vital Signs Pulse 61 06/05/23 14:10 BP 140/70 H 06/05/23 14:10 BMI result Body Mass Index 27.1 GENERAL APPEARANCE: in no acute distress. NECK/THYROID: Right carotid bruit, no jugular venous distention. SKIN: no suspicious lesions, warm and dry. HEART: no murmurs, regular rate and rhythm, S1, S2 normal. LUNGS: clear to auscultation bilaterally. ABDOMEN: normal, bowel sounds present, soft, nontender, nondistended. EXTREMITIES: no clubbing, cyanosis, or edema. PERIPHERAL PULSES: equal. NEUROLOGIC: nonfocal, alert and oriented. Assessment & Plan Assessment & Plan (1) CAD (coronary artery disease): Comment: 40% proximal left anterior descending artery stenosis Code(s): I25.10 - Atherosclerotic heart disease of [place] coronary artery without angina pectoris (2) Palpitations: Code(s): R00.2 - Palpitations Plan Pleasant 78-year-old female who is here for follow-up. She has hypertension and blood pressure is mildly elevated. She is taking losartan 100 mg propanolol 10 mg twice a day. She has noticed her heart rate to be in 50s at home without any clinical symptoms. I have advised her to continue same dose of propanolol. She should monitor blood pressure at home and if it is persistently in 140s then will have to add another agent as she is already on maximum dose of losartan. She previously had ischemic colitis and we did cardiac event monitor which did not show any arrhythmia specifically no AFib/flutter. She has 40% lad stenosis based on cardiac catheterization. No anginal symptoms. Thank you for allowing me to participate in the care of your patient. Please feel free to contact me if you have any questions. Coding Level of Care Code Est Pt Level 4 (51229) Diagnoses CAD (coronary artery disease) I25.10 Palpitations R00.2
[2023-06-05 14:10] VITALS: BP 140/70; PULSE 61; BMI 27.1
== END 2023-06-05 14:29 | disposition home or self-care (01) ==
PROVIDERS: PCP Internal Medicine; Visit Provider Internal Medicine Cardiovascular Disease
DX: I25.10 Atherosclerotic heart disease of native coronary artery without angina pectoris (principal); R00.2 Palpitations
CPT/HCPCS: 99214

== ENCOUNTER → 2023-06-05 14:08 | Outpatient (BNVA) | payer MEDICARE, SELFPAY | PROVIDERS: PCP Internal Medicine; Visit Provider Internal Medicine Cardiovascular Disease | DX: I25.10 Atherosclerotic heart disease of native coronary artery without angina pectoris (principal); R00.2 Palpitations | CPT/HCPCS: 99212 ==

== ENCOUNTER 2023-08-15 13:31 | Outpatient (AMB) | payer MEDICARE, SELFPAY ==
--- NOTE | 2023-08-15 13:34 | A.OFFVIS_ITS ---
Intake Intake Visit Reasons: Yearly Breast Exam Intake Note: Patient is seen in office for yearly breast exam. Pt c/o: denies any concerns at the time of visit mm sched: 11/26/23 Church Business Administrator Required: No Medium Cycle Salesperson: Medium Cycle Salesperson Present Accompanied by: Self / Same As Patient Allergies Thiazides Adverse Reaction (Intermediate, Verified 08/15/23 13:38) Unknown meperidine [From Demerol] Adverse Reaction (Mild, Verified 08/15/23 13:38) NAUSEA/VOMITING Medication List - Last Reconciled 08/15/23 by Juan Alvarado MD aspirin 81 mg levothyroxine 50 mcg PO DAILY lorazepam 0.5 mg PO DAILY PRN losartan 100 mg PO DAILY pantoprazole 40 mg PO DAILY propranolol 10 mg PO BID prosthetics right breast prosthetic [Right breast prosthetic As directed] [Right matectomy bras As directed] simvastatin 40 mg PO BEDTIME HPI HPI Comments History of Present Illness Details 78-year-old female patient, former patie nt of Dr. Hancock, returning for a yearly breast examination. She was noted to have right axillary lymph node enlargement in 1994 and subsequently underwent axillary node dissection. 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 She underwent 6 cycles of CAF followed by radiation therapy. In February 2008 she presented with a new right breast mass. MRI of the breast revealed a suspicious lesion and a MR guided biopsy revealed infiltrating lobular carcinoma. She subsequently underwent simple mastectomy. Chemotherapy was attempted stopped after 1 cycle. She subsequently was placed on endocrine therapy followed at the [facility]. MRI of 12/14/2020 revealed no MR specific evidence of malignancy (BI-RADS 1 left breast, BI-RADS 1 right breast). Left mammogram performed 11/20/2022 revealed no mammographic evidence of malignancy (BI-RADS 1). She denies any new breast symptoms. Has some mild arm edema on the right side which has not changed since last year. She reports that her is been treated for esophageal cancer. He is awaiting results from a PET scan. [facility] Medical History Esophageal reflux Anxiety Elevated cholesterol Hypothyroidism Lobular carcinoma of right breast CAD (coronary artery disease) Carotid bruit Hypertension Surgical History History of cholecystectomy H/O removal of cyst History of cardiac cath History of right mastectomy History of laparoscopic cholecystectomy History of right breast biopsy Hx of BSO (bilateral salpingo-oophorectomy) S/P NIKO (total abdominal hysterectomy) Family History Father Colon cancer Cancer Mother Diabetes Child No Financial Resp Cancer Sister Heart attack Son Non Hodgkin's lymphoma Social History Household Members: Spouse Housing: Condominium Do you presently have visiting nurse or other home services: No Alcohol intake: never Comment: patient rings appropriately Patient Tobacco Use Status: Never used Tobacco service: No Current occupational status: retired Review of Systems Const Denies anorexia, Denies chills, Denies fever(s) and Denies night sweats Card Denies chest pain, Denies irregular heart rhythm and Denies dyspnea Resp Denies cough, Denies hemoptysis and Denies dyspnea Denies nipple discharge Skin/Breast Reports as per HPI, Denies breast skin changes, Denies breast pain, Denies breast mass, Denies change in breast shape and Denies nipple discharge Physical Exam Const General: cooperative, healthy appearing, comfortable and no acute distress Chest Other: Status post right mastectomy: No subcutaneous masses are appreciated. No seroma, no tenderness to palpation, no skin changes. Left breast with no new skin change, nipple retraction, nipple discharge, tenderness, palpable mass, or enlarged lymph nodes in the axilla. Resp Effort & Inspection: normal respiratory effort, no cough, no stridor and not tachypneic Skin General skin exam: no rashes or lesions noted Extrem Other: Right lymphedema Assessment & Plan Assessment & Plan (1) Breast cancer screening, high risk patient: Code(s): Z12.39 - Encounter for other screening for malignant neoplasm of breast (2) Lobular carcinoma of right breast: Code(s): C50.911 - Malignant neoplasm of unspecified site of right female breast Plan 78-year-old female patient, former patient of Dr. Hancock, returning for a follow-up breast examination. She has a history of a right metastatic mucin- producing tumor to the axilla is status post right axillary node dissection. She subsequently was found to have a lobular carcinoma of the right breast and underwent mastectomy in 2008. She denies any current breast symptoms or chest wall symptoms. She does continue have some swelling in the right upper arm which is controlled with a sleeve. Her most recent left breast mammogram of 11/20/2022 revealed no mammographic evidence of malignancy (BI-RADS 1). She is due for her yearly mammogram in November 2023 Examination today revealed no suspicious findings in the right chest wall or the left breast. I recommended follow-up examination in 1 year, sooner p.r.n.. Coding Level of Care Code Est Pt Level 3 (68298) Diagnoses Breast cancer screening, high risk patient Z12.39 Lobular carcinoma of right breast C50.911
== END 2023-08-15 13:52 | disposition home or self-care (01) ==
PROVIDERS: PCP Internal Medicine; Visit Provider Surgery
DX: Z12.39 Encounter for other screening for malignant neoplasm of breast (principal); C50.911 Malignant neoplasm of unspecified site of right female breast
CPT/HCPCS: 99213

== ENCOUNTER → 2023-08-15 13:31 | Outpatient (BNVA) | payer MEDICARE, SELFPAY | PROVIDERS: PCP Internal Medicine; Visit Provider Surgery | DX: Z12.39 Encounter for other screening for malignant neoplasm of breast (principal); C50.911 Malignant neoplasm of unspecified site of right female breast | CPT/HCPCS: 99212 ==

== ENCOUNTER 2023-11-18 14:30 | Outpatient (AMB) | payer MEDICARE, SELFPAY ==
--- NOTE | 2023-11-18 14:32 | A.OFFVIS_ITS ---
Vital Signs 11/18/23 14:33 Height 4 ft 11 in Weight 135 lb 12.876 oz BMI 27.4 BP 140/70 H Blood Pressure Location Lt brachial Position Sitting Pulse 57 Pulse Source Pulse Oximeter Intake Visit Reasons: 6 month FU Assistant Front End Manager Required: No Accompanied by: Self / Same As Patient Allergies Thiazides Adverse Reaction (Intermediate, Verified 08/15/23 13:38) Unknown meperidine [From Demerol] Adverse Reaction (Mild, Verified 08/15/23 13:38) NAUSEA/VOMITING Medication List - Last Reconciled 11/18/23 by Amol De La Torre MD aspirin 81 mg levothyroxine 50 mcg PO DAILY lorazepam 0.5 mg PO DAILY PRN losartan 100 mg PO DAILY pantoprazole 40 mg PO DAILY propranolol 10 mg PO ONCE prosthetics right breast prosthetic [Right breast prosthetic As directed] [Right matectomy bras As directed] simvastatin 40 mg PO BEDTIME HPI Comments Details: 78-year-old female who was seen at [facility] with chest discomfort. She underwent stress ECHO which showed inferolateral wall motion abnormality and she was transferred to [facility] for cardiac catheterization. Cardiac catheterization showed 40% proximal LAD stenosis. It was felt that her exertional chest discomfort is not due to epicardial coronary artery disease. Subsequent to that she saw Laly Patel NP in the office. On that visit her blood pressure was elevated but she had some bad news before she came to the office visit. She is here for follow-up today. She had her left supraclavicular mass biopsied which was not cancerous. She is under lot of stress though. Her has a gastric tube and significant scarring in his abdomen with the small bowel obstruction due to adhesions. 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 She is getting an MRI to make sure she does not have any compression of the nerve. She is again stressed by that. Unfortunately she presents to the office in circumstances when she is under stress. On previous visit her blood pressure continued to be elevated but she had significant stressful events going on. Today she returns and unfortunately was in the hospital recently with ischemic colitis. She was treated conservatively with medications and antibiotics and it appears she is getting better. She is due to see Gastroenterology. She is currently taking chlorthalidone 25 mg, losartan 100 mg and propanolol 10 mg twice a day. Blood pressure control appears to be good. She is saying she was getting some palpitations at nighttime. 02/20/2023: She returns for follow-up. On last visit she complained of an episode of ischemic colitis. After discussion she was referred for cardiac event monitor. She said she got sick and apparently could not do the cardiac event monitor. She was given diuretics and developed some electrolyte issues and dizziness and went to the hospital. Otherwise doing fine. No chest discomfort shortness of breath. Blood pressure control is good. 06/05/23: She returns for follow-up. She has been doing well. She has noticed that at times her heart rates are in 50s. She is saying that when she takes propanolol and checks her heart rate is 51-54 beats per minute. She has no dizziness or lightheadedness. I have reassured her. 11/18/23: She is here for f/u. She has been doing well. BP continues to be elevated. We discussed about adding another agent. [facility] Medical History Esophageal reflux Anxiety Elevated cholesterol Hypothyroidism Lobular carcinoma of right breast CAD (coronary artery disease) Carotid bruit Hypertension Surgical History History of cholecystectomy H/O removal of cyst History of cardiac cath History of right mastectomy History of laparoscopic cholecystectomy History of right breast biopsy Hx of BSO (bilateral salpingo-oophorectomy) S/P NIKO (total abdominal hysterectomy) Family History Father Colon cancer Cancer Mother Diabetes Child No Financial Resp Cancer Sister Heart attack Son Non Hodgkin's lymphoma Social History Household Members: Spouse Housing: Condominium Do you presently have visiting nurse or other home services: No Alcohol intake: never Comment: patient rings appropriately Patient Tobacco Use Status: Never used Tobacco service: No Current occupational status: retired Review of Systems Const Denies chills, Denies fatigue, Denies fever(s), Denies frequent falls, Denies weakness, Denies weight gain and Denies weight loss ENT Denies dizziness Card Denies chest pain, Denies leg edema, Denies lightheadedness, Denies palpitations, Denies dyspnea and Denies dyspnea on exertion Resp Denies cough, Denies dyspnea and Denies dyspnea on exertion GI Denies hematochezia Musc Denies abnormal gait, Denies muscle weakness, Denies numbness, Denies radiating pain into limb and Denies tingling Neuro Denies abnormal gait, Denies dizziness, Denies frequent falls, Denies numbness, Denies tingling and Denies weakness Endo Denies fatigue and Denies palpitations Physical Exam Vital Signs: Last Vital Signs Pulse 57 11/18/23 14:33 BP 140/70 H 11/18/23 14:33 BMI result Body Mass Index 27.4 GENERAL APPEARANCE: in no acute distress. NECK/THYROID: Right carotid bruit, no jugular venous distention. SKIN: no suspicious lesions, warm and dry. HEART: no murmurs, regular rate and rhythm, S1, S2 normal. LUNGS: clear to auscultation bilaterally. ABDOMEN: normal, bowel sounds present, soft, nontender, nondistended. EXTREMITIES: no clubbing, cyanosis, or edema. PERIPHERAL PULSES: equal. NEUROLOGIC: nonfocal, alert and oriented. Assessment & Plan Assessment & Plan (1) Essential hypertension: Code(s): I10 - Essential (primary) hypertension Category: Medical (2) CAD (coronary artery disease): Comment: 40% proximal left anterior descending artery stenosis Code(s): I25.10 - Atherosclerotic heart disease of [place] coronary artery without angina pectoris Category: Medical (3) Palpitations: Code(s): R00.2 - Palpitations Category: Medical Plan Pleasant 78-year-old female who is here for follow-up. She has hypertension and blood pressure is mildly elevated. She is taking losartan 100 mg propanolol 10 mg once a day. BP is high. Adding amlodipine 2.5 mg daily. She will f/u in few months. Thank you for allowing me to participate in the care of your patient. Please feel free to contact me if you have any questions. Medications: New amlodipine 2.5 mg PO DAILY 60 tabs 3RF I10 - Essential (primary) hypertension Coding Level of Care Code Est Pt Level 4 (68575) Diagnoses Essential hypertension I10 CAD (coronary artery disease) I25.10 Palpitations R00.2
[2023-11-18 14:33] VITALS: BP 140/70; PULSE 57; BMI 27.4
== END 2023-11-18 15:03 | disposition home or self-care (01) ==
PROVIDERS: PCP Internal Medicine; Visit Provider Internal Medicine Cardiovascular Disease
DX: I10 Essential (primary) hypertension (principal); I25.10 Atherosclerotic heart disease of native coronary artery without angina pectoris; R00.2 Palpitations
CPT/HCPCS: 99214

== ENCOUNTER → 2023-11-18 14:30 | Outpatient (BNVA) | payer MEDICARE, SELFPAY | PROVIDERS: PCP Internal Medicine; Visit Provider Internal Medicine Cardiovascular Disease | DX: I25.10 Atherosclerotic heart disease of native coronary artery without angina pectoris (principal); I10 Essential (primary) hypertension; R00.2 Palpitations | CPT/HCPCS: 99212 ==

== ENCOUNTER 2023-11-25 08:06 | Outpatient (REF) | payer MEDICARE, SELFPAY ==
[2023-11-25 10:29] LABS: MANUAL DIFF FLAG NO
[2023-11-25 10:40] LABS: Basophils Absolute Auto 0.1 X10*3/uL (0.0-0.2); Eosinophils Absolute Auto 0.2 X10*3/uL (0.0-0.4); Hematocrit 43.7 % (37.0-47.0); Hemoglobin 14.4 g/dl (12.0-16.0); Imm Gran Abs Auto 0.02 X10*3/uL (0.00-0.03); Imm Gran Pct Auto 0.3 % (0.0-0.4); Lymphocytes Absolute Auto 2.2 X10*3/uL (1.2-4.9); Lymphocytes Percent Auto 35.9 % (20-40); Mean Corpuscular Hemoglobin 30.1 pg (27.0-33.0); Mean Corpuscular Volume 91.2 fL (80.0-98.0); Mean Platelet Volume 10.3 fL (9.4-12.3); Monocytes Absolute Auto 0.5 X10*3/uL (0.1-1.2); Monocytes Percent Auto 8.2 % (2-11); Neutrophils Absolute Auto 3.1 x10*3/uL (2.0-8.3); Neutrophils Percent Auto 51.6 % (45-73); Platelet Count 222 X10*3/uL (160-400); Red Blood Count 4.79 X10*6/uL (4.20-5.50); Red Cell Distribution Width 13.8 % (11.0-16.0); White Blood Count 6.1 X10*3/uL (4.8-10.8)
[2023-11-25 11:09] LABS: Alanine Aminotransferase 19 U/L (0-31); Albumin Level 4.1 g/dL (3.5-5.0); Alkaline Phosphatase 87 U/L (39-117); Anion Gap 16 (12-20); Aspartate Amino Transferase 22 U/L (5-31); Bilirubin Total 0.7 mg/dL (0.0-1.0); Blood Urea Nitrogen 18 mg/dL (9-16); Calcium 9.3 mg/dL (8.4-10.2); Carbon Dioxide 20 mmol/L (22-29); Chloride 109 mmol/L (96-108); Cholesterol 181 mg/dL (<200); Estimated Glomerular Filt Rate 53; Glucose Fasting 104 mg/dL (60-99); HDL Cholesterol 50 mg/dL (>40); LDL Cholesterol Calculated 96 mg/dL (<100); Sodium 141 mmol/L (135-145); Thyroid Stimulating Hormone 2.06 uIU/mL (0.32-4.0); Total Protein 7.2 g/dL (6.5-8.0); Triglycerides 175 mg/dL (<150)
== END 2023-11-25 08:07 | disposition home or self-care (01) ==
LOC: HO.HMGCLDS 08:06
PROVIDERS: PCP Internal Medicine; Visit Provider Internal Medicine
DX: I10 Essential (primary) hypertension (principal); E78.00 Pure hypercholesterolemia, unspecified; E03.9 Hypothyroidism, unspecified; K21.9 Gastro-esophageal reflux disease without esophagitis; F41.9 Anxiety disorder, unspecified
CPT/HCPCS: 36415; 80053; 80061; 84443; 85025

== ENCOUNTER 2023-11-26 12:51 | Outpatient (REF) | payer MEDICARE, SELFPAY ==
--- NOTE | ~2023-11-26 | MM_ITS ---
EXAMINATION: MM SCREENING DIGITAL BREAST TOMOSYNTHESIS, BILATERAL CLINICAL INFORMATION: Screening. Asymptomatic. The patient is status post right mastectomy. COMPARISON: Mammography: This study is compared with prior exams dating back to 2018. TECHNIQUE: Digital breast tomosynthesis is performed in both the craniocaudal and mediolateral oblique views along with computer-aided detection (CAD). Synthesized 2D images are generated from the tomosynthesis. FINDINGS: There are scattered areas of fibroglandular density (ACR BI-RADS breast composition Category b). There are no significant masses, abnormal calcifications, or other abnormalities. MM/MM tomosynthesis screening LT IMPRESSION: No mammographic evidence of malignancy. ASSESSMENT: BI-RADS BI-RADS 1 - Negative RECOMMENDATION: Routine annual mammography screening. 1 year F/U This examination should not preclude the clinical evaluation of a suspicious palpable abnormality. This patient's information was entered into a reminder system with a target due date for their next mammogram.
== END 2023-11-26 12:52 | disposition home or self-care (01) ==
LOC: HO.MAMMO 12:51
PROVIDERS: PCP Internal Medicine; Visit Provider Internal Medicine
DX: Z12.31 Encounter for screening mammogram for malignant neoplasm of breast (principal)
CPT/HCPCS: 77063; 77067

== ENCOUNTER → 2023-11-26 13:00 | Outpatient (BNV) | payer MEDICARE, SELFPAY | PROVIDERS: PCP Internal Medicine; Visit Provider Radiology Diagnostic Radiology | DX: Z12.31 Encounter for screening mammogram for malignant neoplasm of breast (principal) | CPT/HCPCS: 77063; 77067 ==

== ENCOUNTER 2024-04-07 14:18 | Outpatient (AMB) | payer MEDICARE, SELFPAY ==
[2024-04-07 14:44] VITALS: BP 140/82; PULSE 63; BMI 27.3
--- NOTE | 2024-04-07 14:44 | A.OFFVIS_ITS ---
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 Required: No Accompanied by: Significant Other Allergies Thiazides Adverse Reaction (Intermediate, Verified 08/15/23 13:38) Unknown meperidine [From Demerol] Adverse Reaction (Mild, Verified 08/15/23 13:38) NAUSEA/VOMITING Medication List - Last Reconciled 04/07/24 by Laly Patel NP-C amlodipine 2.5 mg PO DAILY aspirin 81 mg levothyroxine 50 mcg PO DAILY lorazepam 0.5 mg PO DAILY PRN losartan 100 mg PO DAILY pantoprazole 40 mg PO DAILY propranolol 10 mg PO ONCE prosthetics right breast prosthetic [Right breast prosthetic As directed] [Right matectomy bras As directed] HPI HPI 4 mth fu (KM): Details: Shannan is a 79-year-old female with past medical history of hypertension, hyperlipidemia, mild carotid stenosis, coronary artery disease who presents for follow-up. Today she reports she has been feeling well since her last visit. She does report high stress levels at home as her has issues with chronic illness. She has to do much of the work in the home and climbs stairs frequently without concerning symptoms. She has no chest pains at rest or with activity. No shortness of breath, palpitations, dizziness, presyncope, syncope, PND, orthopnea or edema. Her blood pressures at home average 120-130 systolic. She reports compliance with her medications. She has an upcoming visit with her PCP. PFSH Medical History Esophageal reflux Anxiety Elevated cholesterol Hypothyroidism Lobular carcinoma of right breast CAD (coronary artery disease) Carotid bruit Hypertension Surgical History History of cholecystectomy H/O removal of cyst History of cardiac cath History of right mastectomy History of laparoscopic cholecystectomy History of right breast biopsy Hx of BSO (bilateral salpingo-oophorectomy) S/P NIKO (total abdominal hysterectomy) Family History Father Colon cancer Cancer Mother Diabetes Child No Financial Resp Cancer Sister Heart attack Son Non Hodgkin's lymphoma Social History Household Members: Spouse Housing: Condominium Do you presently have visiting nurse or other home services: No Alcohol intake: never Comment: patient rings appropriately Patient Tobacco Use Status: Never used Tobacco service: No Current occupational status: retired Review of Systems Const Details: High anxiety when coming to appointments All systems reviewed & are unremarkable except as noted in HPI and below Denies chills, Denies fatigue, Denies fever(s), Denies frequent falls, Denies weakness, Denies weight gain and Denies weight loss ENT Denies dizziness Card Denies chest pain, Denies leg edema, Denies lightheadedness, Denies palpitations, Denies dyspnea and Denies dyspnea on exertion Resp Denies cough, Denies dyspnea and Denies dyspnea on exertion GI Denies hematochezia Musc Denies abnormal gait, Denies muscle weakness, Denies numbness, Denies radiating pain into limb and Denies tingling Neuro Denies abnormal gait, Denies dizziness, Denies frequent falls, Denies numbness, Denies tingling and Denies weakness Endo Denies fatigue and Denies palpitations Physical Exam Vital Signs: Last Vital Signs Pulse 63 04/07/24 14:44 BP 140/82 H 04/07/24 14:44 BMI result Body Mass Index 27.3 Const General: cooperative, healthy appearing, comfortable and no acute distress Orientation/consciousness: patient oriented x3 Neck Neck: Yes normal visual inspection Resp Effort & Inspection: normal respiratory effort Auscultation: clear to auscultation bilaterally, no rales, no rhonchi and no wheezes Cardio Rate: regular rate Rhythm: regular rhythm Heart sounds: S1 normal heart sound present, S2 normal heart sound present, no murmurs and no rubs Neuro General: patient oriented x3 Extrem General: Yes normal to inspection and No no pedal edema Psych Appearance: grossly normal Mental Status: mental status grossly normal Speech and movement: Normal speech and movement present Office Procedures EKG Details: Today, read by me, normal sinus rhythm, minimal voltage for LVH, rate 63, QTC 427 milliseconds 87113-[id number], Complete Assessment & Plan Assessment & Plan (1) CAD (coronary artery disease): Comment: 40% proximal left anterior descending artery stenosis Code(s): I25.10 - Atherosclerotic heart disease of [place] coronary artery without angina pectoris Category: Medical Plan: History of CAD with cardiac catheterization showing 40% lad stenosis, 11/2019. Condition stable with No report of anginal sounding symptoms. EKG done today shows sinus rhythm, no acute ST or T-wave abnormalities, rate 63. Signs and symptoms of angina reviewed with her. Continue with medical management for stable CAD including aspirin and propanolol. Her current med list does not include simvastatin. She should be on statin therapy. Will check with her pharmacy regarding statin use. In the past she was on carvedilol, had dizziness and it was stopped. No med changes made at this time. Cardiology followup in 6 months, sooner if needed (2) History of cardiac cath: Comment: LAD 40% stenosis 12/04/2019 Code(s): Z98.890 - Other specified postprocedural states Category: Surgical Plan: As above (3) Hypertension: Code(s): I10 - Essential (primary) hypertension Category: Medical Plan: Mildly Elevated at this visit. Has been elevated at prior visits as well. She tells me that her home blood pressures are ranging 120-130 systolic. Amlodipine 2.5 mg daily was added last visit. She continues on losartan and propranolol. She has an upcoming visit with her PCP. Instructed to bring her blood pressure cuff to that visit and have it checked by the office staff in comparison to a manual blood pressure reading. If her blood pressures are truly elevated then amlodipine dose can be further increased. Patient is agreeable to this plan. No med change made at this time. (4) Carotid bruit: Comment: Right carotid bruit Code(s): R09.89 - Other specified symptoms and signs involving the circulatory and respiratory systems Category: Medical Plan: History of right carotid bruit. Carotid ultrasound done 06/28/2020 shows 0-49% right and left ICA stenosis. Continue statin and aspirin. Labs done 06/2021 show LDL 53. Plan Time spent on chart review, documentation, interview and assessment Coding Level of Care Code Est Pt Level 4 (77286) Diagnoses CAD (coronary artery disease) I25.10 History of cardiac cath Z98.890 Hypertension I10 Carotid bruit R09.89 CPT Codes EKG - CPT: 39858-[id number], Complete ([id number]) Time Spent (min) 28
== END 2024-04-07 15:14 | disposition home or self-care (01) ==
PROVIDERS: PCP Internal Medicine; Visit Provider Nurse Practitioner Family
DX: I25.10 Atherosclerotic heart disease of native coronary artery without angina pectoris (principal); Z98.890 Other specified postprocedural states; I10 Essential (primary) hypertension; R09.89 Other specified symptoms and signs involving the circulatory and respiratory systems
CPT/HCPCS: 93010; 99214

== ENCOUNTER → 2024-04-07 14:18 | Outpatient (BNVA) | payer MEDICARE, SELFPAY | PROVIDERS: PCP Internal Medicine; Visit Provider Nurse Practitioner Family | DX: I25.10 Atherosclerotic heart disease of native coronary artery without angina pectoris (principal); I10 Essential (primary) hypertension; R09.89 Other specified symptoms and signs involving the circulatory and respiratory systems; Z98.890 Other specified postprocedural states | CPT/HCPCS: 93005; 99212 ==

== ENCOUNTER 2024-08-27 14:14 | Outpatient (AMB) | payer MEDICARE, SELFPAY ==
--- NOTE | 2024-08-27 14:21 | A.OFFVIS_ITS ---
Vital Signs 08/27/24 14:31 Height 4 ft 11 in Weight 137 lb BMI 27.7 BP 180/80 H Blood Pressure Location Lt brachial Position Sitting Pulse 65 Intake Visit Reasons: Yearly breast exam Intake Note: Patient is seen in office for yearly breast exam. Pt c/o: no concerns at the time of visit mm: 11/26/23 Senior Credit Officer Required: No Accompanied by: Self / Same As Patient Allergies Thiazides Adverse Reaction (Intermediate, Verified 08/27/24 14:32) Unknown meperidine [From Demerol] Adverse Reaction (Mild, Verified 08/27/24 14:32) NAUSEA/VOMITING HPI Comments Details: 79-year-old female patient, former patient of Dr. Hancock, returning for a yearly breast examination. She was noted to have right axillary lymph node enlargement in 1994 and subsequently underwent axillary node dissection. 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 She underwent 6 cycles of CAF followed by radiation therapy. In February 2008 she presented with a new right breast mass. MRI of the breast revealed a suspicious lesion and a MR guided biopsy revealed infiltrating lobular carcinoma. She subsequently underwent simple mastectomy. Chemotherapy was attempted stopped after 1 cycle. She subsequently was placed on endocrine therapy followed at the [facility]. MRI of 12/14/2020 revealed no MR specific evidence of malignancy (BI-RADS 1 left breast, BI-RADS 1 right breast). Left mammogram performed 11/26/2023 revealed no mammographic evidence of malignancy (BI-RADS 1). She denies any new breast symptoms. She continues to have the right arm lymphedema but does not always wear her sleeve. PFSH Medical History Esophageal reflux Anxiety Elevated cholesterol Hypothyroidism Lobular carcinoma of right breast CAD (coronary artery disease) Carotid bruit Hypertension Surgical History History of cholecystectomy H/O removal of cyst History of cardiac cath History of right mastectomy History of laparoscopic cholecystectomy History of right breast biopsy Hx of BSO (bilateral salpingo-oophorectomy) S/P NIKO (total abdominal hysterectomy) Family History Father Colon cancer Cancer Mother Diabetes Child No Financial Resp Cancer Sister Heart attack Son Non Hodgkin's lymphoma Social History Household Members: Spouse Housing: Condominium Do you presently have visiting nurse or other home services: No Alcohol intake: never Comment: patient rings appropriately Patient Tobacco Use Status: Never used Tobacco service: No Current occupational status: retired Review of Systems Const Denies anorexia, Denies chills, Denies fever(s) and Denies night sweats Card Denies chest pain, Denies irregular heart rhythm and Denies dyspnea Resp Denies cough, Denies hemoptysis and Denies dyspnea Denies nipple discharge Skin/Breast Reports as per HPI, Denies breast skin changes, Denies breast pain, Denies breast mass, Denies change in breast shape and Denies nipple discharge Physical Exam Vital Signs: Last Vital Signs Pulse 65 08/27/24 14:31 BP 180/80 H 08/27/24 14:31 BMI result Body Mass Index 27.7 Const General: cooperative, healthy appearing, comfortable and no acute distress Chest Other: Status post right mastectomy: No subcutaneous masses are appreciated. Left breast with no new skin change, nipple retraction, nipple discharge, tenderness, palpable mass, or enlarged lymph nodes in the axilla. Resp Effort & Inspection: normal respiratory effort, no cough, no stridor and not tachypneic Skin General skin exam: no rashes or lesions noted Neuro Other: Mobility Assessment: 1. 3 meter assessment time (seconds) 5 2. Gait observations: Normal balance and gait Extrem Other: Right lymphedema Assessment & Plan Assessment & Plan (1) Breast cancer screening, high risk patient: Code(s): Z12.39 - Encounter for other screening for malignant neoplasm of breast Category: Medical (2) Lobular carcinoma of right breast: Code(s): C50.911 - Malignant neoplasm of unspecified site of right female breast Category: Medical Plan 79-year-old female patient, former patient of Dr. Hancock, returning for a follow-up breast examination. She has a history of a right metastatic mucin- producing tumor to the axilla is status post right axillary node dissection. She subsequently was found to have a lobular carcinoma of the right breast and underwent mastectomy in 2008. She denies any current breast symptoms or chest wall symptoms. She does continue have some swelling in the right upper arm which is controlled with a sleeve. Her most recent left breast mammogram of 11/26/2023 revealed no mammographic evidence of malignancy (BI-RADS 1). She is due for her yearly mammogram in November 2024. Examination today revealed no suspicious findings in the right chest wall or the left breast. I recommended follow-up examination in 1 year, sooner p.r.n.. Orders: Orders MM screening mammo unilat LT 11/26/24 C50.911 - Malignant neoplasm of unspecified site of right female breast, Z12.39 - Encounter for other screening for malignant neoplasm of breast Coding Level of Care Code Est Pt Level 3 (67580) Complex EM visit Add On G2211 Diagnoses Breast cancer screening, high risk patient Z12.39 Lobular carcinoma of right breast C50.911
[2024-08-27 14:31] VITALS: BP 180/80; PULSE 65; BMI 27.7
--- OUTSIDE RECORDS SUMMARY | 2024-08-27 15:22 | XMS_ITS ---
Author Organization [facility] Address [address] [place] [address] Care Team Providers Care Washateria Attendant Name Role Phone Finesse Smith MD Primary Care Provider Unavail Kika Mathias Unavailable [phone] REASON FOR VISIT Seen Sooner Medications Medication SIG (Take, Route, Frequency, Duration) Notes Start Date End Date Status Simvastatin 40 MG Oral for 90 Days Active Pantoprazole Sodium 40 MG Oral for 90 Days Active Levothyroxine Sodium 50 MCG Oral for 90 Days Active Cephalexin 500 MG Oral for 7 Days Active Propranolol HCl 10 MG Oral for 90 Days Active Aspirin 81 10/22/2023 Active Losartan Potassium 100 MG Oral for 90 Days Active LORazepam 0.5 MG Oral for 30 Days Active Social History Tobacco Use: Social History Observation Description Date Details (start date - stop date) Never Smoker NA - NA Tobacco Use/Smoking Question Answer Notes Are you a: nonsmoker Additional Findings: Tobacco Non-User Current no n-smoker Alcohol Screen Question Answer Notes Did you have a drink containing alcohol in the p ast year? No Points 0 Interpretation Negative Encounters Encounter Location Date Provider Diagnosis [facility] [address] [place] [address] 12/11/2023 Kika Grande Plan Of Treatment No Information Progress Notes * ANDREW MikaelaAllenOB: [birth year] (79 yo F)Acc No.[id number]:12/11/2023 Progress Notes Patient:?Shannan MORALES Provider:?Kika Grande DPM :1945???Age:78 Y???Sex:Female D ate:12/11/2023 Address:[address] [place] [address], [place], [place] Pcp:Finesse Smith MD Subjective: * Chief Complaints: * ???1. Seen Sooner. * Medical History:?Anxiety, CA D (Cholesterol), Breast cancer, Diverticulosis, Gall bladder problems, Heart disease, High blood pressure, Nerve disorder, Reflux ( GERD), Stomach ulcer, Thyroid, Measles, Mumps, Chicken pox, Transfusions. * Surgical History:?Complete H ysterectomy 1978 , Mastectomy 2008, Gall Bladder . * Family History:?Mother: dece ased, diagnosed with Diabetic - NIDDM, Unspecified heart disease.?Father: , diagnosed with Other malignant neoplasm of unspecified site.?Siblings: diagnosed with Diabetic - NIDDM, Unspecified heart disease, Unspecified cerebral artery occlusion with cerebral infarction.? * Social History:?Tobacco Use:?Tobacco Use/Smoking?Are you a:?nonsmoker ?Additional Findings: Tobacco Non-User?Current non-smoker ???Drugs/Alcohol:?Drugs?Have you used drugs other than those for medical reasons in the past 12 months??No ?Alcohol Screen?Did you have a drink containing alcohol in the past year??No ?Points?0 ?Interpretation?Negative ???Miscellaneous:?Caffeine: no. ?Marital status: . ?Occupation: Retired ?. * Medications:?Taking Levothyr oxine Sodium 50 MCG Tablet Oral , Taking Cephalexin 500 MG Capsule Oral , Taking Simvastatin 40 MG Tablet Oral , Taking LORazepam 0.5 MG Tablet Oral , Taking Losartan Potassium 100 MG Tablet Oral , Taking Propranolol HCl 10 MG Tablet Oral , Taking Pantoprazole Sodium 40 MG Tablet Delayed Release Oral , Taking Aspirin 81 Objective: * Vitals:? Assessment: Plan: * Treatment: * Images: * The named appointment provid er may or may not be the originator of this progress note, and it is not deemed complete until electronically signed by the appointment provider. Sign off status: Pending * Provider:?Kika Grande DPM Date:?11/2023 Generated for Suzie garcia/Antonio/Teto on:?08/27/2024 03:22 PM EST
--- OUTSIDE RECORDS SUMMARY | 2024-08-27 15:22 | XMS_ITS ---
Author Organization [facility] Address [address] [place] [address] Care Team Providers Care Technical Manager Name Role Phone Finesse Smith MD Primary Care Provider Kika Monaco Unavailable [phone] Allergies Allergen (clinical drug ingredient) Drug/Non Drug Allergy documented on EMR Reaction Allergy Type Onset Date Status meperidine Demerol dizziness Drug Allergy Active REASON FOR VISIT Painful nail(s) aggrevated by shoes causing difficulty standing/walking, Skin problem(s) Medications Medication SIG (Take, Route, Frequency, Duration) Notes Start Date End Date Status Aspirin 81 10/22/2023 Active Simvastatin 40 MG Oral for 90 Days Active LORazepam 0.5 MG Oral for 30 Days Active Levothyroxine Sodium 50 MCG Oral for 90 Days Active Cephalexin 500 MG Oral for 7 Days Active Propranolol HCl 10 MG Oral for 90 Days Active Pantoprazole Sodium 40 MG Oral for 90 Days Active Losartan Potassium 100 MG Oral for 90 Days Active Social History Tobacco Use: Social History Observation Description Date Details (start date - stop date) Never Smoker NA - NA Tobacco Use/Smoking Question Answer Notes Are you a: nonsmoker Additional Findings: Tobacco Non-User Current no n-smoker Alcohol Screen Question Answer Notes Did you have a drink containing alcohol in the p ast year? No Points 0 Interpretation Negative Vital Signs Height 5 ' in 10/23/2023 Weight 133 lbs 10/23/2023 BMI 25.97 kg/m2 10/23/2023 Encounters Encounter Location Date Provider Diagnosis [facility] [address] [place] [address] 10/23/2023 Kika Grande Tinea unguium B35.1 ; Contusion of lesser toe of left foot with damage to nail, initial encounter S90.222A ; Pain in left toe(s) M79.675 and Cellulitis of toe of left foot L03.032 Assessments Encounter Date Diagnosis (ICD Code) Assessment Notes Treatment Notes Treatment Clinical Notes Section Notes 10/23/2023 Tinea unguium (ICD-10 - B35.1) 10/23/2023 Contusion of lesser toe of left foot with damage to nail, initial encounter (ICD-10 - S90.222A) 10/23/2023 Pain in left toe(s) (ICD-10 - M79.675) 10/23/2023 Cellulitis of toe of left foot (ICD-10 - L03.032) Plan Of Treatment Next Appt Details Follow Up: prn, Reason: Procedure Notes * Category Sub-Category Detail Notes Debride Nails 1-5 Procedure: Nail debrideme nt performed extensively to reduce/remove overall nail length, girth, thickness, subungual debris, and necrotic tissue, by manual and electrical means through the use of a nail nipper and/or dremel, to more viable healthy nail plate or bed tissue 1-5. Silver nitrate used for any petechial bleeding as necessary. Patient chooses, no pharmaceutical tx (80475) Progress Notes * Magda MORALESOB: [birth year] (79 yo F)Acc No.[id number]:10/23/2023 Progress Notes Patient:?Shannan MORALES Provider:?Kika Grande DPM :1945???Age:78 Y???Sex:Female D ate:10/23/2023 Address:[address] [place], [place] [id number] Pcp:Finesse Smith MD Subjective: * Chief Complaints: * ???Painful nail(s) aggrevate d by shoes causing difficulty standing/walkingSkin problem(s) * HPI: ???Painful Nails:?Pt States Last PCP Visit:?Date:?07/09/2023 ???Skin problems:?Nature:?redness, swelling , tender.?Location:?Left 2nd Toe(s).?Course:?worse.?Treatments:?antibiotics-unable to take.?Misc:?PCP called for an urgent appt.? * ROS:?General/Constitutional:?Nausea?denies.?Vomiting?denies.?Hunger Thirst?denies.?Loss appetite?denies.?Chills?denies.?Fatigue?denies.?Fever?denies.?Night Sweats?denies.?Unexplained weight loss?denies.?Unexplained weight gain?denies.?HEENTM:?Dentures?denies.?Dizziness?denies.?Glasses/contacts?admits.?Retinopathy?de nies.?Blurred/double vision?denies.?TMJ?denies.?Discharge/drainage?denies.?Implants?denies.?Sore throat?denies.?Dental implants?denies.?Hard of hearing ?admits.?Difficulty chewing/swallowing/speaking?denies.?Nose bleeds?denies.?Sore mouth?denies.?Respiratory:?On Oxygen?denies.?Pneumonia/pleurisy?denies.?Bronchitis?denies.?Emphysema?denies.?C oughing?denies.?Cough blood?denies.?Shortness of breath?denies.?Wheezing?denies.?Cardiovascular:?Pacemaker?denies.?MVP?denies.?WPW?denies.?CHF?denies.?Heart attack?denies.?Septal defect?denies.?Rapid beat?denies.?Chest pain ?denies.?Atrial Fib.?denies.?Murmur/Palpitations?admits.?Gastrointestinal:?Hemorrhoids?denies.?Stomach/Abdominal pain?denies.?Dark blood stool?denies.?Irritable bowel ?admits.?Constipation?denies.?Diarrhea?denies.?Hematology:?Swelling?denies.?Clots?denies.?Varicose Veins?admits.?Bruising?denies.?Bleeding problem?denies.?Genitourinary:?Blood urine?denies.?Frequent/Painfu/urination/bladder control?denies.?Kidney stones?denies.?Infection (UTI)?denies.?Nephropathy?denies.?sex trans dis (STD)?denies.?Prostate?denies.?Musculoskeletal:?Hammertoes?denies.?Bunions?denies.?Back Pain?denies.?Muscle Cramps/ Resting?denies.?Muscle cramps / walking?denies.?Generalized aches and pains?denies.?Weakness?denies.?Integ.:?[place]?denies.?Scars?denies.?Corns/calluses?denies.?Ingrown nails?denies.?Painful nails?admits.?Open Sores?denies.?Rashes?denies.?Neurologic:?Difficulty sleeping?denies.?Brain disorder?denies.?Numbness?denies.?Balance trouble?denies.?Confusion?denies.?Fainting/blackouts?denies.?Tingling?denies.?Tr emors?denies.? * Medical History:? * Surgical History:?Complete H ysterectomy 1979 Mastectomy 2009Gall Bladder * Hospitalization/Major Diagno stic Procedure:?Denies Past Hospitalization * Family History:?Mother: dece ased, diagnosed with [...] ?Marital status: . ?Occupation: Retired ?. * Medications:?TakingLevothyro xine Sodium 50 MCG Tablet Oral Cephalexin 500 MG Capsule Oral Simvastatin 40 MG Tablet Oral LORazepam 0.5 MG Tablet Oral Losartan Potassium 100 MG Tablet Oral Propranolol HCl 10 MG Tablet Oral Pantoprazole Sodium 40 MG Tablet Delayed Release Oral Aspirin 81 Medication List reviewed and reconciled with the patientTaking Levothyroxine Sodium 50 MCG Tablet Oral Taking Cephalexin 500 MG Capsule Oral Taking Simvastatin 40 MG Tablet Oral Taking LORazepam 0.5 MG Tablet Oral Taking Losartan Potassium 100 MG Tablet Oral Taking Propranolol HCl 10 MG Tablet Oral Taking Pantoprazole Sodium 40 MG Tablet Delayed Release Oral Taking Aspirin 81 Medication List reviewed and reconciled with the patient * Allergies:?Demerol: dizzines syes[Allergies Verified] Objective: * Vitals:?Ht:5 ', Wt:133, BMI: 25.97, Shoe size:6.5, Ht-cm: 152.4 cm, Wt-k.33 kg. * Examination: ???Nails: ?NAILS are:?Elongated, overgrown, dystrophic, lytic, greater than 3mm thick, discolored and friable with crumbly malodorous subungual debris, with pain on palpation , T1 , There is evidence of surrounding periungual tissue erythema, no signs of infection noted.?General Examination: ?GENERAL APPEARANCE:?Reveals a pleasant, alert, well-nourished, well- developed, well hydrated individual, who demonstrates proper attention to hygiene/body habitus, and is in no acute distress, Pt serves as own?historian for office visit today.?ORIENTED:?person, place, and time.?Neurological: ?SENSORY:?Neurological exam reveals intact sensorium, pain sensation normal, vibration sensation intact, pinprick sensation is normal in the lower extremities, Pt denies, anesthesia, burning, paresthesia, tingling, B/L.?DEEP TENDON REFLEXES:?Achilles, 2/4, B/L.?Vascular: ?DP PULSES (B):?3/4, B/L.?PT PULSES (B):?3/4, B/L.?CAPILLARY FILL TIME:?immediate, all digits, B/L.?TROPHIC CONDITION-TEXTURE/ELASTICITY/TURGOR/HAIR GROWTH (B):?normal, B/L.?TEMPERTURE GRADIENT (C):?warm to cool, proximal to distal, B/L.?PIGMENTATION:?normal, B/L.?EDEMA (C):?absent, B/L.?Dermatologic: ?SKIN FINDINGS:?Skin exam reveals normal texture, elasticity, and turgor. There are no masses. The interspaces are clear?.?Orthopedic: ?MUSCLE STRENGTH:?5/5 all groups in a symmetrical fashion , B/L.? Assessment: * Assessment: 1.?Tinea unguium - B35.1???2 .?Contusion of lesser toe of left foot with damage to nail, initial encounter - S90.222A (Primary)???Specify :Acute problem, Stable (1=3)???3.?Pain in left toe(s) - M79.675???4.?Cellulitis of toe of left foot - L03.032???Specify :Minor problem, Self-limited (1=2,2=3)??? Plan: * Treatment: * Procedures:?Debride Nails 1-5:?Procedure:?Nail debridement performed extensively to reduce/remove overall nail length, girth, thickness, subungual debris, and necrotic tissue, by manual and electrical means through the use of a nail nipper and/or dremel, to more viable healthy nail plate or bed tissue 1-5. Silver nitrate used for any petechial bleeding as necessary. Patient chooses, no pharmaceutical tx (42999).? * Procedure Codes:?62221 DUARTE NIEVES NAIL, 1-5, Modifiers: XS * Preventive Medicine:? ??Counseling:?Discussion:?-03: Office or other outpatient visit for the evaluation and management of a new patient, which required a medically appropriate history and/or examination and LOW level of DECISION MAKING for: 1 STABLE ACUTE UNCOMPLICATED PROBLEM, 2 OR MORE MINOR PROBLEMS, OR 1 STABLE CHRONIC PROBLEM, THAT POSE(S) A LOW RISK FOR MORBIDITY/MORTALITY. The visit on the day of the encounter encompassed interpreting the data and educating the patient as to the nature of their condition, treatment options available according to their individual PMH, meds, allergies, and overall health/living conditions, as well as any potential risks or complications that may occur from a failure to adhere to, and participate in, the recommended course of therapy. The discussion included a complete verbal, and/or written explanation of the examination results, any x-rays taken, the proposed diagnosis, and outline of the treatment plan. A schedule for future care needs was also explained. The patient verbalized an understanding of the instructions at this time and agreed to be an active participant in their treatment. If the patient should think of any questions or concerns after the visit, I have encouraged the patient to call the office.?Cellulitis/Lymphangitis?No signs of active infection at visit today, inflammation due to excessive length of nail and damage from shoegear, pt can use topical abx to prevent infection.?Fungal Nail Counseling:?The patient was counseled on the diagnosis, potential etiologies (including, but not limited to, environmental factors, genetic, immune deficiency), and the multiple treatment options for Onychomycosis. We discussed the risks and benefits of each option from performing no treatment, to ultraviolet light shoe treatment, to laser nail treatment, to applying topical antifungals, to taking oral antifungal medication, to surgical removal of the involved nail(s) with or without performing a matricectomy, or any combination thereof. We discussed the advantages and disadvantages of each of possible treatment and importance for adherence to all the recommended therapies for optimum success. This includes the necessity for weekly emery board self nail home debridements, and control the nail and skin environment as much as possible by only using a fresh, dry pair of shoes/socks each day, as well as keeping the skin as dry as possible through the use of sprays/powders if necessary. The patient was instructed to discard the emery board after use to prevent reinfection of the involved nail(s). We discussed the mycological and visual clinical effectiveness of topical vs oral antifungal treatments as well as each ones potential side effects and/or any patient- specific medication interactions. We discussed the reasons behind the important requirement of regular liver function testing with oral antifungal therapy for safety. Patient questions regarding use, dosage, successful outcomes, blood tests, and possible pharmaceutical interactions were reviewed and the patient verbalized that all answers were clearly understood.?Shoe Gear Counseling:?The patient and I reviewed the types of shoes they should be wearing. My recommendation included obtaining a well-fitted shoe with a good supportive, non-foldable nor twistable sole, plenty of toe/room for the forefoot, and proper arch support. Based on todays examination, I recommended the patient look for new shoes, by having their feet professionally measured. We discussed that generally the best time of the day for a shoe fitting is the afternoon. Different shoes types and brands to best match the patients occupation and vocation were discussed. Specific brand selection will be up to the patient, their individual foot condition/deformities, and fit. The patient and I reviewed the standard new shoe break in period by wearing them for a few hours a day while checking for redness or sores as wear time is increased. The patient verbally confirmed to understanding the information discussed.? * Follow Up:?prn * Images: * Sign off status: Completed true * Provider:?Kika Grande DPM Date:? Generated for Suzie garcia/Antonio/eTransmitting on:?08/27/2024 03:22 PM EST History and Physical Notes * HPI (History of Present Illness) Category Sub-Category Detail Notes Category Not es Painful Nails Pt States Last PCP Visit: Date:: 07/09/2023 Skin problems Nature: redness , swelling , tender Location: Left 2nd Toe(s) Course: worse Treatments: antibiotics-unable t o take Misc: PCP called for an ur gent appt Examination Category Sub-Category Detail Notes Category Not es Neurological SENSORY: Neurological exa m reveals intact sensorium, pain sensation normal, vibration sensation intact, pinprick sensation is normal in the lower extremities, Pt denies, anesthesia, burning, paresthesia, tingling, B/L DEEP TENDON REFLEXES: Achilles, 2/4, B/L Dermatologic SKIN FINDINGS: Skin exam reveal s normal texture, elasticity, and turgor. There are no masses. The interspaces are clear Orthopedic MUSCLE STRENGTH: 5/5 all groups in a symm etrical fashion , B/L General Examination GENERAL APPEARANCE: Reveals a pleasant, alert, well- nourished, well-developed, well hydrated individual, who demonstrates proper attention to hygiene/body habitus, and is in no acute distress, Pt serves as own historian for office visit today ORIENTED: person, place, and t hailey Vascular DP PULSES (B): 3/4, B/L PT PULSES (B): 3/4, B/L CAPILLARY FILL TIME: immediate, all digi ts, B/L TEMPERTURE GRADIENT (C): warm to cool, p roximal to distal, B/L TROPHIC CONDITION-TEXTURE/ELASTICITY/TURGOR/HAIR GROWTH (B): normal, B/L EDEMA (C): absent, B/L PIGMENTATION: normal, B/L Nails NAILS are: Elongated, overg rown, dystrophic, lytic, greater than 3mm thick, discolored and friable with crumbly malodorous subungual debris, with pain on palpation , T1 , There is evidence of surrounding periungual tissue erythema, no signs of infection noted
--- OUTSIDE RECORDS SUMMARY | 2024-08-27 15:23 | XMS_ITS ---
Author Organization Finesse Smith DO, [facility] Address [address] [place], [place] [id number] Care Team Providers Care Landscaping Crew Leader Name Role Phone Finesse Smith Primary Care Provider [phone] REASON FOR VISIT Refills MEDICATIONS Medication SIG (Take, Route, Frequency, Duration) Notes Start Date End Date Status Propranolol HCl 10 MG 1 tablet Orally On ce a day for 90 days Active Losartan Potassium 100 MG 1 tablet Orall y Once a day for 90 days Active SOCIAL HISTORY Sex Assigned At : Social History Observation Description Sex Assigned At Female Encounters Encounter Location Date Provider Diagnosis Finesse Smith DO, [facility] [address], [place] [id number] 07/06/2024 Finesse Smith Coronary artery disease involving [place] coronary artery of [place] heart without angina pectoris I25.10 ASSESSMENTS Encounter Date Diagnosis Assessment Notes Treatment Notes Treatment Clinical Notes 07/06/2024 Coronary artery disease involving [place] coronary artery of [place] heart without angina pectoris (ICD-10 - I25.10) PLAN OF TREATMENT Medication Medication Name Sig Start Date Stop Date Notes Propranolol HCl 10 MG 1 tablet Orally On ce a day for 90 days Losartan Potassium 100 MG 1 tablet Orall y Once a day for 90 days
--- OUTSIDE RECORDS SUMMARY | 2024-08-27 15:23 | XMS_ITS ---
Author Organization Finesse Smith DO, [facility] Address [address] [place], [place] [id number] Care Team Providers Care Knitting Machine Fixer Name Role Phone Finesse Smith Primary Care Provider REASON FOR VISIT Refills MEDICATIONS Medication SIG (Take, Route, Frequency, Duration) Notes Start Date End Date Status Losartan Potassium 100 MG 1 tablet Orall y Once a day for 30 days Active SOCIAL HISTORY Sex Assigned At : Social History Observation Description Sex Assigned At Female Encounters Encounter Location Date Provider Diagnosis Finesse Smith DO, [facility] [address] [place] [phone] 06/10/2024 Finesse Smith PLAN OF TREATMENT Medication Medication Name Sig Start Date Stop Date Notes Losartan Potassium 100 MG 1 tablet Orall y Once a day for 30 days
--- OUTSIDE RECORDS SUMMARY | 2024-08-27 15:23 | XMS_ITS | Patient Health Record ---
Author Organization [facility] Address [address] [place] [address] Care Team Providers Care Information Assurance Officer Name Role Phone Luis (RETIRED) Finesse GENAO Primary Care Provid er Unavailable Gregorio Arguelles Jr Unavailable ALLERGIES Allergen (clinical drug ingredient) Drug/Non Drug Allergy documented on EMR Reaction Allergy Type Onset Date Status meperidine Demerol Unknown Drug Allergy Active REASON FOR REFERRAL No Information MEDICATIONS Medication SIG (Take, Route, Frequency, Duration) Notes Start Date End Date Status Levothyroxine Sodium 50 MCG 1 tablet in the morning on an empty stomach Orally Once a day Active Propranolol HCl 10 MG as directed Orally Twice a day Active Pantoprazole Sodium 40mg Active Simvastatin 40 MG 1 tablet in the even ing Orally Once a day Active Loperamide HCl 2 MG 1 capsule as needed Orally Four times a day for 30 days 06/22/2024 Active amLODIPine Besylate 2.5 MG Oral for 60 Active Losartan Potassium-HCTZ 100-25 MG 1 tablet Orally Once a day for 30 day(s) Active Aspir-Low 81 MG 1 tablet Orally Once a day for 30 day(s) Active Atorvastatin Calcium 20 MG Oral for 30 Active Losartan Potassium 100 MG Oral for 30 Active IMMUNIZATIONS Vaccine Route Administration Date Status Comme nts Influenza Unknown 05/29/2022 Administered Influenza Unknown 06/22/2024 Refused SOCIAL HISTORY Sex Assigned At : Social History Observation Description Sex Assigned At Unknown PROBLEMS Problem Type ICD Code Onset Dates Problem Status W/U Status Risk SNOMED Code Notes Problem Colon cancer screening (Z12.11) Active confirmed 609757007 Problem Irritable bowel syndrome with diarrhea (K58.0) Active confirmed 468620651 Problem Gastroesophageal reflux disease (K21.9) Active confirmed Gastroesophagea l reflux disease (361231062) Problem Colitis (K52.9) Active confirmed 678419 04 Problem Gastroesophageal reflux disease, unspecified whether esophagitis present (K21.9) Active confirmed 772139973 VITAL SIGNS Temperature 96.9 degrees Fahrenheit 06/22/2024 Blood pressure diastolic 00 mm Hg 06/22/2024 Height 60 in 06/22/2024 Blood pressure systolic 000 mm Hg 06/22/2024 Weight 136 lb 2 oz lbs 06/22/2024 BMI 26.58 kg/m2 06/22/2024 Encounters Encounter Location Date Provider Diagnosis [facility] [address] [place] [address] 06/15/2024 Gregorio Arguelles Jr [facility] [address] [place] [address] 06/22/2024 Gregorio Arguelles Jr Gastroesophageal reflux disease K21.9 and Irritable bowel syndrome with diarrhea K58.0 ASSESSMENTS Encounter Date Diagnosis Assessment Notes Treatment Notes Treatment Clinical Notes 06/22/2024 Irritable bowel syndrome with diarrhea (ICD-10 - K58.0) 06/22/2024 Gastroesophageal ref lux disease (ICD-10 - K21.9) PLAN OF TREATMENT Future Test Test Name Order Date UPPER GI ENDOSCOPY 11/19/2022 COLONOSCOPY 11/19/2022 Next Appt Details Provider Name:Gregorio morrell Jr, 06/24/2025 01:15:00 PM, [address] [facility], [address], [place], [address], Insurance Providers Payer Name Payer Address Payer Phone Subscriber Number Group Number Insured Name Patient Relationship to Insured Coverage Start Date Coverage End Date [facility] [address] [place] [address] [phone] [id number] RONALD EASTON Self - patient is the insured MEDICAL (GENERAL) HISTORY Medical History History ICD Code hypertension hypothyroidism elevated cholesterol anxiety esophageal reflux Ischemic colitis 09/27 Upper endoscopy 12/28, gastritis, and no H. pylori Colonoscopy 12/28, normal, biopsies inact abby colitis. No treatment required Surgical History Surgery Date(Month/Year) cyst removal cholecystectomy right mastectomy hysterectomy
--- OUTSIDE RECORDS SUMMARY | 2024-08-27 15:23 | XMS_ITS | Patient Health Record ---
Author Organization [facility] Address [address] [place] [address] Care Team Providers Care Stone Gluer Name Role Phone Finesse Smith MD Primary Care Provider Unavail Kika Mathias Unavailable [phone] Allergies Allergen (clinical drug ingredient) Drug/Non Drug Allergy documented on EMR Reaction Allergy Type Onset Date Status meperidine Demerol dizziness Drug Allergy Active Reason For Referral No Information Medications Medication SIG (Take, Route, Frequency, Duration) Notes Start Date End Date Status Aspirin 81 10/22/2023 Active Losartan Potassium 100 MG Oral for 90 Days Active Simvastatin 40 MG Oral for 90 Days Active Pantoprazole Sodium 40 MG Oral for 90 Days Active LORazepam 0.5 MG Oral for 30 Days Active Levothyroxine Sodium 50 MCG Oral for 90 Days Active Cephalexin 500 MG Oral for 7 Days Active Propranolol HCl 10 MG Oral for 90 Days Active Social [...] Encounters Encounter Location Date Provider Diagnosis [facility] [address] [place] [address] 10/23/2023 Kika Grande Tinea unguium B35.1 ; [...] foot (ICD-10 - L03.032) Plan Of Treatment No Information Insurance Providers Payer Name Payer Address Payer Phone Subscriber Number Group Number Insured Name Patient Relationship to Insured Coverage Start Date Coverage End Date [employer] [place] [employer] [facility] [address] [place] [address] [phone] [id number] Shannan Stevens Self - patient is the insured Medical (General) History Medical History History ICD Code Anxiety CAD (Cholesterol) breast cancer Diverticulosis Gall bladder problems Heart disease High blood pressure nerve disorder Reflux ( GERD) Stomach ulcer thyroid Measles Mumps Chicken pox Transfusions Surgical History Surgery Date(Month/Year) Complete Hysterectomy 1979 Mastectomy 2008 Gall Bladder
--- OUTSIDE RECORDS SUMMARY | 2024-08-27 15:23 | XMS_ITS ---
Author Organization [facility] Address [address] [place] [address] Care Team Providers Care Veterinary Manager Name Role Phone Luis (RETIRED) Finesse GENAO Primary Care Provid er Unavailable Gregorio Arguelles Jr Unavailable [phone] ALLERGIES Allergen (clinical drug ingredient) Drug/Non Drug Allergy documented on EMR Reaction Allergy Type Onset Date Status meperidine Demerol Unknown Drug Allergy Active REASON FOR VISIT Patient presents today for colitis,gerd MEDICATIONS Medication SIG (Take, Route, Frequency, Duration) Notes Start Date End Date Status Loperamide HCl 2 MG 1 capsule as needed Orally Four times a day for 30 days 06/22/2024 Active amLODIPine Besylate 2.5 MG Oral for 60 Active Aspir-Low 81 MG 1 tablet Orally Once a day for 30 day(s) Active Atorvastatin Calcium 20 MG Oral for 30 Active Losartan Potassium 100 MG Oral for 30 Active Levothyroxine Sodium 50 MCG 1 tablet in the morning on an empty stomach Orally Once a day Active Propranolol HCl 10 MG as directed Orally Twice a day Active Pantoprazole Sodium 40mg Active Simvastatin 40 MG 1 tablet in the even ing Orally Once a day Active Losartan Potassium-HCTZ 100-25 MG 1 tablet Orally Once a day for 30 day(s) Active IMMUNIZATIONS Vaccine Route Administration Date Status Comme nts Influenza Unknown 06/22/2024 Refused PROBLEMS Problem Type ICD Code Onset Dates Problem Status W/U Status Risk SNOMED Code Notes Problem Irritable bowel syndrome with diarrhea (K58.0) Active confirmed 825387411 VITAL SIGNS BMI 26.58 kg/m2 06/22/2024 Blood pressure systolic 000 mm Hg 06/22/20 24 Blood pressure diastolic 00 mm Hg 024 Height 60 in 06/22/2024 Temperature 96.9 degrees Fahrenheit 06/22/20 24 Weight 136 lb 2 oz lbs 06/22/2024 Encounters Encounter Location Date Provider Diagnosis [facility] [address] [facility] [place] [address] 06/22/2024 Gregorio Arguelles Jr Gastroesophageal reflux disease K21.9 and Irritable bowel syndrome with diarrhea K58.0 ASSESSMENTS Encounter Date Diagnosis Assessment Notes Treatment Notes Treatment Clinical Notes 06/22/2024 Gastroesophageal ref lux disease (ICD-10 - K21.9) 06/22/2024 Irritable bowel syndrome with diarrhea (ICD-10 - K58.0) PLAN OF TREATMENT Medication Medication Name Sig Start Date Stop Date Notes Loperamide HCl 2 MG 1 capsule as needed Orally Four times a day for 30 days 06/22/2024 Next Appt Details Follow Up: 1 Year, Reason: Provider Name:Gregorio morrell Jr, 06/24/2025 01:15:00 PM, [address] [facility] [facility], [address], [place], [address],
--- OUTSIDE RECORDS SUMMARY | 2024-08-27 15:23 | XMS_ITS ---
Author Organization [facility] Address [address] [place] [address] Care Team Providers Care Building Estimator Name Role Phone Luis (RETIRED) Finesse GENAO Primary Care Provid er Unavailable Gregorio Arguelles Jr Unavailable ALLERGIES Allergen (clinical drug ingredient) Drug/Non Drug Allergy documented on EMR Reaction Allergy Type Onset Date Status meperidine Demerol Unknown Drug Allergy Active REASON FOR VISIT Patient presents today for gerd, h/o colitis MEDICATIONS Medication SIG (Take, Route, Frequency, Duration) Notes Start Date End Date Status Pantoprazole Sodium 40mg Active Dicyclomine HCl 10 MG 1 tablet Orally 2- 4 times a day 06/13/2023 Active Levothyroxine Sodium 50 MCG 1 tablet in the morning on an empty stomach Orally Once a day Active Simvastatin 40 MG 1 tablet in the even ing Orally Once a day Active Propranolol HCl 10 MG as directed Orally Twice a day Active Losartan Potassium-HCTZ 100-25 MG 1 tablet Orally Once a day for 30 day(s) Active Aspir-Low 81 MG 1 tablet Orally Once a day for 30 day(s) Active PROBLEMS Problem Type ICD Code Onset Dates Problem Status W/U Status Risk SNOMED Code Notes Problem Colitis (K52.9) Active confirmed [id number] VITAL SIGNS BMI 26.17 kg/m2 06/13/2023 Blood pressure systolic 00 mm Hg 06/13/20 23 Blood pressure diastolic 00 mm Hg 023 Height 60 in 06/13/2023 Temperature 97.2 degrees Fahrenheit 06/13/20 23 Weight 134 lbs 06/13/2023 Encounters Encounter Location Date Provider Diagnosis [facility] [address] [place] [address] 06/13/2023 Gregorio Arguelles Jr Gastroesophageal reflux disease, unspecified whether esophagitis present K21.9 and Colitis K52.9 ASSESSMENTS Encounter Date Diagnosis Assessment Notes Treatment Notes Treatment Clinical Notes 06/13/2023 Gastroesophageal ref lux disease, unspecified whether esophagitis present (ICD-10 - K21.9) 06/13/2023 Colitis (ICD-10 - K52.9) Colitis material was printed PLAN OF TREATMENT Medication Medication Name Sig Start Date Stop Date Notes Dicyclomine HCl 10 MG 1 tablet Orally 2-4 times a day 01/2023 Treatment Notes Assessment Notes Colitis Colitis material was printed Next Appt Details Follow Up: 1 Year, Reason: Provider Name:Gregorio morrell Jr, 06/24/2025 01:15:00 PM, [address] [place] [address], [address], [place], [address],
--- OUTSIDE RECORDS SUMMARY | 2024-08-27 15:24 | XMS_ITS | Continuity of Care Document ---
Author Organization [facility] [address] [place] [address] Phone [phone] Social History Type Date Description Comments Sex Unknown Medical Devices Description No Information Available Encounters Description No Information Available Assessments Description No Information Available Plan of Treatment No Information Available Functional Status Description No Information Available Mental Status Description No Information Available Referrals Description No Information Available
--- OUTSIDE RECORDS SUMMARY | 2024-08-27 15:24 | XMS_ITS | Clinical Summary ---
Author Organization [facility] Address [address] [place] [address] Care Team Providers Care Manager Cargo Name Role Phone LuisFinesse thompson Primary Care Provider Social History Tobacco Use Types Packs/Day Years Used Date Smoking Tobacco: Never Assessed Comments Unknown Sex and Gender Information Value Date Recorded Sex Assigned at Not on file Legal Sex Female 8:34 AM EDT Gender Identity Not on file Sexual Orientation Not on file Plan of Treatment Health Maintenance Due Date Last Done Comments Influenza Vaccine (#1) 2024 2, 04/18/2022, 05/02/2021, Additional history exists Pneumococcal Vaccine: 65+ Years Completed 11/27/2016, 11/27/2016, 06/07/2014, Additional history exists Hepatitis B Vaccine Aged Out No longe r eligible based on patient's age to complete this topic Insurance [facility] MCR Care Teams Manager Cargo Relationship Specialty Start Date End Date Finesse Smith DO [address] [place] [address] [place] PCP - General Internal Medicine 10/22/22
--- OUTSIDE RECORDS SUMMARY | 2024-08-27 15:24 | XMS_ITS ---
Author Organization [facility] Address [address] [place] [address] Care Team Providers Care Vice President Lending Name Role Phone Luis (RETIRED) Finesse GENAO Primary Care Provid er Unavailable Gregorio Arguelles Jr REASON FOR VISIT colitis,gerd Encounters Encounter Location Date Provider Diagnosis [facility] [address] [place] [address] 06/15/2024 Gregorio Arguelles Jr PLAN OF TREATMENT Next Appt Details Provider Name:Gregorio morrell Jr, 06/24/2025 01:15:00 PM, [address] [facility], [address], [place], [address],
--- OUTSIDE RECORDS SUMMARY | 2024-08-27 15:24 | XMS_ITS ---
Author Organization Finesse Smith DO, FAC Address [address] [place], [place] [id number] Care Team Providers Care Covered Buckle Assembler Name Role Phone Finesse Smith Primary Care Provider [phone] REASON FOR VISIT Refills MEDICATIONS Medication SIG (Take, Route, Frequency, Duration) Notes Start Date End Date Status Losartan Potassium 100 MG 1 tablet Orall y Once a day for 90 days Active SOCIAL HISTORY Sex Assigned At : Social History Observation Description Sex Assigned At Female Encounters Encounter Location Date Provider Diagnosis Finesse Smith DO, FACP [address] [place] [phone] 06/10/2024 Finesse Smith PLAN OF TREATMENT Medication Medication Name Sig Start Date Stop Date Notes Losartan Potassium 100 MG 1 tablet Orall y Once a day for 90 days
== END 2024-08-27 14:48 | disposition home or self-care (01) ==
PROVIDERS: PCP Internal Medicine; Visit Provider Surgery
DX: Z12.39 Encounter for other screening for malignant neoplasm of breast (principal); C50.911 Malignant neoplasm of unspecified site of right female breast
CPT/HCPCS: 99213; G2211

== ENCOUNTER → 2024-08-27 14:14 | Outpatient (BNVA) | payer MEDICARE, SELFPAY | PROVIDERS: PCP Internal Medicine; Visit Provider Surgery | DX: Z12.39 Encounter for other screening for malignant neoplasm of breast (principal); Z90.11 Acquired absence of right breast and nipple; Z92.3 Personal history of irradiation; Z92.21 Personal history of antineoplastic chemotherapy; Z85.3 Personal history of malignant neoplasm of breast | CPT/HCPCS: 99212 ==

== ENCOUNTER 2024-10-08 13:51 | Outpatient (AMB) | payer MEDICARE, SELFPAY ==
--- NOTE | 2024-10-08 13:57 | A.OFFVIS_ITS ---
Vital Signs 10/08/24 13:58 Height 4 ft 11 in Weight 137 lb 9.095 oz BMI 27.8 BP 170/82 H Blood Pressure Location Lt brachial Position Sitting Pulse 58 Pulse Source Pulse Oximeter Intake Visit Reasons: 6 mth f/up Printing Worker Supervisor Required: No Allergies Thiazides Adverse Reaction (Intermediate, Verified 10/08/24 14:00) Unknown meperidine [From Demerol] Adverse Reaction (Mild, Verified 10/08/24 14:00) NAUSEA/VOMITING Medication List - Last Reconciled 10/08/24 by Laly Patel, COMMERCIAL ATTORNEY-C amlodipine 2.5 mg PO DAILY aspirin 81 mg levothyroxine 50 mcg PO DAILY losartan 100 mg PO DAILY pantoprazole 40 mg PO DAILY propranolol 10 mg PO ONCE prosthetics right breast prosthetic [Right breast prosthetic As directed] [Right matectomy bras As directed] HPI HPI 6 mth f/up: Details: Shannan is a 79-year-old female with past medical history of hypertension, hyperlipidemia, mild carotid stenosis, coronary artery disease who presents for follow-up. Today she reports she has been very upset recently since her was just diagnosed with recurrent cancer. He is still being evaluated to see if this is a new cancer or metastatic disease. He has been losing weight and is not feeling well. This is causing her much emotional upset. Physically she has been feeling well with no chest discomfort at rest or with activity. She denies shortness of breath, palpitations, dizziness, presyncope, syncope, PND, orthopnea or edema. She has not been taking her blood pressure since she knows it is high. She has been taking her meds as directed. She tells me she was intolerant to the atorvastatin, with GI symptoms and is back on simvastatin. She tells me her PCP retired and she does not have an upcoming appointment. [facility] Medical History Esophageal reflux Anxiety Elevated cholesterol Hypothyroidism Lobular carcinoma of right breast CAD (coronary artery disease) Carotid bruit Hypertension Surgical History History of cholecystectomy H/O removal of cyst History of cardiac cath History of right mastectomy History of laparoscopic cholecystectomy History of right breast biopsy Hx of BSO (bilateral salpingo-oophorectomy) S/P NIKO (total abdominal hysterectomy) Family History Father Colon cancer Cancer Mother Diabetes Child No Financial Resp Cancer Sister Heart attack Son Non Hodgkin's lymphoma Social History Household Members: Spouse Housing: Condominium Do you presently have visiting nurse or other home services: No Alcohol intake: never Comment: patient rings appropriately Patient Tobacco Use Status: Never used Tobacco service: No Current occupational status: retired Review of Systems Const Details: upset, tearful at visit All systems reviewed & are unremarkable except as noted in HPI and below ENT Denies dizziness Card Denies chest pain, Denies chest pain at rest, Denies chest pain with activity, Denies rapid heart rate, Denies pedal edema, Denies edema, Denies leg edema, Denies lightheadedness, Denies palpitations, Denies dyspnea, Denies dyspnea on exertion and Denies orthopnea Resp Denies cough, Denies dyspnea and Denies dyspnea on exertion GI Denies hematochezia and Denies change in stool character Musc Denies abnormal gait, Denies limited range of motion, Denies muscle cramps, Denies muscle weakness, Denies numbness, Denies radiating pain into limb, Denies stiffness and Denies tingling Neuro Denies abnormal gait, Denies dizziness, Denies numbness and Denies tingling Endo Denies palpitations Physical Exam Vital Signs: Last Vital Signs Pulse 58 10/08/24 13:58 BP 170/82 H 10/08/24 13:58 BMI result Body Mass Index 27.8 Const Other: visably upset reporting has cancer General: cooperative, healthy appearing, comfortable and no acute distress Orientation/consciousness: patient oriented x3 Neck Neck: Yes normal visual inspection Resp Effort & Inspection: normal respiratory effort Auscultation: clear to auscultation bilaterally, no rales, no rhonchi and no wheezes Cardio Rate: regular rate Rhythm: regular rhythm Heart sounds: S1 normal heart sound present, S2 normal heart sound present, no murmurs and no rubs Neuro General: patient oriented x3 Extrem General: Yes normal to inspection and No no pedal edema Psych Appearance: grossly normal Mental Status: mental status grossly normal Speech and movement: Normal speech and movement present Assessment & Plan Assessment & Plan (1) Hypertension: Code(s): I10 - Essential (primary) hypertension Category: Medical Plan: Blood pressure Elevated at this visit. Has been elevated at prior visits as well. She is currently on low-dose amlodipine, losartan and propranolol reports compliance. She has been under high emotional stress recently. Will increase her amlodipine up to 5 mg daily. Continue losartan and propranolol at current doses. Low-salt diet reviewed. Discussed stress reduction activities. Cardiology follow-up in 1 month, sooner if needed.. (2) CAD (coronary artery disease): Comment: 40% proximal left anterior descending artery stenosis Code(s): I25.10 - Atherosclerotic heart disease of telida coronary artery without angina pectoris Category: Medical Plan: History of CAD with cardiac catheterization showing 40% lad stenosis, 11/2019. Condition stable with No report of anginal sounding symptoms. Continue with medical management for stable CAD including aspirin, simvastatin and propanolol. In the past she was on carvedilol, had dizziness and it was stopped. Signs and symptoms of angina reviewed. (3) History of cardiac cath: Comment: LAD 40% stenosis 12/04/2019 Code(s): Z98.890 - Other specified postprocedural states Category: Surgical Plan: As above (4) Carotid bruit: Comment: Right carotid bruit Code(s): R09.89 - Other specified symptoms and signs involving the circulatory and respiratory systems Category: Medical Plan: History of right carotid bruit. Carotid ultrasound done 06/28/2020 shows 0-49% right and left ICA stenosis. Continue statin and aspirin. (5) Emotional upset: Code(s): R45.89 - Other symptoms and signs involving emotional state Category: Medical Plan: As above. Offered my support and understanding. Plan Time spent on chart review, documentation, interview and assessment Medications: New amlodipine dose increased 5 mg PO DAILY 90 tabs 1RF simvastatin 40 mg PO BEDTIME Discontinued amlodipine Discontinued Reason: Doctor's Order 2.5 mg PO DAILY 60 tabs 3RF I10 - Essential (primary) hypertension Coding Level of Care Code Est Pt Level 4 (51176) Complex EM visit Add On G2211 Diagnoses Hypertension I10 CAD (coronary artery disease) I25.10 History of cardiac cath Z98.890 Carotid bruit R09.89 Emotional upset R45.89 Time Spent (min) 32
[2024-10-08 13:58] VITALS: BP 170/82; PULSE 58; BMI 27.8
--- OUTSIDE RECORDS SUMMARY | 2024-10-08 15:19 | XMS_ITS ---
Author Organization [facility] Address [address] [place] [address] Care Team Providers Care Lead Process Engineer Name Role Phone Finesse Smith MD Primary Care Provider Unavail Kika Mathias Unavailable [phone] REASON FOR VISIT Seen Sooner Medications Medication [...] Negative Encounters Encounter Location Date Provider Diagnosis [facility] [address] [place] [address] 12/11/2023 Kika Grande Plan Of Treatment No Information Progress Notes * ANDREW MikaelaAllenOB: [birth year] (79 yo F)Acc No.[id number]:12/11/2023 Progress Notes Patient:?Shannan MORALES Provider:?Kika Grande DPM :1945???Age:78 Y???Sex:Female D ate:12/11/2023 Address:[address] [place] [address], [place], [id number] Pcp:Finesse Smith MD Subjective: * Chief Complaints: [...] appointment provider. Sign off status: Pending * Provider:?iKka Grande DPM Date:?11/2023 Generated for Suzie garcia/Antonio/Teto on:?10/08/2024 03:19 PM EDT
--- OUTSIDE RECORDS SUMMARY | 2024-10-08 15:20 | XMS_ITS ---
Author Organization [facility] Address [address] [place] [address] Care Team Providers Care Billing And Accounting Staff Assistant Name Role Phone Luis (RETIRED) Finesse GENAO Primary Care Provid er Unavailable Gregorio Arguelles Jr Unavailable [phone] Allergies Allergen (clinical drug ingredient) Drug/Non Drug Allergy documented on EMR Reaction Allergy Type Onset Date Status meperidine Demerol Unknown Drug Allergy Active REASON FOR VISIT Patient presents today for gerd, h/o colitis Medications Medication SIG (Take, Route, Frequency, Duration) [...] Once a day for 30 day(s) Active Problems Problem Type SNOMED Code ICD Code Onset Dates Problem Status W/U Status Risk Notes Problem [id number] Colitis (K52.9) Active confirmed Vital Signs Temperature 97.2 degrees Fahrenheit 06/13/20 23 Blood pressure systolic 00 mm Hg 06/13/20 23 Blood pressure diastolic 00 mm Hg 023 Height 60 in 06/13/2023 Weight 134 lbs 06/13/2023 BMI 26.17 kg/m2 06/13/2023 Encounters Encounter Location Date Provider Diagnosis [facility] [address] [place] [address] 06/13/2023 Gregorio Arguelles Jr Gastroesophageal reflux disease, unspecified whether esophagitis present K21.9 and Colitis K52.9 Assessments Encounter Date Diagnosis (ICD Code) Assessment Notes Treatment Notes Treatment Clinical Notes Section Notes 06/13/2023 Gastroesophageal reflux disease, unspecified whether esophagitis present (ICD-10 - K21.9) At this time, she is doing well. She will continue pantoprazole for her reflux. We discussed diet, lifestyle modifications, and weight management regarding the treatment of reflux. For her lower abdominal symptoms would recommend a trial of dicyclomine. Followup in 12 months, sooner necessary. 06/13/2023 Colitis (ICD-10 - K52.9) Colitis material was printed At this time, she is doing well. She will continue pantoprazole for her reflux. We discussed diet, lifestyle modifications, and weight management regarding the treatment of reflux. For her lower abdominal symptoms would recommend a trial of dicyclomine. Followup in 12 months, sooner necessary. Plan Of Treatment Medication Medication Name Sig Start Date Stop Date Notes Dicyclomine HCl 10 MG 1 tablet Orally 2-4 times a day 01/2023 Treatment Notes Assessment Notes Colitis Colitis material was printed Next Appt Details Follow Up: 1 Year, Reason: Provider Name:Gregorio morrell Jr, 06/24/2025 01:15:00 PM, [address] [place] [address], [address], [place], [address], Progress Notes * RONALD SCHREIBER:[birth year] (78 yo M)Acc No.[id number]:06/13/2023 Progress Notes Patient:?RONALD SCHREIBER Provider:?Gregorio Arguelles MD :1945???Age:78 Y???Sex:Male Krishna e:06/13/2023 Address:[address] [place], [place] [id number] Pcp:Finesse Smith, DO Subjective: * Chief Complaints: * ???1. Patient presents today for gerd, h/o colitis. * HPI: ???New symptom(s):? The patient is a pleasant 78-year-old woman seen today in followup of gastroesophageal reflux disease and colitis. She was last seen in november of 2022 and since that time underwent colonoscopy which showed gastritis and a normal colonoscopy on endoscopic examination. Biopsies showed no H. pylori on the upper endoscopy and colon biopsy showed chronic and active colitis. She has not required treatment for this. She reports bowel movements are formed with no diarrhea. She continues on pantoprazole 40 mg daily. She does have some cramping in the lower abdomen which occurs bilaterally 2-3 times per week without any precipitating or relieving factors. There is no rectal bleeding. * Medical History:?Hypertensio n, Hypothyroidism, Elevated cholesterol, Anxiety, Esophageal reflux, Ischemic colitis 09/27, Upper endoscopy 12/28, gastritis, and no H. pylori, Colonoscopy 12/28, normal, biopsies inactive colitis. No treatment required. * Surgical History:?cyst remov al , cholecystectomy , right mastectomy , hysterectomy . * Family History:?Father: dece ased, colon or rectal cancer in his late 50's, diagnosed with Colon cancer.?Mother: , diagnosed with HTN (hypertension), Diabetes, Heart disease.?Daughter(s): rectal cancer.? * Social History:?Tobacco Use:?Tobacco Use/Smoking?Are you a: nonsmoker.?Drugs/Alcohol:?Alcohol Screen?Points: 0, Interpretation: Negative.?Miscellaneous:?Marital status: . Occupation: retired. * Medications:?Taking Aspir-Lo w 81 MG Tablet Delayed Release 1 tablet Orally Once a day, Taking Losartan Potassium-HCTZ 100-25 MG Tablet 1 tablet Orally Once a day, Taking Propranolol HCl 10 MG Tablet as directed Orally Twice a day, Taking Levothyroxine Sodium 50 MCG Tablet 1 tablet in the morning on an empty stomach Orally Once a day, Taking Simvastatin 40 MG Tablet 1 tablet in the evening Orally Once a day, Taking Pantoprazole Sodium 40mg , Discontinued MiraLax (colon prep) 17 GM/SCOOP Powder mixed with Gatorade or Crystal Light Orally begin at 5:00 p.m. the day before the procedure, Medication List reviewed and reconciled with the patient * Allergies:?Demerol. Objective: * Vitals:?Wt: 134 lbs, Ht: 60 in, BMI:26.17 Index, BP: 00/00 mm Hg, Temp: 97.2. * Examination: ???General Examination: ???On examination today, she appears well. Skin is anicteric. Lungs are clear. Heart shows a regular rate and rhythm. Abdomen is soft no focal masses or tenderness. Extremities are without edema. Assessment: * Assessment: 1.?Gastroesophageal reflux d isease, unspecified whether esophagitis present - K21.9 (Primary)?2.?Colitis - K52.9? At this time, she is doing w ell. She will continue pantoprazole for her reflux. We discussed diet, lifestyle modifications, and weight management regarding the treatment of reflux. For her lower abdominal symptoms would recommend a trial of dicyclomine. Followup in 12 months, sooner necessary. Plan: * Treatment: * Preventive Medicine:? ??Counseling:?Care goal follow-up plan:?Above Normal BMI Follow-up?Giving encouragement to exercise,?BMI management provided?Yes.? ??Urinary Incontinence:?Urinary Incontinence?Assessment:?Present,?Plan of care documented:?Yes,?Type of plan of care:?Lifestyle interventions.? * Follow Up:?1 Year * * Sign off status: Completed true * Provider:?Gregorio Arguelles MD Date:?1 08/14/2022 Generated for Suzie garcia/Antonio/eTransmitting on:?10/08/2024 03:20 PM EDT History and Physical Notes * HPI (History of Present Illness) Category Sub-Category Detail Notes Category Not es New symptom(s) The patient i s a pleasant 78-year-old woman seen today in followup of gastroesophageal reflux disease and colitis. She was last seen in november of 2022 and since that time underwent colonoscopy which showed gastritis and a normal colonoscopy on endoscopic examination. Biopsies showed no H. pylori on the upper endoscopy and colon biopsy showed chronic and active colitis. She has not required treatment for this. She reports bowel movements are formed with no diarrhea. She continues on pantoprazole 40 mg daily. She does have some cramping in the lower abdomen which occurs bilaterally 2-3 times per week without any precipitating or relieving factors. There is no rectal bleeding. Examination Category Sub-Category Detail Notes Category Not es General Examination On exami nation today, she appears well. Skin is anicteric. Lungs are clear. Heart shows a regular rate and rhythm. Abdomen is soft no focal masses or tenderness. Extremities are without edema.
--- OUTSIDE RECORDS SUMMARY | 2024-10-08 15:20 | XMS_ITS | Continuity of Care Document ---
Author Organization [facility] [address] [place] [address] Phone [phone] Social History Type Date Description Comments Sex Unknown Medical Devices Description No Information Available Encounters Description No Information Available Assessments Description No Information Available Plan of Treatment No Information Available Functional Status Description No Information Available Mental Status Description No Information Available Referrals Description No Information Available
--- OUTSIDE RECORDS SUMMARY | 2024-10-08 15:20 | XMS_ITS | Patient Health Record ---
Author Organization [facility] Address [address] [place] [address] Care Team Providers Care Poultry Slaughterer Name Role Phone Finesse Smith MD Primary Care Provider Unavail Kika Mathias Unavailable [phone] Allergies Allergen (clinical drug ingredient) Drug/Non Drug [...] 10/23/2023 Encounters Encounter Location Date Provider Diagnosis [facility] [address] [place] [address] 10/23/2023 Kika Grande Tinea unguium B35.1 ; [...] Date [employer] [place] [employer] Advantage [facility] [address] [place] [address] [phone] [id number] Shannan Stevens Self - patient is the insured Medical (General) History Medical History History ICD Code Anxiety CAD (Cholesterol) breast cancer Diverticulosis Gall bladder problems Heart disease High blood pressure nerve disorder Reflux ( GERD) Stomach ulcer thyroid Measles Mumps Chicken pox Transfusions Surgical History Surgery Date(Month/Year) Complete Hysterectomy 1979 Mastectomy 2008 Gall Bladder
--- OUTSIDE RECORDS SUMMARY | 2024-10-08 15:20 | XMS_ITS | Clinical Summary ---
Author Organization [facility] Facility Address [address] [place] [address] Care Team Providers Care Gang Drill Press Operator Name Role Phone LuisFinesse thompson Primary Care Provider [phone] Social History Tobacco Use Types Packs/Day Years Used Date Smoking Tobacco: Never Assessed Comments Unknown Sex and Gender Information Value Date Recorded Sex Assigned at Not on file Legal Sex Female 8:34 AM EDT Gender Identity Not on file Sexual Orientation Not on file Plan of Treatment Health Maintenance Due Date Last Done Comments Influenza Vaccine (Season Ended) 2025 04/18/2022, 04/18/2022, 05/02/2021, Additional history exists Pneumococcal Vaccine: 65+ Years Completed 11/27/2016, 11/27/2016, 06/07/2014, Additional history exists Hepatitis B Vaccine Aged Out No longe r eligible based on patient's age to complete this topic Insurance [facility] MCR Care Teams Gang Drill Press Operator Relationship Specialty Start Date End Date Finesse Smith DO [address] [place] [address] DC PCP - General Internal Medicine 10/22/22
--- OUTSIDE RECORDS SUMMARY | 2024-10-08 15:20 | XMS_ITS ---
Author Organization [facility] Address [address] [place] [address] Care Team Providers Care Forging Press Setter Up Name Role Phone Finesse Smith MD Primary Care Provider Kika Monaco Unavailable [phone] Allergies Allergen (clinical drug ingredient) Drug/Non Drug [...] 10/23/2023 Encounters Encounter Location Date Provider Diagnosis [facility] [address] [place] [address] 10/23/2023 Kika Grande Tinea unguium B35.1 ; [...] as necessary. Patient chooses, no pharmaceutical tx (32357) Progress Notes * Magda MORALESOB: [birth year] (79 yo F)Acc No.[id number]:10/23/2023 Progress Notes Patient:?Shannan MORALES Provider:?Kika Grande DPM :1945???Age:78 Y???Sex:Female D ate:10/23/2023 Address:[address] [place], [place] [id number] Pcp:Finesse Smith MD Subjective: * Chief Complaints: [...] as necessary. Patient chooses, no pharmaceutical tx (41197).? * Procedure Codes:?85873 DUARTE NIEVES NAIL, 1-5, Modifiers: XS * [...] Grande DPM Date:? Generated for Suzie garcia/Antonio/eTransmitting on:?10/08/2024 03:19 PM EDT History and Physical Notes * [...]
--- OUTSIDE RECORDS SUMMARY | 2024-10-08 15:20 | XMS_ITS ---
Author Organization [facility] Address [address] [place] [address] Care Team Providers Care Animal Care Supervisor Name Role Phone Lius (RETIRED) Finesse GENAO Primary Care Provid er Unavailable Gregorio Arguelles Jr Unavailable [phone] Allergies Allergen (clinical drug ingredient) Drug/Non Drug Allergy documented on EMR Reaction Allergy Type Onset Date Status meperidine Demerol Unknown Drug Allergy Active REASON FOR VISIT Patient presents today for colitis,gerd Medications Medication SIG (Take, Route, Frequency, Duration) [...] Once a day for 30 day(s) Active Immunizations Vaccine Route Administration Date Status Comme nts Influenza Unknown 06/22/2024 Refused Problems Problem Type SNOMED Code ICD Code Onset Dates Problem Status W/U Status Risk Notes Problem 045000464 Irritable bowel syndrome with diarrhea (K58.0) Active confirmed Vital Signs Temperature 96.9 degrees Fahrenheit 06/22/20 24 Blood pressure systolic 000 mm Hg 06/22/20 24 Blood pressure diastolic 00 mm Hg 024 Height 60 in 06/22/2024 Weight 136 lb 2 oz lbs 06/22/2024 BMI 26.58 kg/m2 06/22/2024 Encounters Encounter Location Date Provider Diagnosis [facility] [address] [place] [address] 06/22/2024 Gregorio Arguelles Jr Gastroesophageal reflux disease K21.9 and Irritable bowel syndrome with diarrhea K58.0 Assessments Encounter Date Diagnosis (ICD Code) Assessment Notes Treatment Notes Treatment Clinical Notes Section Notes 06/22/2024 Gastroesophageal reflux disease (ICD-10 - K21.9) Reflux symptoms are doing well on pantoprazole and she will continue this. We discussed diet, lifestyle modifications, and weight management regarding the treatment of reflux. Her diarrheal symptoms appear consistent with irritable bowel syndrome with diarrhea predominance. We discussed this today. We recommended she continue to use loperamide as needed and if her symptoms continue we will obtain stool specimens. Today's visit was 30 minutes. 06/22/2024 Irritable bowel syndrome with diarrhea (ICD-10 - K58.0) Reflux symptoms are doing well on pantoprazole and she will continue this. We discussed diet, lifestyle modifications, and weight management regarding the treatment of reflux. Her diarrheal symptoms appear consistent with irritable bowel syndrome with diarrhea predominance. We discussed this today. We recommended she continue to use loperamide as needed and if her symptoms continue we will obtain stool specimens. Today's visit was 30 minutes. Plan Of Treatment Medication Medication Name Sig Start Date Stop Date Notes Loperamide HCl 2 MG 1 capsule as needed Orally Four times a day for 30 days 06/22/2024 Next Appt Details Follow Up: 1 Year, Reason: Provider Name:Gregorio morrell Jr, 06/24/2025 01:15:00 PM, [address], [address], [place], [address], Progress Notes * RONALD SCHREIBER:[birth year] (79 yo M)Acc No.[id number]:06/22/2024 Progress Notes Patient:?RONALD SCHREIBER Provider:?Gregorio Arguelles MD :1945???Age:79 Y???Sex:Male Krishna e:06/22/2024 Address:[address] [place] [address], [id number] Pcp:Finesse Smith, DO Subjective: * Chief Complaints: * ???1. Patient presents today for colitis,gerd. * HPI: ???New symptom(s):? Lora is a pleasant 79-year-old woman seen today in followup of gastroesophageal reflux disease and inactive colitis. She reports her reflux symptoms are generally under good control on pantoprazole. She was prescribed dicyclomine at her last visit for some abdominal cramping which he found this didn't help her much and stopped it after a couple of weeks. She been under significant stress recently with her husbands illness. He had surgery for small bowel obstruction in May and was discharged home but had to be readmitted to the hospital yesterday with difficulty swallowing and weight loss. ?She reports some diarrheal symptoms in the beginning of the week which she attributes to stress. She's had no rectal bleeding. She has used loperamide in the past with good results when she's had this diarrhea. * Medical History:?Hypertensio n, Hypothyroidism, Elevated cholesterol, Anxiety, Esophageal reflux, Ischemic colitis 09/27, Upper endoscopy 12/28, gastritis, and no H. pylori, Colonoscopy 12/28, normal, biopsies inactive colitis. No treatment required. * Surgical History:?cyst remov al , cholecystectomy , right mastectomy , hysterectomy . * Family History:?Father: dece ased, colon or rectal cancer in his late 50's, diagnosed with Colon cancer.?Mother: , diagnosed with Diabetes, Heart disease, HTN (hypertension).?Daughter(s): rectal cancer.? Brother of liver cancer. * Social History:?Tobacco Use:?Tobacco Use/Smoking?Are you a: [...] a day, Taking Pantoprazole Sodium 40mg , Taking Losartan Potassium 100 MG Tablet Oral , Taking Atorvastatin Calcium 20 MG Tablet Oral , Taking amLODIPine Besylate 2.5 MG Tablet Oral , Discontinued Dicyclomine HCl 10 MG Capsule 1 tablet Orally 2-4 times a day, Medication List reviewed and reconciled with the patient * Allergies:?Demerol. Objective: * Vitals:?Wt: 136 lb 2 oz, Ht: 60 in, BMI:26.58 Index, BP: 000/00 mm Hg, Temp: 96.9. * Examination: ???General Examination: ???On examination today, she presents as a well-appearing female no acute distress. Skin is anicteric. Lungs are clear. Heart shows a regular rate and rhythm. Abdomen is soft without focal masses or tenderness. Extremities are without edema. Assessment: * Assessment: 1.?Gastroesophageal reflux d isease - K21.9 (Primary)?2.?Irritable bowel syndrome with diarrhea - K58.0? Reflux symptoms are doing we ll on pantoprazole and she will continue this. We discussed diet, lifestyle modifications, and weight management regarding the treatment of reflux. Her diarrheal symptoms appear consistent with irritable bowel syndrome with diarrhea predominance. We discussed this today. We recommended she continue to use loperamide as needed and if her symptoms continue we will obtain stool specimens. Today's visit was 30 minutes. Plan: * Treatment: * Immunizations:? Influenza (Not administered - Refused: Patient decision) * Procedure Codes:?G9903 Pt sc rn tbco id as non user, G9744 PATIENT NOT ELIG D/T ACTIVE DX HTN * Preventive Medicine:? ??Counseling:?Care goal follow-up plan:?Above Normal BMI Follow-up?Giving encouragement to exercise,?BMI management provided?Yes.? ??Urinary Incontinence:?Urinary Incontinence?Assessment:?Present,?Plan of care documented:?Yes,?Type of plan of care:?Lifestyle interventions.? ??Screenings:?Fall Risk Screening?Fall Risk Assessment:?No falls in the past year,?Screening:?No falls in the past year,?Assessment:?Not performed, no reason specified,?Plan of Care:?Not documented, no reason specified.? * Follow Up:?1 Year * * Sign off status: Completed true * Provider:?Gregorio Arguelles MD Date:?1 08/23/2023 Generated for Printi radha/Antonio/eTransmitting on:?10/08/2024 03:20 PM EDT History and Physical Notes * HPI (History of Present Illness) Category Sub-Category Detail Notes Category Not es New symptom(s) Lora is a pleasant 79-year-old woman seen today in followup of gastroesophageal reflux disease and inactive colitis. She reports her reflux symptoms are generally under good control on pantoprazole. She was prescribed dicyclomine at her last visit for some abdominal cramping which he found this didn't help her much and stopped it after a couple of weeks. She been under significant stress recently with her husbands illness. He had surgery for small bowel obstruction in May and was discharged home but had to be readmitted to the hospital yesterday with difficulty swallowing and weight loss. She reports some diarrheal symptoms in the beginning of the week which she attributes to stress. She's had no rectal bleeding. She has used loperamide in the past with good results when she's had this diarrhea. Examination Category Sub-Category Detail Notes Category Not es General Examination On exami nation today, she presents as a well-appearing female no acute distress. Skin is anicteric. Lungs are clear. Heart shows a regular rate and rhythm. Abdomen is soft without focal masses or tenderness. Extremities are without edema.
--- OUTSIDE RECORDS SUMMARY | 2024-10-08 15:20 | XMS_ITS | Patient Health Record ---
Author Organization [facility] Address [address] [place] [address] Care Team Providers Care Instructional Leader Name Role Phone Luis (RETIRED) Finesse GENAO Primary Care Provid er Unavailable Gregorio Arguelles Jr Unavailable [phone] Allergies Allergen (clinical drug ingredient) Drug/Non Drug Allergy documented on EMR Reaction Allergy Type Onset Date Status meperidine Demerol Unknown Drug Allergy Active Reason For Referral No [...] Potassium 100 MG Oral for 30 Active Immunizations Vaccine Route Administration Date Status Comme nts Influenza Unknown 05/29/2022 Administered Influenza Unknown 06/22/2024 Refused Problems Problem Type SNOMED Code ICD Code Onset Dates Problem Status W/U Status Risk Notes Problem 300133291 Colon cancer screening (Z12.11) Active confirmed Problem 365468836 Irritable bowel syndrome with diarrhea (K58.0) Active confirmed Problem Gastroesophageal reflux disease (319237819) Gastroesophageal reflux disease (K21.9) Active confirmed Problem 15621014 Colitis (K52.9) Active confirmed Problem 109328591 Gastroesophageal reflux disease, unspecified whether esophagitis present (K21.9) Active confirmed Vital Signs Temperature 96.9 degrees Fahrenheit 06/22/2024 Blood pressure diastolic 00 mm Hg 06/22/2024 Height 60 in 06/22/2024 Blood pressure systolic 000 mm Hg 06/22/2024 Weight 136 lb 2 oz lbs 06/22/2024 BMI 26.58 kg/m2 06/22/2024 Encounters Encounter Location Date Provider Diagnosis [facility] [address] [place] [address] 06/22/2024 Gregorio Arguelles Jr Gastroesophageal reflux disease K21.9 and Irritable bowel syndrome with diarrhea K58.0 Assessments Encounter Date Diagnosis (ICD Code) Assessment Notes Treatment Notes Treatment Clinical Notes Section Notes 06/22/2024 Irritable bowel syndrome with diarrhea [...] specimens. Today's visit was 30 minutes. 06/22/2024 Gastroesophageal reflux disease (ICD-10 - K21.9) [...] visit was 30 minutes. Plan Of Treatment Future Test Test Name Order Date UPPER GI ENDOSCOPY 11/19/2022 COLONOSCOPY 11/19/2022 Next Appt Details Provider Name:Gregorio morrell Jr, 06/24/2025 01:15:00 PM, [address], [address], [place], [address], Insurance Providers Payer Name Payer Address Payer Phone Subscriber Number Group Number Insured Name Patient Relationship to Insured Coverage Start Date Coverage End Date [facility] [address] [place] [phone] [id number] RONALD EASTON Self - patient is the insured Medical (General) History Medical History History ICD Code hypertension hypothyroidism elevated cholesterol anxiety esophageal reflux Ischemic colitis 09/27 Upper endoscopy 12/28, gastritis, and no H. pylori Colonoscopy 12/28, normal, biopsies inact abby colitis. No treatment required Surgical History Surgery Date(Month/Year) cyst removal cholecystectomy right mastectomy hysterectomy
--- OUTSIDE RECORDS SUMMARY | 2024-10-08 15:21 | XMS_ITS ---
Author Organization [facility] Address [address] [place] [address] Care Team Providers Care Brazer Furnace Name Role Phone Luis (RETIRED) Finesse GENAO Primary Care Provi Gregorio Rasheed Jr REASON FOR VISIT colitis,gerd Encounters Encounter Location Date Provider Diagnosis [facility] [address] [place] [address] 06/15/2024 Gregorio Arguelles Jr Plan Of Treatment Next Appt Details Provider Name:Gregorio morrell Jr, 06/24/2025 01:15:00 PM, [address], [address], [place], [address], Progress Notes * RONALD SCHREIBER:[birth year] (79 yo M)Acc No.[id number]:06/15/2024 Progress Notes Patient:?RONALD SCHREIBER Provider:?Gregorio Arguelles MD :1945???Age:79 Y???Sex:Male Krishna e:06/15/2024 Address:[address] [place] [address] Pcp:Finesse Smith (RETIRE D), DO Subjective: * Chief Complaints: * ???1. Colitis,gerd. * Medical History:? Objective: * Vitals:? Assessment: Plan: * Treatment: * * The named appointment provid er may or may not be the originator of this progress note, and it is not deemed complete until electronically signed by the appointment provider. Sign off status: Pending * Provider:?Gregorio Arguelles MD Date:?1 08/16/2023 Generated for Suzie garcia/Antonio/Teto on:?10/08/2024 03:20 PM EDT
== END 2024-10-08 14:34 | disposition home or self-care (01) ==
LOC: HO.HCS 13:52
PROVIDERS: PCP Internal Medicine; Visit Provider Nurse Practitioner Family
DX: I10 Essential (primary) hypertension (principal); I25.10 Atherosclerotic heart disease of native coronary artery without angina pectoris; Z98.890 Other specified postprocedural states; R09.89 Other specified symptoms and signs involving the circulatory and respiratory systems; R45.89 Other symptoms and signs involving emotional state
CPT/HCPCS: 99214; G2211

== ENCOUNTER → 2024-10-08 13:51 | Outpatient (BNVA) | payer MEDICARE, SELFPAY | PROVIDERS: PCP Internal Medicine; Visit Provider Nurse Practitioner Family | DX: I10 Essential (primary) hypertension (principal); I25.10 Atherosclerotic heart disease of native coronary artery without angina pectoris; E78.5 Hyperlipidemia, unspecified; R09.89 Other specified symptoms and signs involving the circulatory and respiratory systems; R45.89 Other symptoms and signs involving emotional state; Z98.890 Other specified postprocedural states | CPT/HCPCS: 99212 ==

== ENCOUNTER 2024-11-26 12:53 | Outpatient (REF) | payer MEDICARE, SELFPAY ==
--- OUTSIDE RECORDS SUMMARY | 2024-11-26 12:56 | XMS_ITS | Clinical Summary ---
Author Organization [facility] Facility Address [address] [place] [address] Care Team Providers Care Steward/Stewardess Economy Class Name Role Phone LuisFinesse thompson Primary Care Provider [phone] Social History Tobacco Use Types Packs/Day Years [...] 04/18/2022, 05/02/2021, Additional history exists Pneumococcal Vaccine: 50+ Years Completed 11/27/2016, 11/27/2016, 06/07/2014, Additional history exists Hepatitis B Vaccine Aged Out No longe r eligible based on patient's age to complete this topic Insurance [facility] MCR Care Teams Steward/Stewardess Economy Class Relationship Specialty Start Date End Date Finesse Smith DO [address] [place] [address] [place] PCP - General Internal Medicine 10/22/22
--- OUTSIDE RECORDS SUMMARY | 2024-11-26 12:56 | XMS_ITS | Continuity of Care Document ---
Author Organization [facility] [address] [place] [address] Phone [phone] Social History Type Date Description Comments Sex Unknown Medical Devices Description No Information Available Encounters Description No Information Available Assessments Description No Information Available Plan of Treatment No Information Available Functional Status Description No Information Available Mental Status Description No Information Available Referrals Description No Information Available
== END 2024-11-26 12:54 | disposition home or self-care (01) ==
LOC: HO.MAMMO 12:53
PROVIDERS: PCP Internal Medicine; Visit Provider Surgery
DX: Z12.31 Encounter for screening mammogram for malignant neoplasm of breast (principal)
CPT/HCPCS: 77063; 77067

== ENCOUNTER → 2024-11-26 13:15 | Outpatient (BNV) | payer MEDICARE, SELFPAY | PROVIDERS: PCP Internal Medicine; Visit Provider Internal Medicine | DX: Z12.31 Encounter for screening mammogram for malignant neoplasm of breast (principal) | CPT/HCPCS: 77063; 77067 ==

== ENCOUNTER 2025-01-26 10:57 | Outpatient (AMB) | payer MEDICARE, SELFPAY ==
--- NOTE | 2025-01-26 10:50 | MHC.PC.OV ---
Intake Visit Reasons: follow up Lab Aide Required: No Accompanied by: Self / Same As Patient Allergies Thiazides Adverse Reaction (Intermediate, Verified 01/26/25 11:25) Unknown meperidine (From Demerol) Adverse Reaction (Mild, Verified 01/26/25 11:25) NAUSEA/VOMITING Medication List - Last Reconciled 01/26/25 by Mireille Healy PA-C amlodipine 5 mg PO DAILY aspirin 81 mg levothyroxine 50 mcg PO DAILY losartan 100 mg PO DAILY pantoprazole 40 mg PO DAILY propranolol 10 mg PO ONCE prosthetics right breast prosthetic [Right breast prosthetic As directed] [Right matectomy bras As directed] simvastatin 40 mg PO BEDTIME Tobacco use date assessed: 01/26/25 Fall risk assessment: No Falls in past year Last assessed Fall Risk: 01/26/25 Dental Screening Dental Screen Date: 01/26/25 Did you have a dental visit in the last 12 months?: Yes Did you have a dental problem in the last 6 months where you did not have access to dental care?: No Was dental information given to patient?: Patient has dentist HPI follow up HPI Details The patient is a 79-year-old female presenting for a telehealth follow-up appointment to establish a new primary care provider as her primary Dr. Smith retired in July to review her current medications and discuss her cardiovascular and cholesterol management. The patient has a history of coronary artery disease, identified through a cardiac catheterization performed in [place], which revealed a blockage in one artery. She is currently on aspirin as a preventative measure for this condition. The patient has a history of hypertension, which she monitors based on how she feels rather than regular blood pressure checks. Her blood pressure was noted to be elevated recently, possibly due to stress related to her 's hospice care. She has been diagnosed with hypothyroidism and is on levothyroxine 50 mcg daily. The patient has a history of breast cancer, for which she underwent a right mastectomy and now uses a right breast prosthetic. She was previously on atorvastatin for hyperlipidemia but discontinued it due to gastrointestinal discomfort. She is considering resuming simvastatin 40 mg, which she tolerated better. Preventative care measures include a recent mammogram in November 2024, which was normal, and a colonoscopy in December 2022. Social History - Family status: Patient's is on hospice care, impacting her ability to attend in-person appointments. PFSH Medical History Preventative health care Dual energy x-ray photon absorptiometry (DEXA) scan declined MDD (major depressive disorder) Pure hypercholesterolemia, unspecified Hyperlipidemia LDL goal <100 History of mammogram (~11/26/24) History of right breast cancer IBS (irritable bowel syndrome) Establishing care with new doctor, encounter for Esophageal reflux Anxiety Elevated cholesterol Hypothyroidism Lobular carcinoma of right breast CAD (coronary artery disease) Carotid bruit Hypertension Surgical History History of colonoscopy (~12/25/22) History of cholecystectomy H/O removal of cyst History of cardiac cath History of right mastectomy History of laparoscopic cholecystectomy History of right breast biopsy Hx of BSO (bilateral salpingo-oophorectomy) S/P NIKO (total abdominal hysterectomy) Family History Father Colon cancer Cancer Mother Diabetes Child No Financial Resp Cancer Sister Heart attack Son Non Hodgkin's lymphoma Social History Household Members: Spouse Housing: Condominium Do you presently have visiting nurse or other home services: No Alcohol intake: never Comment: patient rings appropriately Patient Tobacco Use Status: Never used Tobacco service: No Current occupational status: retired Cognitive needs: No Hearing needs: No Vision needs: No Questionnaire PHQ-9 Over the last 2 weeks, how often have you been bothered by any of the following problems? 1. Little interest or pleasure in doing things: not at all 2. Feeling down, depressed, or hopeless: not at all 3. Trouble falling or staying asleep, or sleeping too much: not at all 4. Feeling tired or having little energy: not at all 5. Poor appetite or overeating: not at all 6. Feeling bad about yourself - or that you are a failure or have let yourself or your family down: not at all 7. Trouble concentrating on things, such as reading the newspaper or watching television: not at all 8. Moving or speaking so slowly that other people could have noticed. Or the opposite - being so fidgety or restless that you have been moving around a lot more than usual: not at all 9. Thoughts that you would be better off or of hurting yourself in some way: not at all Total score: 0 Depression Screening Interpretation: Negative Depression Screening Done: Yes 97809 - PHQ-9 Billing: Yes Source: Developed by Drs. Finesse Woodard, Sarah Pemberton, Koffi Ayala and colleagues, with an educational krishan from [employer]. Thrive Questionnaire Date Thrive assessed: 01/26/25 I am a: Patient What is your living situation today?: I have a steady place to live Within the past 12 months, did the food you bought not last and you didn't have the money to get more?: Never true Within the past 12 months, did you worry whether your food would run out before you got money to buy more?: Never true Do you have trouble paying for medicines?: No Do you have trouble getting transportation to medical appointments?: No Do you have trouble paying your heating and electricity bill?: No Do you have trouble taking care of your child, family member or friend?: No Do you have trouble with day-to-day activities such as bathing, preparing meals, shopping, managing finances, etc.?: No Are you currently unemployed and looking for a job?: No Are you interested in more education?: No Please select the resources that you would like help with: None Currently or been in a relationship where the following occur: No concerns reported THRIVE Score: 0 AUDIT C Alcohol Use Questionnaire (AUDIT-C) 1. How often do you have a drink containing alcohol?: Never 3. How often do you have six or more drinks on one occasion?: Never Total Score: 0 Score Reviewed/Action Taken: No ITALO-7 AMB Questionnaire ITALO-7 Date ITALO - 7 assessed: 01/26/25 Feeling nervous, anxious, or on edge: 0 = Not at all Not being able to stop or control worryin = Not at all Worrying too much about different things: 0 = Not at all Trouble relaxin = Not at all Being so restless that it is hard to sit still: 0 = Not at all Becoming easily annoyed or irritable: 0 = Not at all Feeling afraid as if something awful might happen: 0 = Not at all Total ITALO-7 score (0-4 normal; 5-9 mild; 10-14 moderate; 15-21 severe): 0 Source: Developed by Drs. Finesse Woodard, Sarah Pemberton, Koffi Ayala and colleagues, with an educational krishan from [employer]. ITALO-7 Assessment Billing ITALO-7 Assessment Tool: ITALO-7 Assessment 21344 Review of Systems Const Details: - Cardiovascular: Reports elevated blood pressure, denies regular monitoring. - Gastrointestinal: Reports gastrointestinal discomfort with atorvastatin. Physical exam (Primary Care) Tobacco/Smoking Status: Tobacco use Status Tobacco use date assessed 01/26/25 01/26/25 10:56 Patient Tobacco Use Status Never used Tobacco 01/26/25 10:56 PHQ-9: PHQ-9 Score PHQ-9: Total score 0 01/26/25 10:56 Depression Screening Interpretation: Negative Thrive Assessment: Date of Thrive Assessment Date Thrive assessed 01/26/25 01/26/25 10:56 Currently or been in a relationship where the following occur: No concerns reported Telehealth Telehealth Telehealth Platform: [employer] Location of provider rendering services: practice address Location of patient: address on file Patient Identification confirmed using: Name, : Yes Telehealth method: voice only Patient verbally consented to treatment: Yes Patient verbally consented to billing insurance company: Yes Patient informed of any privacy concerns related to visit: Yes Minutes spent on Phone/Video with Pt.: 20 Results Reviewed Results Reviewed: - Cardiac catheterization: Revealed arterial blockage. - Mammogram (November 2024): Normal results. - Colonoscopy (December 2022): Completed, no abnormalities noted. Coding Level of Care Code Tele New Pt Level 5 (61691) Complex EM visit Add On G2211 Diagnoses Establishing care with new doctor, encounter for Z CAD (coronary artery disease) I25.10 Essential hypertension I10 Pure hypercholesterolemia, unspecified E78.00 Preventative health care Z00.00 Hypothyroidism E03.9 Additional Codes PHQ-9 - 01091 - PHQ-9 Billing: Yes ([id number]) ITALO-7 Assessment Billing - ITALO-7 Assessment Tool: ITALO-7 Assessment 45431 ([id number]) Assessment & Plan Assessment & Plan (1) Establishing care with new doctor, encounter for: Code(s): Z76.89 - Persons encountering health services in other specified circumstances Category: Medical (2) CAD (coronary artery disease): Comment: 40% proximal left anterior descending artery stenosis Code(s): I25.10 - Atherosclerotic heart disease of [place] coronary artery without angina pectoris Category: Medical Plan: The patient is advised to continue aspirin therapy as a preventative measure for coronary artery disease due to the identified arterial blockage. Patient to continue aspirin 81 mg daily. Condition is chronic and stable continue to monitor. (3) Essential hypertension: Code(s): I10 - Essential (primary) hypertension Category: Medical Plan: The patient is encouraged to monitor her blood pressure regularly at home, especially given recent elevations possibly related to stress. Patient to continue amlodipine 5 mg daily, aspirin 81 mg daily, losartan 100 mg daily and propranolol 10 mg daily. Condition is chronic and stable continue to monitor. (4) Pure hypercholesterolemia, unspecified: Code(s): E78.00 - Pure hypercholesterolemia, unspecified Category: Medical Plan: The patient is considering resuming simvastatin 40 mg due to intolerance to atorvastatin, and a prescription will be sent to the pharmacy. Condition is chronic and stable continue to monitor. (5) Preventative health care: Code(s): Z00.00 - Encounter for general adult medical examination without abnormal findings Category: Medical Plan: The patient is advised to complete blood work when possible and to schedule regular screenings, including mammograms and colonoscopies, as part of her preventative care regimen. (6) Hypothyroidism: Code(s): E03.9 - Hypothyroidism, unspecified Category: Medical Plan: Patient currently on levothyroxine 50 mcg daily. Condition is chronic and stable continue to monitor. Plan Plan Patient was informed and verbally consented to the use of an ambient scribe for clinic note documentation during this visit. 1. Coronary Artery Disease The patient is advised to continue aspirin therapy as a preventative measure for coronary artery disease due to the identified arterial blockage. 2. Hypertension The patient is encouraged to monitor her blood pressure regularly at home, especially given recent elevations possibly related to stress. 3. Hyperlipidemia The patient is considering resuming simvastatin 40 mg due to intolerance to atorvastatin, and a prescription will be sent to the pharmacy. 4. Preventative Care The patient is advised to complete blood work when possible and to schedule regular screenings, including mammograms and colonoscopies, as part of her preventative care regimen. During the telehealth visit, we discussed the importance of continuing aspirin therapy for coronary artery disease and the need for regular blood pressure monitoring due to recent elevations. We also addressed the patient's intolerance to atorvastatin and the plan to resume simvastatin. Preventative care measures, including scheduling blood work and regular screenings, were emphasized. Orders: Orders C Reactive Protein Today Z00.00 - Encounter for general adult medical examination without abnormal findings Complete Blood Count Auto Diff Today Z00.00 - Encounter for general adult medical examination without abnormal findings Hemoglobin A1c Today Z00.00 - Encounter for general adult medical examination without abnormal findings TSH reflex Free T4 Today Z00.00 - Encounter for general adult medical examination without abnormal findings Comprehensive [place]. Panel Fast Today Z00.00 - Encounter for general adult medical examination without abnormal findings Lipid Panel Today Z00.00 - Encounter for general adult medical examination without abnormal findings Magnesium Today Z00.00 - Encounter for general adult medical examination without abnormal findings Liver Panel Today Z00.00 - Encounter for general adult medical examination without abnormal findings Vitamin B12 and Folate Today Z00.00 - Encounter for general adult medical examination without abnormal findings Vitamin D 25-OH Total Today Z00.00 - Encounter for general adult medical examination without abnormal findings Medications: New simvastatin 40 mg PO BEDTIME 90 tabs 3RF Patient Instructions: - Continue taking aspirin as prescribed for heart health. - Monitor blood pressure regularly at home. - Resume simvastatin 40 mg as previously tolerated. - Schedule and complete blood work when possible, ensuring to fast beforehand. - Maintain regular screenings, including mammograms and colonoscopies.
--- OUTSIDE RECORDS SUMMARY | 2025-01-26 12:12 | XMS_ITS | Clinical Summary ---
Author Organization [facility] Facility Address [address] [place] [address] Care Team Providers Care Pneumatic Tool Operator Name Role Phone LuisFinesse thompson Primary [...] Date Last Done Comments Influenza Vaccine (#1) 2025 2, 04/18/2022, 05/02/2021, Additional history exists Pneumococcal Vaccine: 50+ Years Completed 11/27/2016, 11/27/2016, 06/07/2014, Additional history exists Hepatitis B Vaccine Aged Out No longe r eligible based on patient's age to complete this topic Insurance [facility] MCR Care Teams Pneumatic Tool Operator Relationship Specialty Start Date End Date Finesse Smith DO [address] [place] [address] [place] PCP - General Internal Medicine 10/22/22
--- OUTSIDE RECORDS SUMMARY | 2025-01-26 12:12 | XMS_ITS | Continuity of Care Document ---
Author Organization [facility] [address] [facility] [address] [place] [address] Phone [phone] Social History Type Date Description Comments Sex Female Sex Unknown Medical Devices Description No Information Available Encounters Description No Information Available Assessments Description No Information Available Plan of Treatment No Information Available Functional Status Description No Information Available Mental Status Description No Information Available Referrals Description No Information Available
== END 2025-01-26 11:29 | disposition home or self-care (01) ==
LOC: HO.HMCSH 10:57
PROVIDERS: PCP Internal Medicine; Visit Provider Physician Assistant Medical
DX: I25.10 Atherosclerotic heart disease of native coronary artery without angina pectoris (principal); I10 Essential (primary) hypertension; E78.00 Pure hypercholesterolemia, unspecified; E03.9 Hypothyroidism, unspecified

== ENCOUNTER → 2025-01-26 10:57 | Outpatient (BNVA) | payer MEDICARE, SELFPAY | PROVIDERS: PCP Internal Medicine; Visit Provider Physician Assistant Medical | DX: Z00.00 Encounter for general adult medical examination without abnormal findings (principal); I25.10 Atherosclerotic heart disease of native coronary artery without angina pectoris; I10 Essential (primary) hypertension; E03.9 Hypothyroidism, unspecified; E78.5 Hyperlipidemia, unspecified; E78.00 Pure hypercholesterolemia, unspecified; Z85.3 Personal history of malignant neoplasm of breast; Z90.11 Acquired absence of right breast and nipple; Z76.89 Persons encountering health services in other specified circumstances; Z79.899 Other long term (current) drug therapy | CPT/HCPCS: 96127; 99202 ==

== ENCOUNTER 2025-04-27 13:24 | Outpatient (AMB) | payer MEDICARE, SELFPAY ==
--- NOTE | 2025-04-27 13:40 | MHC.OFFVIS ---
Vital Signs 04/27/25 13:41 Height 4 ft 11 in Weight 133 lb 2.547 oz BMI 26.9 BP 162/80 H Blood Pressure Location Lt brachial Position Sitting Pulse 59 Pulse Source Monitor Intake Visit Reasons: 6m follow up Compressor House Operator Required: No Allergies Thiazides Adverse Reaction (Intermediate, Verified 04/27/25 13:43) Unknown meperidine (From Demerol) Adverse Reaction (Mild, Verified 04/27/25 13:43) NAUSEA/VOMITING Medication List - Last Reconciled 04/27/25 by Laly Patel NP-C amlodipine 5 mg PO DAILY aspirin 81 mg levothyroxine 50 mcg PO DAILY losartan 100 mg PO DAILY pantoprazole 40 mg PO DAILY propranolol 10 mg PO ONCE prosthetics right breast prosthetic [Right breast prosthetic As directed] [Right matectomy bras As directed] simvastatin 40 mg PO BEDTIME HPI HPI 6m follow up: Details: Shannan is a 80-year-old female with past medical history of hypertension, hyperlipidemia, mild carotid stenosis, coronary artery disease who presents for follow-up. Today she reports that her on April 03. She is still busy dealing with things that need to be done. Her stress level remains high but she says she is more relaxed now that he is at peace. She has no chest discomfort at rest or during activity. She denies shortness of breath, palpitations, dizziness, presyncope, syncope, PND, orthopnea or edema. She has not been taking her blood pressure at home and finds it between 130 and 140 systolic. She says it goes higher when she comes to the office due to anxiety. She previously was intolerant to the atorvastatin, with GI symptoms and is tolerating the simvastatin. She wants to try walking routinely for exercise. [facility] Medical History Preventative health care Dual energy x-ray photon absorptiometry (DEXA) scan declined MDD (major depressive disorder) Pure hypercholesterolemia, unspecified Hyperlipidemia LDL goal <100 History of mammogram (~11/26/24) History of right breast cancer IBS (irritable bowel syndrome) Establishing care with new doctor, encounter for Esophageal reflux Anxiety Elevated cholesterol Hypothyroidism Lobular carcinoma of right breast CAD (coronary artery disease) Carotid bruit Hypertension Surgical History History of colonoscopy (~12/25/22) History of cholecystectomy H/O removal of cyst History of cardiac cath History of right mastectomy History of laparoscopic cholecystectomy History of right breast biopsy Hx of BSO (bilateral salpingo-oophorectomy) S/P NIKO (total abdominal hysterectomy) Family History Father Colon cancer Cancer Mother Diabetes Child No Financial Resp Cancer Sister Heart attack Son Non Hodgkin's lymphoma Social History Household Members: Sp[facility] Do you presently have visiting nurse or other home services: No Alcohol intake: never Comment: patient rings appropriately Patient Tobacco Use Status: Never used Tobacco service: No Current occupational status: retired Cognitive needs: No Hearing needs: No Vision needs: No Review of Systems Const All systems reviewed & are unremarkable except as noted in HPI and below ENT Denies dizziness Card Denies chest pain, Denies chest pain at rest, Denies chest pain with activity, Denies rapid heart rate, Denies pedal edema, Denies edema, Denies leg edema, Denies lightheadedness, Denies palpitations, Denies dyspnea, Denies dyspnea on exertion and Denies orthopnea Resp Denies cough, Denies dyspnea and Denies dyspnea on exertion GI Denies hematochezia and Denies change in stool character Musc Denies abnormal gait, Denies limited range of motion, Denies muscle cramps, Denies muscle weakness, Denies numbness, Denies radiating pain into limb, Denies stiffness and Denies tingling Neuro Denies abnormal gait, Denies dizziness, Denies numbness and Denies tingling Endo Denies palpitations Physical Exam Vital Signs: Last Vital Signs Pulse 59 04/27/25 13:41 BP 162/80 H 04/27/25 13:41 BMI result Body Mass Index 26.9 Const General: cooperative, healthy appearing, comfortable and no acute distress Orientation/consciousness: patient oriented x3 Neck Neck: Yes normal visual inspection and Yes no JVD Resp Effort & Inspection: normal respiratory effort Auscultation: clear to auscultation bilaterally, no rales, no rhonchi and no wheezes Cardio Rate: regular rate Rhythm: regular rhythm Heart sounds: S1 normal heart sound present, S2 normal heart sound present, no gallops, no murmurs and no rubs Neuro General: patient oriented x3 Extrem General: Yes normal to inspection and No no pedal edema Psych Appearance: grossly normal Mental Status: mental status grossly normal Speech and movement: Normal speech and movement present Office Procedures EKG Details: Today, read by me, sinus bradycardia, rate 59, low-voltage QRS, QTC 415 milliseconds [id number], Complete Assessment & Plan Assessment & Plan (1) Hypertension: Code(s): I10 - Essential (primary) hypertension Category: Medical Plan: Blood pressure goal less than 130/80. Blood pressure elevated in the office today however home blood pressures reported as 130-140 systolic. Recheck done by me later in the visit 144/66 which is acceptable. Will have her continue amlodipine, losartan, propranolol. Discussed low-salt diet and stress reduction activities. Cardiology follow-up 6 months, sooner if needed. (2) CAD (coronary artery disease): Comment: 40% proximal left anterior descending artery stenosis Code(s): I25.10 - Atherosclerotic heart disease of [place] coronary artery without angina pectoris Category: Medical Plan: History of CAD with cardiac catheterization 11/2019 showing 40% lad stenosis. Condition stable with No report of anginal sounding symptoms. EKG done today showing sinus bradycardia with no acute ST or T-wave abnormalities. Continue with medical management for stable CAD including aspirin, simvastatin and propanolol. In the past she was on carvedilol, had dizziness and it was stopped. Signs and symptoms of angina reviewed. (3) History of cardiac cath: Comment: LAD 40% stenosis 12/04/2019 Code(s): Z98.890 - Other specified postprocedural states Category: Surgical Plan: As above (4) Carotid bruit: Comment: Right carotid bruit Code(s): R09.89 - Other specified symptoms and signs involving the circulatory and respiratory systems Category: Medical Plan: History of right carotid bruit. Carotid ultrasound done 06/28/2020 shows 0-49% right and left ICA stenosis. Continue statin and aspirin. She is due for labs and was reminded of this. (5) Emotional upset: Code(s): R45.89 - Other symptoms and signs involving emotional state Category: Medical Plan: Recent loss of her , currently grieving. Offered my support and understanding. Plan I discussed with the patient the importance of monitoring her blood pressure at home and maintaining a low-salt diet to manage her hypertension. We also talked about the need to increase physical activity and to be vigilant for any symptoms of chest discomfort or changes in breathing. I advised her to seek support for her grief and stress management following her 's recent passing. Patient Instructions: - Monitor blood pressure at home and report any significant changes. - Continue with a low-salt diet and increase physical activity as tolerated. - Seek support for grief management and stress reduction. - Follow-up in six months or sooner if symptoms develop. Patient was informed and verbally consented to the use of an ambient scribe for clinic note documentation during this visit. Visit time spent on chart review, interview, assessment, orders, documentation. Coding Level of Care Code Est Pt Level 4 (27602) Complex EM visit Add On G2211 Diagnoses Hypertension I10 CAD (coronary artery disease) I25.10 History of cardiac cath Z98.890 Carotid bruit R09.89 Emotional upset R45.89 CPT Codes EKG - CPT: [id number], Complete ([id number]) Time Spent (min) 30
[2025-04-27 13:41] VITALS: BP 162/80; PULSE 59; BMI 26.9
== END 2025-04-27 14:10 | disposition home or self-care (01) ==
LOC: HO.HCS 13:25
PROVIDERS: PCP Internal Medicine; Visit Provider Nurse Practitioner Family
DX: I10 Essential (primary) hypertension (principal); I25.10 Atherosclerotic heart disease of native coronary artery without angina pectoris; Z98.890 Other specified postprocedural states; R09.89 Other specified symptoms and signs involving the circulatory and respiratory systems; R45.89 Other symptoms and signs involving emotional state
CPT/HCPCS: 93010; 99214; G2211

== ENCOUNTER → 2025-04-27 13:24 | Outpatient (BNVA) | payer MEDICARE, SELFPAY | PROVIDERS: PCP Internal Medicine; Visit Provider Nurse Practitioner Family | DX: I10 Essential (primary) hypertension (principal); I25.10 Atherosclerotic heart disease of native coronary artery without angina pectoris; R45.89 Other symptoms and signs involving emotional state; R09.89 Other specified symptoms and signs involving the circulatory and respiratory systems; Z98.890 Other specified postprocedural states | CPT/HCPCS: 93005; 99212 ==

== ENCOUNTER 2025-05-03 09:17 | Outpatient (REF) | payer MEDICARE, SELFPAY ==
--- OUTSIDE RECORDS SUMMARY | 2025-05-03 10:14 | XMS_ITS | Clinical Summary ---
Author Organization [facility] Facility Address [address] [place] [address] Care Team Providers Care Break And Load Operator Name Role Phone LuisFinesse thompson Primary [...] patient's age to complete this topic Insurance [facility] MCR Care Teams Break And Load Operator Relationship Specialty Start Date End Date Finesse Smith DO [address] [place] [address] [place] PCP - General Internal Medicine 10/22/22
--- OUTSIDE RECORDS SUMMARY | 2025-05-03 10:14 | XMS_ITS | Continuity of Care Document ---
Author Organization [facility] [address] [place] [address] Phone [phone] Social History Type Date Description Comments Sex Female Sex Unknown Medical Devices Description No Information Available Encounters Description No Information Available Assessments Description No Information Available Plan of Treatment No Information Available Functional Status Description No Information Available Mental Status Description No Information Available Referrals Description No Information Available
[2025-05-03 10:27] LABS: MANUAL DIFF FLAG NO
[2025-05-03 10:46] LABS: Hematocrit 45.1 % (37.0-47.0); Hemoglobin 14.5 g/dl (12.0-16.0); Imm Gran Abs Auto 0.02 X10*3/uL (0.00-0.03); Imm Gran Pct Auto 0.2 % (0.0-0.4); Lymphocytes Absolute Auto 2.3 X10*3/uL (1.2-4.9); Mean Corpuscular HGB Conc 32.2 g/dl (31.0-35.0); Mean Corpuscular Hemoglobin 30.0 pg (27.0-33.0); Mean Corpuscular Volume 93.2 fL (80.0-98.0); NRBC Abs Auto 0.000 X10*3/uL (0.0-0.012); NRBC Pct Auto 0.0 /100WBC (0.0-0.2); Platelet Count 279 X10*3/uL (160-400); Red Blood Count 4.84 X10*6/uL (4.20-5.50); White Blood Count 8.2 X10*3/uL (4.8-10.8)
[2025-05-03 11:32] LABS: Alanine Aminotransferase 17 U/L (0-31); Albumin Level 4.8 g/dL (3.5-5.0); Alkaline Phosphatase 78 U/L (39-117); Anion Gap 14 (12-20); Aspartate Amino Transferase 28 U/L (5-31); Blood Urea Nitrogen 25 mg/dL (9-16); Calcium 9.6 mg/dL (8.4-10.2); Carbon Dioxide 27 mmol/L (22-29); Chloride 106 mmol/L (96-108); Cholesterol 142 mg/dL (<200); Estimated Glomerular Filt Rate 53; HDL Cholesterol 54 mg/dL (>40); Magnesium 2.1 mg/dL (1.6-2.6); Potassium 3.5 mmol/L (3.3-5.1); Sodium 143 mmol/L (135-145); Total Protein 7.8 g/dL (6.5-8.0); Triglycerides 158 mg/dL (<150)
[2025-05-03 11:47] LABS: Folate 12.5 ng/mL (> or = 4.0); Vitamin B12 452 pg/mL (200-900)
== END 2025-05-03 09:18 | disposition home or self-care (01) ==
LOC: HO.HMGCLDS 09:17
PROVIDERS: PCP Physician Assistant Medical; Visit Provider Physician Assistant Medical
DX: Z00.00 Encounter for general adult medical examination without abnormal findings (principal); Z13.29 Encounter for screening for other suspected endocrine disorder; Z13.1 Encounter for screening for diabetes mellitus; Z13.6 Encounter for screening for cardiovascular disorders
CPT/HCPCS: 36415; 80053; 80061; 80076; 82248; 82306; 82607; 82746; 83036; 83735; 84443; 85025; 86140

== ENCOUNTER 2025-05-10 14:19 | Outpatient (AMB) | payer MEDICARE, SELFPAY ==
--- NOTE | 2025-05-10 14:22 | MHC.PC.OV ---
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: No Accompanied by: Self / Same As Patient Allergies Thiazides Adverse Reaction (Intermediate, Verified 05/10/25 14:51) Unknown meperidine (From Demerol) Adverse Reaction (Mild, Verified 05/10/25 14:51) NAUSEA/VOMITING Medication List - Last Reconciled 05/10/25 by Mireille Healy PA-C amlodipine 5 mg PO DAILY aspirin 81 mg levothyroxine 50 mcg PO DAILY lorazepam 0.5 mg PO BEDTIME PRN losartan 100 mg PO DAILY pantoprazole 40 mg PO DAILY propranolol 10 mg PO ONCE prosthetics right breast prosthetic [Right breast prosthetic As directed] [Right matectomy bras As directed] simvastatin 40 mg PO BEDTIME Tobacco use date assessed: 01/26/25 Fall risk assessment: No Falls in past year Last assessed Fall Risk: 05/10/25 Dental Screening Dental Screen Date: 05/10/25 Did you have a dental visit in the last 12 months?: No Did you have a dental problem in the last 6 months where you did not have access to dental care?: No Was dental information given to patient?: Patient has dentist HPI follow up HPI Details The patient is a 80-year-old female presenting for a follow-up visit. She has been experiencing insomnia, specifically difficulty falling asleep, following the recent of her at the end of March. 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 Her blood pressure was elevated during the visit, which she attributes to stress and a tendency for it to be high in medical settings. She reports that her blood pressure readings are normal at home. Her current medications for hypertension include amlodipine 5 mg and losartan 100 mg daily, which she took today. Past medical history is significant for osteopenia in her left leg. Review of recent blood work from 05/03/2025 revealed chronic kidney disease with a GFR of 53, prediabetes with a hemoglobin A1c of 6.1, high triglycerides, and low vitamin D. Her last mammogram was in November 2024, and her colonoscopy in 2022 showed gastritis and a normal colon. She reports having used Ativan in the past for anxiety. Social History - The patient's at the end of March; she was his caregiver while he was on hospice over the summer. - She has family support, and her son plans to move in with her. - She reports significant current stress related to managing her late 's affairs, including social security and banking. [facility] Medical History (Updated 05/10/25 @ 15:15 by Mireille Healy PA-C) Osteopenia CKD (chronic kidney disease) Hypertriglyceridemia Vitamin D deficiency Prediabetes [facility] care Dual energy x-ray photon absorptiometry (DEXA) scan declined MDD (major depressive disorder) Pure hypercholesterolemia, unspecified Hyperlipidemia LDL goal <100 History of mammogram (~11/26/24) History of right breast cancer IBS (irritable bowel syndrome) Establishing care with new doctor, encounter for Esophageal reflux Anxiety Elevated cholesterol Hypothyroidism Lobular carcinoma of right breast CAD (coronary artery disease) Carotid bruit Hypertension Surgical History History of colonoscopy (~12/25/22) History of cholecystectomy H/O removal of cyst History of cardiac cath History of right mastectomy History of laparoscopic cholecystectomy History of right breast biopsy Hx of BSO (bilateral salpingo-oophorectomy) S/P NIKO (total abdominal hysterectomy) Family History Father Colon cancer Cancer Mother Diabetes Child No Financial Resp Cancer Sister Heart attack Son Non Hodgkin's lymphoma Social History Household Members: Spouse Housing: Condominium Do you presently have visiting nurse or other home services: No Alcohol intake: current Alcohol intake frequency: does not drink Patient Tobacco Use Status: Never used Tobacco service: No Current occupational status: retired Cognitive needs: No Hearing needs: No Vision needs: Yes (rx glasses) Questionnaire PHQ-9 Over the last 2 weeks, how often have you been bothered by any of the following problems? 1. Little interest or pleasure in doing things: not at all 2. Feeling down, depressed, or hopeless: not at all 3. Trouble falling or staying asleep, or sleeping too much: not at all 4. Feeling tired or having little energy: not at all 5. Poor appetite or overeating: not at all 6. Feeling bad about yourself - or that you are a failure or have let yourself or your family down: not at all 7. Trouble concentrating on things, such as reading the newspaper or watching television: not at all 8. Moving or speaking so slowly that other people could have noticed. Or the opposite - being so fidgety or restless that you have been moving around a lot more than usual: not at all 9. Thoughts that you would be better off or of hurting yourself in some way: not at all Total score: 0 Depression Screening Interpretation: Negative Depression Screening Done: Yes 87098 - PHQ-9 Billing: Yes Source: Developed by Drs. Finesse Woodard, Sarah Pemberton, Koffi Ayala and colleagues, with an educational krishan from [employer]. Thrive Questionnaire Date Thrive assessed: 01/26/25 I am a: Patient What is your living situation today?: I have a steady place to live Within the past 12 months, did the food you bought not last and you didn't have the money to get more?: Never true Within the past 12 months, did you worry whether your food would run out before you got money to buy more?: Never true Do you have trouble paying for medicines?: No Do you have trouble getting transportation to medical appointments?: No Do you have trouble paying your heating and electricity bill?: No Do you have trouble taking care of your child, family member or friend?: No Do you have trouble with day-to-day activities such as bathing, preparing meals, shopping, managing finances, etc.?: No Are you currently unemployed and looking for a job?: No Are you interested in more education?: No Please select the resources that you would like help with: None Currently or been in a relationship where the following occur: No concerns reported THRIVE Score: 0 AUDIT C Alcohol Use Questionnaire (AUDIT-C) 1. How often do you have a drink containing alcohol?: Never 3. How often do you have six or more drinks on one occasion?: Never Total Score: 0 Score Reviewed/Action Taken: No ITALO-7 AMB Questionnaire ITALO-7 Date ITALO - 7 assessed: 01/26/25 Feeling nervous, anxious, or on edge: 0 = Not at all Not being able to stop or control worryin = Not at all Worrying too much about different things: 0 = Not at all Trouble relaxin = Not at all Being so restless that it is hard to sit still: 0 = Not at all Becoming easily annoyed or irritable: 0 = Not at all Feeling afraid as if something awful might happen: 0 = Not at all Total ITALO-7 score (0-4 normal; 5-9 mild; 10-14 moderate; 15-21 severe): 0 Source: Developed by Drs. Finesse Woodard, Sarah Pemberton, Koffi Ayala and colleagues, with an educational krishan from [employer]. ITALO-7 Assessment Billing ITALO-7 Assessment Tool: ITALO-7 Assessment 30530 Review of Systems Const Details: - Constitutional: Denies unintentional weight loss. - Psychiatric: Reports difficulty falling asleep, anxiety, and being under a lot of stress. Denies any thoughts of self-harm. - Cardiovascular: Denies chest pain. - Gastrointestinal: Denies diarrhea, vomiting, black or bloody stools, and abdominal pain. - Musculoskeletal: Denies swelling of the legs or pain behind the calf. - Neurological: Denies recent falls. All systems reviewed & are unremarkable except as noted in HPI and below Physical exam (Primary Care) Vital Signs: Last Vital Signs Temp 97.5 F 05/10/25 14:38 Pulse 66 05/10/25 14:38 Resp 14 05/10/25 14:38 BP 188/77 H 05/10/25 14:38 Pulse Ox 99 05/10/25 14:38 Oxygen Delivery Method Room Air 05/10/25 14:38 Care Plan Goal for BP management: <140/90 patient adamantly refused increasing her amlodipine from 5 mg to 10 mg. She was not interested in any medication changes at this time believes it might be related to stress therefore lorazepam 0.5 mg for bedtime restarted at this time. Patient to continue amlodipine 5 mg daily, losartan 100 mg daily and return in 2 weeks for nurse visit blood pressure check in 1 month for blood pressure check with myself BMI result Body Mass Index 26.0 BMI Assessment/Plan discussion: High BMI High, discussed plan: lifestyle, weight reduction, dietary, physical activity, alcohol moderation and other Tobacco/Smoking Status: Tobacco use Status Tobacco use date assessed 01/26/25 05/10/25 14:24 Patient Tobacco Use Status Never used Tobacco 05/10/25 14:44 PHQ-9: PHQ-9 Score PHQ-9: Total score 0 05/10/25 14:44 Depression Screening Interpretation: Negative Thrive Assessment: Date of Thrive Assessment Date Thrive assessed 01/26/25 05/10/25 14:24 Currently or been in a relationship where the following occur: No concerns reported Const Other: Appearance: Alert. Oriented X3. No acute distress. Head: Normal external exam. Normocephalic. Atraumatic. Eyes: Pupils are equal, round, and reactive to light. Extraocular movements intact. Conjunctiva and sclera normal. Eyelids normal. Throat: Pharynx normal. Uvula midline. Moist mucous membranes. Neck: Normal inspection. Neck supple. Full range of motion. Cardiovascular: Normal heart rate and rhythm. Heart sound normal. No murmurs noted. Pulses normal throughout. Respiratory: No respiratory distress. Painless inspiration. Breath sounds normal. No wheezes/rales/rhonchi noted. Chest nontender. No accessory muscle usage noted or decreased air movement noted. Abdomen: Soft and nontender. No distention noted. No organomegaly noted. Back: Full range of motion noted. Skin: Skin warm and dry. Normal skin color. Normal skin turgor. No rashes/lesions/lacerations noted. Extremities: No lower extremity edema. Extremities exhibit normal range of motion. Neuro: Oriented X 3. No motor deficit. No sensory deficit. Reflexes normal. Office Procedures Flu Questionnaire Does the patient have a severe egg allergy?: No Does the patient have severe life threatening allergies?: No Does the patient have a fever or illness today?: No Has the patient ever had Guillain-[place] Syndrome?: No Has the patient ever had any past reaction to a flu shot?: No Immunizations Fluarix [id number] (PF) 45 mcg (15 mcg x 3)/0.5 mL IM syringe Performing Provider: Mireille Healy PA-C Performing [facility] Administered by: JOVANI Stanley on 05/10/25 14:45 Dose Route Admin Location Dispensed Lot Number Expiration Date NDC Spine Surgeon 0.5 mL IM Left Deltoid 0.5 mL [id number] 01/04/26 [id number] [place] Direct Auto VIS Given Date VIS Provided VIS Publication Date 05/10/25 Single Vaccine 24 Eligibility Eligibility Date Funding Source Not [facility] Eligible 05/10/25 Private Results Reviewed Results Reviewed: - Labs from 05/03/2025: - CBC: Normal. - Sodium and Potassium: Normal. - Kidney function: GFR 53. - Hemoglobin A1c: 6.1%. - Triglycerides: Elevated. - Vitamin D: Low. - Tests and Diagnostics: - Mammogram (11/26/2024): Normal. - Colonoscopy (2022): Findings of gastritis and a normal colon. Coding Level of Care Code Est Pt Level 4 (51719) Complex EM visit Add On G2211 Diagnoses Essential hypertension I10 Anxiety F41.9 Prediabetes R73.03 Hypertriglyceridemia E78.1 Vitamin D deficiency E55.9 CKD (chronic kidney disease) N18.9 Osteopenia M85.80 Additional Codes ITALO-7 Assessment Billing - ITALO-7 Assessment Tool: ITALO-7 Assessment 25404 ([id number]) PHQ-9 - 41128 - PHQ-9 Billing: Yes ([id number]) Assessment & Plan Assessment & Plan (1) Essential hypertension: Code(s): I10 - Essential (primary) hypertension Category: Medical Plan: The patient's blood pressure was significantly elevated at 190/77 mmHg in the office, which she attributes to stress. She reports normal readings at home. She is currently taking amlodipine 5 mg and losartan 100 mg. She has refused an immediate increase in her medication due to being under a lot of stress. The plan is for her to monitor her blood pressure at home, bringing a log of her readings to a nurse visit in two weeks. She has been instructed on proper technique and advised to take two amlodipine 5 mg pills if her home readings are high. A follow-up visit is scheduled in one month to re-evaluate. (2) Anxiety: Code(s): F41.9 - Anxiety disorder, unspecified Category: Medical Plan: The patient reports insomnia and anxiety following the recent of her , but denies any thoughts of self-harm. She declined a referral to a therapist at this time. A trial of trazodone was offered, but she preferred to try Ativan, which she has used previously for anxiety. A prescription for Ativan 0.5 mg, 30 tablets, to be taken at bedtime was provided. If her sleep does not improve, trazodone can be considered as an alternative. (3) Prediabetes: Code(s): R73.03 - Prediabetes Category: Medical Plan: Recent labs showed a hemoglobin A1c of 6.1%, consistent with prediabetes. The patient was counseled to decrease her sugar intake. (4) Hypertriglyceridemia: Code(s): E78.1 - Pure hyperglyceridemia Category: Medical Plan: Lab results indicate elevated triglycerides. The patient was advised to decrease her sugar intake and was provided with educational materials. (5) Vitamin D deficiency: Code(s): E55.9 - Vitamin D deficiency, unspecified Category: Medical Plan: Recent labs revealed a low vitamin D level. It was recommended that she begin taking a vitamin D supplement, and she plans to purchase an [id number] women's multivitamin containing both vitamin D and calcium. (6) CKD (chronic kidney disease): Code(s): N18.9 - Chronic kidney disease, unspecified Category: Medical Plan: Recent labs showed a GFR of 53, indicating some degree of chronic kidney disease. This finding was noted, and her kidney function will continue to be monitored. (7) Osteopenia: Code(s): M85.80 - Other specified disorders of bone density and structure, unspecified site Category: Medical Plan: The patient has a known history of osteopenia. She declined a repeat bone density scan at this time. She was provided with educational materials on osteopenia and will be taking calcium and vitamin D through a multivitamin. Plan Plan Patient was informed and verbally consented to the use of an ambient scribe for clinic note documentation during this visit. 1. Hypertension The patient's blood pressure was significantly elevated at 190/77 mmHg in the office, which she attributes to stress. She reports normal readings at home. She is currently taking amlodipine 5 mg and losartan 100 mg. She has refused an immediate increase in her medication due to being under a lot of stress. The plan is for her to monitor her blood pressure at home, bringing a log of her readings to a nurse visit in two weeks. She has been instructed on proper technique and advised to take two amlodipine 5 mg pills if her home readings are high. A follow-up visit is scheduled in one month to re-evaluate. 2. Insomnia And Anxiety The patient reports insomnia and anxiety following the recent of her , but denies any thoughts of self-harm. She declined a referral to a therapist at this time. A trial of trazodone was offered, but she preferred to try Ativan, which she has used previously for anxiety. A prescription for Ativan 0.5 mg, 30 tablets, to be taken at bedtime was provided. If her sleep does not improve, trazodone can be considered as an alternative. 3. Prediabetes Recent labs showed a hemoglobin A1c of 6.1%, consistent with prediabetes. The patient was counseled to decrease her sugar intake. 4. Hypertriglyceridemia, Unspecified Lab results indicate elevated triglycerides. The patient was advised to decrease her sugar intake and was provided with educational materials. 5. Vitamin D Deficiency Recent labs revealed a low vitamin D level. It was recommended that she begin taking a vitamin D supplement, and she plans to purchase an hnyv-[id number]-mxgqrhv women's multivitamin containing both vitamin D and calcium. 6. Chronic Kidney Disease Recent labs showed a GFR of 53, indicating some degree of chronic kidney disease. This finding was noted, and her kidney function will continue to be monitored. 7. Osteopenia The patient has a known history of osteopenia. She declined a repeat bone density scan at this time. She was provided with educational materials on osteopenia and will be taking calcium and vitamin D through a multivitamin. I discussed the patient's significantly elevated blood pressure reading of 190/77 mmHg. Although I recommended increasing her amlodipine, she declined at this time, attributing the high reading to stress and a white coat effect. We agreed on a plan for home blood pressure monitoring with a two-week nurse follow-up to review her log, and I instructed her she could increase her amlodipine dose to 10 mg if she notes persistent high readings at home. We also addressed her insomnia and anxiety, which have worsened since her 's recent passing. She declined a referral to therapy but agreed to a prescription for Ativan 0.5 mg at bedtime, with the understanding that we can try trazodone if the Ativan is not effective. I reviewed her recent lab results, explaining the findings of prediabetes, high triglycerides, and low vitamin D. I provided counseling on dietary modifications, such as decreasing sugar intake, and recommended she start an [id number]-valxxxl multivitamin with vitamin D and calcium. She declined a repeat bone scan for her osteopenia at this time. I provided her with educational pamphlets regarding blood pressure, triglycerides, and osteopenia. We have arranged a follow-up with the nurse in two weeks and with me in one month. Orders: Orders Influenza [id number] Immunization Today Z23 - Encounter for immunization Medications: New lorazepam 0.5 mg PO BEDTIME PRN 30 tabs 0RF anxiety Patient Instructions: - Take your blood pressure at home. After taking your blood pressure medication, wait two hours, then sit quietly with your feet on the floor and arm at heart level before checking. Write down the numbers and bring the log to your next appointment. - If you notice that your blood pressure is consistently high at home, you may take two of your amlodipine 5 mg pills for a total dose of 10 mg. - Take one Ativan 0.5 mg pill at bedtime to help with sleep. - Please let us know if the Ativan does not help your sleep, as there are other options we can try. - Try to reduce the amount of sugar in your diet. This will help with your blood sugar and triglyceride levels. - You should start taking a daily women's multivitamin that includes vitamin D and calcium. - You have an appointment to see the nurse in two weeks to check your blood pressure. - You have a follow-up appointment with the doctor in one month.
[2025-05-10 14:38] VITALS: BP 188/77; PULSE 66; RESP 14; TEMP 36.4; O2SAT 99; BMI 26.0
== END 2025-05-10 15:07 | disposition home or self-care (01) ==
LOC: HO.HMCSH 14:19
PROVIDERS: PCP Physician Assistant Medical; Visit Provider Physician Assistant Medical
DX: I12.9 Hypertensive chronic kidney disease with stage 1 through stage 4 chronic kidney disease, or unspecified chronic kidney disease (principal); F41.9 Anxiety disorder, unspecified; R73.03 Prediabetes; E78.1 Pure hyperglyceridemia; E55.9 Vitamin D deficiency, unspecified; N18.9 Chronic kidney disease, unspecified; M85.80 Other specified disorders of bone density and structure, unspecified site; Z23 Encounter for immunization

== ENCOUNTER → 2025-05-10 14:19 | Outpatient (BNVA) | payer MEDICARE, SELFPAY | PROVIDERS: PCP Physician Assistant Medical; Visit Provider Physician Assistant Medical | DX: I12.9 Hypertensive chronic kidney disease with stage 1 through stage 4 chronic kidney disease, or unspecified chronic kidney disease (principal); N18.9 Chronic kidney disease, unspecified; G47.00 Insomnia, unspecified; M85.862 Other specified disorders of bone density and structure, left lower leg; E55.9 Vitamin D deficiency, unspecified; R73.03 Prediabetes; F41.9 Anxiety disorder, unspecified; E78.1 Pure hyperglyceridemia; I10 Essential (primary) hypertension; Z23 Encounter for immunization; Z79.899 Other long term (current) drug therapy | CPT/HCPCS: 90471; 90656; 96127; 99212 ==

== ENCOUNTER 2025-06-25 14:03 | Outpatient (AMB) | payer MEDICARE, SELFPAY ==
--- NOTE | 2025-06-25 14:15 | MHC.PC.OV ---
Vital Signs 06/25/25 14:16 06/25/25 15:39 Height 5 ft 0.24 in Weight 131 lb BMI 25.4 BP 184/76 H 155/70 H Blood Pressure Location Lt brachial Position Sitting Respiration 14 Pulse 55 Pulse Source Pulse Oximeter Temp 97.4 F Temp Source Temporal Artery Scan Pulse Oximetry (%) 98 Oxygen Delivery Method Room Air Intake Visit Reasons: 1 month follow up [place] [employer] Required: No Accompanied by: Self / Same As Patient Allergies Thiazides Adverse Reaction (Intermediate, Verified 06/25/25 14:31) Unknown meperidine (From Demerol) Adverse Reaction (Mild, Verified 06/25/25 14:31) NAUSEA/VOMITING Medication List - Last Reconciled 06/25/25 by Mireille Healy PA-C amlodipine 5 mg PO DAILY aspirin 81 mg levothyroxine 50 mcg PO DAILY lorazepam 0.5 mg PO BEDTIME PRN losartan 100 mg PO DAILY pantoprazole 40 mg PO DAILY propranolol 10 mg PO ONCE prosthetics right breast prosthetic [Right breast prosthetic As directed] [Right matectomy bras As directed] simvastatin 40 mg PO BEDTIME Tobacco use date assessed: 01/26/25 Dental Screening Dental Screen Date: 05/10/25 HPI HPI Comments History of Present Illness Details History of Present Illness The patient is a 80 year old female presenting for a follow-up visit for chronic condition management. She reports that her from cancer a couple of months ago and endorsed feeling sad. She denies the need for counseling or medications for grief, anxiety, or depression. She previously tried lorazepam but discontinued it because it caused sleepiness. The patient has a history of hypertension and monitors her blood pressure daily at home, reporting that it is usually well-controlled and not high. Her home log showed a reading of 102/53 mmHg yesterday. She experiences elevated blood pressure readings only in the office. Her current antihypertensive regimen includes amlodipine 5 mg, losartan 100 mg, and propranolol 10 mg. Her other chronic conditions include gastroesophageal reflux disease, managed with pantoprazole, hypothyroidism managed with levothyroxine 50 mcg, and hyperlipidemia managed with simvastatin. Recent lab work revealed a hemoglobin A1c of 6.1%, indicating prediabetes, and a low vitamin D level of 19.9. Her lipid panel was favorable, with a total cholesterol of 142 mg/dL, LDL of 57 mg/dL, HDL of 54 mg/dL, and triglycerides of 158 mg/dL. Social History - The patient's recently a couple of months ago. - She is living with her 53-year-old son, who moved back home. - The patient has one son and one daughter and is a great-grandmother. [facility] Medical History Bereavement Osteopenia CKD (chronic kidney disease) Hypertriglyceridemia Vitamin D deficiency Prediabetes Preventative health care Dual energy x-ray photon absorptiometry (DEXA) scan declined MDD (major depressive disorder) Pure hypercholesterolemia, unspecified Hyperlipidemia LDL goal <100 History of mammogram (~11/26/24) History of right breast cancer IBS (irritable bowel syndrome) Establishing care with new doctor, encounter for Esophageal reflux Anxiety Elevated cholesterol Hypothyroidism Lobular carcinoma of right breast CAD (coronary artery disease) Carotid bruit Hypertension Surgical History History of colonoscopy (~12/25/22) History of cholecystectomy H/O removal of cyst History of cardiac cath History of right mastectomy History of laparoscopic cholecystectomy History of right breast biopsy Hx of BSO (bilateral salpingo-oophorectomy) S/P NIKO (total abdominal hysterectomy) Family History Father Colon cancer Cancer Mother Diabetes Child No Financial Resp Cancer Sister Heart attack Son Non Hodgkin's lymphoma Social History Household Members: Spouse Housing: Condominium Do you presently have visiting nurse or other home services: No Alcohol intake: current Alcohol intake frequency: does not drink Patient Tobacco Use Status: Never used Tobacco service: No Current occupational status: retired Cognitive needs: No Hearing needs: No Vision needs: Yes (rx glasses) Questionnaire PHQ-9 Over the last 2 weeks, how often have you been bothered by any of the following problems? 1. Little interest or pleasure in doing things: not at all 2. Feeling down, depressed, or hopeless: not at all 3. Trouble falling or staying asleep, or sleeping too much: not at all 4. Feeling tired or having little energy: not at all 5. Poor appetite or overeating: not at all 6. Feeling bad about yourself - or that you are a failure or have let yourself or your family down: not at all 7. Trouble concentrating on things, such as reading the newspaper or watching television: not at all 8. Moving or speaking so slowly that other people could have noticed. Or the opposite - being so fidgety or restless that you have been moving around a lot more than usual: not at all 9. Thoughts that you would be better off or of hurting yourself in some way: not at all Total score: 0 Depression Screening Interpretation: Negative Depression Screening Done: Yes 33142 - PHQ-9 Billing: Yes Source: Developed by Drs. Finesse Woodard, Sarah Pemberton, Koffi Ayala and colleagues, with an educational krishan from [employer]. Thrive Questionnaire Date Thrive assessed: 01/26/25 I am a: Patient What is your living situation today?: I have a steady place to live Within the past 12 months, did the food you bought not last and you didn't have the money to get more?: Never true Within the past 12 months, did you worry whether your food would run out before you got money to buy more?: Never true Do you have trouble paying for medicines?: No Do you have trouble getting transportation to medical appointments?: No Do you have trouble paying your heating and electricity bill?: No Do you have trouble taking care of your child, family member or friend?: No Do you have trouble with day-to-day activities such as bathing, preparing meals, shopping, managing finances, etc.?: No Are you currently unemployed and looking for a job?: No Are you interested in more education?: No Please select the resources that you would like help with: None Currently or been in a relationship where the following occur: No concerns reported THRIVE Score: 0 AUDIT C Alcohol Use Questionnaire (AUDIT-C) 1. How often do you have a drink containing alcohol?: Never 3. How often do you have six or more drinks on one occasion?: Never Total Score: 0 Score Reviewed/Action Taken: No ITALO-7 AMB Questionnaire ITALO-7 Date ITALO - 7 assessed: 01/26/25 Feeling nervous, anxious, or on edge: 0 = Not at all Not being able to stop or control worryin = Not at all Worrying too much about different things: 0 = Not at all Trouble relaxin = Not at all Being so restless that it is hard to sit still: 0 = Not at all Becoming easily annoyed or irritable: 0 = Not at all Feeling afraid as if something awful might happen: 0 = Not at all Total ITALO-7 score (0-4 normal; 5-9 mild; 10-14 moderate; 15-21 severe): 0 Source: Developed by Drs. Finesse Woodard, Sarah Pemberton, Koffi Ayala and colleagues, with an educational krishan from [employer]. ITALO-7 Assessment Billing ITALO-7 Assessment Tool: ITALO-7 Assessment 44915 Review of Systems Narrative Review of Systems - Cardiovascular: Denies chest pain. - Respiratory: Denies shortness of breath. - Neurological: Denies dizzy spells. - Psychiatric: Reports feeling sad due to her 's recent . Const All systems reviewed & are unremarkable except as noted in HPI and below Physical exam (Primary Care) Vital Signs: Last Vital Signs Temp 97.4 F 06/25/25 14:16 Pulse 55 06/25/25 14:16 Resp 14 06/25/25 14:16 BP 184/76 H 06/25/25 14:16 Pulse Ox 98 06/25/25 14:16 Oxygen Delivery Method Room Air 06/25/25 14:16 Care Plan Goal for BP management: <140/90 patient reports she has white coat syndrome and has shown blood pressure at home under 140s over 90 consistently her blood pressure today was elevated although it went down to 155/70. Instructed to continue losartan 100 mg, propranolol 10 mg and amlodipine 5 mg BMI result Body Mass Index 25.4 BMI Assessment/Plan discussion: High BMI High, discussed plan: lifestyle, weight reduction, dietary, physical activity, alcohol moderation and other Tobacco/Smoking Status: Tobacco use Status Tobacco use date assessed 01/26/25 06/25/25 14:26 Patient Tobacco Use Status Never used Tobacco 06/25/25 14:26 PHQ-9: PHQ-9 Score PHQ-9: Total score 0 06/25/25 14:31 Depression Screening Interpretation: Negative Thrive Assessment: Date of Thrive Assessment Date Thrive assessed 01/26/25 06/25/25 14:26 Currently or been in a relationship where the following occur: No concerns reported Narrative Physical Exam Appearance: Alert. Oriented X3. No acute distress. Head: Normal external exam. Normocephalic. Atraumatic. Eyes: Pupils are equal, round, and reactive to light. Extraocular movements intact. Conjunctiva and sclera normal. Eyelids normal. Throat: Pharynx normal. Uvula midline. Moist mucous membranes. Neck: Normal inspection. Neck supple. Full range of motion. No adenopathy. Thyroid Normal. No meningeal signs. No neck mass noted. Cardiovascular: Normal heart rate and rhythm. Heart sound normal. No murmurs noted. Pulses normal throughout. Respiratory: No respiratory distress. Painless inspiration. Breath sounds normal. No wheezes/rales/rhonchi noted. Chest nontender. No accessory muscle usage noted or decreased air movement noted. Abdomen: Soft and nontender. No distention noted. No organomegaly noted. Back: Full range of motion noted. Skin: Skin warm and dry. Normal skin color. Normal skin turgor. No rashes/lesions/lacerations noted. Extremities: No lower extremity edema. Extremities exhibit normal range of motion. Neuro: Oriented X 3. No motor deficit. No sensory deficit. Reflexes normal. Results Reviewed Results Reviewed: Results - Home Blood Pressure Log: Reviewed, with one recent reading of 102/53 mmHg. - Labs (from ): - HbA1c: 6.1%. - Lipid Panel: Total cholesterol 142 mg/dL, LDL 57 mg/dL, HDL 54 mg/dL, triglycerides 158 mg/dL. - Vitamin D: 19.9. - Vitamin B12: 452. - CBC: Normal. - CMP: Normal kidney function, potassium, calcium, magnesium, and liver enzymes. - TSH: Normal. Coding Level of Care Code Est Pt Level 4 (92902) Add On Problem Visit Only Diagnoses Essential hypertension I10 Prediabetes R73.03 Vitamin D deficiency E55.9 Bereavement Z63.4 Additional Codes ITALO-7 Assessment Billing - ITALO-7 Assessment Tool: ITALO-7 Assessment 44348 ([id number]) PHQ-9 - 31267 - PHQ-9 Billing: Yes ([id number]) Time Spent (min) 60 Assessment & Plan Assessment & Plan (1) Essential hypertension: Code(s): I10 - Essential (primary) hypertension Category: Medical Plan: The patient exhibits white coat hypertension, with an in-office reading of 155/70 mmHg but reports well-controlled pressures at home. She will continue her current regimen of losartan 100 mg and propranolol 10 mg. She wanted to discontinue her amlodipine due to at home she has noticed her blood pressure low I explained to her that she should continue taking her amlodipine due to when she comes to the office it is always high. She believes it is related to white coat syndrome. Therefore I explained to her that she should start checking her blood pressure after she takes her lisinopril and propranolol 2 hours later and if it is low under 120/80 then she should not take the amlodipine although if it is above 120/80 then she can take the amlodipine 5 mg. Patient understands agrees with this plan. (2) Prediabetes: Code(s): R73.03 - Prediabetes Category: Medical Plan: Based on a recent HbA1c of 6.1%, the patient is diagnosed with prediabetes. A urine sample will be collected today to check for proteinuria, hematuria, and glycosuria. (3) Vitamin D deficiency: Code(s): E55.9 - Vitamin D deficiency, unspecified Category: Medical Plan: The patient's vitamin D level is low at 19.9. She has been advised to begin taking a vitamin D supplement. (4) Bereavement: Code(s): Z63.4 - Disappearance and of family member Category: Social Hx Plan: The patient is grieving the recent of her . She declined a referral for counseling or medications at this time. Plan is to provide support and monitor her emotional well-being. Plan Plan Patient was informed and verbally consented to the use of an ambient scribe for clinic note documentation during this visit. 1. Essential Hypertension The patient exhibits white coat hypertension, with an in-office reading of 155/70 mmHg but reports well-controlled pressures at home. She will continue her current regimen of losartan 100 mg and propranolol 10 mg. She wanted to discontinue her amlodipine due to at home she has noticed her blood pressure low I explained to her that she should continue taking her amlodipine due to when she comes to the office it is always high. She believes it is related to white coat syndrome. Therefore I explained to her that she should start checking her blood pressure after she takes her lisinopril and propranolol 2 hours later and if it is low under 120/80 then she should not take the amlodipine although if it is above 120/80 then she can take the amlodipine 5 mg. Patient understands agrees with this plan. 2. Prediabetes Based on a recent HbA1c of 6.1%, the patient is diagnosed with prediabetes. A urine sample will be collected today to check for proteinuria, hematuria, and glycosuria. 3. Vitamin D Deficiency The patient's vitamin D level is low at 19.9. She has been advised to begin taking a vitamin D supplement. 4. Bereavement The patient is grieving the recent of her . She declined a referral for counseling or medications at this time. Plan is to provide support and monitor her emotional well-being. 5. Follow-Up A follow-up visit is scheduled in three months. Discussion Notes I discussed the patient's blood pressure management, noting her high in-office readings versus her typically normal home readings. The patient exhibits white coat hypertension, with an in-office reading of 155/70 mmHg but reports well-controlled pressures at home. She will continue her current regimen of losartan 100 mg and propranolol 10 mg. She wanted to discontinue her amlodipine due to at home she has noticed her blood pressure low I explained to her that she should continue taking her amlodipine due to when she comes to the office it is always high. She believes it is related to white coat syndrome. Therefore I explained to her that she should start checking her blood pressure after she takes her lisinopril and propranolol 2 hours later and if it is low under 120/80 then she should not take the amlodipine although if it is above 120/80 then she can take the amlodipine 5 mg. Patient understands agrees with this plan. I reviewed her recent lab results, praising her excellent lipid panel but also explaining that her HbA1c of 6.1% indicates prediabetes and her vitamin D level of 19.9 is low. I recommended she start a vitamin D supplement and that we would collect a urine sample today to screen for kidney complications related to prediabetes. I also offered condolences for the recent passing of her and respected her decision not to seek formal therapy or medication for her grief at this time. We scheduled a follow-up appointment in three months. Orders: Orders UA CC w/rflx Micro + Cult Today Z00.00 - Encounter for general adult medical examination without abnormal findings Microalbumin, Random (w Creat) Today Z00.00 - Encounter for general adult medical examination without abnormal findings Patient Instructions: Patient Instructions - Continue to check your blood pressure at home. - If your blood pressure reading is low (in the 100s), you can skip your amlodipine pill for that day. - Please start taking an [id number] vitamin D supplement. - Provide a urine sample before you leave the clinic today. - Please schedule a follow-up appointment in about three months.
[2025-06-25 14:16] VITALS: BP 184/76; PULSE 55; RESP 14; TEMP 36.3; O2SAT 98; BMI 25.4
[2025-06-25 15:39] VITALS: BP 155/70
--- OUTSIDE RECORDS SUMMARY | 2025-06-25 15:39 | XMS_ITS | Clinical Summary ---
Author Organization [facility] Facility Address [address] [place] [address] Care Team Providers Care Special Educator Name Role Phone LuisFinesse thompson Primary Care [...] patient's age to complete this topic Insurance [facility] MCR Care Teams Special Educator Relationship Specialty Start Date End Date Finesse Smith DO [address] [place] [address] [place] PCP - General Internal Medicine 10/22/22
== END 2025-06-25 14:52 | disposition home or self-care (01) ==
LOC: HO.HMCSH 14:03
PROVIDERS: PCP Physician Assistant Medical; Visit Provider Physician Assistant Medical
DX: I10 Essential (primary) hypertension (principal); R73.03 Prediabetes; E55.9 Vitamin D deficiency, unspecified; Z63.4 Disappearance and death of family member